=== PATIENT | male | born 1955 | race Caucasian/White ===

== ENCOUNTER → 2018-01-20 17:22 | Outpatient (CLI) | payer OTHER, SELFPAY | PROVIDERS: Family Provider Family Medicine; PCP Family Medicine; Visit Provider Otolaryngology Otolaryngology/Facial Plastic Surgery | DX: J32.9 Chronic sinusitis, unspecified (principal) | CPT/HCPCS: 87070; 87077; 87186; 87205 ==

== ENCOUNTER → 2018-04-21 07:54 | Outpatient (CLI) | payer OTHER, SELFPAY ==
[2018-04-17 10:46] LABS: Absolute Lymphocyte Count 2.55 X10^3/ul (0.83-4.51); Absolute Neutrophil Count 10.5 X10^3/uL (2.0-7.7); Basophil# 0.02 X10^3/uL; Basophil% 0.1 % (0-1); Eosinophil# 0.01 X10^3/uL; Eosinophils% 0.1 % (0-5); Hematocrit 38.6 % (40-54); Hemoglobin 12.5 g/dl (13.0-16.5); Lymphocyte # 2.55 X10^3/ul (4.0); Mean Corp Hgb Conc 32.4 g/gl (32-36); Mean Corpuscular Hgb 27.5 pg (27.0-32.0); Mean Platelet Vol. 9.7 fl (6.2-12.0); Monocyte# 0.85 X10^3/uL; Neutrophil # 10.54 X10^3/uL (2.7-7.7); Neutrophil % 74.2 % (47-70); POSITIVE COUNT NO; POSITIVE DIFFERENTIAL NO; POSITIVE MORPHOLOGY NO; Platelet Count 400 K/mm3 (150-450); Prothrombin Time (Protime)PT. 13.3 SECONDS (11.7-14.9); RBC Distribution Width CV 15.6 % (11.6-14.6); RBC Distribution Width SD 48.2 fl (35.1-43.9); Red Blood Count 4.54 M/mm3 (4.6-6.2); White Blood Count 14.2 K/mm3 (4.4-11.0)
[2018-04-17 10:47] LABS: Partial Thromboplast Time 28.3 Seconds (24.1-36.2)
[2018-04-21] VITALS (9 sets, daily range): BP systolic 120–144; BP diastolic 62–97; PULSE 58–84; RESP 16–18; TEMP 36.2–36.6; O2SAT 95–100; BMI 29.6
[2018-04-21] MEDS: DiphenhydrAMINE 50 MG/ML Syringe 25 MG IV (08:31)
[2018-04-21] MEDS: Acetaminophen 325 MG Tablet 650 MG PO (08:31)
== END ==
PROVIDERS: Family Provider Family Medicine; PCP Family Medicine; Visit Provider Internal Medicine Nephrology
DX: N18.3 Chronic kidney disease, stage 3 (moderate) (principal); I77.6 Arteritis, unspecified; N05.9 Unspecified nephritic syndrome with unspecified morphologic changes
CPT/HCPCS: 96374; 36415; 85025; 85610; 85730; J7040; J7050; J9310; A4216

== ENCOUNTER → 2018-05-06 07:52 | Outpatient (CLI) | payer OTHER, SELFPAY ==
[2018-05-06 08:02] VITALS: BP 106/67; PULSE 82; RESP 18; TEMP 36.3; O2SAT 99; BMI 28.8
[2018-05-06] MEDS: DiphenhydrAMINE 50 MG/ML Syringe 25 MG IV (08:12)
[2018-05-06] MEDS: Acetaminophen 325 MG Tablet 650 MG PO (08:12)
[2018-05-06 09:18] VITALS: BP 128/83; PULSE 59; RESP 18; TEMP 36.2; O2SAT 100
[2018-05-06 09:45] VITALS: BP 138/79; PULSE 53; RESP 18; O2SAT 100
[2018-05-06 10:15] VITALS: BP 145/80; PULSE 80; RESP 18; TEMP 36.3; O2SAT 100
[2018-05-06 11:20] VITALS: BP 170/83; PULSE 64; RESP 16; TEMP 36.3; O2SAT 100
== END ==
PROVIDERS: Family Provider Family Medicine; PCP Family Medicine; Visit Provider Internal Medicine Nephrology
DX: I77.6 Arteritis, unspecified (principal); N05.9 Unspecified nephritic syndrome with unspecified morphologic changes
CPT/HCPCS: 96374; J7040; J7050; J9310; A4216

== ENCOUNTER → 2018-10-13 08:49 | Outpatient (CLI) | payer OTHER, SELFPAY ==
[2018-10-13] MEDS: Acetaminophen 325 MG Tablet 650 MG PO (09:07)
[2018-10-13] MEDS: DiphenhydrAMINE 50 MG/ML Syringe 25 MG IV (09:09)
[2018-10-13 09:19] VITALS: BP 110/62; PULSE 83; RESP 16; TEMP 36.4; O2SAT 98; BMI 32.6
--- OUTSIDE RECORDS SUMMARY | 2018-11-29 04:32 | XMS RPT_ITS ---
:1955 Author Organization OHIP Care Team Providers Name Role Phone ANANT KAUR) Attending Unavailable ANANT KAUR) Referring Unavailable ANATN KAUR) Referring Unavailable ANANT KAUR) Referring Unavailable ANANT KAUR) Attending Unavailable ANANT KAUR) Referring Unavailable ANANT KAUR) Referring Unavailable AANNT KAUR) Referring Unavailable HARLAN CORNEJO Attending Unavailable ANANT KAUR) Referring Unavailable ANANT KAUR) Attending Unavailable ANANT KAUR) Referring Unavailable GRISEL MCKEON Referring Unavailable ANANT KAUR) Referring Unavailable ANANT KAUR) Attending Unavailable ANANT KAUR) Referring Unavailable ANANT KAUR) Referring Unavailable TERESA REGAN ([facility]) Referring Unavailable URIEL STONER Admitting Unavailable LINDA, JAYAPRAKASH Consulting Unavailable PAM GARG Attending Unavailable ANANT KAUR Primary Care Unavailable Yancy TREVINO Admitting Unavailable LINDA, JAYAPRAKASH R Consulting Unavailable SAUL, CHENCHO COLÓN Attending Unavailable Ina, Travis Attending Unavailable Aydin Castellano Primary Care Unavailable Ina, Travis Referring Unavailable Linda, Jayaprakash Attending Unavailable Aydin Castellano Primary Care Unavailable Linda, Jayaprakash Attending Unavailable Linda, Jayaprakash Referring Unavailable Aydin Castellano Primary Care Unavailable Linda, Jayaprakash Attending Unavailable Linda, Jayaprakash Referring Unavailable Aydin Castellano Primary Care Unavailable Linda, Jayaprakash Attending Unavailable Linda, Jayaprakash Referring Unavailable Aydin Castellano Primary Care Unavailable Linda, Jayaprakash Attending Unavailable Linda, Jayaprakash Referring Unavailable Aydin Castellano Primary Care Unavailable PROBLEMS PROBLEMS DATE TYPE CONDITION / CODE ATTENDING STATUS SOURCE 08/10/2018 Active Other 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 term 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 care 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 nurse NA Active [facility] Main therapy / [facility] Z79.899(ICD-10) Repository 04/06/2018 Admitting Unknown / PAM GARG Active [facility]K(Unknown) [facility] Repository 03/11/2018 Active Obstructive sleep NA Active [facility] apnea (adult) Clinic Other (pediatric) / [facility] G47.33(ICD-10) Repository 03/17/2018 Active Other specified NA Active [facility] disorders of [facility] Main kidney and ureter [place] / N28.89(ICD-10) Repository 03/12/2018 Active Unspecified NA Active [facility] abnormal findings Clinic Main in urine / [place] R82.90(ICD-10) Repository 03/11/2018 Active Acute kidney NA Active [facility] failure, Clinic Main unspecified / [place] N17.9(ICD-10) Repository 03/08/2018 Active Abnormal results NA Active [facility] kidney [facility] Main function studies [facility] / R94.4(ICD-10) Repository 02/25/2018 Active Snoring / NA Active [facility] R06.83(ICD-10) Clinic Other [facility] Repository 02/25/2018 Active Somnolence / NA Active [facility] R40.0(ICD-10) Clinic Other [facility] Repository 02/22/2018 Active Other specified NA Active [facility] abnormal findings [facility] [place] blood [facility] chemistry / Repository R79.89(ICD-10) 02/12/2018 Active Other fatigue / NA Active [facility] R53.83(ICD-10) [facility] Repository 02/12/2018 Active Encounter for NA Active [facility] screening for [facility] other viral [facility] diseases / Repository Z11.59(ICD-10) 02/11/2018 Active Unknown / NATASHA, Epi Domin[place]veland UNK(Unknown) ANANT Jim [facility] KAYLI) [facility] Repository PROCEDURES PROCEDURES No Procedure Records FoundRESULTS RESULTS OBSOLETE Observed: 11/16/2018 Status: COMPLETED Source: [place] 12:[address] [facility] REPOS[facility]ORY Refill ([facility]AMPWS) ANGELICA VELAZQUEZ ([id number]) 1955 M [facility] Date Time Provider Department 11/16/18 ANANT KAUR) FAMPWS During your visit today, we recorded the following information about you: Candida Rachel Ma 11/16/2018 2:15 PM Signed Patient has been identified by name and date of : Yes Pending Prescriptions Disp Refills TAMSULOSIN 0.4 MG CAPSULE 90 capsule 1 Sig: Take 1 capsule by mouth daily at bedtime. NIKOLAI: No RX INSTRUCTIONS: Patient aware RX will be sent to pharmacy. No need to notify patient. Candida Rachel Ma Last ov: 08/2018 Last refill: 08/2018 Nov: 01/2019 Pharmacy requesting 90 day supply. Candida Rachel Ma Allergies As of Date: 11/16/2018 Noted Allergy Reaction ALEVE (NAPROXEN SODIUM) 12/23/2011 14 - Other: See Comments Comments: throat tightening ASPIRIN 06/24/2011 14 - Other: See Comments Comments: Swelling of throat IBUPROFEN 11/13/2011 14 - Other: See Comments Date Reviewed: 08/13/2018 Reviewed by: Cinda Elaine Ma - Fully Assessed Reason for Visit: Refill Request [94] Visit Diagnoses:Nocturia [R35.1] BPH with obstruction/lower urinary tract symptoms [N40.1, N13.8] Order(s):tamsulosin ER (FLOMAX) 0.4 mg capTake 1 capsule by mouth daily at bedtime.Disp: 90 capsuleRfl: 1 Prescriptions as of 11/16/2018 Sig: TAMSULOSIN 0.4 MG CAPSULE Take 1 capsule by mouth daily* AMLODIPINE 10 MG TABLET Take 1 tablet by mouth once d* LISINOPRIL 10 MG TABLET Take 1 tablet by mouth once d* CPAP Initiate CPAP @ 6 cm of water* BLOOD SUGAR DIAGNOSTIC STRIPS Test blood sugar(s) 2 times d* BLOOD-GLUCOSE METER KIT Glucose Meter of Choice - Kit* LANCETS Test blood sugar(s) 2 times d* COMPOUNDED PRESCRIPTION Automatic Arm BP Monitor CHOLECALCIFEROL (VITAMIN D3) * Take 1,000 Units by mouth onc* Problem List As Of Date 11/16/2018 Noted Resolved Ulcerative colitis [K51.90] INVALID FOR* Anemia, unspecified [D64.9] INVALID FOR* Ulcerative colitis, unspecified [K51.90] INVALID FOR*02/11/2018 Hypokalemia [E87.6] INVALID FOR* Hypomagnesemia [E83.42] INVALID FOR* Hyponatremia [E87.1] INVALID FOR* S/P ileostomy [Z93.2] Obesity (BMI 30.0-34.9) [E66.9] Hypogonadism male [E29.1] INVALID FOR*03/02/2018 ANNIE (obstructive sleep apnea) [G47.33] Acute kidney injury (HCC) [N17.9] INVALID FOR* 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 Hypertension [I10] Prescriptions ordered this encounter Disp Refills Start End TAMSULOSIN 0.4 MG CAPSULE 90 c* 1 11/16/2018 Route: ORAL Sig: Take 1 capsule by mouth daily at bedtime. Medications Discontinued During This Encounter tamsulosin ER (FLOMAX) 0.4 mg cap 30 c* 5 11/14/2018 11/16/2018 Route: ORAL Sig: Take 1 capsule by mouth daily at bedtime. Disc: Reason for discontinue is not on file. Encounter Status:Closed by ANANT KAUR MD on 11/16/18 PROGRESS Observed: 10/29/2018 Status: COMPLETED Source: [place] 12:[address] [facility] REPOS[facility] HNO ID: [id number] Author: Rachel Laws) Juani Service: (none) Author Type: Registered Nurse Type: Progress Notes Filed: 10/29/2018 12:59 PM Note Text: PRIMARY CARE COORDINATION FOLLOW-UP NOTE Provider Action/FYI ORDERS PENDED FOR AMLODIPINE AND LISINOPRIL SCRIPTS TO [facility] Patient identified by name and date of . YES Spoke to patient Summary: Pt requesting Amlodipine and Lisinopril scripts be sent to [facility] Patient phones requesting refills as follows: Pending Prescriptions Disp Refills AMLODIPINE 10 MG TABLET 90 tablet 3 Sig: Take 1 tablet by mouth once daily. NIKOLAI: No LISINOPRIL 10 MG TABLET 90 tablet 3 Sig: Take 1 tablet by mouth once daily. NIKOLAI: No Please review and advise. Emergency Department Nurse plan for next outreach: No further follow up needed at this time Signature Rachel Gloria RN October 29, 2018 CNPTOUTREACH Observed: 10/29/2018 Status: COMPLETED Source: [place] 12:[address] [facility] RE[facility] Patient Outreach (FAMPWS) MIKA VELAZQUEZ ([id number]) 1955 M Date Time Provider Department 10/29/18 RACHEL GLORIA) CORINNEWS During your visit today, we recorded the following information about you: Rachel Gloria RN 10/29/2018 12:59 PM Signed PRIMARY CARE COORDINATION FOLLOW-UP NOTE Provider Action/FYI ORDERS PENDED FOR AMLODIPINE AND LISINOPRIL SCRIPTS TO [facility] Patient identified by name and date of . YES Spoke to patient Summary: Pt requesting Amlodipine and Lisinopril scripts be sent to [facility] Patient phones requesting refills as follows: Pending Prescriptions Disp Refills AMLODIPINE 10 MG TABLET 90 tablet 3 Sig: Take 1 tablet by mouth once daily. NIKOLAI: No LISINOPRIL 10 MG TABLET 90 tablet 3 Sig: Take 1 tablet by mouth once daily. NIKOLAI: No Please review and advise. Emergency Department Nurse plan for next outreach: No further follow up needed at this time Signature Rachel Gloria RN October 29, 2018 Allergies As of Date: 10/29/2018 Noted Allergy Reaction ALEVE (NAPROXEN SODIUM) 12/23/2011 14 - Other: See Comments Comments: throat tightening ASPIRIN 06/24/2011 14 - Other: See Comments Comments: Swelling of throat IBUPROFEN 11/13/2011 14 - Other: See Comments Date Reviewed: 08/13/2018 Reviewed by: Cinda Elaine Ma - Fully Assessed Reason for Visit: [employer] - Patient Initiated [3614] Visit Diagnosis:Hypertension, essential [I10] Order(s):amLODIPine (NORVASC) 10 mg tabletTake 1 tablet by mouth once daily.Disp: 90 tabletRfl: 3 lisinopril (ZESTRIL, PRINIVIL) 10 mg tabletTake 1 tablet by mouth once daily.Disp: 90 tabletRfl: 3 Prescriptions as of 10/29/2018 Sig: AMLODIPINE 10 MG TABLET Take 1 tablet by mouth once d* BLOOD SUGAR DIAGNOSTIC STRIPS Test blood sugar(s) 2 times d* BLOOD-GLUCOSE METER KIT Glucose Meter of Choice - Kit* CHOLECALCIFEROL (VITAMIN D3) * Take 1,000 Units by mouth onc* COMPOUNDED PRESCRIPTION Automatic Arm BP Monitor CPAP Initiate CPAP @ 6 cm of water* LANCETS Test blood sugar(s) 2 times d* LISINOPRIL 10 MG TABLET Take 1 tablet by mouth once d* TAMSULOSIN 0.4 MG CAPSULE Take 1 capsule by mouth daily* Problem List As Of Date 10/29/2018 Noted Resolved Ulcerative colitis [K51.90] INVALID FOR* Anemia, unspecified [D64.9] INVALID FOR* Ulcerative colitis, unspecified [K51.90] INVALID FOR*02/11/2018 Hypokalemia [E87.6] INVALID FOR* Hypomagnesemia [E83.42] INVALID FOR* Hyponatremia [E87.1] INVALID FOR* S/P ileostomy [Z93.2] Obesity (BMI 30.0-34.9) [E66.9] Hypogonadism male [E29.1] INVALID FOR*03/02/2018 ANNIE (obstructive sleep apnea) [G47.33] Acute kidney injury (HCC) [N17.9] INVALID FOR* 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 Hypertension [I10] Prescriptions ordered this encounter Disp Refills Start End AMLODIPINE 10 MG TABLET 90 t* 3 10/29/2018 Class: [facility] Route: ORAL Sig: Take 1 tablet by mouth once daily. LISINOPRIL 10 MG TABLET 90 t* 3 10/29/2018 Class: [facility] Route: ORAL Sig: Take 1 tablet by mouth once daily. Medications Discontinued During This Encounter amLODIPine (NORVASC) 10 mg tablet 30 t* 3 10/08/2018 10/29/2018 Route: ORAL Sig: Take 1 tablet by mouth once daily. Disc: Reason for discontinue is not on file. lisinopril (ZESTRIL, PRINIVIL) 10 mg* 30 t* 2 08/13/2018 10/29/2018 Route: ORAL Sig: Take 1 tablet by mouth once daily. Disc: Reason for discontinue is not on file. Encounter Status:Closed by HARLAN CORNEJO MD on 10/29/18 PROGRESS Observed: 10/20/2018 Status: COMPLETED Source: [place] 2:[address] [facility] REPOSITORY HNO ID: [id number] Author: Anant Barry) Natasha Service: (none) Author Type: Physician Type: Progress Notes Filed: 10/20/2018 2:27 PM Note Text: Reviewed. PROGRESS Observed: 10/20/2018 Status: COMPLETED Source: [place] 2:[address] [facility] REPOS[facility]ORY HNO ID: [id number] Author: Rachel OrozcoRn) Juani Service: (none) Author Type: Registered Nurse Type: Progress Notes Filed: 10/20/2018 2:15 PM Note Text: PRIMARY CARE COORDINATION DISCHARGE Patient has been identified by name and date of : Yes Patient discharged from Primary Care Coordination: YES Goals met Decreased number of hospital admissions over a 6-12 month period Appointment adherence (PCP and specialists) over 6-12 month period Diagnostic/laboratory/screening adherence over 6-12 month period Patient demonstrates ability to set and achieve healthcare self-management goals Demonstrates engagement through active participation in self-care Goals not met PCP determination Patient knowledgeable and confident in contacting Health Care Providers for questions or concerns: YES Reinforced with patient and/or caregiver that Primary Care Coordination may be reinitiated if a change in status warrants navigation readmission: Address in Future Encounter Discussed with: PCP What was the Focus/Challenges addressed in Care Coordination? Education on Chronic Disease Management Disposition: Follow up with PCP Follow Up with [employer] Care Team Tab - End: YES Rachel Gloria RN CNPTOUTREACH Observed: 10/20/2018 Status: COMPLETED Source: [place] 12:[address] [facility] RE[facility] Patient Outreach (FAMPWS) MIKA VELAZQUEZ ([id number]) 1955 M Date Time Provider Department 10/20/18 RACHEL GLORIA (RN) FAMPWS During your visit today, we recorded the following information about you: Rachel Gloria RN 10/20/2018 2:15 PM Signed PRIMARY CARE COORDINATION DISCHARGE Patient has been identified by name and date of : Yes Patient discharged from Primary Care Coordination: YES Goals met Decreased number of hospital admissions over a 6-12 month period Appointment adherence (PCP and specialists) over 6-12 month period Diagnostic/laboratory/screening adherence over 6-12 month period Patient demonstrates ability to set and achieve healthcare self-management goals Demonstrates engagement through active participation in self-care Goals not met PCP determination Patient knowledgeable and confident in contacting Health Care Providers for questions or concerns: YES Reinforced with patient and/or caregiver that Primary Care Coordination may be reinitiated if a change in status warrants navigation readmission: Address in Future Encounter Discussed with: PCP What was the Focus/Challenges addressed in Care Coordination? Education on Chronic Disease Management Disposition: Follow up with PCP Follow Up with [employer] Care Team Tab - End: YES TONG Contreras MD 10/20/2018 2:27 PM Signed Reviewed. Allergies As of Date: 10/20/2018 Noted Allergy Reaction ALEVE (NAPROXEN SODIUM) 12/23/2011 14 - Other: See Comments Comments: throat tightening ASPIRIN 06/24/2011 14 - Other: See Comments Comments: Swelling of throat IBUPROFEN 11/13/2011 14 - Other: See Comments Date Reviewed: 08/13/2018 Reviewed by: Cinda Elaine Ma - Fully Assessed Reason for Visit: [employer]ockey- Other [7747] Cmt: Discharge from Care Coordination Prescriptions as of 10/20/2018 Sig: AMLODIPINE 10 MG TABLET Take 1 tablet by mouth once d* BLOOD SUGAR DIAGNOSTIC STRIPS Test blood sugar(s) 2 times d* BLOOD-GLUCOSE METER KIT Glucose Meter of Choice - Kit* CHOLECALCIFEROL (VITAMIN D3) * Take 1,000 Units by mouth onc* COMPOUNDED PRESCRIPTION Automatic Arm BP Monitor CPAP Initiate CPAP @ 6 cm of water* LANCETS Test blood sugar(s) 2 times d* LISINOPRIL 10 MG TABLET Take 1 tablet by mouth once d* TAMSULOSIN 0.4 MG CAPSULE Take 1 capsule by mouth daily* Problem List As Of Date 10/20/2018 Noted Resolved Ulcerative colitis [K51.90] INVALID FOR* Anemia, unspecified [D64.9] INVALID FOR* Ulcerative colitis, unspecified [K51.90] INVALID FOR*02/11/2018 Hypokalemia [E87.6] INVALID FOR* Hypomagnesemia [E83.42] INVALID FOR* Hyponatremia [E87.1] INVALID FOR* S/P ileostomy [Z93.2] Obesity (BMI 30.0-34.9) [E66.9] Hypogonadism male [E29.1] INVALID FOR*03/02/2018 ANNIE (obstructive sleep apnea) [G47.33] Acute kidney injury (HCC) [N17.9] INVALID FOR* 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 Hypertension [I10] Encounter Status:Closed by RACHEL GLORIA on 10/20/18 CNNURSE Observed: 08/26/2018 Status: COMPLETED Source: [place] 11:[address] [facility] MI[facility] VELAZQUE[facility] ([id number]) 1955 M Date Time Provider Department 08/26/18 11:00 AM [place] NURSE TERES[facility] During your visit today, we recorded the following information about you: Pulse Blood pressure 76/minute 122/70 Danelle Daniels LPN 08/26/2018 10:58 AM Signed Manual Readin/70 Pulse: 76 Reason for blood pressure check - Last BP elevated and Medication adjustment Patient is: Taking medication as prescribed Yes Took medication today Yes If no, date medication last taken N/A Experiencing side effects No BP was elevated at last appt 08/13/18. Was placed on Lisinopril 10mg daily. Tolerating medication well. Denies any chest pain, shortness of breath, dizziness, or headaches. Daily caffeine use with soda. Past personal history of tobacco use; no current exposure. Alert and oriented. Pt has been identified by name and birthdate: Yes Allergies reviewed: Yes Latex allergy: no. Medication - prescribed and OTC reviewed and updated: Yes Do you need any prescription refills prior to your next visit: No Health Maintenance: Reviewed and not up to date and provider notified Patient advised to continue with current medications and would be contacted with any further instructions after review by PCP. Danelle Daniels LPN Referring Provider: ANANT KAUR) [[id number]] Allergies As of Date: 08/26/2018 Noted Allergy Reaction ALEVE (NAPROXEN SODIUM) 12/23/2011 14 - Other: See Comments Comments: throat tightening ASPIRIN 06/24/2011 14 - Other: See Comments Comments: Swelling of throat IBUPROFEN 11/13/2011 14 - Other: See Comments Date Reviewed: 08/13/2018 Reviewed by: Cinda Elaine Ma - Fully Assessed Reason for Visit: Blood Pressure Check [195] Primary Visit Diagnosis:Hypertension, essential [I10] Prescriptions as of 08/26/2018 Sig: AMLODIPINE 10 MG TABLET Take 1 tablet by mouth once d* TAMSULOSIN 0.4 MG CAPSULE Take 1 capsule by mouth daily* LISINOPRIL 10 MG TABLET Take 1 tablet by mouth once d* CPAP Initiate CPAP @ 6 cm of water* BLOOD SUGAR DIAGNOSTIC STRIPS Test blood sugar(s) 2 times d* BLOOD-GLUCOSE METER KIT Glucose Meter of Choice - Kit* LANCETS Test blood sugar(s) 2 times d* COMPOUNDED PRESCRIPTION Automatic Arm BP Monitor CHOLECALCIFEROL (VITAMIN D3) * Take 1,000 Units by mouth onc* Problem List As Of Date 08/26/2018 Noted Resolved Ulcerative colitis [K51.90] INVALID FOR* Anemia, unspecified [D64.9] INVALID FOR* Ulcerative colitis, unspecified [K51.90] INVALID FOR*02/11/2018 Hypokalemia [E87.6] INVALID FOR* Hypomagnesemia [E83.42] INVALID FOR* Hyponatremia [E87.1] INVALID FOR* S/P ileostomy [Z93.2] Obesity (BMI 30.0-34.9) [E66.9] Hypogonadism male [E29.1] INVALID FOR*03/02/2018 ANNIE (obstructive sleep apnea) [G47.33] Acute kidney injury (HCC) [N17.9] INVALID FOR* 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 Hypertension [I10] Encounter Status:Closed by DANELLE DANIELS LPN on 08/26/18 PROGRESS Observed: 08/26/2018 Status: COMPLETED Source: [place] 10:[address] [facility] REPOSITORY [facility] ID: [id number] Author: Danelle Daniels LPN Service: (none) Author Type: (none) Type: Progress Notes Filed: 08/26/2018 10:58 AM Note Text: Manual Readin/70 Pulse: 76 Reason for blood pressure check - Last BP elevated and Medication adjustment Patient is: Taking medication as prescribed Yes Took medication today Yes If no, date medication last taken N/A Experiencing side effects No BP was elevated at last appt 08/13/18. Was placed on Lisinopril 10mg daily. Tolerating medication well. Denies any chest pain, shortness of breath, dizziness, or headaches. Daily caffeine use with soda. Past personal history of tobacco use; no current exposure. Alert and oriented. Pt has been identified by name and birthdate: Yes Allergies reviewed: Yes Latex allergy: no. Medication - prescribed and OTC reviewed and updated: Yes Do you need any prescription refills prior to your next visit: No Health Maintenance: Reviewed and not up to date and provider notified Patient advised to continue with current medications and would be contacted with any further instructions after review by PCP. Danelle Daniels LPN PROGRESS Observed: 08/13/2018 Status: COMPLETED Source: [place] 11:[address] [facility] RE[facility] HNO ID: [id number] Author: Rachel OrozcoRn) Juani Service: (none) Author Type: Registered Nurse Type: Progress Notes Filed: 08/13/2018 11:46 AM Note Text: PRIMARY CARE COORDINATION IN OFFICE VISIT WITH PCP Patient has been identified by name and date of . PCP Assessment/Plan: Reviewed PCP plan with patient using [facility] Dr. Mckeon's last visit note given to PCP. Last BP from Dr. Mckeon 112/78 Pt is now off steroids PCC Plan of Care: PCC Interventions: TC to Linda's office, asked Ana Laura to fax 's last visit note. Next Office Visit: 08/26/2018 Plan For Next Call: One month Rachel Gloria RN August 13, 2018 PROGRESS Observed: 08/13/2018 Status: COMPLETED Source: [place] 10:[address] [facility] RE[facility] HNO ID: [id number] Author: Cinda Elaine Ma Service: (none) Author Type: (none) Type: Progress Notes Filed: 08/13/2018 1:13 PM Note Text: 62 year old male here for INACTIVATED INFLUENZA VACCINE. [id number] Season Patient is identified by name and date of : Yes [] CONTRAINDICATIONS color enhanced section Age less than 6 months? No Allergy to eggs, chicken, chicken feathers, or chicken dander? No Allergy to thimerosal (a preservative) or formaldehyde, gelatin? No History of severe reaction to any vaccine component or a previous dose of influenza vaccination? No History of Guillain-Woodston Syndrome within 6 weeks after a previous influenza vaccine? No Patient is not moderately or severely ill? No Current temperature greater or equal to 100.4F? No History of Bone Marrow Transplant prior 6 months or solid organ transplant in the past 3 months ? No History of fainting after a prior injection or medical procedure? No- ? If patient has fainted in the past, the CDC recommends sitting or lying down for 15 minutes after the vaccination. [] VERIFICATION color enhanced section Was the answer Yes for any of the above contraindications? No contraindications present. Acceptable to proceed with vaccine. Patient/guardian agrees the above answers are true to the best of their knowledge? Yes Flu vaccine information sheet given? Yes See immunization activity in [facility] for details of immunizations adminstered today. Patient age: [age] year old For The [id number] Flu Season 6-35 months old: Fluzone 0.25 ml - IM (Preservative Free) 3 years of age: Fluzone 0.5 ml - IM (Preservative Free) 3 years and older: Fluzone 0.5 ml- IM-(with Preservatives) 65+ years old: 2-49 years old Fluzone High-Dose 0.5 ml - IM (Preservative Free) FLUMIST- intranasal REMEMBER: If patient is less than 9 years of age and this is the first vaccine of Influenza to be received in any flu season, they should receive a second dose in one months time. CNOV Observed: 08/13/2018 Status: COMPLETED Source: [place] 10:[address] [facility] RE[facility] Office Visit (FAMPWS) MIKA VELAZQUEZ ([id number]) 1955 M Date Time Provider Department 08/13/18 10:40 AM ANANT KAUR) FAMPWS During your visit today, we recorded the following information about you: Temperature Pulse Respiration Blood pressure 97.3 degrees 82/minute 16/minute 128/90 Weight 96.6 kg Anant Kaur MD 08/13/2018 1:13 PM Signed Chief Complaint Patient presents with: F/U 6 Month Imm/Inj: Flu Vaccine HPI Mika Velazquez is a 62 year old male who presents here today for routine follow up. Brought in BP cuff today to verify how he was checking his BP at home and confirm if cuff is accurate as his BP is elevated. Patient is still following up with Dr. Mckeon for Aquilino's granulomatosis. At recent visits they weaned him off of the prednisone and increased his amlodipine to 10 mg. Checked his home BP cuff at their office and was told was accurate. BP uncontrolled today on current dose of amlodipine. Discussed addition of lisinopril with kidney disease and proteinuria. ANNIE: patient is using CPAP nightly. Unable to tell if it is making much difference in symptoms. Thinks that his sleep has been better since he stopped the prednisone. Admits to getting up 3-4 times at night to urinate with weak stream. Denies hematuria, straining, urinary frequency, incomplete emptying. Requesting flu shot today. Past medical history, appointments, medications, allergies reviewed. Previous Medical History PAST MEDICAL HISTORY Diagnosis Date - Anemia - Hypertension - Obesity (BMI 30.0-34.9) - ANNIE (obstructive sleep apnea) - Renal cyst right, repeat US 09/2018 - S/P ileostomy ([facility]) 2011 - Snoring - ulcerative colitis 2010 Dr. Sandoval, pouchoscopy every 1-2 years - Aquilino's granulomatosis ([facility]) Dr. Mckeon Previous Surgical History PAST SURGICAL HISTORY Procedure Laterality Date - COLONOSCOP W/ OR W/O BRS SPEC 07/02/2011 Colonoscopy - ILEOSTOMY 2011 - PICC LINE INSERT/CONSULT 07/03/2012 - SIGMOIDOS FLEX DIAG W/BX SING/MUL 01/22/12 Family History FAMILY HISTORY Problem Relation Age of Onset - Cancer Mother unknown? lung? - Hypertension Father - None Sister heart murmur - None Brother - None Brother - None Brother - Alzheimer's Disease Maternal Grandfather - None Maternal Grandmother - None Paternal Grandmother - None Paternal Grandfather - None Son - None Son Patient Allergies ALLERGIES Allergen Reactions - Aleve [Naproxen Sod* Other: See Comments throat tightening - Aspirin Other: See Comments Swelling of throat - Ibuprofen Other: See Comments Current Medications Current Outpatient Prescriptions on File Prior to Visit: amLODIPine (NORVASC) 5 mg tablet Take 1 tablet by mouth once daily. predniSONE (DELTASONE) 20 mg tablet Take 3 tablets by mouth once daily. CPAP Initiate CPAP @ 6 cm of water with humidification. Mask (per patient preference) optional chin strap (if indicated) , filters, tubing, humidifier and lifetime supplies. blood sugar diagnostic (BLOOD GLUCOSE TEST) test strip Test blood sugar(s) 2 times daily. Dx: Other DM Code Z79.52 and M31.31 Insulin: No Blood-Glucose Meter monitoring kit Glucose Meter of Choice - Kit - Dx: Other DM Code Z79.52 and M31.31 Lancets lancets Test blood sugar(s) 2 times daily. Dx: Other DM Code Z79.52 and M31.31 Insulin: No COMPOUNDED PRESCRIPTION Automatic Arm BP Monitor cholecalciferol (VITAMIN D) 1,000 unit tab tablet Take 1,000 Units by mouth once daily. No current facility-administered medications on file prior to visit. 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, [employer]* Social History Main Topics Smoking status: Former Smoker Packs/day: 2.00 Years: 30.00 Types: Cigarettes Quit date: 06/24/2001 Smokeless tobacco: Never Used Alcohol use: No Drug use: No Sexual activity: Yes Partners with: Female control/protection: None Review of Symptoms REVIEW OF SYSTEMS GENERAL: No weight loss, malaise or fevers RESPIRATORY: Negative for cough, hemoptysis, wheezing, COPD, dyspnea or shortness of breath CARDIOVASCULAR: Negative for chest pain, leg swelling, hypertension, CHF or palpitations GI: No nausea, vomiting, or diarrhea SKIN: Negative for lesions, rash, and itching EXAM: BP 144/88 Pulse 80 Temp 36.3 ?C (97.3 ?F) (Tympanic) Resp 16 Wt 96.6 kg (213 lb) BMI 32.39 kg/m? General Appearance: Well appearing, alert, in no acute distress, well-hydrated, well nourished.. Skin: Skin color, texture, turgor normal, no suspicious rashes or lesions. Lungs: Lungs clear to auscultation. No wheezing, rhonchi, rales. Heart: RRR without murmur, gallop, or rubs. No ectopy. Abdomen: Normal abdominal exam, Abdomen soft, non-tender. Bowel sounds normal. No masses, organomegaly. Extremities: No deformities, edema, skin discoloration, clubbing or cyanosis. Good capillary refill. . Rectal: fleshy external hemorrhoids. No fissures. Prostate 2+, mild TTP. Health Maintenance List BP CONTROLLED (<130/80) due on 1972 DTAP,TDAP,TD(1 - Tdap) due on 1973 LUNG CANCER SCREENING due on 2009 COLORECTAL CANCER SCREENING,SEE MODIFIER due on 10/06/2014 INFLUENZA(1) due on 07/03/2018 ANNUAL PCP TEAM CHRONIC DISEASE VISIT due on 05/07/2019 DIABETES SCREEN due on 08/10/2021 LIPID SCREEN due on 02/12/2023 PROSTATE CANCER SCREENING DISCUSSION Completed HEPATITIS C SCREENING Completed Data reviewed Component Latest Ref Rng AND Units 06/24/2018 07/22/2018 08/10/2018 WBC 3.70 - 11.00 k/uL 7.90 RBC 4.20 - 6.00 m/uL 4.32 Hemoglobin 13.0 - 17.0 g/dL 12.5 (L) Hematocrit 39.0 - 51.0 % 40.1 MCV 80.0 - 100.0 fL 92.8 MCH 26.0 - 34.0 pG 28.9 MCHC 30.5 - 36.0 g/dL 31.2 RDW-CV 11.5 - 15.0 % 18.7 (H) Platelet Count 150 - 400 k/uL 258 MPV 9.0 - 12.7 fL 9.8 Neut% % 77.3 Abs Neut (ANC) 1.45 - 7.50 k/uL 6.11 Lymph% % 6.4 Abs Lymph 1.00 - 4.00 k/uL 0.51 (L) [place]% % 3.6 Abs [place] <0.87 k/uL 0.28 Eosin% % 0.0 Abs Eosin <0.46 k/uL 0.00 Baso% % 0.0 Abs Baso <0.11 k/uL 0.00 NRBC 0 /100 WBC 1 (H) [place]% % 3.6 Myelo% % 9.1 Anisocytosis Present Left Shift Present Ovalocytes Few Polychromasia Slight Platelet Estimate Platelet estimate adequate Diff Type Manual Diff Albumin 3.9 - 4.9 g/dL 3.6 (L) Calcium 8.5 - 10.2 mg/dL 10.3 (H) 9.5 Phosphorus 2.7 - 4.8 mg/dL 3.6 Glucose 74 - 99 mg/dL 88 95 BUN 9 - 24 mg/dL 37 (H) 23 Creatinine 0.73 - 1.22 mg/dL 2.22 (H) 1.79 (H) Sodium 136 - 144 mmol/L 140 143 Potassium 3.7 - 5.1 mmol/L 4.4 4.1 Chloride 97 - 105 mmol/L 99 104 CO2 22 - 30 mmol/L 27 23 Anion Gap 9 - 18 mmol/L 14 16 eGFR- 36 47 eGFR-All Other Races . 30 39 Protein, Urine Random 0 - 20 mg/dL 55 (H) Creatinine, Ur Random (UCRR) 20 - 300 mg/dL 109.2 88.9 Protein/Creat Ratio <0.2 0.5 (H) Albumin, Urine Random 0.0 - 23.0 mg/L 247.7 (H) Albumin/Creat Ratio 0 - 30 mg/g 279 (H) Hemoglobin A1C 4.3 - 5.6 % 5.0 Estimated Average Glucose mg/dL 97 ASSESSMENT/PLAN: 1. 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 Has follow up appointment with Dr. Mckeon next month. Will obtain most recent records from their office. 2. ANNIE (obstructive sleep apnea) - ICD9: 327.23, ICD10: G47.33 Continue CPAP nightly. 3. Obesity (BMI 30.0-34.9) - ICD9: 278.00, ICD10: E66.9 Improved diet and exercise. 4. 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 To call if symptoms not improving in 2 weeks. - TAMSULOSIN 0.4 MG CAPSULE - TAMSULOSIN 0.4 MG CAPSULE 5. Nocturia - ICD9: 788.43, ICD10: R35.1 See above. - TAMSULOSIN 0.4 MG CAPSULE - TAMSULOSIN 0.4 MG CAPSULE 6. Hypertension, essential - ICD9: 401.9, ICD10: I10 - poor control - Continue current medication(s) - Add lisinopril (Zestril/Prinivil) - Encouraged dietary sodium restriction/DASH diet - Recommended regular aerobic exercise. - Reviewed risks of HTN and principles of treatment - Goal of BP <140/90 - AMLODIPINE 10 MG TABLET - LISINOPRIL 10 MG TABLET 7. Need for vaccination - ICD9: V05.9, ICD10: Z23 - INFLUENZA VACCINE QUADRIVALENT AGE 3 YRS PLUS + IM MD Cinda Lloyd Ma 08/13/2018 1:13 PM Signed 62 year old male here for INACTIVATED INFLUENZA VACCINE. [id number] Season Patient is identified by name and date of : Yes [] CONTRAINDICATIONS color enhanced section Age less than 6 months? No Allergy to eggs, chicken, chicken feathers, or chicken dander? No Allergy to thimerosal (a preservative) or formaldehyde, gelatin? No History of severe reaction to any vaccine component or a previous dose of influenza vaccination? No History of Guillain-Woodston Syndrome within 6 weeks after a previous influenza vaccine? No Patient is not moderately or severely ill? No Current temperature greater or equal to 100.4F? No History of Bone Marrow Transplant prior 6 months or solid organ transplant in the past 3 months ? No History of fainting after a prior injection or medical procedure? No- ? If patient has fainted in the past, the CDC recommends sitting or lying down for 15 minutes after the vaccination. [] VERIFICATION color enhanced section Was the answer Yes for any of the above contraindications? No contraindications present. Acceptable to proceed with vaccine. Patient/guardian agrees the above answers are true to the best of their knowledge? Yes Flu vaccine information sheet given? Yes See immunization activity in [facility] for details of immunizations adminstered today. Patient age: [age] year old For The 6334-3404 Flu Season 6-35 months old: Fluzone 0.25 ml - IM (Preservative Free) 3 years of age: Fluzone 0.5 ml - IM (Preservative Free) 3 years and older: Fluzone 0.5 ml- IM-(with Preservatives) 65+ years old: 2-49 years old Fluzone High-Dose 0.5 ml - IM (Preservative Free) FLUMIST- intranasal REMEMBER: If patient is less than 9 years of age and this is the first vaccine of Influenza to be received in any flu season, they should receive a second dose in one months time. Cidna Elaine Ma 08/13/2018 10:46 AM Signed 08/13/2018: Home BP Cuff Validated. Home BP: 134/95 Office BP: 144/88 Cinda Elaine Ma 08/13/2018 11:19 AM Signed BP rodger Average : 137/91 HR 83 BP w/Orthostatic Vitals BP Pulse 08/13/18 1119Date and Time 128/90 82 08/13/18 1118 130/90 82 08/13/18 1117 140/93 82 08/13/18 1114 146/90 90 08/13/18 1041 144/88 80 Referring Provider: SELF [200] Allergies As of Date: 08/13/2018 Noted Allergy Reaction ALEVE (NAPROXEN SODIUM) 12/23/2011 14 - Other: See Comments Comments: throat tightening ASPIRIN 06/24/2011 14 - Other: See Comments Comments: Swelling of throat IBUPROFEN 11/13/2011 14 - Other: See Comments Date Reviewed: 08/13/2018 Reviewed by: Cinda Elaine Ma - Fully Assessed Reason for Visit: F/U 6 Month [444] Imm/Inj [58] Cmt: Flu Vaccine Reason For Visit History Recorded Primary Visit Diagnosis:Aquilino's granulomatosis (HCC) [M31.30] Other Visit Diagnoses:ANNIE (obstructive sleep apnea) [G47.33] Obesity (BMI 30.0-34.9) [E66.9] BPH with obstruction/lower urinary tract symptoms [N40.1, N13.8] Nocturia [R35.1] Hypertension, essential [I10] Need for vaccination [Z23] Order(s):INFLUENZA VACCINE QUADRIVALENT AGE 3 YRS PLUS + IM [[id number]] Order #: [id number] amLODIPine (NORVASC) 10 mg tabletTake 1 tablet by mouth once daily.Disp: Rfl: tamsulosin ER (FLOMAX) 0.4 mg capTake 1 capsule by mouth daily at bedtime.Disp: 30 capsuleRfl: 5 lisinopril (ZESTRIL, PRINIVIL) 10 mg tabletTake 1 tablet by mouth once daily.Disp: 30 tabletRfl: 2 Prescriptions as of 08/13/2018 Sig: AMLODIPINE 10 MG TABLET Take 1 tablet by mouth once d* CHOLECALCIFEROL (VITAMIN D3) * Take 1,000 Units by mouth onc* TAMSULOSIN 0.4 MG CAPSULE Take 1 capsule by mouth daily* LISINOPRIL 10 MG TABLET Take 1 tablet by mouth once d* CPAP Initiate CPAP @ 6 cm of water* BLOOD SUGAR DIAGNOSTIC STRIPS Test blood sugar(s) 2 times d* BLOOD-GLUCOSE METER KIT Glucose Meter of Choice - Kit* LANCETS Test blood sugar(s) 2 times d* COMPOUNDED PRESCRIPTION Automatic Arm BP Monitor Problem List As Of Date 08/13/2018 Noted Resolved Ulcerative colitis [K51.90] INVALID FOR* Anemia, unspecified [D64.9] INVALID FOR* Ulcerative colitis, unspecified [K51.90] INVALID FOR*02/11/2018 Hypokalemia [E87.6] INVALID FOR* Hypomagnesemia [E83.42] INVALID FOR* Hyponatremia [E87.1] INVALID FOR* S/P ileostomy [Z93.2] Obesity (BMI 30.0-34.9) [E66.9] Hypogonadism male [E29.1] INVALID FOR*03/02/2018 ANNIE (obstructive sleep apnea) [G47.33] Acute kidney injury (HCC) [N17.9] INVALID FOR* 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 Hypertension [I10] Visit Notes: >> Cinda Elaine Ma ThuAug 13, 2018 10:45 AM Status: Signed 08/13/2018: Home BP Cuff Validated. Home BP: 134/95 Office BP: 144/88 >> Cinda Elaine Ma ThuAug 13, 2018 11:17 AM Status: Signed BP rodger Average : 137/91 HR 83 BP w/Orthostatic Vitals BP Pulse 08/13/18 1119Date and Time 128/90 82 08/13/18 1118 130/90 82 08/13/18 1117 140/93 82 08/13/18 1114 146/90 90 08/13/18 1041 144/88 80 Prescriptions ordered this encounter Disp Refills Start End AMLODIPINE 10 MG TABLET 08/13/2018 Class: Med Update Route: ORAL Sig: Take 1 tablet by mouth once daily. TAMSULOSIN 0.4 MG CAPSULE 30 c* 5 08/13/2018 08/13/2018 Route: ORAL Sig: Take 1 capsule by mouth daily at bedtime. TAMSULOSIN 0.4 MG CAPSULE 30 c* 5 08/13/2018 Route: ORAL Sig: Take 1 capsule by mouth daily at bedtime. LISINOPRIL 10 MG TABLET 30 t* 2 08/13/2018 Route: ORAL Sig: Take 1 tablet by mouth once daily. Medications Discontinued During This Encounter predniSONE (DELTASONE) 20 mg tablet 05/17/2018 08/13/2018 Class: Med Update Route: ORAL Sig: Take 3 tablets by mouth once daily. Disc: Reason for discontinue is not on file. amLODIPine (NORVASC) 5 mg tablet 30 t* 2 06/14/2018 08/13/2018 Route: ORAL Sig: Take 1 tablet by mouth once daily. Disc: Reason for discontinue is not on file. tamsulosin ER (FLOMAX) 0.4 mg cap 30 c* 5 08/13/2018 08/13/2018 Route: ORAL Sig: Take 1 capsule by mouth daily at bedtime. Disc: Reason for discontinue is not on file. Disposition: Return in about 6 months (around 02/11/2019). LOS history recorded Follow-up and Disposition History Recorded Encounter Status:Closed by ANANT KAUR MD on 08/13/18 PROGRESS Observed: 08/13/2018 Status: COMPLETED Source: [place] 10:[address] [facility] [place] REPOSITORY HNO ID: [id number] Author: Anant Barry) Natasha Service: (none) Author Type: Physician Type: Progress Notes Filed: 08/13/2018 1:13 PM Note Text: Chief Complaint Patient presents with: F/U 6 Month Imm/Inj: Flu Vaccine HPI Mika Velazquez is a 62 year old male who presents here today for routine follow up. Brought in BP cuff today to verify how he was checking his BP at home and confirm if cuff is accurate as his BP is elevated. Patient is still following up with Dr. Mckeon for Aquilino's granulomatosis. At recent visits they weaned him off of the prednisone and increased his amlodipine to 10 mg. Checked his home BP cuff at their office and was told was accurate. BP uncontrolled today on current dose of amlodipine. Discussed addition of lisinopril with kidney disease and proteinuria. ANNIE: patient is using CPAP nightly. Unable to tell if it is making much difference in symptoms. Thinks that his sleep has been better since he stopped the prednisone. Admits to getting up 3-4 times at night to urinate with weak stream. Denies hematuria, straining, urinary frequency, incomplete emptying. Requesting flu shot today. Past medical history, appointments, medications, allergies reviewed. Previous Medical History PAST MEDICAL HISTORY Diagnosis Date - Anemia - Hypertension - Obesity (BMI 30.0-34.9) - ANNIE (obstructive sleep apnea) - Renal cyst right, repeat US 09/2018 - S/P ileostomy ([facility]) 2011 - Snoring - ulcerative colitis 2010 Dr. Sandoval, pouchoscopy every 1-2 years - Aquilino's granulomatosis ([facility]) Dr. Mckeon Previous Surgical History PAST SURGICAL HISTORY Procedure Laterality Date - COLONOSCOP W/ OR W/O [facility] SPEC 07/02/2011 Colonoscopy - ILEOSTOMY 2011 - PICC LINE INSERT/CONSULT 07/03/2012 - SIGMOIDOS FLEX DIAG W/BX SING/MUL 01/22/12 Family History FAMILY HISTORY Problem Relation Age of Onset - Cancer Mother unknown? lung? - Hypertension Father - None Sister heart murmur - None Brother - None Brother - None Brother - Alzheimer's Disease Maternal Grandfather - None Maternal Grandmother - None Paternal Grandmother - None Paternal Grandfather - None Son - None Son Patient Allergies ALLERGIES Allergen Reactions - Aleve [Naproxen Sod* Other: See Comments throat tightening - Aspirin Other: See Comments Swelling of throat - Ibuprofen Other: See Comments Current Medications Current Outpatient Prescriptions on File Prior to Visit: amLODIPine (NORVASC) 5 mg tablet Take 1 tablet by mouth once daily. predniSONE (DELTASONE) 20 mg tablet Take 3 tablets by mouth once daily. CPAP Initiate CPAP @ 6 cm of water with humidification. Mask (per patient preference) optional chin strap (if indicated) , filters, tubing, humidifier and lifetime supplies. blood sugar diagnostic (BLOOD GLUCOSE TEST) test strip Test blood sugar(s) 2 times daily. Dx: Other DM Code Z79.52 and M31.31 Insulin: No Blood-Glucose Meter monitoring kit Glucose Meter of Choice - Kit - Dx: Other DM Code Z79.52 and M31.31 Lancets lancets Test blood sugar(s) 2 times daily. Dx: Other DM Code Z79.52 and M31.31 Insulin: No COMPOUNDED PRESCRIPTION Automatic Arm BP Monitor cholecalciferol (VITAMIN D) 1,000 unit tab tablet Take 1,000 Units by mouth once daily. No current facility-administered medications on file prior to visit. 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, [employer]* Social History Main Topics Smoking status: Former Smoker Packs/day: 2.00 Years: 30.00 Types: Cigarettes Quit date: 06/24/2001 Smokeless tobacco: Never Used Alcohol use: No Drug use: No Sexual activity: Yes Partners with: Female control/protection: None Review of Symptoms REVIEW OF SYSTEMS GENERAL: No weight loss, malaise or fevers RESPIRATORY: Negative for cough, hemoptysis, wheezing, COPD, dyspnea or shortness of breath CARDIOVASCULAR: Negative for chest pain, leg swelling, hypertension, CHF or palpitations GI: No nausea, vomiting, or diarrhea SKIN: Negative for lesions, rash, and itching EXAM: BP 144/88 Pulse 80 Temp 36.3 ?C (97.3 ?F) (Tympanic) Resp 16 Wt 96.6 kg (213 lb) BMI 32.39 kg/m? General Appearance: Well appearing, alert, in no acute distress, well-hydrated, well nourished.. Skin: Skin color, texture, turgor normal, no suspicious rashes or lesions. Lungs: Lungs clear to auscultation. No wheezing, rhonchi, rales. Heart: RRR without murmur, gallop, or rubs. No ectopy. Abdomen: Normal abdominal exam, Abdomen soft, non-tender. Bowel sounds normal. No masses, organomegaly. Extremities: No deformities, edema, skin discoloration, clubbing or cyanosis. Good capillary refill. . Rectal: fleshy external hemorrhoids. No fissures. Prostate 2+, mild TTP. Health Maintenance List BP CONTROLLED (<130/80) due on 1972 DTAP,TDAP,TD(1 - Tdap) due on 1973 LUNG CANCER SCREENING due on 2009 COLORECTAL CANCER SCREENING,SEE MODIFIER due on 10/06/2014 INFLUENZA(1) due on 07/03/2018 ANNUAL PCP TEAM CHRONIC DISEASE VISIT due on 05/07/2019 DIABETES SCREEN due on 08/10/2021 LIPID SCREEN due on 02/12/2023 PROSTATE CANCER SCREENING DISCUSSION Completed HEPATITIS C SCREENING Completed Data reviewed Component Latest Ref Rng AND Units 06/24/2018 07/22/2018 08/10/2018 WBC 3.70 - 11.00 k/uL 7.90 RBC 4.20 - 6.00 m/uL 4.32 Hemoglobin 13.0 - 17.0 g/dL 12.5 (L) Hematocrit 39.0 - 51.0 % 40.1 MCV 80.0 - 100.0 fL 92.8 MCH 26.0 - 34.0 pG 28.9 MCHC 30.5 - 36.0 g/dL 31.2 RDW-CV 11.5 - 15.0 % 18.7 (H) Platelet Count 150 - 400 k/uL 258 MPV 9.0 - 12.7 fL 9.8 Neut% % 77.3 Abs Neut (ANC) 1.45 - 7.50 k/uL 6.11 Lymph% % 6.4 Abs Lymph 1.00 - 4.00 k/uL 0.51 (L) [place]% % 3.6 Abs [place] <0.87 k/uL 0.28 Eosin% % 0.0 Abs Eosin <0.46 k/uL 0.00 Baso% % 0.0 Abs Baso <0.11 k/uL 0.00 NRBC 0 /100 WBC 1 (H) [place]% % 3.6 Myelo% % 9.1 Anisocytosis Present Left Shift Present Ovalocytes Few Polychromasia Slight Platelet Estimate Platelet estimate adequate Diff Type Manual Diff Albumin 3.9 - 4.9 g/dL 3.6 (L) Calcium 8.5 - 10.2 mg/dL 10.3 (H) 9.5 Phosphorus 2.7 - 4.8 mg/dL 3.6 Glucose 74 - 99 mg/dL 88 95 BUN 9 - 24 mg/dL 37 (H) 23 Creatinine 0.73 - 1.22 mg/dL 2.22 (H) 1.79 (H) Sodium 136 - 144 mmol/L 140 143 Potassium 3.7 - 5.1 mmol/L 4.4 4.1 Chloride 97 - 105 mmol/L 99 104 CO2 22 - 30 mmol/L 27 23 Anion Gap 9 - 18 mmol/L 14 16 eGFR- 36 47 eGFR-All Other Races . 30 39 Protein, Urine Random 0 - 20 mg/dL 55 (H) Creatinine, Ur Random (UCRR) 20 - 300 mg/dL 109.2 88.9 Protein/Creat Ratio <0.2 0.5 (H) Albumin, Urine Random 0.0 - 23.0 mg/L 247.7 (H) Albumin/Creat Ratio 0 - 30 mg/g 279 (H) Hemoglobin A1C 4.3 - 5.6 % 5.0 Estimated Average Glucose mg/dL 97 ASSESSMENT/PLAN: 1. 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 Has follow up appointment with Dr. Mckeon next month. Will obtain most recent records from their office. 2. ANNIE (obstructive sleep apnea) - ICD9: 327.23, ICD10: G47.33 Continue CPAP nightly. 3. Obesity (BMI 30.0-34.9) - ICD9: 278.00, ICD10: E66.9 Improved diet and exercise. 4. 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 To call if symptoms not improving in 2 weeks. - TAMSULOSIN 0.4 MG CAPSULE - TAMSULOSIN 0.4 MG CAPSULE 5. Nocturia - ICD9: 788.43, ICD10: R35.1 See above. - TAMSULOSIN 0.4 MG CAPSULE - TAMSULOSIN 0.4 MG CAPSULE 6. Hypertension, essential - ICD9: 401.9, ICD10: I10 - poor control - Continue current medication(s) - Add lisinopril (Zestril/Prinivil) - Encouraged dietary sodium restriction/DASH diet - Recommended regular aerobic exercise. - Reviewed risks of HTN and principles of treatment - Goal of BP <140/90 - AMLODIPINE 10 MG TABLET - LISINOPRIL 10 MG TABLET 7. Need for vaccination - ICD9: V05.9, ICD10: Z23 - INFLUENZA VACCINE QUADRIVALENT AGE 3 YRS PLUS + IM [facility] Observed: 08/13/2018 Status: COMPLETED Source: [place] 12:[address] [facility] REPOSITORY Patient Outreach ([facility]) MIKA VELAZQUEZ ([id number]) 1955 M Date Time Provider Department 08/13/18 RACHEL GLORIA (RN) [facility] During your visit today, we recorded the following information about you: Rachel Gloria RN 08/13/2018 11:46 AM Signed PRIMARY CARE COORDINATION IN OFFICE VISIT WITH PCP Patient has been identified by name and date of . PCP Assessment/Plan: Reviewed PCP plan with patient using [facility] Dr. Mckeon's last visit note given to PCP. Last BP from Dr. Mckeon 112/78 Pt is now off steroids PCC Plan of Care: PCC Interventions: TC to Linda's office, asked Ana Laura to fax 's last visit note. 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 Visit [4194] Prescriptions as of 08/13/2018 Sig: AMLODIPINE 10 MG TABLET Take 1 tablet by mouth once d* TAMSULOSIN 0.4 MG CAPSULE Take 1 capsule by mouth daily* LISINOPRIL 10 MG TABLET Take 1 tablet by mouth once d* CPAP Initiate CPAP @ 6 cm of water* BLOOD SUGAR DIAGNOSTIC STRIPS Test blood sugar(s) 2 times d* BLOOD-GLUCOSE METER KIT Glucose Meter of Choice - Kit* LANCETS Test blood sugar(s) 2 times d* COMPOUNDED PRESCRIPTION Automatic Arm BP Monitor CHOLECALCIFEROL (VITAMIN D3) * Take 1,000 Units by mouth onc* Problem List As Of Date 08/13/2018 Noted Resolved Ulcerative colitis [K51.90] INVALID FOR* Anemia, unspecified [D64.9] INVALID FOR* Ulcerative colitis, unspecified [K51.90] INVALID FOR*02/11/2018 Hypokalemia [E87.6] INVALID FOR* Hypomagnesemia [E83.42] INVALID FOR* Hyponatremia [E87.1] INVALID FOR* S/P ileostomy [Z93.2] Obesity (BMI 30.0-34.9) [E66.9] Hypogonadism male [E29.1] INVALID FOR*03/02/2018 ANNIE (obstructive sleep apnea) [G47.33] Acute kidney injury (HCC) [N17.9] INVALID FOR* 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 Hypertension [I10] Encounter Status:Closed by RACHEL GLORIA on 08/13/18 HEMOGLOBIN A1C Collected: 08/10/2018 Status: F Source: [place] 12:[address] [facility] REPOSITORY TYPE CODE TESTS RESULT OUT OF REFERENCE UNITS RANGE LAB HGBA1C 4.3-5.6 % Hemoglobin A1c 5.0 LAB HBA0 mg/dL Est. Average Glucose 97 Result Comment: eAG: (Estimated average glucose) is a calculated value from HgbA1c and is resources representative of the average blood glucose level in the last 2-3 month period. Performed By: #### HBA1C #### [facility] [address] [place], [place] [address] CNPTOUTREACH Observed: 07/27/2018 Status: COMPLETED Source: [place] 12:[address] [facility] REPOSITORY Patient Outreach ([facility]) MIKA VELAZQUEZ ([id number]) 1955 M Date Time Provider Department 07/27/18 ANANT KAUR) [facility] During your visit today, we recorded the following information about you: Allergies As of Date: 07/27/2018 Noted Allergy Reaction ALEVE (NAPROXEN SODIUM) 12/23/2011 14 - Other: See Comments Comments: throat tightening ASPIRIN 06/24/2011 14 - Other: See Comments Comments: Swelling of throat IBUPROFEN 11/13/2011 14 - Other: See Comments Date Reviewed: 05/07/2018 Reviewed by: Cinda Elaine Ma - Fully Assessed Visit Diagnosis:Medication management [Z79.899] Order(s):HGB A1C [[id number]] Order #: [id number] FUTURE Prescriptions as of 07/27/2018 Sig: X AMLODIPINE 5 MG TABLET Take 1 tablet by mouth once d* X PREDNISONE 20 MG TABLET Take 3 tablets by mouth once * CPAP Initiate CPAP @ 6 cm of water* BLOOD SUGAR DIAGNOSTIC STRIPS Test blood sugar(s) 2 times d* BLOOD-GLUCOSE METER KIT Glucose Meter of Choice - Kit* LANCETS Test blood sugar(s) 2 times d* COMPOUNDED PRESCRIPTION Automatic Arm BP Monitor CHOLECALCIFEROL (VITAMIN D3) * Take 1,000 Units by mouth onc* Problem List As Of Date 07/27/2018 Noted Resolved Ulcerative colitis [K51.90] INVALID FOR* Anemia, unspecified [D64.9] INVALID FOR* Ulcerative colitis, unspecified [K51.90] INVALID FOR*02/11/2018 Hypokalemia [E87.6] INVALID FOR* Hypomagnesemia [E83.42] INVALID FOR* Hyponatremia [E87.1] INVALID FOR* S/P ileostomy [Z93.2] Obesity (BMI 30.0-34.9) [E66.9] Hypogonadism male [E29.1] INVALID FOR*03/02/2018 ANNIE (obstructive sleep apnea) [G47.33] Acute kidney injury (HCC) [N17.9] INVALID FOR* 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 Encounter Status:Closed by JAHAIRA TEMPLETON on 08/27/18 PROGRESS Observed: 07/07/2018 Status: COMPLETED Source: [place] 9:[address] [facility] REPOSITORY HNO ID: [id number] Author: Rachel (Tong) Juani Service: (none) Author Type: Registered Nurse Type: Progress Notes Filed: 07/07/2018 9:13 AM Note Text: PRIMARY CARE COORDINATION QUICK NOTE Provider Action/FYI FYI Patient identified by name and date . Left message for Dr. Mckeon's nurse, Stanton, asking if patient brought in his BP monitor to 06/29 appointment and if they were able to check patient's technique for taking BP. If not we are going to have pt come in for a nurse visit to check technique since he is still getting readings routinely of diastolic over 100. Please call PCC back. Rachel Gloria RN July 07, 2018 9:13 AM CNPTOUTREACH Observed: 07/07/2018 Status: COMPLETED Source: [place] 12:[address] [facility] REPOSITORY Patient Outreach (FAMPWS) MIKA VELAZQUEZ ([id number]) 1955 M Date Time Provider Department 07/07/18 RACHEL GLORIA) [facility] During your visit today, we recorded the following information about you: Rachel Gloria RN 07/07/2018 9:13 AM Signed PRIMARY CARE COORDINATION QUICK NOTE Provider Action/FYI FYI Patient identified by name and date . Left message for Dr. Mckeon's nurse, Stanton, asking if patient brought in his BP monitor to 06/29 appointment and if they were able to check patient's technique for taking BP. If not we are going to have pt come in for a nurse visit to check technique since he is still getting readings routinely of diastolic over 100. Please call PCC back. Rachel Gloria RN July 07, 2018 9:13 AM Allergies As of Date: 07/07/2018 Noted Allergy Reaction ALEVE (NAPROXEN SODIUM) 12/23/2011 14 - Other: See Comments Comments: throat tightening ASPIRIN 06/24/2011 14 - Other: See Comments Comments: Swelling of throat IBUPROFEN 11/13/2011 14 - Other: See Comments Date Reviewed: 05/07/2018 Reviewed by: Cinda Elaine Ma - Fully Assessed Reason for Visit: [facility] [[id number]] Prescriptions as of 07/07/2018 Sig: AMLODIPINE 5 MG TABLET Take 1 tablet by mouth once d* PREDNISONE 20 MG TABLET Take 3 tablets by mouth once * CPAP Initiate CPAP @ 6 cm of water* BLOOD SUGAR DIAGNOSTIC STRIPS Test blood sugar(s) 2 times d* BLOOD-GLUCOSE METER KIT Glucose Meter of Choice - Kit* LANCETS Test blood sugar(s) 2 times d* COMPOUNDED PRESCRIPTION Automatic Arm BP Monitor CHOLECALCIFEROL (VITAMIN D3) * Take 1,000 Units by mouth onc* Problem List As Of Date 07/07/2018 Noted Resolved Ulcerative colitis [K51.90] INVALID FOR* Anemia, unspecified [D64.9] INVALID FOR* Ulcerative colitis, unspecified [K51.90] INVALID FOR*02/11/2018 Hypokalemia [E87.6] INVALID FOR* Hypomagnesemia [E83.42] INVALID FOR* Hyponatremia [E87.1] INVALID FOR* S/P ileostomy [Z93.2] Obesity (BMI 30.0-34.9) [E66.9] Hypogonadism male [E29.1] INVALID FOR*03/02/2018 ANNIE (obstructive sleep apnea) [G47.33] Acute kidney injury (HCC) [N17.9] INVALID FOR* 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 Encounter Status:Closed by RACHEL GLORIA on 07/23/18 PROGRESS Observed: 07/02/2018 Status: COMPLETED Source: [place] 2:[address] [facility] REPOSITORY HNO ID: [id number] Author: Anant Kaur Service: (none) Author Type: Physician Type: Progress Notes Filed: 07/02/2018 2:40 PM Note Text: Sugars look better. Obtain records from Dr. Mckeon's office to see if he brought in cuff at last appointment. If not, schedule NV to observe him checking BP. PROGRESS Observed: 07/02/2018 Status: COMPLETED Source: [place] 1:[address] [facility] REPOSITORY HNO ID: [id number] Author: Rachel Laws) Juani Service: (none) Author Type: Registered Nurse Type: Progress Notes Filed: 07/02/2018 2:07 PM Note Text: PRIMARY CARE COORDINATION FOLLOW-UP NOTE Provider Action/FYI TC to Dr. Mckeon's office to ask for 06/29 office note and ask if pt brought in BP cuff to watch pt take BP. No answer. PCC will try again on Thursday Patient identified by name and date of . YES Email from patient Summary: Mika Velazquez is a 62 year old male who reports glucose readings as noted. DATE 06/29 06/28 06/27 06/26 06/25 06/24 06/23 06/22 06/21 06/20 Fasting 87 84 80 84 83 82 80 84 84 75 PM 198 184 207 Any low blood sugars during this period of reporting No Patient/Caregiver reports Blood Pressure readings as noted. DATE 06/29 06/28 06/27 06/26 06/25 06/24 06/23 06/22 06/21 06/20 AM BP 140/97 157/107 163/107 149/104 157/96 147/101 150/110 145/103 167/107 168/102 AM P 77 86 80 82 76 89 88 85 93 101 PM BP 140/94 144/98 155/97 PM P 108 98 114 Patient's blood pressure medications as follows: amLODIPine (NORVASC) 5 mg 1 tablet by mouth once daily Emergency Department Nurse plan for next outreach: Will follow up one month Signature Rachel Gloria RN July 02, 2018 CNPTOUTREACH Observed: 07/01/2018 Status: COMPLETED Source: [place] 12:[address] [facility] REPOSITORY Patient Outreach (FAMPWS) MIKA VELAZQUEZ ([id number]) 1955 M Date Time Provider Department 07/01/18 RACHEL GLORIA (RN) FAMPWS During your visit today, we recorded the following information about you: Rachel Gloria RN 07/02/2018 2:07 PM Signed PRIMARY CARE COORDINATION FOLLOW-UP NOTE Provider Action/FYI TC to Dr. Mckeon's office to ask for 06/29 office note and ask if pt brought in BP cuff to watch pt take BP. No answer. PCC will try again on Thursday Patient identified by name and date of . YES Email from patient Summary: Mika Velazquez is a 62 year old male who reports glucose readings as noted. DATE 06/29 06/28 06/27 06/26 06/25 06/24 06/23 06/22 06/21 06/20 Fasting 87 84 80 84 83 82 80 84 84 75 PM 198 184 207 Any low blood sugars during this period of reporting No Patient/Caregiver reports Blood Pressure readings as noted. DATE 06/29 06/28 06/27 06/26 06/25 06/24 06/23 06/22 06/21 06/20 AM BP 140/97 157/107 163/107 149/104 157/96 147/101 150/110 145/103 167/107 168/102 AM P 77 86 80 82 76 89 88 85 93 101 PM BP 140/94 144/98 155/97 PM P 108 98 114 Patient's blood pressure medications as follows: amLODIPine (NORVASC) 5 mg 1 tablet by mouth once daily Emergency Department Nurse plan for next outreach: Will follow up one month Signature Rachel Gloria RN July 02, 2018 Anant Kaur MD 07/02/2018 2:40 PM Signed Sugars look better. Obtain records from Dr. Mckeon's office to see if he brought in cuff at last appointment. If not, schedule NV to observe him checking BP. Allergies As of Date: 07/01/2018 Noted Allergy Reaction ALEVE (NAPROXEN SODIUM) 12/23/2011 14 - Other: See Comments Comments: throat tightening ASPIRIN 06/24/2011 14 - Other: See Comments Comments: Swelling of throat IBUPROFEN 11/13/2011 14 - Other: See Comments Date Reviewed: 05/07/2018 Reviewed by: Cinda Elaine Ma - Fully Assessed Reason for Visit: [facility] [employer] [[id number]] Prescriptions as of 07/01/2018 Sig: AMLODIPINE 5 MG TABLET Take 1 tablet by mouth once d* PREDNISONE 20 MG TABLET Take 3 tablets by mouth once * CPAP Initiate CPAP @ 6 cm of water* BLOOD SUGAR DIAGNOSTIC STRIPS Test blood sugar(s) 2 times d* BLOOD-GLUCOSE METER KIT Glucose Meter of Choice - Kit* LANCETS Test blood sugar(s) 2 times d* COMPOUNDED PRESCRIPTION Automatic Arm BP Monitor CHOLECALCIFEROL (VITAMIN D3) * Take 1,000 Units by mouth onc* Problem List As Of Date 07/01/2018 Noted Resolved Ulcerative colitis [K51.90] INVALID FOR* Anemia, unspecified [D64.9] INVALID FOR* Ulcerative colitis, unspecified [K51.90] INVALID FOR*02/11/2018 Hypokalemia [E87.6] INVALID FOR* Hypomagnesemia [E83.42] INVALID FOR* Hyponatremia [E87.1] INVALID FOR* S/P ileostomy [Z93.2] Obesity (BMI 30.0-34.9) [E66.9] Hypogonadism male [E29.1] INVALID FOR*03/02/2018 ANNIE (obstructive sleep apnea) [G47.33] Acute kidney injury (HCC) [N17.9] INVALID FOR* 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 Encounter Status:Closed by RACHEL GLORIA on 07/02/18 PROGRESS Observed: 06/14/2018 Status: COMPLETED Source: [place] 11:12 AM [facility] RE[facility] O ID: [id number] Author: Rachel (Tong) Juani Service: (none) Author Type: Registered Nurse Type: Progress Notes Filed: 06/14/2018 11:19 AM Note Text: PRIMARY CARE COORDINATION QUICK NOTE Provider Action/FYI Mychart message sent to pt to take BP monitor to Dr. Mckeon's office appt. Patient identified by name and date . TC jasmina Bishop at Dr. Mckeon's office, discussed patient's home BP monitoring and pt is getting much higher readings than what nurses are getting in our office and Dr. Painter's office. Asked if we have pt bring BP monitor into Dr. Mckeon's office if they will observe patient's technique for taking BP? We have already checked the accuracy of the monitor and it is correct. Agrees to checking pt's technique for BP monitoring at 06/29 appt. Rachel Gloria RN June 14, 2018 11:16 AM PROGRESS Observed: 06/14/2018 Status: COMPLETED Source: [place] 10:[address] [facility] REPOSITORY HNO ID: [id number] Author: Anant Barry) Natasha Service: (none) Author Type: Physician Type: Progress Notes Filed: 06/14/2018 10:49 AM Note Text: Still think that patient may not be checking these accurately as he is asymptomatic with low sugars into the 40s, which is unusual, and BP at all visits and NV has been normal. Again encourage patient to rest 5 minutes prior to checking BP and go over use of meter with patient. PROGRESS Observed: 06/11/2018 Status: COMPLETED Source: [place] 3:[address] [facility] REPOSITORY HNO ID: [id number] Author: Rachel Laws) Juani Service: (none) Author Type: Registered Nurse Type: Progress Notes Filed: 06/11/2018 3:35 PM Note Text: PRIMARY CARE COORDINATION FOLLOW-UP NOTE Provider Action/FYI Pt has appt with Dr. Mckeon on 06/29 Patient identified by name and date of . YES Summary: Received email from patient with BP, P and BS: Mika Velazquez is a 62 year old male who reports glucose readings as noted. DATE 06/11 06/10 06/09 06/08 06/07 06/06 06/05 06/04 Fasting 79 70 81 77 81 79 82 47 Evening 176 130 146 173 193 Any low blood sugars during this period of reporting Patient has BS on 47 but reports no symptoms Patient/Caregiver reports Blood Pressure readings as noted. DATE 06/11 06/10 06/09 06/08 06/07 06/06 06/05 06/04 AM BP 145/113 175/113 159/104 166/110 143/96 147/95 168/103 158/95 AM P 83 91 75 87 86 65 70 62 PM BP 148/102 146/93 147/97 116/82 140/95 PM P 176 130 146 173 193 Patient's blood pressure medications as follows: amLODIPine (NORVASC) 5 mg Take 1 tablet by mouth once daily. Emergency Department Nurse plan for next outreach: Will follow up one month Signature Rachel Gloria RN June 11, 2018 NAIMATOUTRTOMEKA Observed: 06/11/2018 Status: COMPLETED Source: [place] 12:[address] [facility] REPOSITORY Patient Outreach (FAMPWS) MIKA VELAZQUEZ ([id number]) 1955 M Date Time Provider Department 06/11/18 RACHEL GLORIA (TONG) CORINNEWS During your visit today, we recorded the following information about you: Rachel Gloria RN 06/11/2018 3:35 PM Signed PRIMARY CARE COORDINATION FOLLOW-UP NOTE Provider Action/FYI Pt has appt with Dr. Mckeon on 06/29 Patient identified by name and date of . YES Summary: Received email from patient with BP, P and BS: Mika Velazquez is a 62 year old male who reports glucose readings as noted. DATE 06/11 06/10 06/09 06/08 06/07 06/06 06/05 06/04 Fasting 79 70 81 77 81 79 82 47 Evening 176 130 146 173 193 Any low blood sugars during this period of reporting Patient has BS on 47 but reports no symptoms Patient/Caregiver reports Blood Pressure readings as noted. DATE 06/11 06/10 06/09 06/08 06/07 06/06 06/05 06/04 AM BP 145/113 175/113 159/104 166/110 143/96 147/95 168/103 158/95 AM P 83 91 75 87 86 65 70 62 PM BP 148/102 146/93 147/97 116/82 140/95 PM P 176 130 146 173 193 Patient's blood pressure medications as follows: amLODIPine (NORVASC) 5 mg Take 1 tablet by mouth once daily. Emergency Department Nurse plan for next outreach: Will follow up one month Signature Rachel Gloria RN June 11, 2018 Anant Kaur MD 06/14/2018 10:49 AM Signed Still think that patient may not be checking these accurately as he is asymptomatic with low sugars into the 40s, which is unusual, and BP at all visits and NV has been normal. Again encourage patient to rest 5 minutes prior to checking BP and go over use of meter with patient. Rachel Gloria RN 06/14/2018 11:19 AM Signed PRIMARY CARE COORDINATION QUICK NOTE Provider Action/YO Prince message sent to pt to take BP monitor to Dr. Mckeon's office appt. Patient identified by name and date . TC to Edna at Dr. Mckeon's office, discussed patient's home BP monitoring and pt is getting much higher readings than what nurses are getting in our office and Dr. Painter's office. Asked if we have pt bring BP monitor into Dr. Mckeon's office if they will observe patient's technique for taking BP? We have already checked the accuracy of the monitor and it is correct. Agrees to checking pt's technique for BP monitoring at 06/29 appt. Rachel Gloria RN June 14, 2018 11:16 AM Allergies As of Date: 06/11/2018 Noted Allergy Reaction ALEVE (NAPROXEN SODIUM) 12/23/2011 14 - Other: See Comments Comments: throat tightening ASPIRIN 06/24/2011 14 - Other: See Comments Comments: Swelling of throat IBUPROFEN 11/13/2011 14 - Other: See Comments Date Reviewed: 05/07/2018 Reviewed by: Cinda Elaine Ma - Fully Assessed Reason for Visit: [facility] [employer] [3612] Prescriptions as of 06/11/2018 Sig: PREDNISONE 20 MG TABLET Take 3 tablets by mouth once * CPAP Initiate CPAP @ 6 cm of water* BLOOD SUGAR DIAGNOSTIC STRIPS Test blood sugar(s) 2 times d* BLOOD-GLUCOSE METER KIT Glucose Meter of Choice - Kit* LANCETS Test blood sugar(s) 2 times d* COMPOUNDED PRESCRIPTION Automatic Arm BP Monitor CHOLECALCIFEROL (VITAMIN D3) * Take 1,000 Units by mouth onc* AMLODIPINE 5 MG TABLET Take 1 tablet by mouth once d* Problem List As Of Date 06/11/2018 Noted Resolved Ulcerative colitis [K51.90] INVALID FOR* Anemia, unspecified [D64.9] INVALID FOR* Ulcerative colitis, unspecified [K51.90] INVALID FOR*02/11/2018 Hypokalemia [E87.6] INVALID FOR* Hypomagnesemia [E83.42] INVALID FOR* Hyponatremia [E87.1] INVALID FOR* S/P ileostomy [Z93.2] Obesity (BMI 30.0-34.9) [E66.9] Hypogonadism male [E29.1] INVALID FOR*03/02/2018 ANNIE (obstructive sleep apnea) [G47.33] Acute kidney injury (HCC) [N17.9] INVALID FOR* 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 Encounter Status:Closed by RACHEL GLORIA on 06/14/18 PROGRESS Observed: 06/04/2018 Status: COMPLETED Source: [place] 10:[address] [facility] REPOSITORY HNO ID: [id number] Author: Anant Barry) Natasha Service: (none) Author Type: Physician Type: Progress Notes Filed: 06/04/2018 10:45 AM Note Text: Reviewed. PROGRESS Observed: 06/04/2018 Status: COMPLETED Source: [place] 10:[address] [facility] REPOSITORY HNO ID: [id number] Author: Rachel Laws) Juani Service: (none) Author Type: Registered Nurse Type: Progress Notes Filed: 06/04/2018 10:18 AM Note Text: PRIMARY CARE COORDINATION QUICK NOTE Provider Action/FYI Instructed pt on proper technique for BP Pt's BS this AM was 45, no symptoms Pt is not letting the alcohol dry before he performs fingerstick. Instructed to dry before sticking finger. Also noted his evening BS is often after a snack which is why it's higher Patient identified by name and date . TC to patient, discussed discrepancy in BP at home and in office. Instructed on proper BP positioning, don't talk, answer phone, watch tv, sit calmly, verbalized understanding. Discussed proper Blood Sugar testing. Pt states he wipes his finger with alcohol and immediately sticks his finger. Instructed he needs to let the alcohol dry before he takes his BS because he may be diluting it with the alcohol. PROGRESS Observed: 06/03/2018 Status: COMPLETED Source: [place] 4:[address] [facility] REPOSITORY HNO ID: [id number] Author: Anant Barry) Natasha Service: (none) Author Type: Physician Type: Progress Notes Filed: 06/03/2018 4:34 PM Note Text: I dont believe that patient's blood pressure cuff at home is accurate and am concerned about his glucometer without symptoms with low blood sugar into the 40's. NV BP and BP at specialist offices has been well controlled. Recommend patient get new BP cuff and confirm how he is checking BS. PROGRESS Observed: 06/03/2018 Status: COMPLETED Source: [place] 3:[address] [facility] REPOSITORY HNO ID: [id number] Author: Rachel Laws) Juani Service: (none) Author Type: Registered Nurse Type: Progress Notes Filed: 06/04/2018 10:08 AM Note Text: PRIMARY CARE COORDINATION FOLLOW-UP NOTE Provider Action/FYI Dr. Mckeon appointment on 06/29 CPAP started on 05/16 TC to patient asking if he has S/S hypoglycemia, shaky, sweaty, headache? States he's never had any of those symptoms even though on 05/31 AM BS was 46 Patient identified by name and date of . YES Email sent by patient Summary: Patient/Caregiver reports Blood Pressure readings as noted. DATE 06/02 05/31 05/30 05/29 05/29 05/27 05/26 AM BP 157/100 163/96 157/99 140/90 169/107 161/79 171/102 AM P 77 74 64 70 64 65 67 PM BP 134/92 172/99 134/90 145/93 PM P 84 102 87 Patient's blood pressure medications as follows: amLODIPine (NORVASC) 5 mg 1 tablet by mouth once daily. Mika Velazquez is a 62 year old male who reports glucose readings as noted. DATE 06/02 05/31 05/30 05/29 05/28 05/27 05/26 Fasting 82 46 72 69 84 61 75 BS PM 171 90 193 158 Any low blood sugars during this period of reporting Yes Patient's diabetes medications as follows: None Emergency Department Nurse plan for next outreach: Will follow up 2 weeks Signature Rachel Gloria RN June 03, 2018 CNPTOUTREACH Observed: 06/03/2018 Status: COMPLETED Source: [place] 12:[address] [facility] REPOSITORY Patient Outreach (FAMPWS) MIKA VELAZQUEZ ([id number]) 1955 M Date Time Provider Department 06/03/18 RACHEL GLORIA (RN) FAMPWS During your visit today, we recorded the following information about you: Rachel Gloria RN 06/04/2018 10:08 AM Addendum PRIMARY CARE COORDINATION FOLLOW-UP NOTE Provider Action/MICHAELAI Dr. Mckeon appointment on 06/29 CPAP started on 05/16 TC to patient asking if he has S/S hypoglycemia, shaky, sweaty, headache? States he's never had any of those symptoms even though on 05/31 AM BS was 46 Patient identified by name and date of . YES Email sent by patient Summary: Patient/Caregiver reports Blood Pressure readings as noted. DATE 06/02 05/31 05/30 05/29 05/29 05/27 05/26 AM BP 157/100 163/96 157/99 140/90 169/107 161/79 171/102 AM P 77 74 64 70 64 65 67 PM BP 134/92 172/99 134/90 145/93 PM P 84 102 87 Patient's blood pressure medications as follows: amLODIPine (NORVASC) 5 mg 1 tablet by mouth once daily. Mika Velazquez is a 62 year old male who reports glucose readings as noted. DATE 06/02 05/31 05/30 05/29 05/28 05/27 05/26 Fasting 82 46 72 69 84 61 75 BS PM 171 90 193 158 Any low blood sugars during this period of reporting Yes Patient's diabetes medications as follows: None Emergency Department Nurse plan for next outreach: Will follow up 2 weeks Signature Rachel Gloria RN June 03, 2018 Anant Kaur MD 06/03/2018 4:34 PM Signed I dont believe that patient's blood pressure cuff at home is accurate and am concerned about his glucometer without symptoms with low blood sugar into the 40's. NV BP and BP at specialist offices has been well controlled. Recommend patient get new BP cuff and confirm how he is checking BS. Rachel Gloria RN 06/04/2018 10:18 AM Signed PRIMARY CARE COORDINATION QUICK NOTE Provider Action/FYI Instructed pt on proper technique for BP Pt's BS this AM was 45, no symptoms Pt is not letting the alcohol dry before he performs fingerstick. Instructed to dry before sticking finger. Also noted his evening BS is often after a snack which is why it's higher Patient identified by name and date . TC to patient, discussed discrepancy in BP at home and in office. Instructed on proper BP positioning, don't talk, answer phone, watch tv, sit calmly, verbalized understanding. Discussed proper Blood Sugar testing. Pt states he wipes his finger with alcohol and immediately sticks his finger. Instructed he needs to let the alcohol dry before he takes his BS because he may be diluting it with the alcohol. Anant Kaur MD 06/04/2018 10:45 AM Signed Reviewed. Allergies As of Date: 06/03/2018 Noted Allergy Reaction ALEVE (NAPROXEN SODIUM) 12/23/2011 14 - Other: See Comments Comments: throat tightening ASPIRIN 06/24/2011 14 - Other: See Comments Comments: Swelling of throat IBUPROFEN 11/13/2011 14 - Other: See Comments Date Reviewed: 05/07/2018 Reviewed by: Cinda Elaine Ma - Fully Assessed Reason for Visit: [facility] [8126] Prescriptions as of 06/03/2018 Sig: PREDNISONE 20 MG TABLET Take 3 tablets by mouth once * CPAP Initiate CPAP @ 6 cm of water* BLOOD SUGAR DIAGNOSTIC STRIPS Test blood sugar(s) 2 times d* BLOOD-GLUCOSE METER KIT Glucose Meter of Choice - Kit* LANCETS Test blood sugar(s) 2 times d* COMPOUNDED PRESCRIPTION Automatic Arm BP Monitor CHOLECALCIFEROL (VITAMIN D3) * Take 1,000 Units by mouth onc* AMLODIPINE 5 MG TABLET Take 1 tablet by mouth once d* Problem List As Of Date 06/03/2018 Noted Resolved Ulcerative colitis [K51.90] INVALID FOR* Anemia, unspecified [D64.9] INVALID FOR* Ulcerative colitis, unspecified [K51.90] INVALID FOR*02/11/2018 Hypokalemia [E87.6] INVALID FOR* Hypomagnesemia [E83.42] INVALID FOR* Hyponatremia [E87.1] INVALID FOR* S/P ileostomy [Z93.2] Obesity (BMI 30.0-34.9) [E66.9] Hypogonadism male [E29.1] INVALID FOR*03/02/2018 ANNIE (obstructive sleep apnea) [G47.33] Acute kidney injury (HCC) [N17.9] INVALID FOR* 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 Disposition: Return in about 12 days (around 06/15/2018). Follow-up and Disposition History Recorded Encounter Status:Closed by RACHEL GLORIA on 06/04/18 PROGRESS Observed: 05/31/2018 Status: COMPLETED Source: [place] 8:[address] [facility] REPOSITORY HNO ID: [id number] Author: Anant Barry) Natasha Service: (none) Author Type: Physician Type: Progress Notes Filed: 05/31/2018 8:41 PM Note Text: Reviewed. Thanks. PROGRESS Observed: 05/28/2018 Status: COMPLETED Source: [place] 11:[address] [facility] REPOSITORY HNO ID: [id number] Author: Danelle Daniels LPN Service: (none) Author Type: (none) Type: Progress Notes Filed: 05/28/2018 11:11 AM Note Text: Manual Readin/80 Pulse: 76 Home Cuff: 132/88 P: 72 Reason for blood pressure check - Other Validate home monitor Patient is: Taking medication as prescribed Yes Took medication today Yes If no, date medication last taken N/A Experiencing side effects No BP was borderline high at last appt 05/07/18. No BP medication changes were made at that time. Taking all medications as prescribed. Reports that he has been getting high readings at home; 150-170's systolic. Denies any chest pain, shortness of breath, dizziness, or headaches. Daily caffeine use with soda; none today. Past personal history of tobacco use; no current exposure. Alert and oriented. Pt has been identified by name and birthdate: Yes Allergies reviewed: Yes Latex allergy: no. Medication - prescribed and OTC reviewed and updated: Yes Do you need any prescription refills prior to your next visit: No Health Maintenance: Reviewed and not up to date and provider notified Patient advised to continue with current medications and would be contacted with any further instructions after review by frontload driver. Did educate pt on proper technique on how to monitor his BP at home (he was not waiting at least 5 minutes before checking level; feet flat on floor, heart level flat surface to rest arm). Patient verbalized understanding. Danelle Daniels LPN CNNURSE Observed: 05/28/2018 Status: COMPLETED Source: [place] 11:[address] [facility] REPOSITORY Nurse Visit (FAMPWS) MIKA VELAZQUEZ ([id number]) 1955 M Date Time Provider Department 05/28/18 11:00 AM [place] [facility] During your visit today, we recorded the following information about you: Pulse Blood pressure 76/minute 136/80 Danelle Daniels LPN 05/28/2018 11:11 AM Signed Manual Readin/80 Pulse: 76 Home Cuff: 132/88 P: 72 Reason for blood pressure check - Other Validate home monitor Patient is: Taking medication as prescribed Yes Took medication today Yes If no, date medication last taken N/A Experiencing side effects No BP was borderline high at last appt 05/07/18. No BP medication changes were made at that time. Taking all medications as prescribed. Reports that he has been getting high readings at home; 150-170's systolic. Denies any chest pain, shortness of breath, dizziness, or headaches. Daily caffeine use with soda; none today. Past personal history of tobacco use; no current exposure. Alert and oriented. Pt has been identified by name and birthdate: Yes Allergies reviewed: Yes Latex allergy: no. Medication - prescribed and OTC reviewed and updated: Yes Do you need any prescription refills prior to your next visit: No Health Maintenance: Reviewed and not up to date and provider notified Patient advised to continue with current medications and would be contacted with any further instructions after review by frontload driver. Did educate pt on proper technique on how to monitor his BP at home (he was not waiting at least 5 minutes before checking level; feet flat on floor, heart level flat surface to rest arm). Patient verbalized understanding. Danelle Daniels LPN Referring Provider: GRISEL MCKEON [[id number]] Allergies As of Date: 05/28/2018 Noted Allergy Reaction ALEVE (NAPROXEN SODIUM) 12/23/2011 14 - Other: See Comments Comments: throat tightening ASPIRIN 06/24/2011 14 - Other: See Comments Comments: Swelling of throat IBUPROFEN 11/13/2011 14 - Other: See Comments Date Reviewed: 05/07/2018 Reviewed by: Cinda Elaine Ma - Fully Assessed Reason for Visit: Blood Pressure Check [195] Primary Visit Diagnosis:Hypertension, essential [I10] Prescriptions as of 05/28/2018 Sig: PREDNISONE 20 MG TABLET Take 3 tablets by mouth once * CPAP Initiate CPAP @ 6 cm of water* BLOOD SUGAR DIAGNOSTIC STRIPS Test blood sugar(s) 2 times d* BLOOD-GLUCOSE METER KIT Glucose Meter of Choice - Kit* LANCETS Test blood sugar(s) 2 times d* COMPOUNDED PRESCRIPTION Automatic Arm BP Monitor CHOLECALCIFEROL (VITAMIN D3) * Take 1,000 Units by mouth onc* AMLODIPINE 5 MG TABLET Take 1 tablet by mouth once d* Problem List As Of Date 05/28/2018 Noted Resolved Ulcerative colitis [K51.90] INVALID FOR* Anemia, unspecified [D64.9] INVALID FOR* Ulcerative colitis, unspecified [K51.90] INVALID FOR*02/11/2018 Hypokalemia [E87.6] INVALID FOR* Hypomagnesemia [E83.42] INVALID FOR* Hyponatremia [E87.1] INVALID FOR* S/P ileostomy [Z93.2] Obesity (BMI 30.0-34.9) [E66.9] Hypogonadism male [E29.1] INVALID FOR*03/02/2018 ANNIE (obstructive sleep apnea) [G47.33] Acute kidney injury (HCC) [N17.9] INVALID FOR* 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 Encounter Status:Closed by DANELLE DANIELS LPN on 05/28/18 PROGRESS Observed: 05/26/2018 Status: COMPLETED Source: [place] 12:[address] [facility] REPOSITORY HNO ID: [id number] Author: Rachel Laws) Juani Service: (none) Author Type: Registered Nurse Type: Progress Notes Filed: 05/26/2018 12:49 PM Note Text: PRIMARY CARE COORDINATION FOLLOW-UP NOTE Provider Action/FYI TC to patient, scheduled appt for BP and home monitor check on 05/28 TC to Shelbi at Dr. Mckeon's office, discussed very elevated BP. States pt was in Dr. Mckeon's office 2 days ago and his BP was 118/72 and has never been elevated in their office. States they don't feel his BP monitor is working. Patient identified by name and date of . YES Spoke to patient and Shelbi at Dr. Mckeon's office Summary: Mika Wilsonremberto is a 62 year old male who reports glucose readings as noted. DATE 05/26 05/25 05/24 05/23 05/22 05/21 05/20 05/19 05/18 05/17 7 AM BP 171/102 158/99 161/101 184/111 154/97 159/101 152/95 176/98 145/100 160/98 168/80 AM Pulse 67 59 50 70 64 59 54 59 59 56 73 AM Bld Sugar 75 78 66 56 90 72 73 71 87 105 PM BP 139/97 157/95 157/95 143/91 165/106 129/85 155/89 168/97 152/95 PM Pulse 109 96 96 91 87 95 93 96 89 PM Bld Sugar 176 178 178 102 201 254 291 190 189 Any low blood sugars during this period of reporting Yes Patient's diabetes medications as follows: None Patient's Blood Pressure medications as follows: amLODIPine (NORVASC) 5 mg Take 1 tablet by mouth once daily. Emergency Department Nurse plan for next outreach: Will follow up 2 weeks Signature Rachel Gloria RN May 26, 2018 CNPTOUTREACH Observed: 05/26/2018 Status: COMPLETED Source: [place] 12:[address] [facility] REPOSITORY Patient Outreach (FAMPWS) MIKA VELAZQUEZ ([id number]) 1955 M Date Time Provider Department 05/26/18 RACHEL GLORIA (RN) CORINNEWS During your visit today, we recorded the following information about you: Rachel Gloria RN 05/26/2018 12:49 PM Signed PRIMARY CARE COORDINATION FOLLOW-UP NOTE Provider Action/FYI TC to patient, scheduled appt for BP and home monitor check on 05/28 TC to Shelbi at Dr. Mckeon's office, discussed very elevated BP. States pt was in Dr. Mckeon's office 2 days ago and his BP was 118/72 and has never been elevated in their office. States they don't feel his BP monitor is working. Patient identified by name and date of . YES Spoke to patient and Shelbi at Dr. Mckeon's office Summary: Mika Velazquez is a 62 year old male who reports glucose readings as noted. DATE 05/26 05/25 05/24 05/23 05/22 05/21 05/20 05/19 05/18 05/17 7 AM BP 171/102 158/99 161/101 184/111 154/97 159/101 152/95 176/98 145/100 160/98 168/80 AM Pulse 67 59 50 70 64 59 54 59 59 56 73 AM Bld Sugar 75 78 66 56 90 72 73 71 87 105 PM BP 139/97 157/95 157/95 143/91 165/106 129/85 155/89 168/97 152/95 PM Pulse 109 96 96 91 87 95 93 96 89 PM Bld Sugar 176 178 178 102 201 254 291 190 189 Any low blood sugars during this period of reporting Yes Patient's diabetes medications as follows: None Patient's Blood Pressure medications as follows: amLODIPine (NORVASC) 5 mg Take 1 tablet by mouth once daily. Emergency Department Nurse plan for next outreach: Will follow up 2 weeks Signature Rachel Gloria RN May 26, 2018 Anant Kaur MD 05/31/2018 8:41 PM Signed Reviewed. Thanks. Allergies As of Date: 05/26/2018 Noted Allergy Reaction ALEVE (NAPROXEN SODIUM) 12/23/2011 14 - Other: See Comments Comments: throat tightening ASPIRIN 06/24/2011 14 - Other: See Comments Comments: Swelling of throat IBUPROFEN 11/13/2011 14 - Other: See Comments Date Reviewed: 05/07/2018 Reviewed by: Cinda Elaine Ma - Fully Assessed Reason for Visit: [facility] [3612] Prescriptions as of 05/26/2018 Sig: PREDNISONE 20 MG TABLET Take 3 tablets by mouth once * CPAP Initiate CPAP @ 6 cm of water* BLOOD SUGAR DIAGNOSTIC STRIPS Test blood sugar(s) 2 times d* BLOOD-GLUCOSE METER KIT Glucose Meter of Choice - Kit* LANCETS Test blood sugar(s) 2 times d* COMPOUNDED PRESCRIPTION Automatic Arm BP Monitor CHOLECALCIFEROL (VITAMIN D3) * Take 1,000 Units by mouth onc* AMLODIPINE 5 MG TABLET Take 1 tablet by mouth once d* Problem List As Of Date 05/26/2018 Noted Resolved Ulcerative colitis [K51.90] INVALID FOR* Anemia, unspecified [D64.9] INVALID FOR* Ulcerative colitis, unspecified [K51.90] INVALID FOR*02/11/2018 Hypokalemia [E87.6] INVALID FOR* Hypomagnesemia [E83.42] INVALID FOR* Hyponatremia [E87.1] INVALID FOR* S/P ileostomy [Z93.2] Obesity (BMI 30.0-34.9) [E66.9] Hypogonadism male [E29.1] INVALID FOR*03/02/2018 ANNIE (obstructive sleep apnea) [G47.33] Acute kidney injury (HCC) [N17.9] INVALID FOR* 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 Disposition: Return in about 12 days (around 06/07/2018). Follow-up and Disposition History Recorded Encounter Status:Closed by RACHEL GLORIA on 06/01/18 PROGRESS Observed: 05/17/2018 Status: COMPLETED Source: [place] 12:[address] [facility] [place] REPOSITORY HNO ID: [id number] Author: Anant Barry) Natasha Service: (none) Author Type: Physician Type: Progress Notes Filed: 05/17/2018 2:58 PM Note Text: Medication updated. BP labile. Glucose well controlled without Hyperglycemia. Follow up with Dr. Mckeon as scheduled. PROGRESS Observed: 05/17/2018 Status: COMPLETED Source: [place] 9:[address] [facility] [place] REPOSITORY HNO ID: [id number] Author: Rachel (Tong) Juani Service: (none) Author Type: Registered Nurse Type: Progress Notes Filed: 05/17/2018 12:03 PM Note Text: TRANSITION CARE MANAGEMENT (TCM) FOLLOW-UP NOTE Provider Action/FYI Still on Prednisone 60 mg daily PLEASE FILE MEDICATION UPDATE Had 2 infusions, last one on 05/[address] Mckeon on 05/25 Used CPAP for first time last night Patient identified by name and date of : YES Spoke to patient Summary: Patient/Caregiver reports Blood Pressure readings as noted. DATE 05/17 05/16 05/15 05/14 05/13 05/12 05/11 05/10 05/09 05/08 05/07 05/06 AM BP 160/98 168/80 133/91 162/98 153/94 151/98 135/103 154/95 144/95 142/95 147/95 149/85 AM P 56 73 57 68 55 58 63 57 53 57 61 45 PM BP 168/97 152/95 143/93 146/91 136/90 123/98 146/93 126/89 134/84 PM P 96 89 91 95 89 98 86 85 84 Patient's blood pressure medications as follows: amLODIPine (NORVASC) 5 mg Take 1 tablet by mouth once daily. Mika Velazquez is a 62 year old male who reports glucose readings as noted. DATE 05/17/02 06/ 7/05/02 Fasting 87 105 65 83 69 88 89 92 89 83 69 68 61 85 62 87 83 Evening 190 189 219 240 102 304 166 211 143 128 134 89 148 103 Any low blood sugars during this period of reporting Yes Patient's diabetes medications as follows: None, still on Prednisone 60 mg daily Pt had [address] Mckeon. Will have labs drawn this week and has appt with Dr. Mckeon next week. States he's feeling better Picked up CPAP Thursday and used it for the first time last night Emergency Department Nurse plan for next outreach: Will follow up one month Signature Rachel Gloria RN May 17, 2018 CNPTOUTREACH Observed: 05/17/2018 Status: COMPLETED Source: [place] 12:[address] [facility] REPOSITORY Patient Outreach (FAMPWS) MIKA VELAZQUEZ ([id number]) 1955 M Date Time Provider Department 05/17/18 RACHEL GLORIA (RN) FAMPWS During your visit today, we recorded the following information about you: Rachel Gloria RN 05/17/2018 12:03 PM Signed TRANSITION CARE MANAGEMENT (TCM) FOLLOW-UP NOTE Provider Action/FYI Still on Prednisone 60 mg daily PLEASE FILE MEDICATION UPDATE Had 2 infusions, last one on 05/[address] Mckeon on 05/25 Used CPAP for first time last night Patient identified by name and date of : YES Spoke to patient Summary: Patient/Caregiver reports Blood Pressure readings as noted. DATE 05/17 05/16 05/15 05/14 05/13 05/12 05/11 05/10 05/09 05/08 05/07 05/06 AM BP 160/98 168/80 133/91 162/98 153/94 151/98 135/103 154/95 144/95 142/95 147/95 149/85 AM P 56 73 57 68 55 58 63 57 53 57 61 45 PM BP 168/97 152/95 143/93 146/91 136/90 123/98 146/93 126/89 134/84 PM P 96 89 91 95 89 98 86 85 84 Patient's blood pressure medications as follows: amLODIPine (NORVASC) 5 mg Take 1 tablet by mouth once daily. Mika Velazquez is a 62 year old male who reports glucose readings as noted. DATE 05/17 05/16 05/15 05/14 05/13 05/12 05/11 05/10 05/09 05/08 05/07 05/06 05/05 05/04 05/03 05/02 05/01 04/30 Fasting 87 105 65 83 69 88 89 92 89 83 69 68 61 85 62 87 83 Evening 190 189 219 240 102 304 166 211 143 128 134 89 148 103 Any low blood sugars during this period of reporting Yes Patient's diabetes medications as follows: None, still on Prednisone 60 mg daily Pt had [address] Mckeon. Will have labs drawn this week and has appt with Dr. Mckeon next week. States he's feeling better Picked up CPAP Thursday and used it for the first time last night Emergency Department Nurse plan for next outreach: Will follow up one month Signature Rachel Gloria RN May 17, 2018 Anant Kaur MD 05/17/2018 2:58 PM Signed Medication updated. BP labile. Glucose well controlled without Hyperglycemia. Follow up with Dr. Mckeon as scheduled. Allergies As of Date: 05/17/2018 Noted Allergy Reaction ALEVE (NAPROXEN SODIUM) 12/23/2011 14 - Other: See Comments Comments: throat tightening ASPIRIN 06/24/2011 14 - Other: See Comments Comments: Swelling of throat IBUPROFEN 11/13/2011 14 - Other: See Comments Date Reviewed: 05/07/2018 Reviewed by: Cinda Elaine Ma - Fully Assessed Reason for Visit: [facility] Follow Up [9801] Cmt: TCM F/U Call Visit Diagnosis:Aquilino's granulomatosis (HCC) [M31.30] Order(s):predniSONE (DELTASONE) 20 mg tabletTake 3 tablets by mouth once daily.Disp: Rfl: Prescriptions as of 05/17/2018 Sig: PREDNISONE 20 MG TABLET Take 3 tablets by mouth once * CPAP Initiate CPAP @ 6 cm of water* BLOOD SUGAR DIAGNOSTIC STRIPS Test blood sugar(s) 2 times d* BLOOD-GLUCOSE METER KIT Glucose Meter of Choice - Kit* LANCETS Test blood sugar(s) 2 times d* COMPOUNDED PRESCRIPTION Automatic Arm BP Monitor CHOLECALCIFEROL (VITAMIN D3) * Take 1,000 Units by mouth onc* AMLODIPINE 5 MG TABLET Take 1 tablet by mouth once d* Problem List As Of Date 05/17/2018 Noted Resolved Ulcerative colitis [K51.90] INVALID FOR* Anemia, unspecified [D64.9] INVALID FOR* Ulcerative colitis, unspecified [K51.90] INVALID FOR*02/11/2018 Hypokalemia [E87.6] INVALID FOR* Hypomagnesemia [E83.42] INVALID FOR* Hyponatremia [E87.1] INVALID FOR* S/P ileostomy [Z93.2] Obesity (BMI 30.0-34.9) [E66.9] Hypogonadism male [E29.1] INVALID FOR*03/02/2018 ANNIE (obstructive sleep apnea) [G47.33] Acute kidney injury (HCC) [N17.9] INVALID FOR* 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 Prescriptions ordered this encounter Disp Refills Start End PREDNISONE 20 MG TABLET 05/17/2018 Class: Med Update Route: ORAL Sig: Take 3 tablets by mouth once daily. Medications Discontinued During This Encounter predniSONE (DELTASONE) 20 mg tablet 30 t* 0 04/27/2018 05/17/2018 Class: Med Update Route: ORAL Sig: Take 3 tablets by mouth once daily for 10 days. Disc: Reason for discontinue is not on file. Encounter Status:Closed by RACHEL GLORIA on 05/17/18 PROGRESS Observed: 05/07/2018 Status: COMPLETED Source: [place] 11:[address] [facility] REPOSITORY HNO ID: [id number] Author: Anant Barry) Natasha Service: (none) Author Type: Physician Type: Progress Notes Filed: 05/07/2018 11:41 AM Note Text: Chief Complaint Patient presents with: F/U [place] HPI Mika Velazquez is a 62 year old male who presents here today for Above Complaints.. Patient has been following up with Dr. Mckeon for Aquilino's granulomatosis and is still taking the prednisone 60 mg daily and was seen by their office on 04/27. Feels like he has more energy since he started the prednisone. Getting infusions, thinks rituxan, for total of 2 thus far and does not have additional infusions scheduled. Next OV is 05/25. Brought in home BP and glucose readings today. BP has been labile at home, normal today. BS <100 in the morning. As high as 260 in the evening with usual evening readings in the 120-140 range. ANNIE: patient had pap titration showing ANNIE requiring CPAP 6 cm pressure nightly. Has not gotten rx for CPAP yet. Past medical history, appointments, medications, allergies reviewed. Previous Medical History PAST MEDICAL HISTORY Diagnosis Date - Anemia - Hypertension - Obesity (BMI 30.0-34.9) - ANNIE (obstructive sleep apnea) - Renal cyst right, repeat US 09/2018 - S/P ileostomy (HCC) 2012 - Snoring - ulcerative colitis 2010 Dr. Sandoval, pouchoscopy every 1-2 years - Aquilino's granulomatosis ([facility]) Dr. Mckeon Previous Surgical History PAST SURGICAL HISTORY Procedure Laterality Date - COLONOSCOP W/ OR W/O BRSH SPEC 07/02/2011 Colonoscopy - ILEOSTOMY 2011 - PICC LINE INSERT/CONSULT 07/03/2012 - SIGMOIDOS FLEX DIAG W/BX SING/MUL 01/22/12 Family History FAMILY HISTORY Problem Relation Age of Onset - Cancer Mother unknown? lung? - Hypertension Father - None Sister heart murmur - None Brother - None Brother - None Brother - Alzheimer's Disease Maternal Grandfather - None Maternal Grandmother - None Paternal Grandmother - None Paternal Grandfather - None Son - None Son Patient Allergies ALLERGIES Allergen Reactions - Aleve [Naproxen Sod* Other: See Comments throat tightening - Aspirin Other: See Comments Swelling of throat - Ibuprofen Other: See Comments Current Medications Current Outpatient Prescriptions on File Prior to Visit: predniSONE (DELTASONE) 20 mg tablet Take 3 tablets by mouth once daily for 10 days. blood sugar diagnostic (BLOOD GLUCOSE TEST) test strip Test blood sugar(s) 2 times daily. Dx: Other DM Code Z79.52 and M31.31 Insulin: No Blood-Glucose Meter monitoring kit Glucose Meter of Choice - Kit - Dx: Other DM Code Z79.52 and M31.31 Lancets lancets Test blood sugar(s) 2 times daily. Dx: Other DM Code Z79.52 and M31.31 Insulin: No COMPOUNDED PRESCRIPTION Automatic Arm BP Monitor cholecalciferol (VITAMIN D) 1,000 unit tab tablet Take 1,000 Units by mouth once daily. amLODIPine (NORVASC) 5 mg tablet Take 1 tablet by mouth once daily. pantoprazole DR (PROTONIX) 20 mg tablet Take 1 tablet by mouth DAILY (6 AM) for 14 days. No current facility-administered medications on file prior to visit. 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, [employer]* Social History Main Topics Smoking status: Former Smoker Packs/day: 2.00 Years: 30.00 Types: Cigarettes Quit date: 06/24/2001 Smokeless tobacco: Never Used Alcohol use: No Drug use: No Sexual activity: Yes Partners with: Female control/protection: None Review of Symptoms REVIEW OF SYSTEMS GENERAL: No weight loss, malaise or fevers RESPIRATORY: Negative for cough, hemoptysis, wheezing, COPD, dyspnea or shortness of breath CARDIOVASCULAR: Negative for chest pain, leg swelling, hypertension, CHF or palpitations GI: No nausea, vomiting, or diarrhea SKIN: Negative for lesions, rash, and itching EXAM: BP 130/88 Pulse 64 Resp 16 Wt 85.7 kg (189 lb) BMI 28.74 kg/m? General Appearance: Well appearing, alert, in no acute distress, well-hydrated, well nourished.. Skin: Skin color, texture, turgor normal, no suspicious rashes or lesions. Lungs: Lungs clear to auscultation. No wheezing, rhonchi, rales. Heart: RRR without murmur, gallop, or rubs. No ectopy. Abdomen: Normal abdominal exam, Abdomen soft, non-tender. Bowel sounds normal. No masses, organomegaly. Extremities: No deformities, edema, skin discoloration, clubbing or cyanosis. Good capillary refill. . Health Maintenance List DTAP,TDAP,TD(1 - Tdap) due on 1973 ZOSTER VACCINE (SHINGRIX)(1 of 2) due on 2004 COLORECTAL CANCER SCREENING,SEE MODIFIER due on 10/06/2014 INFLUENZA(1) due on 07/03/2018 DIABETES SCREEN due on 04/08/2021 LIPID SCREEN due on 02/12/2023 PROSTATE CANCER SCREENING DISCUSSION Completed HEPATITIS C SCREENING Completed ASSESSMENT/PLAN: 1. Aquilino's granulomatosis (HCC) - ICD9: 446.4, ICD10: M31.30 (primary diagnosis) Will obtain records from Dr. Mckeon. Continue prednisone and infusions. f/u recommendations. BS and BP in good range. 2. ANNIE (obstructive sleep apnea) - ICD9: 327.23, ICD10: G47.33 Order for CPAP given to patient. Will recheck symptoms in 3 months. - CPAP Anant Kaur MD CNOV Observed: 05/07/2018 Status: COMPLETED Source: [place] 11:[address] [facility] RE[facility] MIKA VELAZQUEZ ([id number]) 1955 M Date Time Provider Department 05/07/18 11:00 AM [facility] During your visit today, we recorded the following information about you: Pulse Respiration Blood pressure Weight 64/minute 16/minute 130/88 85.7 kg Anant Kaur MD 05/07/2018 11:41 AM Signed Chief Complaint Patient presents with: F/U [place] HPI Mika Velazquez is a 62 year old male who presents here today for Above Complaints.. Patient has been following up with Dr. Mckeon for Aquilino's granulomatosis and is still taking the prednisone 60 mg daily and was seen by their office on 04/27. Feels like he has more energy since he started the prednisone. Getting infusions, thinks rituxan, for total of 2 thus far and does not have additional infusions scheduled. Next OV is 05/25. Brought in home BP and glucose readings today. BP has been labile at home, normal today. BS <100 in the morning. As high as 260 in the evening with usual evening readings in the 120-140 range. ANNIE: patient had pap titration showing ANNIE requiring CPAP 6 cm pressure nightly. Has not gotten rx for CPAP yet. Past medical history, appointments, medications, allergies reviewed. Previous Medical History PAST MEDICAL HISTORY Diagnosis Date - Anemia - Hypertension - Obesity (BMI 30.0-34.9) - ANNIE (obstructive sleep apnea) - Renal cyst right, repeat US 09/2018 - S/P ileostomy (HCC) 2011 - Snoring - ulcerative colitis 2010 Dr. Sandoval, pouchoscopy every 1-2 years - Aquilino's granulomatosis ([facility]) Dr. Mckeon Previous Surgical History PAST SURGICAL HISTORY Procedure Laterality Date - COLONOSCOP W/ OR W/O BRSH SPEC 07/02/2011 Colonoscopy - ILEOSTOMY 2011 - PICC LINE INSERT/CONSULT 07/03/2012 - SIGMOIDOS FLEX DIAG W/BX SING/MUL 3/22/12 Family History FAMILY HISTORY Problem Relation Age of Onset - Cancer Mother unknown? lung? - Hypertension Father - None Sister heart murmur - None Brother - None Brother - None Brother - Alzheimer's Disease Maternal Grandfather - None Maternal Grandmother - None Paternal Grandmother - None Paternal Grandfather - None Son - None Son Patient Allergies ALLERGIES Allergen Reactions - Aleve [Naproxen Sod* Other: See Comments throat tightening - Aspirin Other: See Comments Swelling of throat - Ibuprofen Other: See Comments Current Medications Current Outpatient Prescriptions on File Prior to Visit: predniSONE (DELTASONE) 20 mg tablet Take 3 tablets by mouth once daily for 10 days. blood sugar diagnostic (BLOOD GLUCOSE TEST) test strip Test blood sugar(s) 2 times daily. Dx: Other DM Code Z79.52 and M31.31 Insulin: No Blood-Glucose Meter monitoring kit Glucose Meter of Choice - Kit - Dx: Other DM Code Z79.52 and M31.31 Lancets lancets Test blood sugar(s) 2 times daily. Dx: Other DM Code Z79.52 and M31.31 Insulin: No COMPOUNDED PRESCRIPTION Automatic Arm BP Monitor cholecalciferol (VITAMIN D) 1,000 unit tab tablet Take 1,000 Units by mouth once daily. amLODIPine (NORVASC) 5 mg tablet Take 1 tablet by mouth once daily. pantoprazole DR (PROTONIX) 20 mg tablet Take 1 tablet by mouth DAILY (6 AM) for 14 days. No current facility-administered medications on file prior to visit. 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, [employer]* Social History Main Topics Smoking status: Former Smoker Packs/day: 2.00 Years: 30.00 Types: Cigarettes Quit date: 06/24/2001 Smokeless tobacco: Never Used Alcohol use: No Drug use: No Sexual activity: Yes Partners with: Female control/protection: None Review of Symptoms REVIEW OF SYSTEMS GENERAL: No weight loss, malaise or fevers RESPIRATORY: Negative for cough, hemoptysis, wheezing, COPD, dyspnea or shortness of breath CARDIOVASCULAR: Negative for chest pain, leg swelling, hypertension, CHF or palpitations GI: No nausea, vomiting, or diarrhea SKIN: Negative for lesions, rash, and itching EXAM: BP 130/88 Pulse 64 Resp 16 Wt 85.7 kg (189 lb) BMI 28.74 kg/m? General Appearance: Well appearing, alert, in no acute distress, well-hydrated, well nourished.. Skin: Skin color, texture, turgor normal, no suspicious rashes or lesions. Lungs: Lungs clear to auscultation. No wheezing, rhonchi, rales. Heart: RRR without murmur, gallop, or rubs. No ectopy. Abdomen: Normal abdominal exam, Abdomen soft, non-tender. Bowel sounds normal. No masses, organomegaly. Extremities: No deformities, edema, skin discoloration, clubbing or cyanosis. Good capillary refill. . Health Maintenance List DTAP,TDAP,TD(1 - Tdap) due on 1973 ZOSTER VACCINE (SHINGRIX)(1 of 2) due on 2004 COLORECTAL CANCER SCREENING,SEE MODIFIER due on 10/06/2014 INFLUENZA(1) due on 07/03/2018 DIABETES SCREEN due on 04/08/2021 LIPID SCREEN due on 02/12/2023 PROSTATE CANCER SCREENING DISCUSSION Completed HEPATITIS C SCREENING Completed ASSESSMENT/PLAN: 1. Aquilino's granulomatosis (HCC) - ICD9: 446.4, ICD10: M31.30 (primary diagnosis) Will obtain records from Dr. Mckeon. Continue prednisone and infusions. f/u recommendations. BS and BP in good range. 2. ANNIE (obstructive sleep apnea) - ICD9: 327.23, ICD10: G47.33 Order for CPAP given to patient. Will recheck symptoms in 3 months. 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 Mask (per patient preference) optional chin strap (if indicated) , filters, tubing, humidifier and lifetime supplies.Disp: 1 DeviceRfl: 0 Prescriptions as of 05/07/2018 Sig: PREDNISONE 20 MG TABLET Take 3 tablets by mouth once * BLOOD SUGAR DIAGNOSTIC STRIPS Test blood sugar(s) 2 times d* BLOOD-GLUCOSE METER KIT Glucose Meter of Choice - Kit* LANCETS Test blood sugar(s) 2 times d* COMPOUNDED PRESCRIPTION Automatic Arm BP Monitor CHOLECALCIFEROL (VITAMIN D3) * Take 1,000 Units by mouth onc* AMLODIPINE 5 MG TABLET Take 1 tablet by mouth once d* CPAP Initiate CPAP @ 6 cm of water* Medication notes this encounter PANTOPRAZOLE 20 MG TABLET,DELAYED RELEASE >> Cinda Elaine Ma 05/07/2018 11:07 AM >> CINDA ELAINE MA ThuMay 07, 2018 11:07 AM No longer taking Problem List As Of Date 05/07/2018 Noted Resolved Ulcerative colitis [K51.90] INVALID FOR* Anemia, unspecified [D64.9] INVALID FOR* Ulcerative colitis, unspecified [K51.90] INVALID FOR*02/11/2018 Hypokalemia [E87.6] INVALID FOR* Hypomagnesemia [E83.42] INVALID FOR* Hyponatremia [E87.1] INVALID FOR* S/P ileostomy [Z93.2] Obesity (BMI 30.0-34.9) [E66.9] Hypogonadism male [E29.1] INVALID FOR*03/02/2018 ANNIE (obstructive sleep apnea) [G47.33] Acute kidney injury (HCC) [N17.9] INVALID FOR* 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 Prescriptions ordered this encounter Disp Refills Start End CPAP 1 De* 0 05/07/2018 Class: Print RX Sig: Initiate CPAP @ 6 cm of water with humidification. Mask (per patient preference) optional chin strap (if indicated) , filters, tubing, humidifier and lifetime supplies. Medications Discontinued During This Encounter pantoprazole DR (PROTONIX) 20 mg tab* 14 t* 0 04/09/2018 05/07/2018 Class: Print RX Route: ORAL Sig: Take 1 tablet by mouth DAILY (6 AM) for 14 days. Disc: Reason for discontinue is not on file. Disposition: Return if symptoms worsen or fail to improve. Follow-up and Disposition History Recorded Encounter Status:Closed by ANANT KAUR MD on 05/07/18 PROGRESS Observed: 04/27/2018 Status: COMPLETED Source: [place] 11:[address] [facility] REPOSITORY HNO ID: [id number] Author: Anant Barry) Natasha Service: (none) Author Type: Physician Type: Progress Notes Filed: 04/27/2018 4:24 PM Note Text: Medication updated. Review and agree. Will see as scheduled. PROGRESS Observed: 04/27/2018 Status: COMPLETED Source: [place] 9:[address] [facility] REPOSITORY HNO ID: [id number] Author: Rachel Laws) Juani Service: (none) Author Type: Registered Nurse Type: Progress Notes Filed: 04/27/2018 9:35 AM Note Text: TRANSITION CARE MANAGEMENT (TCM) FOLLOW-UP NOTE Provider Action/FYI Appt with Dr. Mckeon Instructed pt to take BP readings to appt with Dr. Mckeon today Pt is taking Prednisone 60 mg daily. MEDICATION UPDATE PENDED TO FILE States he finished the pantoprazole and stomach is fine. Will ask Dr. Mckeon if he needs to continue med. Appt w/ PCP on 05/07 Patient identified by name and date of : YES Spoke to patient Summary: Mika Velazquez is a 62 year old male who reports glucose readings as noted. DATE 04/26 04/25 04/24 04/23 04/22 04/21 04/20 AM BS 83 81 85 -- 91 -- 68 AM BP 144/94 163/89 147/115 167/93 151/79 147/98 118/24 AM P 55 53 63 55 51 53 63 PM BS -- -- 165 128 189 172 262 PM BP -- -- 139/88 151/89 170/82 158/96 142/85 PM P -- -- 66 71 64 77 84 Any low blood sugars during this period of reporting No Patient's BP medications as follows: amLODIPine (NORVASC) 5 mg Take 1 tablet by mouth once daily. Emergency Department Nurse plan for next outreach: Will follow up 3 weeks Signature Rachel Gloria RN April 27, 2018 CNPTOUTREACH Observed: 04/27/2018 Status: COMPLETED Source: [place] 12:[address] [facility] REPOSITORY Patient Outreach (FAMPWS) MIKA VELAZQUEZ ([id number]) 1955 M Date Time Provider Department 04/27/18 RACHEL GLORIA (RN) FAMPWS During your visit today, we recorded the following information about you: Rachel Gloria RN 04/27/2018 9:35 AM Addendum TRANSITION CARE MANAGEMENT (TCM) FOLLOW-UP NOTE Provider Action/FYI Appt with Dr. Mckeon Instructed pt to take BP readings to appt with Dr. Mckeon today Pt is taking Prednisone 60 mg daily. MEDICATION UPDATE PENDED TO FILE States he finished the pantoprazole and stomach is fine. Will ask Dr. Mckeon if he needs to continue med. Appt w/ PCP on 05/07 Patient identified by name and date of : YES Spoke to patient Summary: Mika Velazquez is a 62 year old male who reports glucose readings as noted. DATE 04/26 04/25 04/24 04/23 04/22 04/21 04/20 AM BS 83 81 85 -- 91 -- 68 AM BP 144/94 163/89 147/115 167/93 151/79 147/98 118/24 AM P 55 53 63 55 51 53 63 PM BS -- -- 165 128 189 172 262 PM BP -- -- 139/88 151/89 170/82 158/96 142/85 PM P -- -- 66 71 64 77 84 Any low blood sugars during this period of reporting No Patient's BP medications as follows: amLODIPine (NORVASC) 5 mg Take 1 tablet by mouth once daily. Emergency Department Nurse plan for next outreach: Will follow up 3 weeks Signature Rachel Gloria RN April 27, 2018 Anant Kaur MD 04/27/2018 4:24 PM Signed Medication updated. Review and agree. Will see as scheduled. 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] Order(s):predniSONE (DELTASONE) 20 mg tabletTake 3 tablets by mouth once daily for 10 days.Disp: 30 tabletRfl: 0 Prescriptions as of 04/27/2018 Sig: PREDNISONE 20 MG TABLET Take 3 tablets by mouth once * BLOOD SUGAR DIAGNOSTIC STRIPS Test blood sugar(s) 2 times d* BLOOD-GLUCOSE METER KIT Glucose Meter of Choice - Kit* LANCETS Test blood sugar(s) 2 times d* COMPOUNDED PRESCRIPTION Automatic Arm BP Monitor PANTOPRAZOLE 20 MG TABLET,DEL* Take 1 tablet by mouth DAILY * CHOLECALCIFEROL (VITAMIN D3) * Take 1,000 Units by mouth onc* AMLODIPINE 5 MG TABLET Take 1 tablet by mouth once d* Problem List As Of Date 04/27/2018 Noted Resolved Ulcerative colitis [K51.90] INVALID FOR* Anemia, unspecified [D64.9] INVALID FOR* Ulcerative colitis, unspecified [K51.90] INVALID FOR*02/11/2018 Hypokalemia [E87.6] INVALID FOR* Hypomagnesemia [E83.42] INVALID FOR* Hyponatremia [E87.1] INVALID FOR* S/P ileostomy [Z93.2] Obesity (BMI 30.0-34.9) [E66.9] Hypogonadism male [E29.1] INVALID FOR*03/02/2018 ANNIE (obstructive sleep apnea) [G47.33] Acute kidney injury (HCC) [N17.9] INVALID FOR* Prescriptions ordered this encounter Disp Refills Start End PREDNISONE 20 MG TABLET 30 t* 0 04/27/2018 05/07/2018 Class: Med Update Route: ORAL Sig: Take 3 tablets by mouth once daily for 10 days. Medications Discontinued During This Encounter predniSONE (DELTASONE) 20 mg tablet 30 t* 0 04/08/2018 04/27/2018 Class: Print RX Route: ORAL Sig: Take 3 tablets by mouth once daily for 10 days. Disc: Reason for discontinue is not on file. Encounter Status:Closed by RACHEL GLORIA on 04/27/18 PROGRESS Observed: 04/19/2018 Status: COMPLETED Source: [place] 3:[address] [facility] REPOSITORY HNO ID: [id number] Author: Anant Barry) Natasha Service: (none) Author Type: Physician Type: Progress Notes Filed: 04/19/2018 3:42 PM Note Text: Reviewed. PROGRESS Observed: 04/19/2018 Status: COMPLETED Source: [place] 2:[address] [facility] REPOSITORY HNO ID: [id number] Author: Rachel Laws) Juani Service: (none) Author Type: Registered Nurse Type: Progress Notes Filed: 04/19/2018 3:21 PM Note Text: TRANSITION CARE MANAGEMENT (TCM) FOLLOW-UP NOTE Provider Action/FYI Pt states he's been out of Prednisone 60 mg since Thursday or Thursday. Reports more fatigue today States Dr. Carlisle ordered infusion at hospital, it is scheduled for 04/21 TC to Vanessa at Dr. Carlisle's office, informed MD told PCP pt was to be on Prednisone 60 mg for one month so he will need a prescription called into [facility]. She will send a message to . Appt scheduled with PCP for 05/07 Patient identified by name and date of : YES Spoke to patient Summary: Mika Velazquez is a 62 year old male who reports glucose and BP readings as noted. DATE 04/18 04/17 04/16 04/15 04/14 Fasting BS 87 68 52 82 66 Evening BS 133 182 134 133 171 BP AM 126/90 156/88 148/91 158/107 141/90 BP PM 124/76 126/78 110/74 130/77 115/75 Emergency Department Nurse plan for next outreach: Will follow up one week Signature Rachel Gloria RN April 19, 2018 CNPTOUTREACH Observed: 04/19/2018 Status: COMPLETED Source: [place] 12:[address] [facility] REPOSITORY Patient Outreach (FAMPWS) MIKA VELAZQUEZ ([id number]) 1955 M Date Time Provider Department 04/19/18 RACHEL GLORIARN) TERESA During your visit today, we recorded the following information about you: Rachel Gloria RN 04/19/2018 3:21 PM Addendum TRANSITION CARE MANAGEMENT (TCM) FOLLOW-UP NOTE Provider Action/FYI Pt states he's been out of Prednisone 60 mg since Thursday or Thursday. Reports more fatigue today States Dr. Carlisle ordered infusion at hospital, it is scheduled for 04/21 TC to Vanessa at Dr. Carlisle's office, informed MD told PCP pt was to be on Prednisone 60 mg for one month so he will need a prescription called into [facility]. She will send a message to MD. Appt scheduled with PCP for 05/07 Patient identified by name and date of : YES Spoke to patient Summary: Mika Velazquez is a 62 year old male who reports glucose and BP readings as noted. DATE 04/18 04/17 04/16 04/15 04/14 Fasting BS 87 68 52 82 66 Evening BS 133 182 134 133 171 BP AM 126/90 156/88 148/91 158/107 141/90 BP PM 124/76 126/78 110/74 130/77 115/75 Emergency Department Nurse plan for next outreach: Will follow up one week Signature Rachel Gloria RN April 19, 2018 Anant Kaur MD 04/19/2018 3:42 PM Signed Reviewed. Allergies As of Date: 04/19/2018 Noted Allergy Reaction ALEVE (NAPROXEN SODIUM) 12/23/2011 14 - Other: See Comments Comments: throat tightening ASPIRIN 06/24/2011 14 - Other: See Comments Comments: Swelling of throat IBUPROFEN 11/13/2011 14 - Other: See Comments Date Reviewed: 04/14/2018 Reviewed by: Luly Chavarria Ma - Fully Assessed Reason for Visit: [facility] Follow Up [3575] Order(s):CBC W/DIFF/PLT (EXTERNAL LAB [facility]) [[id number]] Order #: [id number] Prescriptions as of 04/19/2018 Sig: BLOOD SUGAR DIAGNOSTIC STRIPS Test blood sugar(s) 2 times d* BLOOD-GLUCOSE METER KIT Glucose Meter of Choice - Kit* LANCETS Test blood sugar(s) 2 times d* COMPOUNDED PRESCRIPTION Automatic Arm BP Monitor PANTOPRAZOLE 20 MG TABLET,DEL* Take 1 tablet by mouth DAILY * CHOLECALCIFEROL (VITAMIN D3) * Take 1,000 Units by mouth onc* AMLODIPINE 5 MG TABLET Take 1 tablet by mouth once d* Problem List As Of Date 04/19/2018 Noted Resolved Ulcerative colitis [K51.90] INVALID FOR* Anemia, unspecified [D64.9] INVALID FOR* Ulcerative colitis, unspecified [K51.90] INVALID FOR*02/11/2018 Hypokalemia [E87.6] INVALID FOR* Hypomagnesemia [E83.42] INVALID FOR* Hyponatremia [E87.1] INVALID FOR* S/P ileostomy [Z93.2] Obesity (BMI 30.0-34.9) [E66.9] Hypogonadism male [E29.1] INVALID FOR*03/02/2018 ANNIE (obstructive sleep apnea) [G47.33] Acute kidney injury (HCC) [N17.9] INVALID FOR* Encounter Status:Closed by RACHEL GLORIA on 04/19/18 CBC W/DIFF, AUTOMATED Collected: 04/17/2018 Status: F Source: [place] 9:21 AM [facility] REPOSITORY TYPE CODE TESTS RESULT OUT OF RANGE REFERENCE UNITS LAB L100.1000 4.4-11.0 K/mm3 High WBC 14.2 LAB L100.1200 4.6-6.2 M/mm3 Low RBC 4.54 LAB L100.1300 13.0-16.5 g/dl Low HGB 12.5 LAB L100.1400 40-54 % Low HCT 38.6 LAB L100.1500 80-94 fL Normal MCV 85.0 LAB L100.1600 27.0-32.0 pg Normal MCH 27.5 LAB L100.1700 32-36 g/gl Normal MCHC 32.4 LAB L100.1810 11.6-14.6 % High RDW CV 15.6 LAB L100.1820 35.1-43.9 fl High RDW SD 48.2 LAB L100.1900 150-450 K/mm3 Normal PLT 400 LAB L100.2000 6.2-12.0 fl Normal MPV 9.7 LAB L100.2100 47-70 % High NEUT% 74.2 LAB L100.2200 19-41 % Low LY% 18.0 LAB L100.2300 0-10 % Normal MONO% 6.0 LAB L100.2400 0-5 % Normal EO% 0.1 LAB L100.2500 0-1 % Normal BASO% 0.1 LAB L100.2550 0.0-0.9 % High IM GRAN % 1.600 Result Comment: IG% - Immature Granulocytes (promyelocytes, myelocytes and metamyelocytes) > 1% indicates that a LEFT SHIFT is Present. LAB L100.2620 2.0-7.7 X10 3/uL High Absolute Neut 10.5 LAB L100.2720 0.83-4.51 X10 3/ul Normal Absolute Lymph 2.55 Performed By: #### L100.0100 #### [facility] [address] [place], [address] PROTHROMBIN TIME W/INR Collected: 04/17/2018 Status: F Source: [place] 9:21 AM [facility] REPOSITORY TYPE CODE TESTS RESULT OUT OF RANGE REFERENCE UNITS LAB L300.4150 11.7-14.9 SECONDS Normal PROTIME 13.3 LAB L300.4200 Normal INR 1.0 Performed By: #### L300.3900, L300.4310 #### [facility] [address] [place], [place], [address] PARTIAL THROMBOPLAST Collected: 04/17/2018 Status: F Source: [place] TIME 9:21 AM [facility] REPOSITORY TYPE CODE TESTS RESULT OUT OF RANGE REFERENCE UNITS LAB L300.4310 24.1-36.2 Seconds Normal PTT 28.3 Performed By: #### L300.3900, L300.4310 #### [facility] [address] [place], [address] PROGRESS Observed: 04/14/2018 Status: COMPLETED Source: [place] 4:[address] [facility] REPOSITORY HNO ID: [id number] Author: Rachel Laws) Juani Service: (none) Author Type: Registered Nurse Type: Progress Notes Filed: 04/15/2018 11:42 AM Note Text: TRANSITION CARE MANAGEMENT (TCM) FOLLOW-UP NOTE Provider Action/FYI Pt will call BS and BP logs every Thursday Patient identified by name and date of : YES TC from patient, left message. States he was having problems with obtaining his blood sugars but after the appt with Dr. Cornejo yesterday has now figured it out and not having any problems. States he was told to keep a log of his BS and BP and call it to PCC on Mondays. No need for PCC to call pt back. Summary: TC to patient, left message to please call PCC back regarding BS testing. Rachel Gloria RN April 14, 2018 4:35 PM Concerns: TC from Luly at Dr. Cornejo's office, she isn't sure pt is taking BS correctly. States pt had a 45 BS but stated he felt fine with no sx. Pt states he has to keep dabbing the stick with blood. Pt has been taking BP; some were elevated but pt didn't call. Luly discussed the parameters for calling BS and BP to PCP that PCC had given but pt didn't remember hearing that. Asked if PCC could call pt to reinstruct. Emergency Department Nurse plan for next outreach: Will follow up next week Signature Rachel Gloria RN April 14, 2018 URINALYSIS WITH Collected: 04/14/2018 Status: F Source: [facility] 12:00 PM [facility] REPOSITORY TYPE CODE TESTS RESULT OUT OF RANGE REFERENCE UNITS LAB UCOL Yellow Color Yellow LAB [facility] Clear Clarity Clear LAB UGLUC Negative mg/dL Glucose, Urine Negative LAB UBIL Negative Bilirubin, Urine Negative LAB UKET Negative Ketones, Urine Negative LAB USPG 1.005-1.030 Specific Carlos, Ur 1.014 LAB UHGB Negative Abnormal Hemoglobin/Blood, 2+ Alert Ur LAB UPH 4.5-8.0 pH 5.0 LAB UPROT Negative mg/dL Protein, Abnormal Urine 100 Alert LAB UUROB Normal Urobilinogen Normal LAB UNITR Negative Nitrites Negative LAB ULKEST Negative Leukest Negative LAB UCOM Comments SEE COMMENT Result Comment: N/A LAB UMCOM Urine SEE Laith Comment COMMENT Result Comment: Result rechecked. LAB UWBC 0-5 /HPF WBC 0-5 LAB URBC 0-3 /HPF Abnormal Alert RBC 6-10 LAB UCAST 0 /LPF Abnormal Alert Cast SEE COMMENT Result Comment: 1-3 Hyaline Cast Performed By: #### UAWMIC #### [facility] [address], [place] [address] Observed: 04/14/2018 Status: F Source: [place] URINE CULTURE 12:[address] [facility] REPOSITORY Sp. Request/Comment: - Specimen received in preservative Culture Result - <10,000 CFU/ml Enterococcus --> ABNORMAL ALERT Cephalosporins, clindamycin, and TMP-SMX are not effective for the treatment of enterococcal infections. --> ABNORMAL ALERT Insig nificant colony count. No further workup. --> ABNORMAL ALERT Performed By: #### URCUL #### [facility] [address] [place], [place] [address] PROGRESS Observed: 04/14/2018 Status: COMPLETED Source: [place] 9:[address] [facility] REPOSITORY HNO ID: [id number] Author: Harlan Cornejo Service: (none) Author Type: Physician Type: Progress Notes Filed: 04/14/2018 10:35 AM Note Text: Transitional Care Management Progress Note The patients TCM visit was performed within the 7 days of discharge. Patient's Date of discharge: 04/08/18 Date of initial coordinator contact after discharge: 04/09/17 Discharge diagnosis: Pauciimmuune Glomerulonephitis Medication review completed Yes Luly Chavarria Ma Initial contact with patient post discharge, spoke to patient. Patient identified by name and . ? SUMMARY: -Pt discharged from [facility] on 04/08. -Pt scheduled with Dr. Mckeon 04/27/18. -Medication review done with patient. -Admitted for: Acute kidney injury PROCEDURES DURING HOSPITALIZATION: L. Renal biopsy ? CONCERNS: Discussed obtaining glucose meter and BP monitor. States several family members have both monitors and he would like to ask them about borrowing them instead of purchasing them for only short term monitoring. Discussed CPAP and fatigue. Pt asking if he should wait and see if fatigue improves as kidney issue resolves. Instructed he should not wait because ANNIE can cause more issues than just fatigue. Verbalized understanding and asked PCC to fax prescription to [facility] ? NEW MEDICATIONS: predniSONE (DELTASONE) 60 mg Take 60 mg by mouth once daily. Qty: 30 Refills: [address] (PROTONIX) 20 mg Take 20 mg by mouth DAILY (6 AM). Qty: 14 Refills: 0 ? MEDS HELD/DISCONTINUED: None ? BRIEF HOSPITAL COURSE: This is a pleasant 62 y/o male who presents with JANA suspicious for ANCA associated vasculitis. Crown Assembly Machine Operator was consulted who recommended renal biopsy and started patient on IV steroids. Patient's kidney function remained stable. He will be discharged on oral prednisone with possible initiation of Rituximab next week. Patient will follow up with his plant maintenance mechanic upon discharge. ? LABS AND PROCEDURES PENDING AT DISCHARGE: Biopsy Results (Renal biopsy - follow up with nephrology) ? ? Rachel Gloria RN Provider Documentation: In follow-up of hospitalization, Mika Velazquez is a 62 year old male with the chief complaint of hospital follow up after renal biopsy. I have reviewed the patient?s last hospital course including diagnostic testing performed during this hospitalization, their discharge medications, and my assessment and plan with the patient and any family members present at today?s visit. Patient presents with: Hospital Discharge: TCM HPI: Patient presents today for office visit for follow up from hospitalization. Home sugars rarely checked and were ok. Home bp is up and down. Is good today. His fatigue may be improving. Some urinary urgency. And nocturia. Reinforced need to check sugars etc. No dysuria. Appetite is better. No chest pain or shortness of breath. No edema. Overall tolerating steroids well. Seeing Dr. Mckeon on 04/27/18. Will be getting a slip for labs. Biopsy site was ok. No stomach or back pain. MEDICATIONS: Current Outpatient Prescriptions: blood sugar diagnostic (BLOOD GLUCOSE TEST) test strip Test blood sugar(s) 2 times daily. Dx: Other DM Code Z79.52 and M31.31 Insulin: No Blood-Glucose Meter monitoring kit Glucose Meter of Choice - Kit - Dx: Other DM Code Z79.52 and M31.31 Lancets lancets Test blood sugar(s) 2 times daily. Dx: Other DM Code Z79.52 and M31.31 Insulin: No COMPOUNDED PRESCRIPTION Automatic Arm BP Monitor pantoprazole DR (PROTONIX) 20 mg tablet Take 1 tablet by mouth DAILY (6 AM) for 14 days. predniSONE (DELTASONE) 20 mg tablet Take 3 tablets by mouth once daily for 10 days. cholecalciferol (VITAMIN D) 1,000 unit tab tablet Take 1,000 Units by mouth once daily. amLODIPine (NORVASC) 5 mg tablet Take 1 tablet by mouth once daily. No current facility-administered medications for this visit. ALLERGIES: ALLERGIES Allergen Reactions - Aleve [Naproxen Sod* Other: See Comments throat tightening - Aspirin Other: See Comments Swelling of throat - Ibuprofen Other: See Comments PAST MEDICAL HISTORY Diagnosis Date - Anemia - Hypertension - Obesity (BMI 30.0-34.9) - ANNIE (obstructive sleep apnea) - Renal cyst right, repeat US 09/2018 - S/P ileostomy ([facility]) 2011 - Snoring - ulcerative colitis 2010 Dr. Sandoval, pouchoscopy every 1-2 years - Aquilino's granulomatosis ([facility]) Dr. Mckeon PAST SURGICAL HISTORY Procedure Laterality Date - COLONOSCOP W/ OR W/O BRSH SPEC 07/02/2011 Colonoscopy - ILEOSTOMY 2011 - PICC LINE INSERT/CONSULT 07/03/2012 - SIGMOIDOS FLEX DIAG W/BX SING/MUL 01/22/12 FAMILY HISTORY Problem Relation Age of Onset - Cancer Mother unknown? lung? 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 REVIEW OF SYSTEMS All other reviewed and negative other than HPI. VITALS: BP 134/78 Pulse 64 Temp 36.6 ?C (97.9 ?F) (Tympanic) Resp 12 Wt 88.5 kg (195 lb) BMI 29.65 kg/m? Last 4 Encounter Wt Readings: Date: Wt: 04/14/2018 88.5 kg (195 lb) 04/06/2018 87.1 kg (192 lb 0.3 oz) 03/11/2018 86.2 kg (189 lb 15.9 oz) 03/11/2018 90.3 kg (199 lb) PHYSICAL EXAMINATION: General appearance: Well appearing, alert, in no acute distress, well-hydrated, well nourished. Skin: Skin color, texture, turgor normal, no suspicious rashes or lesions Head: Normocephalic, no masses, lesions, tenderness or abnormalities Back: Normal exam, site of biopsy was ok. Lungs: Lungs clear to auscultation. No wheezing, rhonchi, rales Heart: RRR without murmur, gallop, or rubs. No ectopy Abdomen: Normal abdominal exam, Abdomen soft, non-tender. Bowel sounds normal. No masses, organomegaly ASSESSMENT/PLAN: 1. Acute kidney injury (HCC) - ICD9: 584.9, ICD10: N17.9 (primary diagnosis) - await final biopsy. Continue to follow with neprhology. 2. Ulcerative colitis with complication, unspecified location (HCC) - ICD9: 556.9, ICD10: K51.919 - appears stable. 3. ANNIE (obstructive sleep apnea) - ICD9: 327.23, ICD10: G47.33 - awaiting follow up. 4. Nocturia - ICD9: 788.43, ICD10: R35.1 - urine shows blood and protein which is old. Shows barely trace leuks. Will check ua and c and s. - UA DIP B/O 5. Hyperglycemia - ICD9: 790.29, ICD10: R73.9 - check sugars in case contributing to above 6. Elevated blood pressure reading without diagnosis of hypertension - ICD9: 796.2, ICD10: R03.0 - Encouraged dietary sodium restriction/DASH diet - Goal of BP <130/80 Harlan Cornejo MD RTO in six weeks and prn. CNOV Observed: 04/14/2018 Status: COMPLETED Source: [place] 9:[address] [facility] REPOSITORY [facility] MIKA VELAZQUEZ ([id number]) 1955 M Date Time Provider Department 04/14/18 9:00 AM HARLAN CORNEJO During your visit today, we recorded the following information about you: Temperature Pulse Respiration Blood pressure 97.9 degrees 64/minute 12/minute 134/78 Weight 88.5 kg Harlan Cornejo MD 04/14/2018 10:35 AM Signed Transitional Care Management Progress Note The patients TCM visit was performed within the 7 days of discharge. Patient's Date of discharge: 04/08/18 Date of initial coordinator contact after discharge: 04/09/17 Discharge diagnosis: Pauciimmuune Glomerulonephitis Medication review completed Yes Luly Chavarria Ma Initial contact with patient post discharge, spoke to patient. Patient identified by name and . ? SUMMARY: -Pt discharged from [facility] on 04/08. -Pt scheduled with Dr. Mckeon 04/27/18. -Medication review done with patient. -Admitted for: Acute kidney injury PROCEDURES DURING HOSPITALIZATION: L. Renal biopsy ? CONCERNS: Discussed obtaining glucose meter and BP monitor. States several family members have both monitors and he would like to ask them about borrowing them instead of purchasing them for only short term monitoring. Discussed CPAP and fatigue. Pt asking if he should wait and see if fatigue improves as kidney issue resolves. Instructed he should not wait because ANNIE can cause more issues than just fatigue. Verbalized understanding and asked PCC to fax prescription to [facility] ? NEW MEDICATIONS: predniSONE (DELTASONE) 60 mg Take 60 mg by mouth once daily. Qty: 30 Refills: [address] (PROTONIX) 20 mg Take 20 mg by mouth DAILY (6 AM). Qty: 14 Refills: 0 ? MEDS HELD/DISCONTINUED: None ? BRIEF HOSPITAL COURSE: This is a pleasant 62 y/o male who presents with JANA suspicious for ANCA associated vasculitis. Crown Assembly Machine Operator was consulted who recommended renal biopsy and started patient on IV steroids. Patient's kidney function remained stable. He will be discharged on oral prednisone with possible initiation of Rituximab next week. Patient will follow up with his plant maintenance mechanic upon discharge. ? LABS AND PROCEDURES PENDING AT DISCHARGE: Biopsy Results (Renal biopsy - follow up with nephrology) ? ? Rachel Gloria, RN Provider Documentation: In follow-up of hospitalization, Mika Velazquez is a 62 year old male with the chief complaint of hospital follow up after renal biopsy. I have reviewed the patient?s last hospital course including diagnostic testing performed during this hospitalization, their discharge medications, and my assessment and plan with the patient and any family members present at today?s visit. Patient presents with: Hospital Discharge: TCM HPI: Patient presents today for office visit for follow up from hospitalization. Home sugars rarely checked and were ok. Home bp is up and down. Is good today. His fatigue may be improving. Some urinary urgency. And nocturia. Reinforced need to check sugars etc. No dysuria. Appetite is better. No chest pain or shortness of breath. No edema. Overall tolerating steroids well. Seeing Dr. Mckeon on 04/27/18. Will be getting a slip for labs. Biopsy site was ok. No stomach or back pain. MEDICATIONS: Current Outpatient Prescriptions: blood sugar diagnostic (BLOOD GLUCOSE TEST) test strip Test blood sugar(s) 2 times daily. Dx: Other DM Code Z79.52 and M31.31 Insulin: No Blood-Glucose Meter monitoring kit Glucose Meter of Choice - Kit - Dx: Other DM Code Z79.52 and M31.31 Lancets lancets Test blood sugar(s) 2 times daily. Dx: Other DM Code Z79.52 and M31.31 Insulin: No COMPOUNDED PRESCRIPTION Automatic Arm BP Monitor pantoprazole DR (PROTONIX) 20 mg tablet Take 1 tablet by mouth DAILY (6 AM) for 14 days. predniSONE (DELTASONE) 20 mg tablet Take 3 tablets by mouth once daily for 10 days. cholecalciferol (VITAMIN D) 1,000 unit tab tablet Take 1,000 Units by mouth once daily. amLODIPine (NORVASC) 5 mg tablet Take 1 tablet by mouth once daily. No current facility-administered medications for this visit. ALLERGIES: ALLERGIES Allergen Reactions - Aleve [Naproxen Sod* Other: See Comments throat tightening - Aspirin Other: See Comments Swelling of throat - Ibuprofen Other: See Comments PAST MEDICAL HISTORY Diagnosis Date - Anemia - Hypertension - Obesity (BMI 30.0-34.9) - ANNIE (obstructive sleep apnea) - Renal cyst right, repeat US 09/2018 - S/P ileostomy (HCC) 2011 - Snoring - ulcerative colitis 2010 Dr. Sandoval, pouchoscopy every 1-2 years - Aquilino's granulomatosis (HCC) Dr. Mckeon PAST SURGICAL HISTORY Procedure Laterality Date - COLONOSCOP W/ OR W/O [facility] 07/02/2011 Colonoscopy - ILEOSTOMY 2011 - PICC LINE INSERT/CONSULT 07/03/2012 - SIGMOIDOS FLEX DIAG W/BX SING/MUL 01/22/12 FAMILY HISTORY Problem Relation Age of Onset - Cancer Mother unknown? lung? 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 REVIEW OF SYSTEMS All other reviewed and negative other than HPI. VITALS: BP 134/78 Pulse 64 Temp 36.6 ?C (97.9 ?F) (Tympanic) Resp 12 Wt 88.5 kg (195 lb) BMI 29.65 kg/m? Last 4 Encounter Wt Readings: Date: Wt: 04/14/2018 88.5 kg (195 lb) 04/06/2018 87.1 kg (192 lb 0.3 oz) 03/11/2018 86.2 kg (189 lb 15.9 oz) 03/11/2018 90.3 kg (199 lb) PHYSICAL EXAMINATION: General appearance: Well appearing, alert, in no acute distress, well-hydrated, well nourished. Skin: Skin color, texture, turgor normal, no suspicious rashes or lesions Head: Normocephalic, no masses, lesions, tenderness or abnormalities Back: Normal exam, site of biopsy was ok. Lungs: Lungs clear to auscultation. No wheezing, rhonchi, rales Heart: RRR without murmur, gallop, or rubs. No ectopy Abdomen: Normal abdominal exam, Abdomen soft, non-tender. Bowel sounds normal. No masses, organomegaly ASSESSMENT/PLAN: 1. Acute kidney injury (HCC) - ICD9: 584.9, ICD10: N17.9 (primary diagnosis) - await final biopsy. Continue to follow with neprhology. 2. Ulcerative colitis with complication, unspecified location (HCC) - ICD9: 556.9, ICD10: K51.919 - appears stable. 3. ANNIE (obstructive sleep apnea) - ICD9: 327.23, ICD10: G47.33 - awaiting follow up. 4. Nocturia - ICD9: 788.43, ICD10: R35.1 - urine shows blood and protein which is old. Shows barely trace leuks. Will check ua and c and s. - UA DIP B/O 5. Hyperglycemia - ICD9: 790.29, ICD10: R73.9 - check sugars in case contributing to above 6. Elevated blood pressure reading without diagnosis of hypertension - ICD9: 796.2, ICD10: R03.0 - Encouraged dietary sodium restriction/DASH diet - Goal of BP <130/80 Harlan Cornejo MD RTO in six weeks and prn. Harlan Cornejo MD 04/14/2018 9:50 AM Signed Check sugars twice a day. Call if greater than 350. Call with a list of sugars on Thursday. Referring Provider: ANANT KAUR) [[id number]] Allergies As of Date: 04/14/2018 Noted Allergy Reaction ALEVE (NAPROXEN SODIUM) 12/23/2011 14 - Other: See Comments Comments: throat tightening ASPIRIN 06/24/2011 14 - Other: See Comments Comments: Swelling of throat IBUPROFEN 11/13/2011 14 - Other: See Comments Date Reviewed: 04/14/2018 Reviewed by: Luly Chavarria Ma - Fully Assessed Reason for Visit: Hospital Discharge [414] Cmt: TCM Primary Visit Diagnosis:Acute kidney injury (HCC) [N17.9] Other Visit Diagnoses:Ulcerative colitis with complication, unspecified location (HCC) [K51.919] ANNIE (obstructive sleep apnea) [G47.33] Nocturia [R35.1] Hyperglycemia [R73.9] Elevated blood pressure reading without diagnosis of hypertension [R03.0] Order(s):UA DIP B/O [[id number]] Order #: [id number] URINALYSIS WITH MICROSCOPIC [SQUAWMIC] Order #: [id number] URINE CULTURE [SQURCUL] Order #: [id number] Prescriptions as of 04/14/2018 Sig: BLOOD SUGAR DIAGNOSTIC STRIPS Test blood sugar(s) 2 times d* BLOOD-GLUCOSE METER KIT Glucose Meter of Choice - Kit* LANCETS Test blood sugar(s) 2 times d* COMPOUNDED PRESCRIPTION Automatic Arm BP Monitor PANTOPRAZOLE 20 MG TABLET,DEL* Take 1 tablet by mouth DAILY * PREDNISONE 20 MG TABLET Take 3 tablets by mouth once * CHOLECALCIFEROL (VITAMIN D3) * Take 1,000 Units by mouth onc* AMLODIPINE 5 MG TABLET Take 1 tablet by mouth once d* Problem List As Of Date 04/14/2018 Noted Resolved Ulcerative colitis [K51.90] INVALID FOR* Anemia, unspecified [D64.9] INVALID FOR* Ulcerative colitis, unspecified [K51.90] INVALID FOR*02/11/2018 Hypokalemia [E87.6] INVALID FOR* Hypomagnesemia [E83.42] INVALID FOR* Hyponatremia [E87.1] INVALID FOR* S/P ileostomy [Z93.2] Obesity (BMI 30.0-34.9) [E66.9] Hypogonadism male [E29.1] INVALID FOR*03/02/2018 ANNIE (obstructive sleep apnea) [G47.33] Acute kidney injury (HCC) [N17.9] INVALID FOR* Other instructions from your clinician: Check sugars twice a day. Call if greater than 350. Call with a list of sugars on Thursday. Disposition: Return in about 6 weeks (around 05/26/2018). Follow-up and Disposition History Recorded Encounter Status:Closed by HARLAN CORNEJO MD on 04/14/18 YADY Observed: 04/14/2018 Status: COMPLETED Source: [place] 12:[address] [facility] REPOSITORY [facility] MIKA VELAZQUEZ ([id number]) 1955 M Date Time Provider Department 04/14/18 RACHEL GLORIA (RN) TERESA During your visit today, we recorded the following information about you: Rachel Gloria RN 04/15/2018 11:42 AM Signed TRANSITION CARE MANAGEMENT (TCM) FOLLOW-UP NOTE Provider Action/FYI Pt will call BS and BP logs every Thursday Patient identified by name and date of : YES TC from patient, left message. States he was having problems with obtaining his blood sugars but after the appt with Dr. Cornejo yesterday has now figured it out and not having any problems. States he was told to keep a log of his BS and BP and call it to PCC on Mondays. No need for PCC to call pt back. Summary: TC to patient, left message to please call PCC back regarding BS testing. Rachel Gloria RN April 14, 2018 4:35 PM Concerns: TC from Luly at Dr. Cornejo's office, she isn't sure pt is taking BS correctly. States pt had a 45 BS but stated he felt fine with no sx. Pt states he has to keep dabbing the stick with blood. Pt has been taking BP; some were elevated but pt didn't call. Luly discussed the parameters for calling BS and BP to PCP that PCC had given but pt didn't remember hearing that. Asked if PCC could call pt to reinstruct. Emergency Department Nurse plan for next outreach: Will follow up next week Signature Rachel Gloria RN April 14, 2018 Allergies As of Date: 04/14/2018 Noted Allergy Reaction ALEVE (NAPROXEN SODIUM) 12/23/2011 14 - Other: See Comments Comments: throat tightening ASPIRIN 06/24/2011 14 - Other: See Comments Comments: Swelling of throat IBUPROFEN 11/13/2011 14 - Other: See Comments Date Reviewed: 04/14/2018 Reviewed by: Luly Chavarria Ma - Fully Assessed Reason for Visit: [facility] Follow Up [3610] Prescriptions as of 04/14/2018 Sig: BLOOD SUGAR DIAGNOSTIC STRIPS Test blood sugar(s) 2 times d* BLOOD-GLUCOSE METER KIT Glucose Meter of Choice - Kit* LANCETS Test blood sugar(s) 2 times d* COMPOUNDED PRESCRIPTION Automatic Arm BP Monitor PANTOPRAZOLE 20 MG TABLET,DEL* Take 1 tablet by mouth DAILY * PREDNISONE 20 MG TABLET Take 3 tablets by mouth once * CHOLECALCIFEROL (VITAMIN D3) * Take 1,000 Units by mouth onc* AMLODIPINE 5 MG TABLET Take 1 tablet by mouth once d* Problem List As Of Date 04/14/2018 Noted Resolved Ulcerative colitis [K51.90] INVALID FOR* Anemia, unspecified [D64.9] INVALID FOR* Ulcerative colitis, unspecified [K51.90] INVALID FOR*02/11/2018 Hypokalemia [E87.6] INVALID FOR* Hypomagnesemia [E83.42] INVALID FOR* Hyponatremia [E87.1] INVALID FOR* S/P ileostomy [Z93.2] Obesity (BMI 30.0-34.9) [E66.9] Hypogonadism male [E29.1] INVALID FOR*03/02/2018 ANNIE (obstructive sleep apnea) [G47.33] Acute kidney injury (HCC) [N17.9] INVALID FOR* Encounter Status:Closed by RACHEL GLORIA on 04/15/18 PROGRESS Observed: 04/09/2018 Status: COMPLETED Source: [place] 3:[address] [facility] [place] REPOSITORY HNO ID: [id number] Author: Anant Barry) Natasha Service: (none) Author Type: Physician Type: Progress Notes Filed: 04/09/2018 4:35 PM Note Text: Orders placed. Thanks for pending PROGRESS Observed: 04/09/2018 Status: COMPLETED Source: [place] 2:[address] [facility] [place] REPOSITORY HNO ID: [id number] Author: Rachel OrozcoRn) Juani Service: (none) Author Type: Registered Nurse Type: Progress Notes Filed: 04/09/2018 3:45 PM Note Text: TRANSITION CARE MANAGEMENT (TCM) FOLLOW-UP NOTE Provider Action/FYI Appt with Dr. Cornejo on 04/14 PLEASE FILE ORDERS FOR GLUCOSE METER AND BP MONITOR Patient identified by name and date of : YES Spoke to patient Summary: Pt states he is going to use family members meter. Doesn't know which meter it is but the sticks are outdated. PCC will put in order for generic test strips and pt can tell pharmacy which ones he needs States he is going to purchase his own BP monitor Appt with Dr. Mckeon 04/27 at 2:30 in [facility] Dr. Mckeon will speak to [facility] regarding pt's IV infusions. Emergency Department Nurse plan for next outreach: Will follow up one week Signature Rachel Gloria RN April 09, 2018 PROGRESS Observed: 04/09/2018 Status: COMPLETED Source: [place] 10:[address] [facility] REPOSITORY HNO ID: [id number] Author: Anant Barry) Natasha Service: (none) Author Type: Physician Type: Progress Notes Filed: 04/09/2018 10:59 AM Note Text: Reviewed. Thank you. PROGRESS Observed: 04/09/2018 Status: COMPLETED Source: [place] 9:[address] [facility] REPOSITORY HNO ID: [id number] Author: Rachel Laws) Juani Service: (none) Author Type: Registered Nurse Type: Progress Notes Filed: 04/09/2018 10:42 AM Note Text: TRANSITION CARE MANAGEMENT (TCM) INITIAL CONTACT Provider Action/FYI: 1. Pt will check with family members re: borrowing glucose meter and BP monitor instead of purchasing a new one. 2. Instructed to take BS BID (FBS and a 2 hr PP BS) and check BP daily. Pt to call PCC if they are elevated (BS over 200 and BP > 140/90) 3. PCC will call pt with appt with DOLLY LIN next week CPAP, humidifier and Sleep Study faxed to [facility] Rachel Gloria RN April 09, 2018 10:39 AM Initial contact with patient post discharge, spoke to patient. Patient identified by name and . SUMMARY: -Pt discharged from [facility] on 04/08. -Follow up appointment on D. Pt scheduling appt w/ Dr. Mckeon for next week -Medication review done with patient. -Admitted for: Acute kidney injury PROCEDURES DURING HOSPITALIZATION: L. Renal biopsy CONCERNS: Discussed obtaining glucose meter and BP monitor. States several family members have both monitors and he would like to ask them about borrowing them instead of purchasing them for only short term monitoring. Discussed CPAP and fatigue. Pt asking if he should wait and see if fatigue improves as kidney issue resolves. Instructed he should not wait because ANNIE can cause more issues than just fatigue. Verbalized understanding and asked PCC to fax prescription to [facility] NEW MEDICATIONS: predniSONE (DELTASONE) 60 mg Take 60 mg by mouth once daily. Qty: 30 Refills: [address] (PROTONIX) 20 mg Take 20 mg by mouth DAILY (6 AM). Qty: 14 Refills: 0 ? MEDS HELD/DISCONTINUED: None BRIEF HOSPITAL COURSE: This is a pleasant 62 y/o male who presents with JANA suspicious for ANCA associated vasculitis. Crown Assembly Machine Operator was consulted who recommended renal biopsy and started patient on IV steroids. Patient's kidney function remained stable. He will be discharged on oral prednisone with possible initiation of Rituximab next week. Patient will follow up with his plant maintenance mechanic upon discharge. ? LABS AND PROCEDURES PENDING AT DISCHARGE: Biopsy Results (Renal biopsy - follow up with nephrology) Rachel Gloria RN CNPTOUTREACH Observed: 04/09/2018 Status: COMPLETED Source: [place] 12:[address] [facility] REPOSITORY Patient Outreach ([facility]) MIKA VELAZQUEZ ([id number]) 1955 M Date Time Provider Department 04/09/18 RACHEL GLORIA (RN) [facility] During your visit today, we recorded the following information about you: Rachel Gloria RN 04/09/2018 10:42 AM Signed TRANSITION CARE MANAGEMENT (TCM) INITIAL CONTACT Provider Action/FYI: 1. Pt will check with family members re: borrowing glucose meter and BP monitor instead of purchasing a new one. 2. Instructed to take BS BID (FBS and a 2 hr PP BS) and check BP daily. Pt to call PCC if they are elevated (BS over 200 and BP > 140/90) 3. PCC will call pt with appt with DOLLY LIN next week CPAP, humidifier and Sleep Study faxed to [facility] Rachel Gloria RN April 09, 2018 10:39 AM Initial contact with patient post discharge, spoke to patient. Patient identified by name and . SUMMARY: -Pt discharged from [facility] on 04/08. -Follow up appointment on TBD. Pt scheduling appt w/ Dr. Mckeon for next week -Medication review done with patient. -Admitted for: Acute kidney injury PROCEDURES DURING HOSPITALIZATION: L. Renal biopsy CONCERNS: Discussed obtaining glucose meter and BP monitor. States several family members have both monitors and he would like to ask them about borrowing them instead of purchasing them for only short term monitoring. Discussed CPAP and fatigue. Pt asking if he should wait and see if fatigue improves as kidney issue resolves. Instructed he should not wait because ANNIE can cause more issues than just fatigue. Verbalized understanding and asked PCC to fax prescription to [facility] NEW MEDICATIONS: predniSONE (DELTASONE) 60 mg Take 60 mg by mouth once daily. Qty: 30 Refills: [address] (PROTONIX) 20 mg Take 20 mg by mouth DAILY (6 AM). Qty: 14 Refills: 0 ? MEDS HELD/DISCONTINUED: None BRIEF HOSPITAL COURSE: This is a pleasant 62 y/o male who presents with JANA suspicious for ANCA associated vasculitis. Crown Assembly Machine Operator was consulted who recommended renal biopsy and started patient on IV steroids. Patient's kidney function remained stable. He will be discharged on oral prednisone with possible initiation of Rituximab next week. Patient will follow up with his plant maintenance mechanic upon discharge. ? LABS AND PROCEDURES PENDING AT DISCHARGE: Biopsy Results (Renal biopsy - follow up with nephrology) TONG Contreras MD 04/09/2018 10:59 AM Signed Reviewed. Thank you. Allergies As of Date: 04/09/2018 Noted Allergy Reaction ALEVE (NAPROXEN SODIUM) 12/23/2011 14 - Other: See Comments Comments: throat tightening ASPIRIN 06/24/2011 14 - Other: See Comments Comments: Swelling of throat IBUPROFEN 11/13/2011 14 - Other: See Comments Date Reviewed: 04/07/2018 Reviewed by: Luigi Bell - Fully Assessed Reason for Visit: Transition Of Care [4074] Prescriptions as of 04/09/2018 Sig: PANTOPRAZOLE 20 MG TABLET,DEL* Take 1 tablet by mouth DAILY * PREDNISONE 20 MG TABLET Take 3 tablets by mouth once * CHOLECALCIFEROL (VITAMIN D3) * Take 1,000 Units by mouth onc* AMLODIPINE 5 MG TABLET Take 1 tablet by mouth once d* Problem List As Of Date 04/09/2018 Noted Resolved Ulcerative colitis [K51.90] INVALID FOR* Anemia, unspecified [D64.9] INVALID FOR* Ulcerative colitis, unspecified [K51.90] INVALID FOR*02/11/2018 Hypokalemia [E87.6] INVALID FOR* Hypomagnesemia [E83.42] INVALID FOR* Hyponatremia [E87.1] INVALID FOR* S/P ileostomy [Z93.2] Obesity (BMI 30.0-34.9) [E66.9] Hypogonadism male [E29.1] INVALID FOR*03/02/2018 ANNIE (obstructive sleep apnea) [G47.33] Acute kidney injury (HCC) [N17.9] INVALID FOR* Encounter Status:Closed by RACHEL GLORIA on 04/09/18 CNPTOUTREABRAULIO Observed: 04/09/2018 Status: COMPLETED Source: [place] 12:[address] [facility] REPOSITORY Patient Outreach ([facility]) MIKA VELAZQUEZ ([id number]) 1955 M Date Time Provider Department 04/09/18 RACHEL GLORIA (RN) [facility] During your visit today, we recorded the following information about you: Rachel Gloria RN 04/09/2018 3:45 PM Signed TRANSITION CARE MANAGEMENT (TCM) FOLLOW-UP NOTE Provider Action/FYI Appt with Dr. Cornejo on 04/14 PLEASE FILE ORDERS FOR GLUCOSE METER AND BP MONITOR Patient identified by name and date of : YES Spoke to patient Summary: Pt states he is going to use family members meter. Doesn't know which meter it is but the sticks are outdated. PCC will put in order for generic test strips and pt can tell pharmacy which ones he needs States he is going to purchase his own BP monitor Appt with Dr. Mckeon 04/27 at 2:30 in [place] Dr. Mckeon will speak to [facility] regarding pt's IV infusions. Emergency Department Nurse plan for next outreach: Will follow up one week Signature Rachel Gloria RN April 09, 2018 Anant Kaur MD 04/09/2018 4:35 PM Signed Orders placed. 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 Dx: Other DM Code Z79.52 and M31.31 Insulin: NoDisp: 50 StripRfl: 11 Blood-Glucose Meter monitoring kitGlucose Meter of Choice - Kit - Dx: Other DM Code Z79.52 and M31.31Disp: 1 EachRfl: 0 Lancets lancetsTest blood sugar(s) 2 times daily. Dx: Other DM Code Z79.52 and M31.31 Insulin: NoDisp: 100 EachRfl: 11 COMPOUNDED PRESCRIPTIONAutomatic Arm BP MonitorDisp: 1 EachRfl: 0 Prescriptions as of 04/09/2018 Sig: BLOOD SUGAR DIAGNOSTIC STRIPS Test blood sugar(s) 2 times d* BLOOD-GLUCOSE METER KIT Glucose Meter of Choice - Kit* LANCETS Test blood sugar(s) 2 times d* COMPOUNDED PRESCRIPTION Automatic Arm BP Monitor PANTOPRAZOLE 20 MG TABLET,DEL* Take 1 tablet by mouth DAILY * PREDNISONE 20 MG TABLET Take 3 tablets by mouth once * CHOLECALCIFEROL (VITAMIN D3) * Take 1,000 Units by mouth onc* AMLODIPINE 5 MG TABLET Take 1 tablet by mouth once d* Problem List As Of Date 04/09/2018 Noted Resolved Ulcerative colitis [K51.90] INVALID FOR* Anemia, unspecified [D64.9] INVALID FOR* Ulcerative colitis, unspecified [K51.90] INVALID FOR*02/11/2018 Hypokalemia [E87.6] INVALID FOR* Hypomagnesemia [E83.42] INVALID FOR* Hyponatremia [E87.1] INVALID FOR* S/P ileostomy [Z93.2] Obesity (BMI 30.0-34.9) [E66.9] Hypogonadism male [E29.1] INVALID FOR*03/02/2018 ANNIE (obstructive sleep apnea) [G47.33] Acute kidney injury (HCC) [N17.9] INVALID FOR* Prescriptions ordered this encounter Disp Refills Start End BLOOD SUGAR DIAGNOSTIC STRIPS 50 S* 11 04/09/2018 Sig: Test blood sugar(s) 2 times daily. Dx: Other DM Code Z79.52 and M31.31 Insulin: No BLOOD-GLUCOSE METER KIT 1 Ea* 0 04/09/2018 Sig: Glucose Meter of Choice - Kit - Dx: Other DM Code Z79.52 and M31.31 LANCETS 100 * 11 04/09/2018 Sig: Test blood sugar(s) 2 times daily. Dx: Other DM Code Z79.52 and M31.31 Insulin: No COMPOUNDED PRESCRIPTION 1 Ea* 0 04/09/2018 Sig: Automatic Arm BP Monitor Encounter Status:Closed by RACHEL GLORIA on 04/09/18 PROGRESS Observed: 04/08/2018 Status: COMPLETED Source: [place] 12:30 PM CLINIC OTHER CAMPUS REPOSITORY O ID: [id number] Author: Cherry Alvarez MD Service: Nephrology Author Type: Physician Type: Progress Notes Filed: 04/08/2018 12:33 PM Note Text: CONSULT PROGRESS NOTE NEPHROLOGY SERVICE Following for JANA No acute complaints. Some SOB but cough No bloody coughing MEDICATIONS: Current hospital medications: pantoprazole DR 20 mg tab(s) (PROTONIX) 20 mg ORAL DAILY (6 AM) amLODIPine 5 mg tab(s) (NORVASC) 5 mg ORAL DAILY cholecalciferol 1,000 Units tab(s) (VITAMIN D3) 1,000 Units ORAL DAILY [MAR Hold due to Transfer] heparin 5,000 Units injection 5,000 Units SUBCUTANEOUS q 12 H 0.9% NaCl 3-5 mL 3-5 mL INTRAVENOUS q 12 H aluminum-magnesium hydroxide-simethicone 200-200-20 mg/5 mL 30 mL (MAALOX,MYLANTA,MAG-AL PLUS) 30 mL ORAL DAILY PRN ondansetron 4 mg tab(s) (ZOFRAN) 4 mg ORAL q 6 H PRN ondansetron (PF) 4 mg injection (ZOFRAN) 4 mg INTRAVENOUS q 6 H PRN acetaminophen 650 mg tab(s) (TYLENOL) 650 mg ORAL q 6 H PRN Objective PHYSICAL EXAM: BP 140/75 Pulse 92 Temp 36.9 ?C (98.4 ?F) (Oral) Resp 18 Ht 172.7 cm (5' 8) Wt 87.1 kg (192 lb 0.3 oz) SpO2 100% BMI 29.20 kg/m? Intake/Output Summary (Last 24 hours) at 04/08/18 1230 Last data filed at 04/08/18 0659 Gross per 24 hour Intake 1087 ml Output 2 ml Net 1085 ml Constitutional: No acute distress, Responsive, Normal habitus and Well-nourished Neck: Trachea midline No jugular venous distension Cardiovascular: Regular rate and ryhthm, normal S1 and S2, no murmurs, rubs, or gallops No peripheral edema Respiratory: Normal respiratory effort. Lungs clear bilaterally. Abdomen: Soft, non-tender, non-distended. Normal bowel sounds. No hepatosplenomegaly. Psychiatric: Alert and oriented x self, place, time, and setting Normal mood/affect DATA: Diagnostic tests reviewed for today's visit: Most recent labs Recent Labs 04/08/18 0610 04/07/18 0340 04/06/18 1700 NA 138 136 135* K 4.5 4.3 4.0 CHLOR 107 106 106 CO2 23 23 23 BUN 41* 33* 34* CREAT 2.83* 2.71* 2.68* GLUC 147* 178* 85 ANION 13 11 10 CA 9.5 8.7 8.7 MG -- -- 2.0 Recent Labs 04/08/18 0610 04/07/18 0340 04/06/18 1700 WBC 20.51* 5.79 7.43 HB 12.0* 11.8* 12.0* HCT 38.1* 37.2* 38.4* PLT 379* 337 345 Recent Labs 04/06/18 1843 03/11/18 1420 COLOR YELLOW Margo* CLARITY -- Cloudy* UGLUC NEGATIVE Negative UBILI NEGATIVE Negative UKET NEGATIVE Negative SPGR 1.015 1.017 UHB -- 2+* UPH 5.0 5.0 UPROT 300* 100* NITRITES NEGATIVE Negative LEUKEST NEGATIVE Trace* UWBC 8.4* 09-26* URBC 12.5* 09-26* Assessment/Plan 1. Acute kidney injury.active urinary sediment with microscopic hematuria, proteinuria, and positive cANCA and anti-proteinase 3 serologies. Anti-GBM Ab is pending. 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 Cr seems relatively stable On Pulse dose IV Solumedrol 1 g x 3. Today is day 3 Will arrange for Rituxan dose X2 as outpatient Hold off on TPE since SCr<4.00 mg/dL. Okay to discharge patient today from nephrology stand point with prednisone 60 mg PO daily. I discussed with his plant maintenance mechanic Dr Mckeon who agreed ?2. HTN. Stable Continue home dose of amlodipine. Will monitor BP. ? 3. History of ulcerative colitis s/p colectomy. Continue PPI since he will be on steroid. Renal team will continue to follow D/W Dr. Darren Alvarez MD [phone] CASE MANAGEM Observed: 04/08/2018 Status: COMPLETED Source: [place] 12:[address] [facility] OTHER [place] REPOSITORY HNO ID: [id number] Author: Nancy OrozcoRn) TONG Kelly Service: Care Management Author Type: Registered Nurse Type: Care Mgt Progress Note Filed: 04/08/2018 12:27 PM Note Text: CARE MANAGEMENT PROGRESS NOTE SERVICE DATE: 04/08/2018 SERVICE TIME: 12:25 PM LOS: 2 days Pt is D/C to home with . No D/C needs identified. SIGNATURE: Nancy Kelly RN PATIENT NAME: Mika Velazquez DATE: April 08, 2018 TIME: 12:24 PM PAGER/CONTACT #: [phone] CNDS Observed: 04/08/2018 Status: COMPLETED Source: [place] 11:[address] [facility] OTHER [place] REPOSITORY HNO ID: [id number] Author: Pam Garg Service: Hospital Medicine Author Type: Physician Type: Discharge Summaries Filed: 04/08/2018 11:58 AM Note Text: DISCHARGE SUMMARY PATIENT NAME: Mika Velazquez ADMISSION DATE: 04/06/2018 DISCHARGE DATE: 04/08/2018 ATTENDING PHYSICIAN: Pam Garg REASON FOR HOSPITALIZATION: JANA DIAGNOSIS: Active Problems: Acute kidney injury (HCC) Resolved Problems: * No resolved hospital problems. * OPERATIONS DURING HOSPITALIZATION: None PROCEDURES DURING HOSPITALIZATION: L. Renal biopsy HOSPITAL COURSE: This is a pleasant 62 y/o male who presents with JANA suspicious for ANCA associated vasculitis. Crown Assembly Machine Operator was consulted who recommended renal biopsy and started patient on IV steroids. Patient's kidney function remained stable. He will be discharged on oral prednisone with possible initiation of Rituximab next week. Patient will follow up with his plant maintenance mechanic upon discharge. LABS AND PROCEDURES PENDING AT DISCHARGE: Biopsy Results (Renal biopsy - follow up with nephrology) CONSULTING TEAMS DURING HOSPITALIZATION: Nephrology: Dr. Alvarez PATIENT CONDITION AT DISCHARGE: Stable DISCHARGE DISPOSITION: Home/Self Care 04/07/18 1559 04/07/18 1900 04/08/18 0600 04/08/18 0700 BP: 138/76 148/85 132/82 140/75 Pulse: 72 89 72 92 Resp: Temp: 36.5 ?C (97.7 ?F) 36.6 ?C (97.9 ?F) 36.9 ?C (98.4 ?F) TempSrc: Oral Oral Oral SpO2: 96% 100% 100% 100% Weight: Height: Gen: AANDOx3, NAD, Cooperative CV: RRR, +[id number], no murmurs Resp: CTA b/l, no wheeze, rales, non-labored respirations Abd: Soft, NTND, +BS Ext: no LE edema DISCHARGE MEDICATION: Current Discharge Medication List START taking these medications pantoprazole DR (PROTONIX) 20 mg Take 20 mg by mouth DAILY (6 AM). Qty: 14 tablet Refills: 0 predniSONE (DELTASONE) 60 mg Take 60 mg by mouth once daily. Qty: 30 tablet Refills: 0 CONTINUE these medications which have NOT CHANGED cholecalciferol (VITAMIN D3) 1,000 Units Take 1,000 Units by mouth once daily. amLODIPine (NORVASC) 5 mg Take 5 mg by mouth once daily. Qty: 30 tablet Refills: 2 Associated Diagnoses:Hypertension, essential FUTURE APPOINTMENTS: Follow Up with PCP: Anant Kaur MD Follow Up with Nephrology TIME OF CARE (Use first blank if not applicable): TIME OF CARE: Discharge Management: I personally spent greater than 30 minutes involved in the discharge management of this patient. SIGNATURE: Pam Garg DO PATIENT NAME: Mika Velazquez DATE: April 08, 2018 TIME: 11:52 AM PAGER/CONTACT #: Sound GLUCOSE METER Collected: 04/08/2018 Status: F [facility] 6:45 AM HEALTH SYSTEM REPOSITORY TYPE CODE TESTS RESULT OUT OF REFERENCE UNITS RANGE LAB GLUBL(LOINC 70-99 mg/dL ) High Glucose Meter 150 Performed By: #### GLMET #### [place] [address] HEMOGRAM/DIFF Collected: 04/08/2018 Status: F Source: [facility] 6:10 AM HEALTH SYSTEM REPOSITORY TYPE CODE TESTS RESULT OUT OF REFERENCE UNITS RANGE LAB WBC(LOINC) 4.23-9.07 thou/cmm WBC High 20.51 LAB RBC(LOINC) 4.63-6.08 mil/cmm Low RBC 4.39 LAB HGB(LOINC) 13.7-17.5 g/dL Low Hgb 12.0 LAB HCT(LOINC) 40.1-51.0 % Low Hct 38.1 LAB MCV(LOINC) 83.2-95.6 fl MCV 86.8 LAB MCH(LOINC) 25.7-32.2 pg MCH 27.3 LAB MCHC(LOINC 32.3-36.5 % ) Low MCHC 31.5 LAB RDW(LOINC) 11.6-14.4 % RDW High 14.9 LAB RDWSD(LOIN 36.1-45.8 fl C) RDW SD High 47.9 LAB PLT(LOINC) 141-365 thou/cmm Platelet High 379 LAB MPV(LOINC) 8.7-12.0 fl MPV 9.5 LAB SEG(LOINC) % Seg Neutrophil 94.8 LAB IGRE(LOINC % ) Immature Grans 0.70 LAB LYMPH(LOIN % C) Lymphocyte 3.5 LAB MNO(LOINC) % Monocyte 0.9 LAB EOSIN(LOIN % C) Eosinophil 0.0 LAB BASO(LOINC % ) Basophil 0.1 LAB SEGN(LOINC 1.78-5.38 thou/cmm ) Abs. High Neut (ANC) 19.44 LAB IGAB(LOINC 0.00-0.05 thou/cmm ) Abs High Immature Grans 0.14 LAB LYMN(LOINC 0.84-2.85 thou/cmm ) Low Abs. Lymph 0.72 LAB MONON(LOIN 0.30-0.82 thou/cmm C) Low Abs. [place] 0.18 LAB EOSN(LOINC 0.04-0.54 thou/cmm ) Low Abs. Eosin 0.00 LAB BASON(LOIN 0.01-0.08 thou/cmm C) Abs. Baso 0.02 Result Comment: Smear scanned; tech agrees with automated differential Performed By: #### CBCD1 #### [place] [address] COMPREHENSIVE PANEL Collected: 04/08/2018 Status: F Source: [facility] 6:10 AM HEALTH SYSTEM REPOSITORY TYPE CODE TESTS RESULT OUT OF REFERENCE UNITS RANGE LAB NA(LOINC) 136-145 mEq/L Sodium Blood 138 LAB K(LOINC) 3.5-5.1 mEq/L Potassium Blood 4.5 LAB CL(LOINC) 98-107 mEq/L Chloride Blood 107 LAB CO2(LOINC) 21-32 mEq/L CO2 Blood 23 LAB GLU(LOINC) 70-99 mg/dL Glucose High Blood 147 LAB BUN(LOINC) 7-18 mg/dL BUN Blood High 41 LAB CREA(LOINC 0.67-1.17 mg/dL ) Creatinine High Blood 2.83 LAB CA(LOINC) 8.5-10.1 mg/dL Calcium Blood 9.5 LAB ALB(LOINC) 3.4-5.0 g/dL Low Albumin Blood 3.0 LAB TP(LOINC) 6.4-8.2 g/dL Total Protein 8.2 LAB AST(LOINC) 9-37 U/L Low AST-SGOT Blood 7 LAB ALT(LOINC) 12-78 U/L ALT-SGPT Blood 13 LAB ALKP(LOINC 46-116 U/L ) Alk Phosphatase 95 LAB BILIT(LOIN 0.2-1.0 mg/dL C) Total Bilirubin 0.4 LAB ANGAP(LOIN 8-16 C) Anion Gap 13 Performed By: #### P14 #### [facility] [address] [place], [place] [address] MDRD GFR Collected: 04/08/2018 Status: F Source: [facility] 6:10 AM HEALTH SYSTEM REPOSITORY TYPE CODE TESTS RESULT OUT OF RANGE REFERENCE UNITS LAB GFRFN(LOINC >60mL/min/1.73m ) 2 eGFR 22.70 Result Comment: If the patient is , multiply the result by 1.210. Performed By: #### GFR #### [facility] [address] [place] [address] GLUCOSE METER Collected: 04/07/2018 Status: F Source: [facility] 8:42 PM HEALTH SYSTEM REPOSITORY TYPE CODE TESTS RESULT OUT OF REFERENCE UNITS RANGE LAB GLUBL(LOINC 70-99 mg/dL ) High Glucose Meter 173 Result Comment: RN NOTIFIED Performed By: #### GLMET #### [facility] [address] [place] [address] GLUCOSE METER Collected: 04/07/2018 Status: F Source: [facility] 3:52 PM HEALTH SYSTEM REPOSITORY TYPE CODE TESTS RESULT OUT OF REFERENCE UNITS RANGE LAB GLUBL(LOINC 70-99 mg/dL ) High Glucose Meter 173 Result Comment: RN NOTIFIED Performed By: #### GLMET #### [facility] [address] [place] [address] [address] NEEDLE BIOPSY Observed: 04/07/2018 Status: F Source: [facility] RENAL 2:35 PM HEALTH SYSTEM REPOSITORY Performed at [facility] APPROVED BY: Luigi Bell MD EXAM TITLE: CT-GUIDED RENAL BIOPSY DATE: 04/07/2018 13:13 COMPARISON: None. CLINICAL INDICATION/HISTORY: Acute renal failure PROCEDURE: The patient previous imaging was reviewed. The procedure was discussed with the patient including the risks, benefits and alternatives. After all the patient's questions were answered writ ten and verbal consent was obtained. The patient was placed in the prone position and CT scanning through the abdomen was performed. The inferior pole of the left kidney was identified. The skin over lying the left flank was marked, prepped and draped in a sterile fashion. A timeout was performed. Moderate sedation was administered to the patient provides dedicated radiology nurse. Local anesthes ia with 20 mL of 1% lidocaine was administered. Under CT guidance a 17-gauge introducer needle was advanced to the inferior margin of the right kidney. Through the introducer needle an 18-gauge BioPin ce core biopsy needle was advanced and 3 biopsy samples obtained. The patient tolerated the procedure well and there were no immediate complications. Intra-service time (monitoring for moderate sedation) (starts with administration of agent, ends when continuous [id number] time ends): 25 minutes. Patient monitoring: I personally supervised and directed an independent trained observer who assisted in monitoring the patient?s level of consciousness and physiological status throughout the procedure. Medication: 50 micrograms of fentanyl IV; 1 milligrams of Versed IV CT Dose-Length Product: 454.1 mGy*cm CT Dose Reduction Employed: 5. No dose reduction techniques were required. IMPRESSION: Technically successful left kidney biopsy. BRIEF OP NOT Observed: 04/07/2018 Status: COMPLETED Source: [place] 2:08 PM [facility] REPOSITORY HNO ID: [id number] Author: Luigi Bell Service: Radiology Author Type: Physician Type: Brief Op Note Filed: 04/07/2018 2:09 PM Note Text: INTERVENTIONAL RADIOLOGY POST PROCEDURE NOTE DATE: 04/07/18 NAME: Mika Velazquez LOG ID: [id number] Pre-Procedure Diagnosis: Renal failure Post Procedure Diagnosis: Same. Highway Truck Driver: Dr. Luigi Bell (Primary) Procedure: Biopsy Anesthesia: Moderate sedation Findings: CT guided random biopsy left kidney. Estimated Blood Loss: Minimal (Less Than 25 mL). 2 mls Specimen: Patholgy. Complications: None. Full report with procedural details to follow and will become available under Imaging Reports. Please contact for any questions or concerns. HISTORY PHYSICAL Observed: 04/07/2018 Status: COMPLETED Source: [place] 1:31 PM [facility] REPOSITORY HNO ID: [id number] Author: Luigi Bell Service: Radiology Author Type: Physician Type: HANDP Filed: 04/07/2018 1:31 PM Note Text: INTERVENTIONAL RADIOLOGY PRE-PROCEDURE INTERVAL HISTORY AND PHYSICAL EXAM UPDATE Date: 04/07/18 Name: Mika Velazquez The History and Physical (completed in the past 30 days) has been reviewed and the patient has been examined. The contents accurately reflect the patient's condition with the following additions or revisions since the HANDP was completed. Examination indicates no changes. This HANDP can be found in the Electronic Medical Record dated 04/06/18. PROGRESS Observed: 04/07/2018 Status: COMPLETED Source: [place] 1:08 PM CLINIC OTHER CAMPUS REPOSITORY HNO ID: [id number] Author: Cherry Alvarez MD Service: Nephrology Author Type: Physician Type: Progress Notes Filed: 04/07/2018 1:14 PM Note Text: CONSULT PROGRESS NOTE NEPHROLOGY SERVICE Following for JANA No acute complaints. Some SOB but cough No bloody coughing MEDICATIONS: Current hospital medications: methylPREDNISolone sodium succinate 1,000 mg in NaCl 0.9% 100 mL (Solu-MEDROL) 1,000 mg INTRAVENOUS DAILY pantoprazole DR 20 mg tab(s) (PROTONIX) 20 mg ORAL DAILY (6 AM) amLODIPine 5 mg tab(s) (NORVASC) 5 mg ORAL DAILY cholecalciferol 1,000 Units tab(s) (VITAMIN D3) 1,000 Units ORAL DAILY heparin 5,000 Units injection 5,000 Units SUBCUTANEOUS q 12 H 0.9% NaCl 3-5 mL 3-5 mL INTRAVENOUS q 12 H aluminum-magnesium hydroxide-simethicone 200-200-20 mg/5 mL 30 mL (MAALOX,MYLANTA,MAG-AL PLUS) 30 mL ORAL DAILY PRN ondansetron 4 mg tab(s) (ZOFRAN) 4 mg ORAL q 6 H PRN ondansetron (PF) 4 mg injection (ZOFRAN) 4 mg INTRAVENOUS q 6 H PRN acetaminophen 650 mg tab(s) (TYLENOL) 650 mg ORAL q 6 H PRN Objective PHYSICAL EXAM: BP 124/77 Pulse 69 Temp 36.5 ?C (97.7 ?F) (Oral) Resp 18 Ht 172.7 cm (5' 8) Wt 87.1 kg (192 lb 0.3 oz) SpO2 96% BMI 29.20 kg/m? Intake/Output Summary (Last 24 hours) at 04/07/18 1309 Last data filed at 04/07/18 0730 Gross per 24 hour Intake 100 ml Output 4 ml Net 96 ml Constitutional: No acute distress, Responsive, Normal habitus and Well-nourished Neck: Trachea midline No jugular venous distension Cardiovascular: Regular rate and ryhthm, normal S1 and S2, no murmurs, rubs, or gallops No peripheral edema Respiratory: Normal respiratory effort. Lungs clear bilaterally. Abdomen: Soft, non-tender, non-distended. Normal bowel sounds. No hepatosplenomegaly. Psychiatric: Alert and oriented x self, place, time, and setting Normal mood/affect DATA: Diagnostic tests reviewed for today's visit: Most recent labs Recent Labs 04/07/18 0340 04/06/18 1700 NA 136 135* K 4.3 4.0 CHLOR 106 106 CO2 23 23 BUN 33* 34* CREAT 2.71* 2.68* GLUC 178* 85 ANION 11 10 CA 8.7 8.7 MG -- 2.0 Recent Labs 04/07/18 0340 04/06/18 1700 WBC 5.79 7.43 HB 11.8* 12.0* HCT 37.2* 38.4* PLT 337 345 Recent Labs 04/06/18 1843 03/11/18 1420 COLOR YELLOW Margo* CLARITY -- Cloudy* UGLUC NEGATIVE Negative UBILI NEGATIVE Negative UKET NEGATIVE Negative SPGR 1.015 1.017 UHB -- 2+* UPH 5.0 5.0 UPROT 300* 100* NITRITES NEGATIVE Negative LEUKEST NEGATIVE Trace* UWBC 8.4* 11-25* URBC 12.5* 11-25* Assessment/Plan 1. Acute kidney injury.active urinary sediment with microscopic hematuria, proteinuria, and positive cANCA and anti-proteinase 3 serologies. Anti-GBM Ab is pending. High suspicion for ANCA associated SVV. Cr is now seems around 2.6-2.7 mg/dL. Non oliguric. No need of GRINDER MACHINE KNIFE SETTER On Pulse dose IV Solumedrol 1 g x 3. Today is day 2 Additional treatment such as rituximab will be determine by the result of the kidney biopsy. Hold off on TPE since SCr<4.00 mg/dL. Patient is going for kidney Bx today Anticipate we can discharge him when he finishes IV Solumedrol pulse on 04/08/18 and after biopsy is done. This will also depend on his renal function over the next 48 hrs as well. ? 2. HTN. Stable Continue home dose of amlodipine. Will monitor BP. ? 3. History of ulcerative colitis s/p colectomy. Continue PPI since he will be on steroid. Renal team will continue to follow Cherry Alvarez MD [phone] CASE MGT INIT Observed: 04/07/2018 Status: COMPLETED Source: [facility] 12:28 PM CLINIC OTHER CAMPUS REPOSITORY O ID: [id number] Author: Nancy (Rn) TONG Kelly Service: Care Management Author Type: Registered Nurse Type: Care Mgt Initial Assessment Filed: 04/07/2018 12:50 PM Note Text: CARE MANAGEMENT: ASSESSMENT AND DISCHARGE PLAN SERVICE DATE: 04/07/2018 SERVICE TIME: 12:46 PM PRIMARY CARE PHYSICIAN: Anant Kaur MD ADMISSION STATUS: Inpatient MEDICAL: Patient/[employer]er Stated Goals: To improve my functional status To return home to life as it was Health Insurance: [employer] . Health Issues Impacting Discharge Plan: Newly diagnosed JANA Last Admission Date: Previous admit date: 10/18/2012 Is this Within the Past 30 days? No Advance Directive: Health Literacy: 1. How often do you need to have someone help you when you read instructions, pamphlets, or other written material from your doctor or pharmacy? Sometimes - 3 2. How confident are you filling out medical forms by yourself? Somewhat - 3 If Patient scores > 3 on either question, the following interventions were put into place: Use concrete and specific phrases, avoid medical jargon, Sit with Patient and Gave Patient the opportunity to ask questions FUNCTIONAL AND COGNITIVE/BEHAVIORAL PRIOR TO ADMISSION: Baseline Mental Status: Alert AND Oriented, Person, Place , Time and Situation Functional Status: Independent Does Patient Currently Receive Any Community Services or Home Care? None Equipment Prior to Admission: None Has the Patient Been in a Retirement Facility in the Past 30 days? No SOCIAL: Living Arrangement: Home Lives With: Spouse Financial Resources: N/A Primary Contact: Extended Emergency Contact Information Primary Emergency Contact: Jeremy Velazquez Address: [address] [place], [place] [id number] Relation: Spouse Supportive: Yes Other Important Patient Contacts: None Caregiver Assessment: Caregiver is ready, willing and able to meet the patient's needs as recommended by the inter-professional team? No Caregiver Needed Patient's transition needs and plan for meeting these needs: . Does the patient have an acute stroke diagnosis, or has the patient had a stroke during this admission? No Medication Adherence: I am convinced of the importance of my prescription medication: Agree completely - 0 I worry that my prescription medication will do more harm than good to me Disagree mostly - 0 I feel financially burdened by my [id number] expenses for my prescription medication: Disagree mostly -0 Patient is categorized as low risk < 2 Are you interested in bedside delivery of your medications? Yes Food Concerns: In the Last Month, Have You had Trouble Getting Food? No trouble getting food During the Last Month, Have You Worried Whether Your Food Would Run Out Before You Had Enough Money to Buy More? No Is the Patient Psychosocially Complex? No ASSESSMENT AND PLAN: Medical Needs: 2 or more chronic diseases Psychosocial Needs: None FREEDOM OF CHOICE EXPLAINED: N/A POTENTIAL TRANSITION PLANS Home Pt states he is from home with spouse and is IND w/ADL's. No DME at home. Plan to return home at D/C. Following. SIGNATURE: Nancy Kelly RN PATIENT NAME: Mika Velazquez DATE: April 07, 2018 TIME: 12:28 PM PAGER/CONTACT #: [phone] GLUCOSE METER Collected: 04/07/2018 Status: F Source: [facility] 11:42 AM HEALTH SYSTEM REPOSITORY TYPE CODE TESTS RESULT OUT OF REFERENCE UNITS RANGE LAB GLUBL(LOINC 70-99 mg/dL ) High Glucose Meter 147 Performed By: #### GLMET #### [place] [address] PROGRESS Observed: 04/07/2018 Status: COMPLETED Source: [place] 10:06 AM CLINIC OTHER CAMPUS REPOSITORY HNO ID: [id number] Author: Pam Garg Service: Hospital Medicine Author Type: Physician Type: Progress Notes Filed: 04/07/2018 10:08 AM Note Text: DEPARTMENT OF HOSPITAL MEDICINE PROGRESS NOTE SERVICE DATE: 04/07/2018 SERVICE TIME: 10:06 AM Hospital Medicine/Primary Attending: Pam Garg, DO NIGHT AND WEEKEND COVERAGE: From 7am - 7pm, please call Sound After 7pm, please call cross cover pager #[phone] Subjective INTERVAL HPI: Patient seen and evaluated. No acute complaints. MEDICATIONS: Current hospital medications: methylPREDNISolone sodium succinate 1,000 mg in NaCl 0.9% 100 mL (Solu-MEDROL) 1,000 mg INTRAVENOUS DAILY pantoprazole DR 20 mg tab(s) (PROTONIX) 20 mg ORAL DAILY (6 AM) amLODIPine 5 mg tab(s) (NORVASC) 5 mg ORAL DAILY cholecalciferol 1,000 Units tab(s) (VITAMIN D3) 1,000 Units ORAL DAILY heparin 5,000 Units injection 5,000 Units SUBCUTANEOUS q 12 H 0.9% NaCl 3-5 mL 3-5 mL INTRAVENOUS q 12 H aluminum-magnesium hydroxide-simethicone 200-200-20 mg/5 mL 30 mL (MAALOX,MYLANTA,MAG-AL PLUS) 30 mL ORAL DAILY PRN ondansetron 4 mg tab(s) (ZOFRAN) 4 mg ORAL q 6 H PRN ondansetron (PF) 4 mg injection (ZOFRAN) 4 mg INTRAVENOUS q 6 H PRN acetaminophen 650 mg tab(s) (TYLENOL) 650 mg ORAL q 6 H PRN Objective PHYSICAL EXAM: BP 124/77 Pulse 69 Temp (Src) 97.7 (Oral) Resp 18 Ht 5' 8 (1.73m) Wt 192 lb 0.3 oz (87.1kg) SpO2 96% BMI 29.20 kg/(m2). Physical Exam Performed General: AANDOx3, NAD, Pleasant and cooperative CV: RRR, +[id number], no murmurs Resp: CTA b/l, no wheeze, rales Abd: Soft, NTND, +BS Ext: no LE edema. Lines, Drains, and Airways Line Peripheral 04/06/18 1710 Left Antecubital 20 Gauge less than 1 day Reviewed lines, drains, AND airways. Need to be continued . DATA: Diagnostic tests reviewed for today's visit: WBC (thou/cmm) Date Value 04/07/2018 5.79 RBC (mil/cmm) Date Value 04/07/2018 4.35 (L) Hemoglobin (g/dL) Date Value 02/22/2018 13.1 HGB (g/dL) Date Value 04/07/2018 11.8 (L) Hematocrit (%) Date Value 04/07/2018 37.2 (L) MCV (fl) Date Value 04/07/2018 85.5 MCH (pg) Date Value 04/07/2018 27.1 MCHC (%) Date Value 04/07/2018 31.7 (L) RDW-CV (%) Date Value 02/22/2018 13.4 Platelet Count (thou/cmm) Date Value 04/07/2018 337 MPV (fl) Date Value 04/07/2018 9.2 Glucose (mg/dL) Date Value 04/07/2018 178 (H) BUN (mg/dL) Date Value 04/07/2018 33 (H) Creatinine (mg/dL) Date Value 04/07/2018 2.71 (H) Sodium (mEq/L) Date Value 04/07/2018 136 Potassium (mEq/L) Date Value 04/07/2018 4.3 Chloride (mEq/L) Date Value 04/07/2018 106 CO2 (mEq/L) Date Value 04/07/2018 23 Protein, Total (g/dL) Date Value 04/07/2018 7.9 Albumin (g/dL) Date Value 04/07/2018 2.8 (L) Calcium (mg/dL) Date Value 04/07/2018 8.7 Alkaline Phosphatase (U/L) Date Value 04/07/2018 96 Bilirubin, Total (mg/dL) Date Value 04/07/2018 0.4 AST (U/L) Date Value 04/07/2018 9 ALT (U/L) Date Value 04/07/2018 14 Cholesterol, Total (mg/dL) Date Value 02/12/2018 179 Triglyceride (mg/dL) Date Value 02/12/2018 103 Assessment/Plan # 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 Renal biopsy pending. On IV solumedrol. Nephrology following. # hx of Ulcerative Colitis - in remission. # HTN - Stable. On norvasc Medication and Non-Pharmacologic VTE Prophylaxis/Anticoagulants Anticoagulant AND Antiplatelet Medications Start Dose Route Frequency Ordered Stop 04/06/18 2100 heparin 5,000 Units injection (Medical At Risk ) 5,000 Units SUBCUTANEOUS EVERY 12 HOURS 04/06/18 194 -- 04/06/181944 vte non-pharmacologic prophylaxis - none indicated (fl,oh) VTE Prophylaxis: VTE prophylaxis appropriate Disposition: Home Plan of care discussed with: Patient SIGNATURE: Pam Garg DO PATIENT NAME: Mika Velazquez DATE: April 07, 2018 TIME: 10:06 AM PAGER/CONTACT #: Shanice etx [phone] GLUCOSE METER Collected: 04/07/2018 Status: F Source: [facility] 6:44 AM HEALTH SYSTEM REPOSITORY TYPE CODE TESTS RESULT OUT OF REFERENCE UNITS RANGE LAB GLUBL(LOINC 70-99 mg/dL ) High Glucose Meter 150 Result Comment: RN NOTIFIED Performed By: #### GLMET #### [facility] [address] [place] [address] HEMOGRAM Collected: 04/07/2018 Status: F Source: [facility] 3:40 AM HEALTH SYSTEM REPOSITORY TYPE CODE TESTS RESULT OUT OF REFERENCE UNITS RANGE LAB WBC(LOINC) 4.23-9.07 thou/cmm WBC 5.79 LAB RBC(LOINC) 4.63-6.08 mil/cmm Low RBC 4.35 LAB HGB(LOINC) 13.7-17.5 g/dL Low Hgb 11.8 LAB HCT(LOINC) 40.1-51.0 % Low Hct 37.2 LAB MCV(LOINC) 83.2-95.6 fl MCV 85.5 LAB MCH(LOINC) 25.7-32.2 pg MCH 27.1 LAB MCHC(LOINC) 32.3-36.5 % Low MCHC 31.7 LAB RDW(LOINC) 11.6-14.4 % High RDW 14.6 LAB RDWSD(LOINC 36.1-45.8 fl ) RDW SD 45.8 LAB PLT(LOINC) 141-365 thou/cmm Platelet 337 LAB MPV(LOINC) 8.7-12.0 fl MPV 9.2 Performed By: #### CBC1 #### [facility] [address] [place] [address] COMPREHENSIVE PANEL Collected: 04/07/2018 Status: F Source: [facility] 3:40 AM HEALTH SYSTEM REPOSITORY TYPE CODE TESTS RESULT OUT OF REFERENCE UNITS RANGE LAB NA(LOINC) 136-145 mEq/L Sodium Blood 136 LAB K(LOINC) 3.5-5.1 mEq/L Potassium Blood 4.3 LAB CL(LOINC) 98-107 mEq/L Chloride Blood 106 LAB CO2(LOINC) 21-32 mEq/L CO2 Blood 23 LAB GLU(LOINC) 70-99 mg/dL Glucose High Blood 178 LAB BUN(LOINC) 7-18 mg/dL BUN Blood High 33 LAB CREA(LOINC 0.67-1.17 mg/dL ) Creatinine High Blood 2.71 LAB CA(LOINC) 8.5-10.1 mg/dL Calcium Blood 8.7 LAB ALB(LOINC) 3.4-5.0 g/dL Low Albumin Blood 2.8 LAB TP(LOINC) 6.4-8.2 g/dL Total Protein 7.9 LAB AST(LOINC) 9-37 U/L AST-SGOT Blood 9 LAB ALT(LOINC) 12-78 U/L ALT-SGPT Blood 14 LAB ALKP(LOINC 46-116 U/L ) Alk Phosphatase 96 LAB BILIT(LOIN 0.2-1.0 mg/dL C) Total Bilirubin 0.4 LAB ANGAP(LOIN 8-16 C) Anion Gap 11 Performed By: #### P14 #### [facility] [address] [place] [address] MDRD GFR Collected: 04/07/2018 Status: F Source: [facility] 3:40 AM HEALTH SYSTEM REPOSITORY TYPE CODE TESTS RESULT OUT OF RANGE REFERENCE UNITS LAB GFRFN(LOINC >60mL/min/1.73m ) 2 eGFR 23.86 Result Comment: If the patient is , multiply the result by 1.210. Performed By: #### GFR #### [place] [address] GLUCOSE METER Collected: 04/07/2018 Status: F Source: [facility] 12:01 AM HEALTH SYSTEM REPOSITORY TYPE CODE TESTS RESULT OUT OF REFERENCE UNITS RANGE LAB GLUBL(LOINC 70-99 mg/dL ) High Glucose Meter 149 Result Comment: RN NOTIFIED Performed By: #### GLMET #### [place] [address] SURGICAL PATHOLOGY Observed: 04/07/2018 Status: C Source: [facility] 12:00 AM CLINIC MAIN CAMPUS REPOSITORY ADDITIONAL PROCEDURES PRESENT Specimen #: [id number] Submitting Physician: CHERRY ALVAREZ FINAL DIAGNOSIS [place] kidney biopsy: - Pauciimmune necrotizing, crescentic, and sclerotic glomerulonephritis (moderate activity, moderate chronicity, [id number]). - Tubular atrophy and interstitial fibrosis, moderate. - Arterio-and arteriolosclerosis, moderate. LH/kr 04/08/2018 COMMENT The essentially negative immunofluorescence findings support the diagnosis of a pauciimmune glomerulonephritis. Of the 52 glomeruli sampled for light microscopy, 25 are globally sclerotic and 2 are segmentally scarred, at least a portion of the segmentally sclerotic glomeruli show old fibrous crescents. Among the 25 remaining glomeruli, 12 are involved by active necrotizing cellular crescents. Overall, activity appears to be substantial and ongoing while chronicity appears to be at least moderate. Electron microscopy is pending and may be contributory. Results are discussed with Dr. Alvarez at 10:15 a.m. on 04/08/2018. Sandy Burnett MD (Electronic Signature) SPECIMEN SUBMITTED A: [place] [facility], BIOPSY ADDITIONAL PROCEDURE(S) ELECTRON MICROSCOPY Date Ordered: 04/09/2018 Date Reported: 04/09/2018 Procedure Results and Interpretation The tissue sampled for electron microscopy samples 1 glomerulus involved by a cellular crescent and 2 globally sclerotic glomeruli. Ultrastructurally, no immune type electron dense deposits are seen. Podocyte foot process effacement cannot be accurately assessed due to sclerosis and crescent formation. The tubulointerstitium is prominently inflamed. 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 Procedure Pathologist: Sandy Burnett MD Electronic Signature MICROSCOPIC DESCRIPTION Sections are stained with H&E, PAS, trichrome and Larsen. Sections reveal two cores of cortex with medulla, one of which has overlying capsule and one core of medulla only. Up to 52 glomeruli are present for light microscopy, 25 of which are globally sclerotic. An additional 2 glomeruli display segmental lesions of glomerulosclerosis. Among the remaining glomeruli, 12 display active involvement by necrotizing cellular crescents. PAS and Larsen stains highlight rupture in the glomerular basement membrane and fibrinoid necrosis. The remaining glomeruli appear normocellular with patent capillary lumina. Trichrome staining highlight moderate fibrosis involving approximately 40% of the cortex sampled. There is chronic inflammation within areas of fibrosis. Vessels show moderate arterio-and arteriolosclerosis. No necrotizing arteritis is identified. Immunofluorescence staining is performed for IgG, IgA, IgM, C3, C1q, albumin, kappa and lambda. Approximately 9 glomeruli are sampled, 4 of which are globally sclerotic and 2 of which are involved by active necrotizing crescents. There is non-specific trace segmental staining for IgG, kappa, lambda and C3 within areas of fibrinoid necrosis. The remaining reactants tested are negative in glomeruli. Brunson and lambda stain equally throughout the tubulointerstitium. Albumin highlights background tissue architecture. Laboratory Developed Test (LDT) Disclaimer: Positive and negative controls stain appropriately. Performance characteristics of immunohistochemical, immunofluorescent and chromogenic in-situ hybridization tests have been determined by [facility] [place] ([facility] in a manner consistent with CLIA requirements. One or more of these tests have not been cleared or approved by the FDA. [facility] is regulated under CLIA as qualified to perform high-complexity testing. These tests are used for clinical purposes. They should not be regarded as investigational or for research. CLINICAL DATA 62-year-old male with past medical history significant for hypertension and ulcerative colitis. The patient presents with acute kidney injury and an active urinary sediment with microscopic hematuria and proteinuria. Serologic workup shows a positive C-ANCA and positive anti- PR3. Anti-GBM is pending. High suspicion for ANCA vasculitis. The patient is on day 2 of pulse Solu-Medrol. Serum creatinine on the day of biopsy is 2.71. Creatinine in January of 2018 was as low as 1.32, arising to 2 in March of 2018. GROSS DESCRIPTION A. Received in [facility] are multiple segments of cylindrical bryant, soft tissue aggregating to 3.6 x 0.1 x 0.1 cm. The specimen is washed in maleimide solution. A portion is frozen and kept frozen for direct immunofluorescence. A portion is submitted for electron microscopy. A portion is submitted in formalin for light microscopy in cassette A2. Gross examination performed at [facility], [address] [place] [address] 04/07/2018 Date of Report: 04/08/2018 Date of Procedure: 04/07/2018 Date of Receipt: 04/07/2018 Submitted by: CHERRY ALVAREZ Location: Diagnostic interpretation performed at [facility], [address] [place] [address]. SURGICAL TISSUE EXAM Observed: 04/07/2018 Status: F Source: [facility] 12:00 AM [facility] REPOSITORY Test performed at [place] [address] NAME: MIKA VELAZQUEZ REQUESTING: PAM GARG D.O. FINAL DIAGNOSIS: SPECIMEN SENT TO [facility] FOR PATHOLOGIC EVALUATION. OPERATIVE PROCEDURE: CT scan guided renal biopsy CLINICAL INFORMATION: Renal failure, acute GROSS DESCRIPTION: Sent to [facility] Received in Silvestre's solution is a specimen labeled renal biopsy. The specimen is sent to [facility] for immunohistochemistry and electron microscopy. ARH:larrym EXTERNAL CONSULT, PATHOLOGIST (Electronic signature on file) Signed out: 04/08/2018 11:54 PRINTED: 04/08/2018 Page 1 of 1 Performed By: #### SURG #### [place] [address] PATHOLOGY MISCELLANEOUS Observed: 04/07/2018 Status: F Source: [facility] 12:00 AM HEALTH SYSTEM REPOSITORY Test performed at [place] [address] NAME: MIKA VELAZQUEZ REQUESTING: PAM GARG D.O. DIAGNOSIS: Kidney biopsy: See the full outside report from [facility]. SPECIMEN: TISSUE FOR SEND-OUT, im/em EXTERNAL CONSULT, PATHOLOGIST (Electronic signature on file) Signed out: 04/09/2018 09:25 PRINTED: 04/09/2018 Page 1 of 1 Performed By: #### MISC #### [facility] [address] [place] [id number] URINALYSIS ROUTINE Collected: 04/06/2018 Status: F Source: [facility] 6:43 PM HEALTH SYSTEM REPOSITORY TYPE CODE TESTS RESULT OUT OF RANGE REFERENCE UNITS LAB COLOR(LOIN C) Urine Color YELLOW LAB APPUR(LOIN C) Urine Appearance CLOUDY LAB GLUUR(LOIN Negative mg/dL C) Glucose Urine NEGATIVE LAB KETON(LOIN Negative mg/dL C) Ketone Urine NEGATIVE LAB HGBUR(LOIN Negative C) Abnormal Hemoglobin,Urin LARGE e LAB PROTU(LOIN Negative mg/dL C) Abnormal Protein Urine 300 LAB NITRI(LOIN Negative C) Nitrites Urine NEGATIVE LAB BILIU(LOIN Negative C) Bilirubin Urine NEGATIVE LAB SPG(LOINC) 1.005-1.030 Specific 1.015 Carlos, Ur LAB PHUR(LOINC 5.0-8.0 ) pH,Urine 5.0 LAB UROBI(LOIN 0.0-1.0 EU/dL C) Urobilinogen,Ur 0.2 LAB LEUKO(LOIN Negative C) Leukocytes NEGATIVE Esterase LAB EPIT1(LOIN 0.0-5.0 /hpf C) Ep Cells Urine 0.0-2 LAB HYCA1(LOIN 0.0-1.0 /lpf C) Hyaline Cast 1.0-5 LAB RETUB(LOIN 0-5 /hpf C) Renal Abnormal Tubular Cells 0-2 LAB GRCAS(LOIN None /lpf C) Abnormal Granular Cast 1-5 LAB RBCCA(LOIN None /lpf C) RBC Abnormal Cast 0-1 LAB EPICA(LOIN None /lpf C) Abnormal Epithelial Cast 0-1 LAB RBCU1(LOIN 0.0-5.0 /hpf C) High RBC,Urine 12.5 LAB WBCU1(LOIN 0.0-5.0 /hpf C) High WBC, Urine 8.4 LAB BACT1(LOIN None C) Bacteria Urine NONE Performed By: #### URIN2 #### [facility] [address] [place] [id number] HISTORY PHYSICAL Observed: 04/06/2018 Status: COMPLETED Source: [facility] 5:55 PM CLINIC OTHER CAMPUS REPOSITORY HNO ID: [id number] Author: Uriel Stoner Service: Hospital Medicine Author Type: Physician Type: HANDP Filed: 04/06/2018 7:31 PM Note Text: DEPARTMENT OF HOSPITAL MEDICINE HISTORY AND PHYSICAL EXAM SERVICE DATE: 04/06/2018 SERVICE TIME: 0496 Primary Care Physician: Aannt Kaur MD NIGHT AND WEEKEND COVERAGE: From 7am - 7pm, please call sound admit After 7pm, please call cross cover pager #[phone] Subjective CHIEF COMPLAINT: JANA HPI: This is a 62 year old male who presents to ED here after being informed to so by his plant maintenance mechanic Dr. Carlisle. Dr. Carlisle has been concerned about patient's worsening renal function with the belief he may have Aquilino's as his CANCA was elevated. The patient requires a renal biopsy which unfortunately can not be done at his home hospital of [place] due to computer software issues at [facility]. Reason for admission is for initiation of steroids and biopsy. Patient himself denies any symptoms, denies any fevers/chills, N/V, CP, SOB, hematuria, dysuria or urgency. PAST MEDICAL HISTORY Diagnosis Date - Anemia - Hypertension - Obesity (BMI 30.0-34.9) - ANNIE (obstructive sleep apnea) - Renal cyst right, repeat US 09/2018 - S/P ileostomy (HCC) 2011 - Snoring - ulcerative colitis 2010 Dr. Sandoval, pouchoscopy every 1-2 years PAST SURGICAL HISTORY Procedure Laterality Date - COLONOSCOP W/ OR W/O [facility] SPEC 07/02/2011 Colonoscopy - ILEOSTOMY 2011 - PICC LINE INSERT/CONSULT 07/03/2012 - SIGMOIDOS FLEX DIAG W/BX SING/MUL 01/22/12 FAMILY HISTORY Problem Relation Age of Onset - Cancer Mother unknown? lung? - Hypertension Father - None Sister heart murmur - None Brother - None Brother - None Brother - Alzheimer's Disease Maternal Grandfather - None Maternal Grandmother - None Paternal Grandmother - None Paternal Grandfather - None Son - None Son Social History Substance Use Topics - Smoking status: Former Smoker Packs/day: 2.00 Years: 30.00 Types: Cigarettes Quit date: 06/24/2001 - Smokeless tobacco: Never Used - Alcohol use No MEDICATIONS: Reviewed (Not in a hospital admission) ALLERGIES Allergen Reactions - Aleve [Naproxen Sod* Other: See Comments throat tightening - Aspirin Other: See Comments Swelling of throat - Ibuprofen Other: See Comments REVIEW OF SYSTEM: all systems reviewed -ve except for HPI Objective PHYSICAL EXAM: BP 156/89 Pulse 82 Temp 97 Resp 16 Ht 5' 8 (1.73m) Wt 197 lb (89.4kg) SpO2 98% BMI 29.96 kg/(m2). Physical Exam Performed: GENERAL: Alert, no distress, cooperative SKIN: Skin color, texture, turgor normal. No rashes or lesions. HEAD/SINUSES: No significant findings EYES: PERRLA, EOMI NECK: No jugulovenous distention, No carotid bruits, Carotid pulse normal contour, Supple LUNGS: Lungs clear to auscultation, Good diaphragmatic excursion CARDIAC: Normal S1 and S2; no rubs, murmurs, or gallops ABDOMEN: Abdomen soft, non-tender, BS normal, No masses or organomegaly EXTREMITIES: Extremities normal, no deformities, edema, clubbing or skin discoloration. Good capillary refill., No ulcers PULSES: 2+ radial, 2+ carotid Lines, Drains, and Airways Line Peripheral 04/06/18 1710 Left Antecubital 20 Gauge less than 1 day DATA: Diagnostic tests reviewed for today's visit: Most recent labs and imaging results. Assessment/Plan Active Problems: JANA: ?Aquilino's as cANCA elevated, will consult his plant maintenance mechanic Dr. Carlisle, order renal biopsy, start on IV solumedrol. HTN: Continue home norvasc Medication and Non-Pharmacologic VTE Prophylaxis/Anticoagulants VTE Prophylaxis: VTE prophylaxis appropriate Disposition: Home Plan of care discussed with: Patient SIGNATURE: Uriel Stoner MD PATIENT NAME: Mika Velazquez DATE: April 06, 2018 TIME: 5:55 PM PAGER/CONTACT #: shanice admit etx [phone] PLAN OF CARE Observed: 04/06/2018 Status: COMPLETED Source: [facility] 5:33 PM CLINIC OTHER CAMPUS REPOSITORY HNO ID: [id number] Author: Harlan Trivedi (Plant Inspector) Service: (none) Author Type: Behavioral Health Therapist Type: Plan of Care Filed: 04/06/2018 5:35 PM Note Text: MEDICATION HISTORY Patient Name:Susana Velazquez : 1955 Source of history:Patient: Reliability of source: Appears reliable, clearly identified: Medication name, Medication dose, Medication route and Medication frequency and Pharmacy records: [facility] ([phone]) Medication Nonadherence Identified: No barriers noted The above information represents the best possible medication history: Yes Additional comments: N/A Allergies: ALLERGIES Allergen Reactions - Aleve [Naproxen Sod* Other: See Comments throat tightening - Aspirin Other: See Comments Swelling of throat - Ibuprofen Other: See Comments Preferred Pharmacy: [facility] ([phone]) Current MOLDER Medications: Prior to Admission medications as of 04/06/18 1733 Medication Sig Last Dose Taking cholecalciferol (VITAMIN D) 1,000 unit tab tablet Take 1,000 Units by mouth once daily. 04/06/2018 Yes amLODIPine (NORVASC) 5 mg tablet Take 1 tablet by mouth once daily. 04/06/2018 Yes Harlna Trivedi (Plant Inspector) WK pager [phone] April 06, 2018 5:34 PM CONSULT Observed: 04/06/2018 Status: COMPLETED Source: [facility] 5:27 PM CLINIC OTHER CAMPUS REPOSITORY O ID: [id number] Author: Anoop Bryant Service: Nephrology Author Type: Physician Type: Consults Filed: 04/06/2018 5:54 PM Note Text: [facility] [place] [address] [place], [place] [id number] Consult Note Patient's Name: Mika Velazquez 5:28 PM 04/06/2018 Reason for Consult: JANA ATTENDING/ADMITTING PHYSICIAN:Wilson Atkins DO History of Present Ilness: Mika Velazquez is a 62 year old male with past history of HTN and ulcerative colitis was seen by my partner, Dr. Mckeon, in our [place] office for JANA on 04/01/18. The pt was initially referred by Dr. Jeremy Kaur ([facility] primary care in [place]) because the pt's SCr increased from 1.3 mg/dL on 02/12/18 up to 2.03 mg/dL by 03/11/18. Pt also complained of nasal congestion, generalized weakness and occasional swelling over the past 3 months. However, the pt denies cough, hemoptysis, fever, rash or arthralgia. He also denies gross hematuria. There is no current chest pain or dyspnea at rest. There is no current edema. The most recent outpt SCr is 2.40 mg/dL on 04/02/18. The pt had 4+ proteinuria, microscopic hematuria and active urinary sediment on office UA on 04/01/18 as well. Serologies sent by Dr. Mckeon on 04/01/18 shows positive cANCA and anti-proteinase 3 (these labs were done outside the [facility] system). The pt is admitted now for pulse corticosteroid in view of decreasing GFR and high suspicion for small vessel vasculitis. We will also expedite a diagnostic kidney biopsy to determine a more definitive treatment option. PAST MEDICAL HISTORY Diagnosis Date - Anemia - Hypertension - Obesity (BMI 30.0-34.9) - ANNIE (obstructive sleep apnea) - Renal cyst right, repeat US 09/2018 - S/P ileostomy (HCC) 2011 - Snoring - ulcerative colitis 2010 Dr. Sandoval, pouchoscopy every 1-2 years PAST SURGICAL HISTORY Procedure Laterality Date - COLONOSCOP W/ OR W/O [facility] SPEC 07/02/2011 Colonoscopy - ILEOSTOMY 2011 - PICC LINE INSERT/CONSULT 07/03/2012 - SIGMOIDOS FLEX DIAG W/BX SING/MUL 01/22/12 FAMILY HISTORY Problem Relation Age of Onset - Cancer Mother unknown? lung? - Hypertension Father - None Sister heart murmur - None Brother - None Brother - None Brother - Alzheimer's Disease Maternal Grandfather - None Maternal Grandmother - None Paternal Grandmother - None Paternal Grandfather - None Son - None Son reports that he quit smoking about 16 years ago. His smoking use included Cigarettes. He has a 60.00 pack-year smoking history. He has never used smokeless tobacco. He reports that he does not drink alcohol or use drugs. Allergies: Aleve [Naproxen Sodium]; Aspirin; Ibuprofen Current Medications: Current Facility-Administered Medications: methylPREDNISolone sodium succinate 1,000 mg in NaCl 0.9% 100 mL (Solu-MEDROL) 1,000 mg INTRAVENOUS DAILY [START ON 04/07/2018] pantoprazole DR 20 mg tab(s) (PROTONIX) 20 mg ORAL DAILY (6 AM) amLODIPine 5 mg tab(s) (NORVASC) 5 mg ORAL DAILY cholecalciferol 1,000 Units tab(s) (VITAMIN D3) 1,000 Units ORAL DAILY Current Outpatient Prescriptions: amLODIPine (NORVASC) 5 mg tablet Take 1 tablet by mouth once daily. Review of Systems: 10 ROS negative other than stated above Physical exam: BP 154/84 Pulse (!) 98 Temp 36.1 ?C (97 ?F) Resp 18 Ht 172.7 cm (5' 8) Wt 89.4 kg (197 lb) SpO2 100% BMI 29.95 kg/m? General: AAO x 3, speaking in full sentences, no accessory muscle use. HEENT: Atraumatic, normocephalic, no throat congestion, moist mucosa. Eyes: Pupils equal, round and reactive to light, EOMI. Neck: No JVD, no thyromegaly, no lymphadenopathy. Chest: CTAB , no rales or wheezes. Cardiac: S1 S2 RR, no murmurs, gallops or rubs, JVP not raised. Abdomen: Soft, non-tender, no masses or organomegaly, BS audible. : No suprapubic or flank tenderness. Neuro: AAO x 3, No FND. SKIN: No rashes, good skin turgor. Extremities: No edema, palpable peripheral pulses, no calf tenderness. Labs: Invalid input(s): PHOS, LABGLOM, GFRAA Input / Output: 24 HR: No intake or output data in the 24 hours ending 04/06/18 1728 IV Intake: Kathy: Assessment and Plan 1. Acute kidney injury. SCr 1.3 mg/dL on 02/12/18-> SCr 2.40 mg/dL by 04/02/18. Pt has microscopic hematuria, proteinuria, and positive cANCA and anti-proteinase 3 serologies. Anti-GBM Ab is pending. High suspicion for ANCA associated SVV. Admit pt to the hospital today to expedite diagnostic kidney biopsy. Will start pulse IV Solumedrol. Additional treatment such as rituximab will be determine by the result of the kidney biopsy. Hold off on TPE since SCr<4.00 mg/dL. Will order accuchecks since pt will be on high dose steroid for the next 3 days. Will start PPI since pt will need steroid and has history of colitis. Anticipate we can discharge him when he finishes IV Solumedrol pulse on 04/08/18 and after biopsy is done. This will also depend on his renal function over the next 72 hrs as well. 2. HTN. Continue home dose of amlodipine. Will monitor BP. 3. History of ulcerative colitis s/p colectomy. Start PPI since he will be on steroid. Thank you for allowing me to participate in care of Mika Velazquez. Please do not hesitate to contact me at [phone] with any concerns. Kp Leon MD, (Anoop Bryant) ED PROV NOTE Observed: 04/06/2018 Status: COMPLETED Source: [facility] 5:25 PM CLINIC OTHER CAMPUS REPOSITORY HNO ID: [id number] Author: Bobby Chavez) MD Aiden Service: Emergency Medicine Author Type: Resident Type: ED Provider Notes Filed: 04/06/2018 5:29 PM Note Text: Attestation signed by Wilson Atkins DO at 04/08/2018 3:40 PM Signature: Wilson Atkins DO Date: 04/08/2018 Time: 3:40 PM ED Provider Note Patient Name: Mika Velazquez SERVICE DATE: 04/06/18 History Patient presents with: Sent By Md: Pt sent in by dr lopez. States he is supposed to get a kidney biopsy and he is supposed to get IV treatment. Biopsy was supposed to be done at [place]. 62-year-old man with past recent history of worsening kidney function, concern for Aquilino's, who presents to the emergency department at the request of his plant maintenance mechanic Dr. Mckeon, for admission, steroids, and biopsy. The patient states he was supposed to go to an outlying hospital for a biopsy, but the hospitalist experiencing computer problems and they're unable to facilitate his care at this time. The patient was sent to the [facility] emergency department for admission. Patient has no complaints at this time. Patient denies headache, lightheadedness/dizziness, acute visual changes, cough, chills, fever, recent illness, sick contacts, recent travel, chest pain, shortness of breath, palpitations, abdominal pain, nausea, vomiting, changes in urinary habits, and changes in bowel habits. PAST MEDICAL HISTORY Diagnosis Date - Anemia - Hypertension - Obesity (BMI 30.0-34.9) - ANNIE (obstructive sleep apnea) - Renal cyst right, repeat US 09/2018 - S/P ileostomy (HCC) 2011 - Snoring - ulcerative colitis 2010 Dr. Sandoval, pouchoscopy every 1-2 years PAST SURGICAL HISTORY Procedure Laterality Date - COLONOSCOP W/ OR W/O BRSH SPEC 07/02/2011 Colonoscopy - ILEOSTOMY 2011 - PICC LINE INSERT/CONSULT 07/03/2012 - SIGMOIDOS FLEX DIAG W/BX SING/MUL 01/22/12 FAMILY HISTORY Problem Relation Age of Onset - Cancer Mother unknown? lung? - Hypertension Father - None Sister heart murmur - None Brother - None Brother - None Brother - Alzheimer's Disease Maternal Grandfather - None Maternal Grandmother - None Paternal Grandmother - None Paternal Grandfather - None Son - None Son Social History Social History Main Topics - Smoking status: Former Smoker Packs/day: 2.00 Years: 30.00 Types: Cigarettes Quit date: 06/24/2001 - Smokeless tobacco: Never Used - Alcohol use No - Drug use: No - Sexual activity: Yes Partners: Female control/ protection: None ALLERGIES Allergen Reactions - Aleve [Naproxen Sod* Other: See Comments throat tightening - Aspirin Other: See Comments Swelling of throat - Ibuprofen Other: See Comments Review of Systems All other systems reviewed and are negative. Physical Exam BP 154/84 Pulse 98 Temp 97 Resp 18 Ht 5' 8 (1.73m) Wt 197 lb (89.4kg) SpO2 100% BMI 29.96 kg/(m2). Physical Exam Constitutional: He appears well-developed and well-nourished. No distress. HENT: Head: Normocephalic and atraumatic. Right Ear: External ear normal. Left Ear: External ear normal. Nose: Nose normal. Eyes: Conjunctivae and EOM are normal. Right eye exhibits no discharge. Left eye exhibits no discharge. Neck: Normal range of motion. No tracheal deviation present. Cardiovascular: Normal rate, regular rhythm, normal heart sounds and intact distal pulses. No murmur heard. Pulmonary/Chest: Effort normal and breath sounds normal. No respiratory distress. He has no wheezes. Abdominal: Soft. Bowel sounds are normal. He exhibits no distension. There is no tenderness. Musculoskeletal: Normal range of motion. He exhibits no edema. Neurological: He is alert. He exhibits normal muscle tone. Coordination normal. Skin: Skin is warm and dry. Psychiatric: He has a normal mood and affect. Nursing note and vitals reviewed. Diagnostic Testing ED Labs Ordered and Reviewed BASIC METABOLIC PANEL (AK,AV,EU,FV,HL,SARWAT,MM,SP) MAGNESIUM BLOOD (AK,AV,EU,FV,HL,SARWAT,MM,SP) CBC + AUTO DIFF (AK,AV,EU,FV,HL,SARWAT,MM,SP) PROTHROMBIN TIME / PT (AK,AV,EU,FV,HL,SARWAT,MM,SP) ACTIVATED PTT (AK,AV,EU,FV,HL,SARWAT,MM,SP) MDRD GFR URINALYSIS WITH MICROSCOPIC (AK,AV,EU,FV,HL,SARWAT,MM,SP) Procedures Medical Decision Making MDM ED Course / Clinical Impression concern for Aquilino's. Crown [employer] Machine Operator Dr. Bryant is at bedside discussing the treatment care plan with the patient. labs ordered. Laboratory and imaging results were reviewed and discussed with the patient. My plan for admission was also discussed with the patient, who agreed with my plan, and voiced understanding. The patient remained clinically stable while in the ED. The patient was admitted without incident. Plan The patient was admitted Condition at time of disposition: improved and stable SIGNATURE: MD Bobby Canseco (Res) MD Aiden Resident 04/06/18 8902 Wilson Atkins DO 04/08/18 1540 ED NOTE Observed: 04/06/2018 Status: COMPLETED Source: [facility] 5:10 PM CLINIC OTHER CAMPUS REPOSITORY HNO ID: [id number] Author: Jeannie (Rn) TONG Muñoz Service: Emergency Medicine Author Type: Registered Nurse Type: ED Notes Filed: 04/06/2018 5:10 PM Note Text: Pt aware of need for urine specimen. Pt unable to void at this time. Urinal placed at bedside. RN to continue to monitor. HEMOGRAM/DIFF Collected: 04/06/2018 Status: F Source: [facility] 5:00 PM HEALTH SYSTEM REPOSITORY TYPE CODE TESTS RESULT OUT OF REFERENCE UNITS RANGE LAB WBC(LOINC) 4.23-9.07 thou/cmm WBC 7.43 LAB RBC(LOINC) 4.63-6.08 mil/cmm Low RBC 4.43 LAB HGB(LOINC) 13.7-17.5 g/dL Low Hgb 12.0 LAB HCT(LOINC) 40.1-51.0 % Low Hct 38.4 LAB MCV(LOINC) 83.2-95.6 fl MCV 86.7 LAB MCH(LOINC) 25.7-32.2 pg MCH 27.1 LAB MCHC(LOINC 32.3-36.5 % ) Low MCHC 31.3 LAB RDW(LOINC) 11.6-14.4 % RDW High 14.7 LAB RDWSD(LOIN 36.1-45.8 fl C) RDW SD High 46.8 LAB PLT(LOINC) 141-365 thou/cmm Platelet 345 LAB MPV(LOINC) 8.7-12.0 fl MPV 9.2 LAB SEG(LOINC) % Seg Neutrophil 74.5 LAB IGRE(LOINC % ) Immature Grans 0.70 LAB LYMPH(LOIN % C) Lymphocyte 16.7 LAB MNO(LOINC) % Monocyte 5.4 LAB EOSIN(LOIN % C) Eosinophil 2.2 LAB BASO(LOINC % ) Basophil 0.5 LAB SEGN(LOINC 1.78-5.38 thou/cmm ) Abs. High Neut (ANC) 5.54 LAB IGAB(LOINC 0.00-0.05 thou/cmm ) Abs Immature Grans 0.05 LAB LYMN(LOINC 0.84-2.85 thou/cmm ) Abs. Lymph 1.24 LAB MONON(LOIN 0.30-0.82 thou/cmm C) Abs. [place] 0.40 LAB EOSN(LOINC 0.04-0.54 thou/cmm ) Abs. Eosin 0.16 LAB BASON(LOIN 0.01-0.08 thou/cmm C) Abs. Baso 0.04 Performed By: #### CBCD1 #### [place] [address] BASIC PANEL Collected: 04/06/2018 Status: F Source: [facility] 5:00 PM HEALTH SYSTEM REPOSITORY TYPE CODE TESTS RESULT OUT OF REFERENCE UNITS RANGE LAB NA(LOINC) 136-145 mEq/L Low Sodium Blood 135 LAB K(LOINC) 3.5-5.1 mEq/L Potassium Blood 4.0 LAB CL(LOINC) 98-107 mEq/L Chloride Blood 106 LAB CO2(LOINC) 21-32 mEq/L CO2 Blood 23 LAB GLU(LOINC) 70-99 mg/dL Glucose Blood 85 LAB BUN(LOINC) 7-18 mg/dL BUN High Blood 34 LAB CREA(LOINC 0.67-1.17 mg/dL ) High Creatinine Blood 2.68 LAB CA(LOINC) 8.5-10.1 mg/dL Calcium Blood 8.7 LAB ANGAP(LOIN 8-16 C) Anion Gap 10 Performed By: #### P8 #### [place] [address] MAGNESIUM BLOOD Collected: 04/06/2018 Status: F Source: [facility] 5:00 HEALTH SYSTEM REPOSITORY TYPE CODE TESTS RESULT OUT OF REFERENCE UNITS RANGE LAB MAG(LOINC) 1.6-2.6 mg/dL Magnesium Blood 2.0 Performed By: #### MAG #### [place] [address] MDRD GFR Collected: 04/06/2018 Status: F Source: [facility] 5:00 HEALTH SYSTEM REPOSITORY TYPE CODE TESTS RESULT OUT OF RANGE REFERENCE UNITS LAB GFRFN(LOINC >60mL/min/1.73m ) 2 eGFR 24.17 Result Comment: If the patient is , multiply the result by 1.210. Performed By: #### GFR #### [place] [address] PROTIME Collected: 04/06/2018 Status: F Source: [facility] 5:00 PM HEALTH SYSTEM REPOSITORY TYPE CODE TESTS RESULT OUT OF REFERENCE UNITS RANGE LAB PTI(LOINC) 9.3-11.9 sec Prothrombin Time 10.0 LAB INR(LOINC) INR 0.93 Result Comment: Standard Therapy 2.0-3.0 High Dose 2.5-3.5 Performed By: #### PT #### [facility] [address] [place] [address] ACTIVATED PTT Collected: 04/06/2018 Status: F Source: [facility] 5:00 PM HEALTH SYSTEM REPOSITORY TYPE CODE TESTS RESULT OUT OF REFERENCE UNITS RANGE LAB APTT(LOINC 22.0-34.0 sec ) Activated PTT 24.3 Performed By: #### APTT #### [facility] [address] [place], [place] [address] ED PROV NOTE Observed: 04/06/2018 Status: COMPLETED Source: [facility] 4:58 PM CLINIC OTHER CAMPUS REPOSITORY HNO ID: [id number] Author: Wilson Atkins DO Service: Emergency Medicine Author Type: Physician Type: ED Provider Notes Filed: 04/06/2018 5:02 PM Note Text: Attending Note I evaluated the patient and personally participated in the crystal components. I agree with the resident's findings and plan as documented and have discussed the case and management of the patient's care with the resident. 62-year-old male presents after he was told by his plant maintenance mechanic to come to the ED for admission for a kidney biopsy due to elevated creatinine levels. Patient states that he's been somewhat fatigued over the past several weeks but otherwise has no other complaints. He denies any urinary symptoms or back pain. No fevers or chills. He denies any abdominal pain, nausea or vomiting. No chest pain or shortness of breath. On exam, vital signs reviewed. Patient is afebrile and nontoxic appearing. Alert and oriented ?3 answering questions appropriately. Skin is warm and dry with no rash or diaphoresis. No jaundice or scleral icterus. Neck supple no JVD. Trachea midline. Head atraumatic and normocephalic. PERRLA, EOMI. Heart regular rate and rhythm with no murmurs rubs or gallops. Lungs clear bilaterally with no wheezing rales or rhonchi. Abdomen soft nontender no palpable masses or peritoneal signs. Bowel sounds present. Distal pulses intact and symmetric in all 4 extremities. No lower extremity edema. No unilateral leg swelling. Cranial nerves II through XII intact. Medical decision-makin-year-old male presenting for nephrology consultation and admission. The resident spoke with Dr. Carlisle who recommended basic labs and admission for nephrology consultation and kidney biopsy. Wilson Atkins DO 04/06/18 1702 ED NOTE Observed: 04/06/2018 Status: COMPLETED Source: [place] 4:23 PM [facility] REPOSITORY HNO ID: [id number] Author: Jeannie (Rn) TONG Muñoz Service: Emergency Medicine Author Type: Registered Nurse Type: ED Notes Filed: 04/06/2018 4:24 PM Note Text: Pt resting in bed, at bedside. Pt with no complaints, states Dr. Lopez told pt to come in for inpatient tx. HOSP Observed: 04/06/2018 Status: COMPLETED Source: [facility] 12:00 AM [facility] REPOSITORY Patient:Mika Velazquez MRN: <[id number]> Height:5' 8(1.727 m) Weight:192 lb 0.3 oz (87.1 kg) Outpatient Medications as of 04/07/18: cholecalciferol (VITAMIN D) 1,000 unit tab tablet amLODIPine (NORVASC) 5 mg tablet Admission/Clinic Administered Medications as of 04/07/18: methylPREDNISolone sodium succinate 1,000 mg in NaCl 0.9% 100 mL (Solu-MEDROL) pantoprazole DR 20 mg tab(s) (PROTONIX) amLODIPine 5 mg tab(s) (NORVASC) cholecalciferol 1,000 Units tab(s) (VITAMIN D3) heparin 5,000 Units injection 0.9% NaCl 3-5 mL aluminum-magnesium hydroxide-simethicone 200-200-20 mg/5 mL 30 mL (MAALOX,MYLANTA,MAG-AL PLUS) ondansetron 4 mg tab(s) (ZOFRAN) ondansetron (PF) 4 mg injection (ZOFRAN) acetaminophen 650 mg tab(s) (TYLENOL) Problem List: Ulcerative colitis (HCC) [K51.90] Anemia, unspecified [D64.9] Hypokalemia [E87.6] Hypomagnesemia [E83.42] Hyponatremia [E87.1] S/P ileostomy (HCC) [Z93.2] Obesity (BMI 30.0-34.9) [E66.9] ANNIE (obstructive sleep apnea) [G47.33] Acute kidney injury (HCC) [N17.9] Allergies: Aleve [Naproxen Sodium] Aspirin Ibuprofen Date Verified: 04/06/18 Lab Values Lab Value Units Date High Low POTA* 4.3 mEq/L 04/07/2018 5.1 3.5 ZENIA* 37.2 % 04/07/2018 51.0 40.1 Progress Notes (): Jeannie Muñoz, RN, RN 04/06/2018 4:24 PM Signed Pt resting in bed, at bedside. Pt with no complaints, states Dr. Lopez told pt to come in for inpatient tx. Wilson Atkins DO, DO 04/06/2018 5:02 PM Signed Attending Note I evaluated the patient and personally participated in the crystal components. I agree with the resident's findings and plan as documented and have discussed the case and management of the patient's care with the resident. 62-year-old male presents after he was told by his plant maintenance mechanic to come to the ED for admission for a kidney biopsy due to elevated creatinine levels. Patient states that he's been somewhat fatigued over the past several weeks but otherwise has no other complaints. He denies any urinary symptoms or back pain. No fevers or chills. He denies any abdominal pain, nausea or vomiting. No chest pain or shortness of breath. On exam, vital signs reviewed. Patient is afebrile and nontoxic appearing. Alert and oriented ?3 answering questions appropriately. Skin is warm and dry with no rash or diaphoresis. No jaundice or scleral icterus. Neck supple no JVD. Trachea midline. Head atraumatic and normocephalic. PERRLA, EOMI. Heart regular rate and rhythm with no murmurs rubs or gallops. Lungs clear bilaterally with no wheezing rales or rhonchi. Abdomen soft nontender no palpable masses or peritoneal signs. Bowel sounds present. Distal pulses intact and symmetric in all 4 extremities. No lower extremity edema. No unilateral leg swelling. Cranial nerves II through XII intact. Medical decision-makin-year-old male presenting for nephrology consultation and admission. The resident spoke with Dr. Carlisle who recommended basic labs and admission for nephrology consultation and kidney biopsy. Wilson Atkins, 04/06/18 1702 Jeannie Muñoz, RN, RN 04/06/2018 5:10 PM Signed Pt aware of need for urine specimen. Pt unable to void at this time. Urinal placed at bedside. RN to continue to monitor. Bobby Wolfe MD, MD 04/06/2018 5:29 PM Cosign Needed ED Provider Note Patient Name: Mika Velazquez SERVICE DATE: 04/06/18 History Patient presents with: Sent By Md: Pt sent in by dr lopez. States he is supposed to get a kidney biopsy and he is supposed to get IV treatment. Biopsy was supposed to be done at [place]. 62-year-old man with past recent history of worsening kidney function, concern for Aquilino's, who presents to the emergency department at the request of his plant maintenance mechanic Dr. Mckeon, for admission, steroids, and biopsy. The patient [facility], but the hospitalist experiencing computer problems and they're unable to facilitate his care at this time. The patient was sent to the [facility] emergency department for admission. Patient has no complaints at this time. Patient denies headache, lightheadedness/dizziness, acute visual changes, cough, chills, fever,recent illness, sick contacts, recent travel, chest pain, shortness of breath, palpitations, abdominal pain, nausea, vomiting, changes in urinary habits, and changes in bowel habits. PAST MEDICAL HISTORY Diagnosis Date - Anemia - Hypertension - Obesity (BMI 30.0-34.9) - ANNIE (obstructive sleep apnea) - Renal cyst right, repeat US 09/2018 - S/P ileostomy (HCC) 2011 - Snoring - ulcerative colitis 2010 Dr. Sandoval, pouchoscopy every 1-2 years PAST SURGICAL HISTORY Procedure Laterality Date - COLONOSCOP W/ OR W/O BRSH SPEC 07/02/2011 Colonoscopy - ILEOSTOMY 2011 - PICC LINE INSERT/CONSULT 07/03/2012 - SIGMOIDOS FLEX DIAG W/BX SING/MUL 01/22/12 FAMILY HISTORY Problem Relation Age of Onset - Cancer Mother unknown? lung? - Hypertension Father - None Sister heart murmur - None Brother - None Brother - None Brother - Alzheimer's Disease Maternal Grandfather - None Maternal Grandmother - None Paternal Grandmother - None Paternal Grandfather - None Son - None Son Social History Social History Main Topics - Smoking status: Former Smoker Packs/day: 2.00 Years: 30.00 Types: Cigarettes Quit date: 06/24/2001 - Smokeless tobacco: Never Used - Alcohol use No - Drug use: No - Sexual activity: Yes Partners: Female control/ protection: None ALLERGIES Allergen Reactions - Aleve [Naproxen Sod* Other: See Comments throat tightening - Aspirin Other: See Comments Swelling of throat - Ibuprofen Other: See Comments Review of Systems All other systems reviewed and are negative. Physical Exam BP 154/84 Pulse 98 Temp 97 Resp 18 Ht 5' 8 (1.73m) Wt 197 lb (89.4kg) SpO2 100% BMI 29.96 kg/(m2). Physical Exam Constitutional: He appears well-developed and well-nourished. No distress. HENT: Head: Normocephalic and atraumatic. Right Ear: External ear normal. Left Ear: External ear normal. Nose: Nose normal. Eyes: Conjunctivae and EOM are normal. Right eye exhibits no discharge. Left eye exhibits no discharge. Neck: Normal range of motion. No tracheal deviation present. Cardiovascular: Normal rate, regular rhythm, normal heart sounds and intact distal pulses. No murmur heard. Pulmonary/Chest: Effort normal and breath sounds normal. No respiratory distress. He has no wheezes. Abdominal: Soft. Bowel sounds are normal. He exhibits no distension. There is no tenderness. Musculoskeletal: Normal range of motion. He exhibits no edema. Neurological: He is alert. He exhibits normal muscle tone. Coordination normal. Skin: Skin is warm and dry. Psychiatric: He has a normal mood and affect. Nursing note and vitals reviewed. Diagnostic Testing ED Labs Ordered and Reviewed BASIC METABOLIC PANEL (AK,AV,EU,FV,HL,SARWAT,MM,SP) MAGNESIUM BLOOD (AK,AV,EU,FV,HL,SARWAT,MM,SP) CBC + AUTO DIFF (AK,AV,EU,FV,HL,SARWAT,MM,SP) PROTHROMBIN TIME / PT (AK,AV,EU,FV,HL,SARWAT,MM,SP) ACTIVATED PTT (AK,AV,EU,FV,HL,SARWAT,MM,SP) MDRD GFR URINALYSIS WITH MICROSCOPIC (AK,AV,EU,FV,HL,SARWAT,MM,SP) Procedures Medical Decision Making MDM ED Course / Clinical Impression concern for Aquilino's. Crown [employer] Machine Operator Dr. Bryant is at bedside discussing the treatment care plan with the patient. labs ordered. Laboratory and imaging results were reviewed and discussed with the patient. My plan for admission was also discussed with the patient, who agreed with my plan, and voiced understanding. The patient remained clinically stable while in the ED. The patient was admitted without incident. Plan The patient was admitted Condition at time of disposition: improved and stable SIGNATURE: MD Bobby Canseco (Res) MD Aiden Resident 04/06/18 3704 Kp Leon MD 04/06/2018 5:54 PM Signed [facility] [address] [place] [address] Consult Note Patient's Name: Mika Velazquez 5:28 PM 04/06/2018 Reason for Consult: JANA ATTENDING/ADMITTING PHYSICIAN:Wilson Atkins DO History of Present Ilness: Mika Velazquez is a 62 year old male with past history of HTN and ulcerative colitis was seen by my partner, Dr. Mckeon, in our [place] office for JANA on 04/01/18. The pt was initially referred by Dr. Jeremy Kaur ([facility] primary care in [place]) because the pt's SCr increased from 1.3 mg/dL on 02/12/18 up to 2.03 mg/dL by 03/11/18. Pt also complained of nasal congestion, generalized weakness and occasional swelling over the past 3 months. However, the pt denies cough, hemoptysis, fever, rash or arthralgia. He also denies gross hematuria. There is no current chest pain or dyspnea at rest. There is no current edema. The most recent outpt SCr is 2.40 mg/dL on 04/02/18. The pt had 4+ proteinuria, microscopic hematuria and active urinary sediment on office UA on 04/01/18 as well. Serologies sent by Dr. Mckeon on 04/01/18 shows positive cANCA and anti-proteinase 3 (these labs were done outside the [facility] system). The pt is admitted now for pulse corticosteroid in view of decreasing GFR and high suspicion for small vessel vasculitis. We will also expedite a diagnostic kidney biopsy to determine a more definitive treatment option. PAST MEDICAL HISTORY Diagnosis Date - Anemia - Hypertension - Obesity (BMI 30.0-34.9) - ANNIE (obstructive sleep apnea) - Renal cyst right, repeat US 09/2018 - S/P ileostomy (HCC) 2011 - Snoring - ulcerative colitis 2010 Dr. Sandoval, pouchoscopy every 1-2 years PAST SURGICAL HISTORY Procedure Laterality Date - COLONOSCOP W/ OR W/O BRSH SPEC 07/02/2011 Colonoscopy - ILEOSTOMY 2011 - PICC LINE INSERT/CONSULT 07/03/2012 - SIGMOIDOS FLEX DIAG W/BX SING/MUL 01/22/12 FAMILY HISTORY Problem Relation Age of Onset - Cancer Mother unknown? lung? - Hypertension Father - None Sister heart murmur - None Brother - None Brother - None Brother - Alzheimer's Disease Maternal Grandfather - None Maternal Grandmother - None Paternal Grandmother - None Paternal Grandfather - None Son - None Son reports that he quit smoking about 16 years ago. His smoking use included Cigarettes. He has a 60.00 pack-year smoking history. He has never used smokeless tobacco. He reports that he does not drink alcohol or use drugs. Allergies: Aleve [Naproxen Sodium]; Aspirin; Ibuprofen Current Medications: Current Facility-Administered Medications: methylPREDNISolone sodium succinate 1,000 mg in NaCl 0.9% 100 mL (Solu-MEDROL) 1,000 mg INTRAVENOUS DAILY [START ON 04/07/2018] pantoprazole DR 20 mg tab(s) (PROTONIX) 20 mg ORAL DAILY (6 AM) amLODIPine 5 mg tab(s) (NORVASC) 5 mg ORAL DAILY cholecalciferol 1,000 Units tab(s) (VITAMIN D3) 1,000 Units ORAL DAILY Current Outpatient Prescriptions: amLODIPine (NORVASC) 5 mg tablet Take 1 tablet by mouth once daily. Review of Systems: 10 ROS negative other than stated above Physical exam: BP 154/84 Pulse (!) 98 Temp 36.1 ?C (97 ?F) Resp 18 Ht 172.7 cm (5' 8) Wt 89.4 kg (197 lb) SpO2 100% BMI 29.95 kg/m? General: AAO x 3, speaking in full sentences, no accessory muscle use. HEENT: Atraumatic, normocephalic, no throat congestion, moist mucosa. Eyes: Pupils equal, round and reactive to light, EOMI. Neck: No JVD, no thyromegaly, no lymphadenopathy. Chest: CTAB , no rales or wheezes. Cardiac: S1 S2 RR, no murmurs, gallops or rubs, JVP not raised. Abdomen: Soft, non-tender, no masses or organomegaly, BS audible. : No suprapubic or flank tenderness. Neuro: AAO x 3, No FND. SKIN: No rashes, good skin turgor. Extremities: No edema, palpable peripheral pulses, no calf tenderness. Labs: Invalid input(s): PHOS, LABGLOM, GFRAA Input / Output: 24 HR: No intake or output data in the 24 hours ending 04/06/18 1728 IV Intake: Chavez: Assessment and Plan 1. Acute kidney injury. SCr 1.3 mg/dL on 02/12/18-> SCr 2.40 mg/dL by 04/02/18. Pt has microscopic hematuria, proteinuria, and positive cANCA and anti-proteinase 3 serologies. Anti-GBM Ab is pending. High suspicion for ANCA associated SVV. Admit pt to the hospital today to expedite diagnostic kidney biopsy. Will start pulse IV Solumedrol. Additional treatment such as rituximab will be determine by the result of the kidney biopsy. Hold off on TPE since SCr<4.00 mg/dL. Will order accuchecks since pt will be on high dose steroid for the next 3 days. Will start PPI since pt will need steroid and has history of colitis. Anticipate we can discharge him when he finishes IV Solumedrol pulse on 04/08/18 and after biopsy is done. This will also depend on his renal function over the next 72 hrs as well. 2. HTN. Continue home dose of amlodipine. Will monitor BP. 3. History of ulcerative colitis s/p colectomy. Start PPI since he will be on steroid. Thank you for allowing me to participate in care of Mika Velazquez. Please do not hesitate to contact me at [phone] with any concerns. Kp Leon MD, (Anoop Bryant) Harlan Trivedi ([employer]) 04/06/2018 5:35 PM Signed MEDICATION HISTORY Patient Name:.Mika Velazquez : 1955 Source of history:Patient: Reliability of source: Appears reliable, clearly identified: Medication name, Medication dose, Medication route and Medication frequency and Pharmacy records: [facility] ([phone]) Medication Nonadherence Identified: No barriers noted The above information represents the best possible medication history: Yes Additional comments: N/A Allergies: ALLERGIES Allergen Reactions - Aleve [Naproxen Sod* Other: See Comments throat tightening - Aspirin Other: See Comments Swelling of throat - Ibuprofen Other: See Comments Preferred Pharmacy: [facility] ([phone]) Current MOLDER Medications: Prior to Admission medications as of 04/06/18 1733 Medication Sig Last Dose Taking cholecalciferol (VITAMIN D) 1,000 unit tab tablet Take 1,000 Units by mouth once daily. 04/06/2018 Yes amLODIPine (NORVASC) 5 mg tablet Take 1 tablet by mouth once daily. 04/06/2018 Yes Harlan Trivedi (Plant Inspector) [facility] pager [phone] April 06, 2018 5:34 PM Uriel Stoner MD 04/06/2018 7:31 PM Addendum DEPARTMENT OF HOSPITAL MEDICINE HISTORY AND PHYSICAL EXAM SERVICE DATE: 04/06/2018 SERVICE TIME: [id number] Primary Care Physician: Anant Kaur MD NIGHT AND WEEKEND COVERAGE: From 7am - 7pm, please call sound admit After 7pm, please call cross cover pager #[phone] Subjective CHIEF COMPLAINT: JANA HPI: This is a 62 year old male who presents to ED here after being informed to so by his plant maintenance mechanic Dr. Carlisle. Dr. Carlisle has been concerned about patient's worsening renal function with the belief he may have Aquilino's as his CANCA was elevated. The patient requires a renal biopsy which unfortunately can not be done at his home hospital of [place] due to computer software issues at [facility]. Reason for admission is for initiation of steroids and biopsy. Patient himself denies any symptoms, denies any fevers/chills, N/V, CP, SOB, hematuria, dysuria or urgency. PAST MEDICAL HISTORY Diagnosis Date - Anemia - Hypertension - Obesity (BMI 30.0-34.9) - ANNIE (obstructive sleep apnea) - Renal cyst right, repeat US 09/2018 - S/P ileostomy (HCC) 2011 - Snoring - ulcerative colitis 2010 Dr. Sandoval, pouchoscopy every 1-2 years PAST SURGICAL HISTORY Procedure Laterality Date - COLONOSCOP W/ OR W/O BRSH SPEC 07/02/2011 Colonoscopy - ILEOSTOMY 2011 - PICC LINE INSERT/CONSULT 07/03/2012 - SIGMOIDOS FLEX DIAG W/BX SING/MUL 01/22/12 FAMILY HISTORY Problem Relation Age of Onset - Cancer Mother unknown? lung? - Hypertension Father - None Sister heart murmur - None Brother - None Brother - None Brother - Alzheimer's Disease Maternal Grandfather - None Maternal Grandmother - None Paternal Grandmother - None Paternal Grandfather - None Son - None Son Social History Substance Use Topics - Smoking status: Former Smoker Packs/day: 2.00 Years: 30.00 Types: Cigarettes Quit date: 06/24/2001 - Smokeless tobacco: Never Used - Alcohol use No MEDICATIONS: Reviewed (Not in a hospital admission) ALLERGIES Allergen Reactions - Aleve [Naproxen Sod* Other: See Comments throat tightening - Aspirin Other: See Comments Swelling of throat - Ibuprofen Other: See Comments REVIEW OF SYSTEM: all systems reviewed -ve except for HPI Objective PHYSICAL EXAM: BP 156/89 Pulse 82 Temp 97 Resp 16 Ht 5' 8 (1.73m) Wt 197 lb (89.4kg) SpO2 98% BMI 29.96 kg/(m2). Physical Exam Performed: GENERAL: Alert, no distress, cooperative SKIN: Skin color, texture, turgor normal. No rashes or lesions. HEAD/SINUSES: No significant findings EYES: PERRLA, EOMI NECK: No jugulovenous distention, No carotid bruits, Carotid pulse normal contour, Supple LUNGS: Lungs clear to auscultation, Good diaphragmatic excursion CARDIAC: Normal S1 and S2; no rubs, murmurs, or gallops ABDOMEN: Abdomen soft, non-tender, BS normal, No masses or organomegaly EXTREMITIES: Extremities normal, no deformities, edema, clubbing or skin discoloration. Good capillary refill., No ulcers PULSES: 2+ radial, 2+ carotid Lines, Drains, and Airways Line Peripheral 04/06/18 1710 Left Antecubital 20 Gauge less than 1 day DATA: Diagnostic tests reviewed for today's visit: Most recent labs and imaging results. Assessment/Plan Active Problems: JANA: ?Aquilino's as cANCA elevated, will consult his plant maintenance mechanic Dr. Carlisle, order renal biopsy, start on IV solumedrol. HTN: Continue home norvasc Medication and Non-Pharmacologic VTE Prophylaxis/Anticoagulants VTE Prophylaxis: VTE prophylaxis appropriate Disposition: Home Plan of care discussed with: Patient SIGNATURE: Uriel Stoner MD PATIENT NAME: Mika Velazquez DATE: April 06, 2018 TIME: 5:55 PM PAGER/CONTACT #: shanice admit etx [phone] Previous Version Pam Garg DO 04/07/2018 10:08 AM Signed DEPARTMENT OF HOSPITAL MEDICINE PROGRESS NOTE SERVICE DATE: 04/07/2018 SERVICE TIME: 10:06 AM Hospital Medicine/Primary Attending: Pam Garg DO NIGHT AND WEEKEND COVERAGE: From 7am - 7pm, please call Shanice After 7pm, please call cross cover pager #[phone] Subjective INTERVAL HPI: Patient seen and evaluated. No acute complaints. MEDICATIONS: Current hospital medications: methylPREDNISolone sodium succinate 1,000 mg in NaCl 0.9% 100 mL (Solu-MEDROL) 1,000 mg INTRAVENOUS DAILY pantoprazole DR 20 mg tab(s) (PROTONIX) 20 mg ORAL DAILY (6 AM) amLODIPine 5 mg tab(s) (NORVASC) 5 mg ORAL DAILY cholecalciferol 1,000 Units tab(s) (VITAMIN D3) 1,000 Units ORAL DAILY heparin 5,000 Units injection 5,000 Units SUBCUTANEOUS q 12 H 0.9% NaCl 3-5 mL 3-5 mL INTRAVENOUS q 12 H aluminum-magnesium hydroxide-simethicone 200-200-20 mg/5 mL 30 mL (MAALOX,MYLANTA,MAG-AL PLUS) 30 mL ORAL DAILY PRN ondansetron 4 mg tab(s) (ZOFRAN) 4 mg ORAL q 6 H PRN ondansetron (PF) 4 mg injection (ZOFRAN) 4 mg INTRAVENOUS q 6 H PRN acetaminophen 650 mg tab(s) (TYLENOL) 650 mg ORAL q 6 H PRN Objective PHYSICAL EXAM: BP 124/77 Pulse 69 Temp (Src) 97.7 (Oral) Resp 18 Ht 5' 8 (1.73m) Wt 192 lb 0.3 oz (87.1kg) SpO2 96% BMI 29.20 kg/(m2). Physical Exam Performed General: AANDOx3, NAD, Pleasant and cooperative CV: RRR, +[id number], no murmurs Resp: CTA b/l, no wheeze, rales Abd: Soft, NTND, +BS Ext: no LE edema. Lines, Drains, and Airways Line Peripheral 04/06/18 1710 Left Antecubital 20 Gauge less than 1 day Reviewed lines, drains, AND airways. Need to be continued . DATA: Diagnostic tests reviewed for today's visit: WBC (thou/cmm) Date Value 04/07/2018 5.79 RBC (mil/cmm) Date Value 04/07/2018 4.35 (L) Hemoglobin (g/dL) Date Value 02/22/2018 13.1 HGB (g/dL) Date Value 04/07/2018 11.8 (L) Hematocrit (%) Date Value 04/07/2018 37.2 (L) MCV (fl) Date Value 04/07/2018 85.5 MCH (pg) Date Value 04/07/2018 27.1 MCHC (%) Date Value 04/07/2018 31.7 (L) RDW-CV (%) Date Value 02/22/2018 13.4 Platelet Count (thou/cmm) Date Value 04/07/2018 337 MPV (fl) Date Value 04/07/2018 9.2 Glucose (mg/dL) Date Value 04/07/2018 178 (H) BUN (mg/dL) Date Value 04/07/2018 33 (H) Creatinine (mg/dL) Date Value 04/07/2018 2.71 (H) Sodium (mEq/L) Date Value 04/07/2018 136 Potassium (mEq/L) Date Value 04/07/2018 4.3 Chloride (mEq/L) Date Value 04/07/2018 106 CO2 (mEq/L) Date Value 04/07/2018 23 Protein, Total (g/dL) Date Value 04/07/2018 7.9 Albumin (g/dL) Date Value 04/07/2018 2.8 (L) Calcium (mg/dL) Date Value 04/07/2018 8.7 Alkaline Phosphatase (U/L) Date Value 04/07/2018 96 Bilirubin, Total (mg/dL) Date Value 04/07/2018 0.4 AST (U/L) Date Value 04/07/2018 9 ALT (U/L) Date Value 04/07/2018 14 Cholesterol, Total (mg/dL) Date Value 02/12/2018 179 Triglyceride (mg/dL) Date Value 02/12/2018 103 Assessment/Plan # 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 Renal biopsy pending. On IV solumedrol. Nephrology following. # hx of Ulcerative Colitis - in remission. # HTN - Stable. On norvasc Medication and Non-Pharmacologic VTE Prophylaxis/Anticoagulants Anticoagulant AND Antiplatelet Medications Start Dose Route Frequency Ordered Stop 04/06/18 2100 heparin 5,000 Units injection (Medical At Risk ) 5,000 Units SUBCUTANEOUS EVERY 12 HOURS 04/06/18 194 -- 04/06/181944 vte non-pharmacologic prophylaxis - none indicated (id,oh) VTE Prophylaxis: VTE prophylaxis appropriate Disposition: Home Plan of care discussed with: Patient SIGNATURE: Pam Garg DO PATIENT NAME: Mika Velazquez DATE: April 07, 2018 TIME: 10:06 AM PAGER/CONTACT #: Shanice etx [phone] Nancy Kelly RN, RN 04/07/2018 12:50 PM Signed CARE MANAGEMENT: ASSESSMENT AND DISCHARGE PLAN SERVICE DATE: 04/07/2018 SERVICE TIME: 12:46 PM PRIMARY CARE PHYSICIAN: Anant Kaur MD ADMISSION STATUS: Inpatient MEDICAL: Patient/Quartz [employer]er Stated Goals: To improve my functional status To return home to life as it was Health Insurance: [employer] . Health Issues Impacting Discharge Plan: Newly diagnosed JANA Last Admission Date: Previous admit date: 10/18/2012 Is this Within the Past 30 days? No Advance Directive: Health Literacy: 1. How often do you need to have someone help you when you read instructions, pamphlets, or other written material from your doctor or pharmacy? Sometimes - 3 2. How confident are you filling out medical forms by yourself? Somewhat - 3 If Patient scores > 3 on either question, the following interventions were put into place: Use concrete and specific phrases, avoid medical jargon, Sit with Patient and Gave Patient the opportunity to ask questions FUNCTIONAL AND COGNITIVE/BEHAVIORAL PRIOR TO ADMISSION: Baseline Mental Status: Alert AND Oriented, Person, Place , Time and Situation Functional Status: Independent Does Patient Currently Receive Any Community Services or Home Care? None Equipment Prior to Admission: None Has the Patient Been in a Retirement Facility in the Past 30 days? No SOCIAL: Living Arrangement: Home Lives With: Spouse Financial Resources: N/A Primary Contact: Extended Emergency Contact Information Primary Emergency Contact: Jeremy Velazquez [address]: [address] [place] [id number] Relation: Spouse Supportive: Yes Other Important Patient Contacts: None Caregiver Assessment: Caregiver is ready, willing and able to meet the patient's needs as recommended by the inter-professional team? No Caregiver Needed Patient's transition needs and plan for meeting these needs: . Does the patient have an acute stroke diagnosis, or has the patient had a stroke during this admission? No Medication Adherence: I am convinced of the importance of my prescription medication: Agree completely - 0 I worry that my prescription medication will do more harm than good to me Disagree mostly - 0 I feel financially burdened by my [id number] expenses for my prescription medication: Disagree mostly -0 Patient is categorized as low risk < 2 Are you interested in bedside delivery of your medications? Yes Food Concerns: In the Last Month, Have You had Trouble Getting Food? No trouble getting food During the Last Month, Have You Worried Whether Your Food Would Run Out Before You Had Enough Money to Buy More? No Is the Patient Psychosocially Complex? No ASSESSMENT AND PLAN: Medical Needs: 2 or more chronic diseases Psychosocial Needs: None FREEDOM OF CHOICE EXPLAINED: N/A POTENTIAL TRANSITION PLANS Home Pt states he is from home with spouse and is IND w/ADL's. No DME at home. Plan to return home at D/C. Following. SIGNATURE: Nancy Kelly RN PATIENT NAME: Mika Velazquez DATE: April 07, 2018 TIME: 12:28 PM PAGER/CONTACT #: [phone] Progress Notes ([facility]): Teresa Regan APRN.NAIMA 04/05/2018 3:52 PM Signed Please call patient and ask him where he would like us to fax his orders for his CPAP. Thanks, Teresa Regan APRN.NAIMA Sosa LPN 04/06/2018 9:56 AM Signed lft message to return call. PROGRESS Observed: 03/27/2018 Status: COMPLETED Source: [place] 4:[address] [facility] [place] REPOSITORY HNO ID: [id number] Author: Alicia Devi Poly-T Service: (none) Author Type: (none) Type: Progress Notes Filed: 03/27/2018 4:13 AM Note Text: Sleep Study Check-In Documentation Date: March 27, 2018 Name: Mika Velazquez Patient was accompanied by Self. Location: [place] Latex allergy: No Tape allergy: No Current medications were reviewed with the patient:Yes Sleep aid taken by patient for the sleep study: [place] of sleep aid: Not Applicable Procedure was explained to the patient and all questions were answered. PAP treatment discussed and shown to patient: Yes If PAP used enter mask info: Mask NameResMed MakeAirFit N20 MaskTypeNasal Mask SizeMedium Chin Sharp Used No Knowledge Program (KP): KP was not completed in [facility] by patient and accepted Study type: PAP titration Adverse Event: No (If yes create a new abstract) SERS Event: No Comments: Patient was advised to follow up with their ordering provider regarding test results Alicia Burton PROGRESS Observed: 03/25/2018 Status: COMPLETED Source: [place] 3:[address] [facility] REPOSITORY HNO ID: [id number] Author: Danelle Daniels LPN Service: (none) Author Type: (none) Type: Progress Notes Filed: 03/25/2018 3:20 PM Note Text: Manual Readin/84 Pulse: 76 Reason for blood pressure check - Last BP elevated and Medication adjustment Patient is: Taking medication as prescribed Yes Took medication today Yes If no, date medication last taken N/A Experiencing side effects No BP was elevated at last appt 03/11/18. Was started on Amlodipine 5mg daily at that time. Tolerating medication change well. Denies any chest pain, unusual shortness of breath, dizziness, or headaches. Occasional caffeine use with soda. Past personal history of tobacco use; no current exposure. Alert and oriented. Pt has been identified by name and birthdate: Yes Allergies reviewed: Yes Latex allergy: no. Medication - prescribed and OTC reviewed and updated: Yes Do you need any prescription refills prior to your next visit: No Health Maintenance: Reviewed and not up to date and provider notified Patient advised to continue with current medications and would be contacted with any further instructions after review by PCP. Danelle Daniels LPN CNNURSE Observed: 03/25/2018 Status: COMPLETED Source: [place] 3:[address] [facility] REPOSITORY Nurse Visit (FAMPWS) MKIA VELAZQUEZ ([id number]) 1955 M Date Time Provider Department 03/25/18 3:00 PM [place] [facility] During your visit today, we recorded the following information about you: Pulse Blood pressure 76/minute 116/84 Danelle Daniels LPN 03/25/2018 3:20 PM Signed Manual Readin/84 Pulse: 76 Reason for blood pressure check - Last BP elevated and Medication adjustment Patient is: Taking medication as prescribed Yes Took medication today Yes If no, date medication last taken N/A Experiencing side effects No BP was elevated at last appt 03/11/18. Was started on Amlodipine 5mg daily at that time. Tolerating medication change well. Denies any chest pain, unusual shortness of breath, dizziness, or headaches. Occasional caffeine use with soda. Past personal history of tobacco use; no current exposure. Alert and oriented. Pt has been identified by name and birthdate: Yes Allergies reviewed: Yes Latex allergy: no. Medication - prescribed and OTC reviewed and updated: Yes Do you need any prescription refills prior to your next visit: No Health Maintenance: Reviewed and not up to date and provider notified Patient advised to continue with current medications and would be contacted with any further instructions after review by PCP. Danelle Daniels LPN Allergies As of Date: 03/25/2018 Noted Allergy Reaction ALEVE (NAPROXEN SODIUM) 12/23/2011 14 - Other: See Comments Comments: throat tightening ASPIRIN 06/24/2011 14 - Other: See Comments Comments: Swelling of throat IBUPROFEN 11/13/2011 14 - Other: See Comments Date Reviewed: 03/15/2018 Reviewed by: Maria Leahy - Fully Assessed Reason for Visit: Blood Pressure Check [195] Primary Visit Diagnosis:Hypertension, essential [I10] Prescriptions as of 03/25/2018 Sig: AMLODIPINE 5 MG TABLET Take 1 tablet by mouth once d* Problem List As Of Date 03/25/2018 Noted Resolved Ulcerative colitis [K51.90] INVALID FOR* Anemia, unspecified [D64.9] INVALID FOR* Ulcerative colitis, unspecified [K51.90] INVALID FOR*02/11/2018 Hypokalemia [E87.6] INVALID FOR* Hypomagnesemia [E83.42] INVALID FOR* Hyponatremia [E87.1] INVALID FOR* S/P ileostomy [Z93.2] Obesity (BMI 30.0-34.9) [E66.9] Hypogonadism male [E29.1] INVALID FOR*03/02/2018 ANNIE (obstructive sleep apnea) [G47.33] Encounter Status:Closed by DANELLE DANIELS LPN on 03/25/18 PROGRESS Observed: 03/17/2018 Status: COMPLETED Source: [place] 11:[address] [facility] REPOSITORY O ID: [id number] Author: Maria Leahy Service: (none) Author Type: (none) Type: Progress Notes Filed: 03/17/2018 11:13 AM Note Text: Radiology Service Progress Note PATIENT NAME: Mika Velazquez DATE OF SERVICE: March 17, 2018 TIME: 11:13 AM PATIENT IDENTITY VERIFICATION COMPLETED USING TWO (2) METHODS: Patient confirmed name verbally and Date of . PATIENT GENDER DATA: Male PATIENT RELEVANT IMPLANT DATA REVIEWED: Not Applicable RADIOLOGY DEPARTMENT: CT; Exam(s) Completed: Abdomen/Pelvis PERIPHERAL IV DATA: Not applicable SIGNED BY: Maria Leahy March 17, 2018 11:[address] ABD/PEL WO IVCON Observed: 03/17/2018 Status: F Source: [place] 10:[address] [facility] REPOSITORY * * *Final Report* * * DATE OF EXAM: Mar 17 2018 10:24AM [facility] 0531 - CT ABD/PEL WO IVCON / PROCEDURE REASON: Other specified disorders of kidney and ureter * * * * Physician Interpretation * * * * EXAMINATION: CT ABDOMEN AND PELVIS WITHOUT IV CONTRAST CLINICAL HISTORY: Complex cystic structure in the right kidney on ultrasound examination. TECHNIQUE: Non-IV contrast imaging of the abdomen and pelvis was performed using standard technique, scanning from just above the dome of the diaphragm to the symphysis pubis. Unenhanced imaging is limited for the evaluation of some intra-abdominal and pelvic pathology. MQ: CTAPWO_3 Contrast: IV: None Oral: None CT Radiation dose: Integrated Dose-length product (DLP) for this visit = 667 mGy*cm. CT Dose Reduction Employed: Automated exposure control (AEC) COMPARISON: Renal ultrasound 03/08/2018 RESULT: Abdomen / Pelvis: Liver: Unremarkable. Biliary: No biliary dilatation. There are a few tiny calcified stones in the dependent portion of the gallbladder. Spleen: No splenomegaly. Pancreas: Unremarkable. Adrenals: No mass. Kidneys: The right kidney is normal in size. There is no hydronephrosis. There is a 2 mm calculus in the interpolar region of the right kidney. There is a 1.6 cm hypodense structure in the upper pole of the right kidney which corresponds to the hypoechoic structure on ultrasound examination. The left kidney is normal in size. There is no hydronephrosis or renal calculi. GI Tract: No bowel dilation. There are postoperative changes from a colectomy. There is a ventral hernia to the right of midline which contains some nondistended loops of small bowel. Lymph Nodes: There is a prominent barrera hepatis lymph node which measures 1.1 cm short axis dimension. There are multiple subcentimeter retroperitoneal lymph nodes. Mesentery/peritoneum: No ascites. Retroperitoneum: No mass. Vasculature: No abdominal aortic aneurysm. Pelvis: No mass or ascites. The bladder has a normal appearance. Bones/Soft Tissues: No acute abnormality. There is diastases of the rectus abdominis muscles. Lower thorax: No pleural effusion or consolidation. IMPRESSION: 1. No acute pathology 2. Small nonobstructing calculus in the interpolar region of the right kidney 3. Subtle hypodense structure in the upper pole of the right kidney which corresponds to the cyst with internal echoes and a septation in the upper pole of the right kidney on ultrasound examination. A follow-up ultrasound is recommended in 6 months to assess for any change in size. 4. Prominent barrera hepatis lymph node 5. Ventral hernia Oracle R12 Developer: PSCDiandra Transcribe Date/Time: Mar 19 2018 1:10P Dictated by : DANELLE THOMAS MD This examination was interpreted and the report reviewed and electronically signed by: DANELLE THOMAS MD on Mar 19 2018 1:26PM EST [id number] PROGRESS Observed: 03/17/2018 Status: COMPLETED Source: [place] 6:[address] [facility] REPOSITORY HNO ID: [id number] Author: Chelo (Da) Da Tovar Service: (none) Author Type: Behavioral Health Therapist Type: Progress Notes Filed: 03/27/2018 4:13 AM Note Text: March 17, 2018 The medical record was reviewed to determine if the proposed sleep study conforms to the AASM Practice Parameters for the Indications for Polysomnography and Related Procedures, or if the sleep study is indicated for other reasons. Indications for study: ANNIE previously diagnosed: Evaluate response to PAP therapy Sleep study to be performed: PAP titration study Special instructions: Start titration at PAP setting of 5cmH2O Encourage supine sleep Da Green I have read the above protocol, edited as needed, and agree to the plan Talha Key III, PhD, FAASM Observed: 03/12/2018 Status: F Source: [place] URINE CULTURE 1:[address] [facility] REPOSITORY Sp. Request/Comment: - Specimen received in preservative Culture Result - <10,000 CFU/ml Normal urogenital mar Performed By: #### URCUL #### [facility] [address] [place], [place] [address] CNPN Observed: 03/12/2018 Status: COMPLETED Source: [place] 12:[address] [facility] REPOSITORY Telephone (FAMPWS) MIKA VELAZQUEZ ([id number]) 1955 M Date Time Provider Department 03/12/18 ANANT KAUR) [facility] During your visit today, we recorded the following information about you: Cinda Elaine Ma 03/12/2018 12:45 PM Signed ----- Message from Anant Barry) Natasha sent at 03/12/2018 7:58 AM EDT ----- Urine albumin significantly elevated and kidney function continues to deteriorate. Patient needs seen by nephrology [place]. Does he have scheduled appointment? Cinda Elaine Ma 03/12/2018 12:46 PM Signed ----- Message from Anant Barry) Natasha sent at 03/12/2018 8:02 AM EDT ----- UA shows significant amount of protein and also has WBC and RBC present. Hyaline casts present which indicate dehydration. Recommend pushing PO fluids. Please call lab to see if they can send urine culture with specimen they have or if they would need new sample. Cinda Elaine Ma 03/12/2018 12:55 PM Signed TC to lab, urine not available will need new sample. Patient notified of this and verbalized understanding of all information. Patient will be calling back into the office to let PCP know who he will be seeing for Nephrology. Anant Kaur MD 03/12/2018 1:13 PM Signed New order for urine culture placed. Anant Kaur MD 03/12/2018 1:13 PM Signed Addended by: ANANT KAUR MD on: 03/12/2018 01:13 PM Modules accepted: Orders Allergies As of Date: 03/12/2018 Noted Allergy Reaction ALEVE (NAPROXEN SODIUM) 12/23/2011 14 - Other: See Comments Comments: throat tightening ASPIRIN 06/24/2011 14 - Other: See Comments Comments: Swelling of throat IBUPROFEN 11/13/2011 14 - Other: See Comments Date Reviewed: 03/11/2018 Reviewed by: Kymberly Laureano LPN - Fully Assessed Reason for Visit: Results [95] Primary Visit Diagnosis:Abnormal urinalysis [R82.90] Order(s):URINE CULTURE [SQURCUL] Order #: [id number] FUTURE Prescriptions as of 03/12/2018 Sig: AMLODIPINE 5 MG TABLET Take 1 tablet by mouth once d* Problem List As Of Date 03/12/2018 Noted Resolved Ulcerative colitis [K51.90] INVALID FOR* Anemia, unspecified [D64.9] INVALID FOR* Ulcerative colitis, unspecified [K51.90] INVALID FOR*02/11/2018 Hypokalemia [E87.6] INVALID FOR* Hypomagnesemia [E83.42] INVALID FOR* Hyponatremia [E87.1] INVALID FOR* S/P ileostomy [Z93.2] Obesity (BMI 30.0-34.9) [E66.9] Hypogonadism male [E29.1] INVALID FOR*03/02/2018 ANNIE (obstructive sleep apnea) [G47.33] Encounter Status:Closed by CINDA ELAINE MA on 03/12/18 CATE Observed: 03/12/2018 Status: COMPLETED Source: [place] 12:[address] [facility] REPOSITORY Telephone (FAMPWS) MIKA VELAZQUEZ ([id number]) 1955 M Date Time Provider Department 03/12[facility]18 [facility]UR[facility] During your visit today, we recorded the following information about you: Estefania Nassar LPN 03/12/2018 5:00 PM Signed Received call from Dr Grisel Mckeon Nephrology office Patient had called them for appt [place] and office requesting lab results from March and last from January faxed to them [phone]. Faxed consult, copy face sheet and insurance cards. Needs referral to Dr awad, address is [address] [place] [address]. Please advise Anant Kaur MD 03/12/2018 5:03 PM Signed Referral order placed. Please fax to Dr. Mckeon. Cinda Elaine Ma 03/12/2018 5:09 PM Signed Order faxed to number provided. Estefania Nassar LPN 03/17/2018 9:[address] Mckeon office calling again for patient information has been faxed several times not gotten items. Was given another fax number [phone] and faxed face sheet, insurance card copy, labs, ultrasound, office notes consult, to new number. Allergies As of Date: 03/12/2018 Noted Allergy Reaction ALEVE (NAPROXEN SODIUM) 12/23/2011 14 - Other: See Comments Comments: throat tightening ASPIRIN 06/24/2011 14 - Other: See Comments Comments: Swelling of throat IBUPROFEN 11/13/2011 14 - Other: See Comments Date Reviewed: 03/11/2018 Reviewed by: Kymberly Laureano LPN - Fully Assessed Reason for Visit: Nephrology office calling [Other] Primary Visit Diagnosis:JANA (acute kidney injury) (HCC) [N17.9] Other Visit Diagnosis:Albuminuria [R80.9] Order(s):CONSULT TO NEPHROLOGY [9018] Order #: [id number]: 1 Prescriptions as of 03/12/2018 Sig: AMLODIPINE 5 MG TABLET Take 1 tablet by mouth once d* Problem List As Of Date 03/12/2018 Noted Resolved Ulcerative colitis [K51.90] INVALID FOR* Anemia, unspecified [D64.9] INVALID FOR* Ulcerative colitis, unspecified [K51.90] INVALID FOR*02/11/2018 Hypokalemia [E87.6] INVALID FOR* Hypomagnesemia [E83.42] INVALID FOR* Hyponatremia [E87.1] INVALID FOR* S/P ileostomy [Z93.2] Obesity (BMI 30.0-34.9) [E66.9] Hypogonadism male [E29.1] INVALID FOR*03/02/2018 ANNIE (obstructive sleep apnea) [G47.33] Encounter Status:Closed by CINDA ELAINE MA on 03/12/18 PROGRESS Observed: 03/11/2018 Status: COMPLETED Source: [place] 3:[address] [facility] REPOSITORY HNO ID: [id number] Author: Georgia Garcia Psr Service: (none) Author Type: (none) Type: Progress Notes Filed: 03/27/2018 4:13 AM Note Text: March 11, 2018 An order has been received for PAP titration study from Dr. Teresa Regan APRN.NAIMA Jim. [facility] Staff. Visit prep complete. Comments :No The sleep study is scheduled for 03/26. Insurance: Payor: MMO / Plan: MMO Pass[employer]MED PLUS / Product Type: PPO / Georgia Garcia Psr COMP METABOLIC PANEL Collected: 03/11/2018 Status: F Source: [place] 2:[address] [facility] REPOSITORY TYPE CODE TESTS RESULT OUT OF REFERENCE UNITS RANGE LAB TP 6.3-8.0 g/dL Protein, High Total 8.1 LAB ALB 3.9-4.9 g/dL Low Albumin 3.5 LAB CA 8.5-10.2 mg/dL Calcium, Total 8.9 LAB TBIL 0.2-1.3 mg/dL Bilirubin, Total 0.3 LAB ALKP 36-108 U/L Alkaline Phosphatase 98 LAB AST 14-40 U/L Low AST 13 LAB GLU 74-99 mg/dL Glucose 88 Result Comment: The [place] Diabetes [employer] (ADA) provides guidance for cutoff values for fasting glucose and random glucose. The ADA defines fasting as no caloric intake for at least 8 hours. Fas ting plasma glucose results between 100 to 125 mg/dL indicate increased risk for diabetes (prediabetes). Fasting plasma glucose results greater than or equal to 126 mg/dL meet the criteria for diagnosis of diabetes. In the absence of unequivocal hyperglycemia, results should be confirmed by repeat testing. In a patient with classic symptoms of hyperglycemia or hyperglycemic crisis, random plasma glucose results greater than or equal to 200 mg/dL meet the criteria for diagnosis of diabetes. Reference: Standards of Medical Care in Diabetes 2016, [place] [employer] Association. Diabetes Care. 2016.39(Suppl 1). LAB BUN 9-24 mg/dL BUN 23 LAB CRET 0.73-1.22 mg/dL Creatinine High 2.03 LAB NA 136-144 mmol/L Sodium 138 LAB K 3.7-5.1 mmol/L Potassium 4.3 LAB CL 97-105 mmol/L Chloride 101 LAB CO2 22-30 mmol/L CO2 24 LAB AGAP 9-18 mmol/L Anion Gap 13 LAB ALT 10-54 U/L ALT 13 LAB GFRAA eGFR- Amer. 40 LAB GFRNAA . eGFR-All Other Races 33 Result Comment: eGFR (Estimated GFR) Units of measure: mL/min/1.73 meters squared eGFR is derived from the reexpressed MDRD Study equation using the following parameters: serum creatinine, age, gender and race. The creatinine assay has been calibrated to be traceable to IDMS. An eGFR <60 mL/min/1.73m2 for >3 months is consistent with chronic kidney disease. Refer to KDOQI guidelines for clinical interpretation. In patients with unstable renal function, e.g. those with acute kidney injury, the eGFR may not accurately reflect actual GFR. Performed By: #### CMP, VITD #### [facility] [address] [place] [address] VITAMIN D 25 HYDROXY Collected: 03/11/2018 Status: F Source: [place] 2:20 [facility] REPOSITORY TYPE CODE TESTS RESULT OUT OF REFERENCE UNITS RANGE LAB VITD 31.0-80.0 ng/mL Low Vitamin D 25 20.6 Hydroxy Result Comment: Classification of 25 [place] Vitamin D status: Insufficiency/Moderate Deficiency: < or = 30 ng/mL Sufficiency/Optimal Levels: 31 to 80 ng/mL Toxicity: > 100 ng/mL Test performed by chemiluminescent immunoassay. Performed By: #### CMP, VITD #### [facility] [address] [place] [address] ALBUMIN/CREAT RATIO Collected: 03/11/2018 Status: F Source: [place] 2:[address] [facility] REPOSITORY TYPE CODE TESTS RESULT OUT OF REFERENCE UNITS RANGE LAB UCRR 20-300 mg/dL Creatinine,Ur 154.2 ine,Ran LAB UALBR 0.0-23.0 mg/L High Albumin Urine 1636.7 Random LAB UALBCR 0-30 mg/g High Albumin/Creat 1061 Ratio Result Comment: 30 to 300 mg/g indicates an increased risk for diabetic nephropathy. Greater than 300 mg/g is consistent with clinical nephropathy. (Am J Kidney Disease 1994, 25:107) Performed By: #### UACR #### [facility] [address], [place] [address] URINALYSIS WITH Collected: 03/11/2018 Status: F Source: [place] MICROSCOPIC 2:[address] [facility] REPOSITORY TYPE CODE TESTS RESULT OUT OF RANGE REFERENCE UNITS LAB UCOL Yellow Color Abnormal Margo Alert LAB [facility] Clear Clarity Abnormal Cloudy Alert LAB UGLUC Negative mg/dL Glucose, Urine Negative LAB UBIL Negative Bilirubin, Urine Negative LAB UKET Negative Ketones, Urine Negative LAB USPG 1.005-1.030 Specific Carlos, Ur 1.017 LAB UHGB Negative Abnormal Hemoglobin/Blood, 2+ Alert Ur LAB UPH 4.5-8.0 pH 5.0 LAB UPROT Negative mg/dL Protein, Abnormal Urine 100 Alert LAB UUROB Normal Urobilinogen Normal LAB UNITR Negative Nitrites Negative LAB ULKEST Negative Leukest Abnormal Trace Alert LAB UCOM Comments SEE COMMENT Result Comment: N/A LAB UMCOM Urine SEE Laith Comment COMMENT Result Comment: Result rechecked. Interpret results with caution. Urine preservative tube not filled to the required volume. The BD Vacutainer Urinalysis preservative Plus tube must be filled with at least 7 mL and not more than 9 mL of urine in order to maintain the proper additive to urine ratio. LAB UWBC 0-5 /HPF Abnormal Alert WBC 11-25 LAB URBC 0-3 /HPF Abnormal Alert RBC 11-25 LAB UCAST 0 /LPF Abnormal Alert Cast SEE COMMENT Result Comment: >10 Hyaline Cast Performed By: #### UAWMIC #### [facility] [address] [place], [place] [address] PROGRESS Observed: 03/11/2018 Status: COMPLETED Source: [place] 1:[address] [facility] REPOSITORY HNO ID: [id number] Author: Anant Kaur) Service: (none) Author Type: Physician Type: Progress Notes Filed: 03/11/2018 8:05 PM Note Text: Chief Complaint Patient presents with: Recheck HPI Mika Velazquez is a 62 year old male who presents here today for discussion of results. Discussed renal US results which showed right renal mass which requires dedicated CT. Curious if that would need to be read by nephrology or if will be done by radiologist. Discussed radiology will read and will call with results. Also reviewed recent PSG results which showed mild ANNIE with severe findings during REM stage of sleep. Has pap titration scheduled on weekend. Discussed causes and risks of uncontrolled ANNIE. Discussed recent labs showing elevated creatinine and low GFR <45. Discussed follow up with nephrology, avoidance of NSAIDs, pushing po fluids, and will work to control BP which has been elevated at last 2 visits. Curious if iron deficiency or vitamin D deficiency could be contributing to his fatigue. Discussed CBC normal so doubt iron deficiency, but will check vitamin D Past medical history, appointments, medications, allergies reviewed. Previous Medical History PAST MEDICAL HISTORY Diagnosis Date - Anemia - Hypertension - Obesity (BMI 30.0-34.9) - ANNIE (obstructive sleep apnea) - S/P ileostomy (HCC) 2011 - Snoring - ulcerative colitis 2010 Dr. Sandoval, pouchoscopy every 1-2 years Previous Surgical History PAST SURGICAL HISTORY Procedure Laterality Date - COLONOSCOP W/ OR W/O BRSH SPEC 07/02/2011 Colonoscopy - ILEOSTOMY 2011 - PICC LINE INSERT/CONSULT 07/03/2012 - SIGMOIDOS FLEX DIAG W/BX SING/MUL 01/22/12 Family History FAMILY HISTORY Problem Relation Age of Onset - Cancer Mother unknown? lung? - Hypertension Father - None Sister heart murmur - None Brother - None Brother - None Brother - Alzheimer's Disease Maternal Grandfather - None Maternal Grandmother - None Paternal Grandmother - None Paternal Grandfather - None Son - None Son Patient Allergies ALLERGIES Allergen Reactions - Aleve [Naproxen Sod* Other: See Comments throat tightening - Aspirin Other: See Comments Swelling of throat - Ibuprofen Other: See Comments Current Medications No current outpatient prescriptions on file prior to visit. No current facility-administered medications on file prior to visit. 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 General Appearance: Well appearing, alert, in no acute distress, well-hydrated, well nourished.. Skin: Skin color, texture, turgor normal, no suspicious rashes or lesions. Lungs: Lungs clear to auscultation. No wheezing, rhonchi, rales. Heart: RRR without murmur, gallop, or rubs. No ectopy. Health Maintenance List DTAP,TDAP,TD(1 - Tdap) due on 1973 COLORECTAL CANCER SCREENING,SEE MODIFIER due on 10/06/2014 INFLUENZA(Season Ended) due on 07/03/2018 DIABETES SCREEN due on 02/22/2021 LIPID SCREEN due on 02/12/2023 PROSTATE CANCER SCREENING DISCUSSION Completed HEPATITIS C SCREENING Completed Data reviewed Component Latest Ref Rng AND Units 02/12/2018 02/22/2018 WBC 3.70 - 11.00 k/uL 7.38 7.85 RBC 4.20 - 6.00 m/uL 4.79 4.64 Hemoglobin 13.0 - 17.0 g/dL 13.2 13.1 Hematocrit 39.0 - 51.0 % 43.2 41.5 MCV 80.0 - 100.0 fL 90.2 89.4 MCH 26.0 - 34.0 pG 27.6 28.2 MCHC 30.5 - 36.0 g/dL 30.6 31.6 RDW-CV 11.5 - 15.0 % 13.3 13.4 Platelet Count 150 - 400 k/uL 425 (H) 460 (H) MPV 9.0 - 12.7 fL 9.6 9.8 Neut% % 80.1 Abs Neut (ANC) 1.45 - 7.50 k/uL 6.28 Lymph% % 10.8 Abs Lymph 1.00 - 4.00 k/uL 0.85 (L) [place]% % 6.2 Abs [place] <0.87 k/uL 0.49 Eosin% % 2.4 Abs Eosin <0.46 k/uL 0.19 Baso% % 0.5 Abs Baso <0.11 k/uL 0.04 Nucleated Reds 0 /100 WBC 0.0 Absolute nRBC <0.01 k/uL <0.01 <0.01 Diff Type Auto Diff Protein, Total 6.3 - 8.0 g/dL 8.0 7.5 Albumin 3.9 - 4.9 g/dL 3.1 (L) 2.9 (L) Calcium 8.5 - 10.2 mg/dL 9.0 8.9 Bilirubin, Total 0.2 - 1.3 mg/dL 0.6 0.5 Alkaline Phosphatase 36 - 108 U/L 144 (H) 123 (H) AST 14 - 40 U/L 27 17 Glucose 74 - 99 mg/dL 83 84 BUN 9 - 24 mg/dL 13 20 Creatinine 0.73 - 1.22 mg/dL 1.32 (H) 1.71 (H) Sodium 136 - 144 mmol/L 136 136 Potassium 3.7 - 5.1 mmol/L 4.5 4.5 Chloride 97 - 105 mmol/L 97 99 CO2 22 - 30 mmol/L 28 24 Anion Gap 9 - 18 mmol/L 11 13 ALT 10 - 54 U/L 32 30 eGFR- >60 49 eGFR-All Other Races . 55 41 Cholesterol, Total <200 mg/dL 179 Triglyceride <150 mg/dL 103 HDL Cholesterol >39 mg/dL 36 (L) LDL Cholesterol <100 mg/dL 122 (H) Non HDL Cholesterol <130 mg/dL 143 (H) Fasting Time hrs 14 VLDL Cholesterol <30 mg/dL 21 TC:HDL Ratio <5.10 4.97 LDL:HDL Ratio <2.54 3.39 (H) Testosterone 193 - 824 ng/dL 266 288 Testosterone Free % 1.4 - 3.2 % 2.1 2.6 Testosterone Free 41.7 - 180.2 pg/mL 56.9 74.0 Hep C Antibody IA Negative Negative TSH 0.400 - 5.500 uU/mL 2.360 LH 1.8 - 10.8 mU/mL 7.9 ASSESSMENT/PLAN: 1. JANA (acute kidney injury) (HCC) - ICD9: 584.9, ICD10: N17.9 (primary diagnosis) Work to control BP with amlodipine. Advised pushing PO fluids, avoidance of NSAIDs, low sodium diet, and follow up with nephrology. 2. ANNIE (obstructive sleep apnea) - ICD9: 327.23, ICD10: G47.33 Follow up with pap titration. Given info for home. Advised side sleeping, avoidance of alcohol at night. 3. Hypertension, essential - ICD9: 401.9, ICD10: I10 - poor control - Begin amlodipine (Norvasc) - Encouraged dietary sodium restriction/DASH diet - Recommended regular aerobic exercise. - Reviewed risks of HTN and principles of treatment - Goal of BP <140/90 - AMLODIPINE 5 MG TABLET 4. Fatigue, unspecified type - ICD9: 780.79, ICD10: R53.83 Check vitamin D. Suspect related to ANNIE. - VITAMIN D 25 HYDROXY 5. Renal lesion - ICD9: 593.9, ICD10: N28.[address] kidney, will call with results. I spent 20 minutes in the visit, with more than 50% of the total bqtu-fh-cxhs time of the visit in counseling / coordination of care. Anant Kaur MD CNOV Observed: 03/11/2018 Status: COMPLETED Source: [place] 1:[address] [facility] REPOSITORY Office Visit (FAMPWS) ISHANMIKA SR ([id number]) 1955 M Date Time Provider Department 03/11/18 1:20 PM ANANT KAUR) FAMPWS During your visit today, we recorded the following information about you: Pulse Respiration Blood pressure Weight 84/minute 16/minute 148/90 90.3 kg Anant Kaur) 03/11/2018 8:05 PM Signed Chief Complaint Patient presents with: Recheck HPI Mika Velazquez is a 62 year old male who presents here today for discussion of results. Discussed renal US results which showed right renal mass which requires dedicated CT. Curious if that would need to be read by nephrology or if will be done by radiologist. Discussed radiology will read and will call with results. Also reviewed recent PSG results which showed mild ANNIE with severe findings during REM stage of sleep. Has pap titration scheduled on weekend. Discussed causes and risks of uncontrolled ANNIE. Discussed recent labs showing elevated creatinine and low GFR <45. Discussed follow up with nephrology, avoidance of NSAIDs, pushing po fluids, and will work to control BP which has been elevated at last 2 visits. Curious if iron deficiency or vitamin D deficiency could be contributing to his fatigue. Discussed CBC normal so doubt iron deficiency, but will check vitamin D Past medical history, appointments, medications, allergies reviewed. Previous Medical History PAST MEDICAL HISTORY Diagnosis Date - Anemia - Hypertension - Obesity (BMI 30.0-34.9) - ANNIE (obstructive sleep apnea) - S/P ileostomy (HCC) 2011 - Snoring - ulcerative colitis 2010 Dr. Sandoval, pouchoscopy every 1-2 years Previous Surgical History PAST SURGICAL HISTORY Procedure Laterality Date - COLONOSCOP W/ OR W/O BRSH SPEC 07/02/2011 Colonoscopy - ILEOSTOMY 2011 - PICC LINE INSERT/CONSULT 07/03/2012 - SIGMOIDOS FLEX DIAG W/BX SING/MUL 01/22/12 Family History FAMILY HISTORY Problem Relation Age of Onset - Cancer Mother unknown? lung? - Hypertension Father - None Sister heart murmur - None Brother - None Brother - None Brother - Alzheimer's Disease Maternal Grandfather - None Maternal Grandmother - None Paternal Grandmother - None Paternal Grandfather - None Son - None Son Patient Allergies ALLERGIES Allergen Reactions - Aleve [Naproxen Sod* Other: See Comments throat tightening - Aspirin Other: See Comments Swelling of throat - Ibuprofen Other: See Comments Current Medications No current outpatient prescriptions on file prior to visit. No current facility-administered medications on file prior to visit. 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 General Appearance: Well appearing, alert, in no acute distress, well-hydrated, well nourished.. Skin: Skin color, texture, turgor normal, no suspicious rashes or lesions. Lungs: Lungs clear to auscultation. No wheezing, rhonchi, rales. Heart: RRR without murmur, gallop, or rubs. No ectopy. Health Maintenance List DTAP,TDAP,TD(1 - Tdap) due on 1973 COLORECTAL CANCER SCREENING,SEE MODIFIER due on 10/06/2014 INFLUENZA(Season Ended) due on 07/03/2018 DIABETES SCREEN due on 02/22/2021 LIPID SCREEN due on 02/12/2023 PROSTATE CANCER SCREENING DISCUSSION Completed HEPATITIS C SCREENING Completed Data reviewed Component Latest Ref Rng AND Units 02/12/2018 02/22/2018 WBC 3.70 - 11.00 k/uL 7.38 7.85 RBC 4.20 - 6.00 m/uL 4.79 4.64 Hemoglobin 13.0 - 17.0 g/dL 13.2 13.1 Hematocrit 39.0 - 51.0 % 43.2 41.5 MCV 80.0 - 100.0 fL 90.2 89.4 MCH 26.0 - 34.0 pG 27.6 28.2 MCHC 30.5 - 36.0 g/dL 30.6 31.6 RDW-CV 11.5 - 15.0 % 13.3 13.4 Platelet Count 150 - 400 k/uL 425 (H) 460 (H) MPV 9.0 - 12.7 fL 9.6 9.8 Neut% % 80.1 Abs Neut (ANC) 1.45 - 7.50 k/uL 6.28 Lymph% % 10.8 Abs Lymph 1.00 - 4.00 k/uL 0.85 (L) [place]% % 6.2 Abs [place] <0.87 k/uL 0.49 Eosin% % 2.4 Abs Eosin <0.46 k/uL 0.19 Baso% % 0.5 Abs Baso <0.11 k/uL 0.04 Nucleated Reds 0 /100 WBC 0.0 Absolute nRBC <0.01 k/uL <0.01 <0.01 Diff Type Auto Diff Protein, Total 6.3 - 8.0 g/dL 8.0 7.5 Albumin 3.9 - 4.9 g/dL 3.1 (L) 2.9 (L) Calcium 8.5 - 10.2 mg/dL 9.0 8.9 Bilirubin, Total 0.2 - 1.3 mg/dL 0.6 0.5 Alkaline Phosphatase 36 - 108 U/L 144 (H) 123 (H) AST 14 - 40 U/L 27 17 Glucose 74 - 99 mg/dL 83 84 BUN 9 - 24 mg/dL 13 20 Creatinine 0.73 - 1.22 mg/dL 1.32 (H) 1.71 (H) Sodium 136 - 144 mmol/L 136 136 Potassium 3.7 - 5.1 mmol/L 4.5 4.5 Chloride 97 - 105 mmol/L 97 99 CO2 22 - 30 mmol/L 28 24 Anion Gap 9 - 18 mmol/L 11 13 ALT 10 - 54 U/L 32 30 eGFR- >60 49 eGFR-All Other Races . 55 41 Cholesterol, Total <200 mg/dL 179 Triglyceride <150 mg/dL 103 HDL Cholesterol >39 mg/dL 36 (L) LDL Cholesterol <100 mg/dL 122 (H) Non HDL Cholesterol <130 mg/dL 143 (H) Fasting Time hrs 14 VLDL Cholesterol <30 mg/dL 21 TC:HDL Ratio <5.10 4.97 LDL:HDL Ratio <2.54 3.39 (H) Testosterone 193 - 824 ng/dL 266 288 Testosterone Free % 1.4 - 3.2 % 2.1 2.6 Testosterone Free 41.7 - 180.2 pg/mL 56.9 74.0 Hep C Antibody IA Negative Negative TSH 0.400 - 5.500 uU/mL 2.360 LH 1.8 - 10.8 mU/mL 7.9 ASSESSMENT/PLAN: 1. JANA (acute kidney injury) (HCC) - ICD9: 584.9, ICD10: N17.9 (primary diagnosis) Work to control BP with amlodipine. Advised pushing PO fluids, avoidance of NSAIDs, low sodium diet, and follow up with nephrology. 2. ANNIE (obstructive sleep apnea) - ICD9: 327.23, ICD10: G47.33 Follow up with pap titration. Given info for home. Advised side sleeping, avoidance of alcohol at night. 3. Hypertension, essential - ICD9: 401.9, ICD10: I10 - poor control - Begin amlodipine (Norvasc) - Encouraged dietary sodium restriction/DASH diet - Recommended regular aerobic exercise. - Reviewed risks of HTN and principles of treatment - Goal of BP <140/90 - AMLODIPINE 5 MG TABLET 4. Fatigue, unspecified type - ICD9: 780.79, ICD10: R53.83 Check vitamin D. Suspect related to ANNIE. - VITAMIN D 25 HYDROXY 5. Renal lesion - ICD9: 593.9, ICD10: N28.[address] kidney, will call with results. I spent 20 minutes in the visit, with more than 50% of the total lfet-hz-qwfh time of the visit in counseling / coordination of care. Anant Kaur MD Referring Provider: SELF [200] Allergies As of Date: 03/11/2018 Noted Allergy Reaction ALEVE (NAPROXEN SODIUM) 12/23/2011 14 - Other: See Comments Comments: throat tightening ASPIRIN 06/24/2011 14 - Other: See Comments Comments: Swelling of throat IBUPROFEN 11/13/2011 14 - Other: See Comments Date Reviewed: 03/11/2018 Reviewed by: Kymberly Laureano LPN - Fully Assessed Reason for Visit: Recheck [92] Primary Visit Diagnosis:JANA (acute kidney injury) (HCC) [N17.9] Other Visit Diagnoses:ANNIE (obstructive sleep apnea) [G47.33] Hypertension, essential [I10] Fatigue, unspecified type [R53.83] Renal lesion [N28.9] Order(s):amLODIPine (NORVASC) 5 mg tabletTake 1 tablet by mouth once daily.Disp: 30 tabletRfl: 2 VITAMIN D 25 HYDROXY [SQVITD] Order #: [id number] FUTURE Prescriptions as of 03/11/2018 Sig: AMLODIPINE 5 MG TABLET Take 1 tablet by mouth once d* Problem List As Of Date 03/11/2018 Noted Resolved Ulcerative colitis [K51.90] INVALID FOR* Anemia, unspecified [D64.9] INVALID FOR* Ulcerative colitis, unspecified [K51.90] INVALID FOR*02/11/2018 Hypokalemia [E87.6] INVALID FOR* Hypomagnesemia [E83.42] INVALID FOR* Hyponatremia [E87.1] INVALID FOR* S/P ileostomy [Z93.2] Obesity (BMI 30.0-34.9) [E66.9] Hypogonadism male [E29.1] INVALID FOR*03/02/2018 ANNIE (obstructive sleep apnea) [G47.33] Prescriptions ordered this encounter Disp Refills Start End AMLODIPINE 5 MG TABLET 30 t* 2 03/11/2018 Route: ORAL Sig: Take 1 tablet by mouth once daily. Follow-up and Disposition History Recorded Encounter Status:Closed by ANANT KAUR MD on 03/11/18 US KIDNEY/BLADDER Observed: 03/08/2018 Status: F Source: [place] 2:[address] [facility] REPOSITORY * * *Final Report* * * DATE OF EXAM: Mar 08 2018 2:31PM WRU [id number] - US KIDNEY/BLADDER / PROCEDURE REASON: Abnormal results of kidney function studies * * * * Physician Interpretation * * * * EXAMINATION: RENAL ULTRASOUND HISTORY: Abnormal results of kidney function studies TECHNIQUE: Sonography of the kidneys and urinary bladder was performed. Images were obtained and stored in a permanent archive. MQ: [id number] COMPARISON: None RESULT: Right Kidney: -Renal length: 13.3 cm -Parenchyma: Normal parenchymal echogenicity. Normal parenchymal thickness. -Collecting system: No hydronephrosis. -Calculus: Small hyperechoic focus 5 mm in size nonobstructing in the midpole probably represents calcification. -Lesion: Hypoechoic nodule 1.8 cm in size has a septation. It is in the upper pole the RIGHT kidney. Left Kidney: -Renal length: 12.5 cm cm -Parenchyma: Normal parenchymal echogenicity. Normal parenchymal thickness. -Collecting system: No hydronephrosis. -Calculus: No echogenic, shadowing calculus. -Lesion: None. Bladder: Normal sonographic appearance. IMPRESSION: 1. Hypoechoic nodule in the RIGHT kidney indeterminate by ultrasound. Dedicated CT kidney recommended 2. Probable nonobstructing calcification RIGHT kidney Oracle R12 Developer: MARCIO Transcribe Date/Time: Mar 09 2018 8:16A Dictated by : SIOMARA JOSEPH DO This examination was interpreted and the report reviewed and electronically signed by: SIOMARA JOSEPH DO on Mar 09 2018 8:19AM EST [id number] PROGRESS Observed: 03/08/2018 Status: COMPLETED Source: [place] 1:[address] [facility] RE[facility] HNO ID: [id number] Author: Leila Aldana Rdms Service: (none) Author Type: (none) Type: Progress Notes Filed: 03/08/2018 2:31 PM Note Text: Radiology Service Progress Note PATIENT NAME: Mika Velazquez DATE OF SERVICE: March 08, 2018 TIME: 1:50 PM PATIENT IDENTITY VERIFICATION COMPLETED USING TWO (2) METHODS: Patient confirmed name verbally and Date of . PATIENT GENDER DATA: Male PATIENT RELEVANT IMPLANT DATA REVIEWED: Not Applicable RADIOLOGY DEPARTMENT: Ultrasound PERIPHERAL IV DATA: Not applicable SIGNED BY: Leila Aldana Rdms March 08, 2018 1:50 PM PROGRESS Observed: 02/26/2018 Status: COMPLETED Source: [place] 4:[address] [facility] RE[facility] HNO ID: [id number] Author: Fay Burton Service: (none) Author Type: (none) Type: Progress Notes Filed: 02/26/2018 4:35 AM Note Text: Sleep Study Check-In Documentation Date: February 26, 2018 Name: Mika Velazquez Patient was accompanied by Self. Location: [place] Latex allergy: No Tape allergy: No Current medications were reviewed with the patient:Yes Sleep aid taken by patient for the sleep study: [place] of sleep aid: Not Applicable Procedure was explained to the patient and all questions were answered. PAP treatment discussed and shown to patient: Yes Knowledge Program (KP): KP was not completed in [facility] by patient and accepted Study type: Polysomnogram Adverse Event: No (If yes create a new abstract) SERS Event: No Comments: Patient was advised to follow up with their ordering provider regarding test results Fay Burton CBC AND DIFFERENTIAL Collected: 02/22/2018 Status: F Source: [place] 8:[address] [facility] RE[facility] TYPE CODE TESTS RESULT OUT OF REFERENCE UNITS RANGE LAB WBC 3.70-11.00 k/uL WBC 7.85 LAB RBC 4.20-6.00 m/uL RBC 4.64 LAB HGB 13.0-17.0 g/dL Hemoglobin 13.1 LAB HCT 39.0-51.0 % Hematocrit 41.5 LAB MCV 80.0-100.0 fL MCV 89.4 LAB MCH 26.0-34.0 pG MCH 28.2 LAB MCHC 30.5-36.0 g/dL MCHC 31.6 LAB RDWCV 11.5-15.0 % RDW-CV 13.4 LAB PLTCT 150-400 k/uL Platelet High Count 460 LAB MPV 9.0-12.7 fL MPV 9.8 LAB ANEUT % Neut% 80.1 LAB AANEUT 1.45-7.50 k/uL Abs Neut 6.28 LAB ALYMP % Lymph% 10.8 LAB AALYMP 1.00-4.00 k/uL Low Abs Lymph 0.85 LAB AMONO % [place]% 6.2 LAB AAMONO <0.87 k/uL Abs [place] 0.49 LAB AEOS % Eosin% 2.4 LAB AAEOS <0.46 k/uL Abs Eosin 0.19 LAB ABASO % Baso% 0.5 LAB AABASO <0.11 k/uL Abs Baso 0.04 LAB AUNRBC 0 /100 WBC NRBCs 0.0 LAB ABNRBC <0.01 k/uL Absolute nRBC <0.01 LAB DTYP DTYPE Auto Diff Performed By: #### CBCDIF, CMP, LH, FTESTO #### [facility] [address] [place] [address] COMP METABOLIC PANEL Collected: 02/22/2018 Status: F Source: [place] 8:[address] [facility] REPOSITORY TYPE CODE TESTS RESULT OUT OF REFERENCE UNITS RANGE LAB TP 6.3-8.0 g/dL Protein, Total 7.5 LAB ALB 3.9-4.9 g/dL Low Albumin 2.9 LAB CA 8.5-10.2 mg/dL Calcium, Total 8.9 LAB TBIL 0.2-1.3 mg/dL Bilirubin, Total 0.5 LAB ALKP 36-108 U/L Alkaline High Phosphatase 123 LAB AST 14-40 U/L AST 17 LAB GLU 74-99 mg/dL Glucose 84 Result Comment: The [place] Diabetes Association (ADA) provides guidance for cutoff values for fasting glucose and random glucose. The ADA defines fasting as no caloric intake for at least 8 hours. Fas ting plasma glucose results between 100 to 125 mg/dL indicate increased risk for diabetes (prediabetes). Fasting plasma glucose results greater than or equal to 126 mg/dL meet the criteria for diagnosis of diabetes. In the absence of unequivocal hyperglycemia, results should be confirmed by repeat testing. In a patient with classic symptoms of hyperglycemia or hyperglycemic crisis, random plasma glucose results greater than or equal to 200 mg/dL meet the criteria for diagnosis of diabetes. Reference: Standards of Medical Care in Diabetes 2016, [place] Diabetes Association. Diabetes Care. 2016.39(Suppl 1). LAB BUN 9-24 mg/dL BUN 20 LAB CRET 0.73-1.22 mg/dL Creatinine High 1.71 LAB NA 136-144 mmol/L Sodium 136 LAB K 3.7-5.1 mmol/L Potassium 4.5 LAB CL 97-105 mmol/L Chloride 99 LAB CO2 22-30 mmol/L CO2 24 LAB AGAP 9-18 mmol/L Anion Gap 13 LAB ALT 10-54 U/L ALT 30 LAB GFRAA eGFR- Amer. 49 LAB GFRNAA . eGFR-All Other Races 41 Result Comment: eGFR (Estimated GFR) Units of measure: mL/min/1.73 meters squared eGFR is derived from the reexpressed MDRD Study equation using the following parameters: serum creatinine, age, gender and race. The creatinine assay has been calibrated to be traceable to IDMS. An eGFR <60 mL/min/1.73m2 for >3 months is consistent with chronic kidney disease. Refer to KDOQI guidelines for clinical interpretation. In patients with unstable renal function, e.g. those with acute kidney injury, the eGFR may not accurately reflect actual GFR. Performed By: #### CBCDIF, CMP, LH, FTESTO #### [facility] [address] [place] [id number] LH Collected: 02/22/2018 Status: F Source: [facility] 8:43 AM [facility] REPOSITORY TYPE CODE TESTS RESULT OUT OF RANGE REFERENCE UNITS LAB LH 1.8-10.8 mU/mL LH 7.9 Performed By: #### CBCDIF, CMP, LH, FTESTO #### [facility] [address] [place], [place] [address] FREE TESTOSTERONE Collected: 02/22/2018 Status: F Source: [place] 8:[address] [facility] REPOSITORY TYPE CODE TESTS RESULT OUT OF REFERENCE UNITS RANGE LAB TESTO 193-824 ng/dL Testosterone 288 Result Comment: A testosterone level in the 193-320 ng/dL range with associated clinical symptoms is considered low and may indicate hypogonadism (from NEJM 2010 363:123-135). Results >320 ng/dL are considered normal. LAB FREE 1.4-3.2 % Free Testosterone % 2.6 LAB FRTSTO 41.7-180.2 pg/mL Free Testosterone 74.0 Result Comment: This test was developed and its performance characteristics determined by [facility]'s [facility] [place] ([facility] It has not been cleared or approved by the FDA. -[facility] is regulated under CLIA as qualified to perform high-complexity testing. This test is used for clinical purposes. It should not be regarded as investigational or for research. Performed By: #### CBCDIF, CMP, LH, FTESTO #### [facility] [address] [place] [id number] PROGRESS Observed: 02/19/2018 Status: COMPLETED Source: [place] 5:[address] [facility] REPOSITORY HNO ID: [id number] Author: Alicia Gagnon Poly-T Service: (none) Author Type: (none) Type: Progress Notes Filed: 02/26/2018 4:35 AM Note Text: February 19, 2018 The medical record was reviewed to determine if the proposed sleep study conforms to the AASM Practice Parameters for the Indications for Polysomnography and Related Procedures, or if the sleep study is indicated for other reasons. Indications for study: ANNIE suspected without comorbid medical or sleep disorders Sleep study to be performed: Polysomnogram Special instructions: Add EtCO2 or Transcutaneous CO2 if available Encourage supine and habitual sleep position Alicia Bryante Poly-T I have read the above protocol, edited as needed, and agree to the plan Talha Key III, PhD, [facility] PROGRESS Observed: 02/15/2018 Status: COMPLETED Source: [place] 8:[address] [facility] REPOSITORY HNO ID: [id number] Author: Georgia Garcia Psr Service: (none) Author Type: (none) Type: Progress Notes Filed: 02/26/2018 4:35 AM Note Text: February 15, 2018 An order has been received for Polysomnogram (PSG) from Dr. Anant Peck [facility] Staff. Visit prep complete. Comments :No The sleep study is scheduled for 02/25. Insurance: Payor: MMO / Plan: [employer] PLUS / Product Type: PPO / Georgia Garcia Psr COMP METABOLIC PANEL Collected: 02/12/2018 Status: F Source: [place] 9:[address] [facility] REPOSITORY TYPE CODE TESTS RESULT OUT OF REFERENCE UNITS RANGE LAB TP 6.3-8.0 g/dL Protein, Total 8.0 LAB ALB 3.9-4.9 g/dL Low Albumin 3.1 LAB CA 8.5-10.2 mg/dL Calcium, Total 9.0 LAB TBIL 0.2-1.3 mg/dL Bilirubin, Total 0.6 LAB ALKP 36-108 U/L Alkaline High Phosphatase 144 LAB AST 14-40 U/L AST 27 LAB GLU 74-99 mg/dL Glucose 83 Result Comment: The [place] Diabetes Association (ADA) provides guidance for cutoff values for fasting glucose and random glucose. The ADA defines fasting as no caloric intake for at least 8 hours. Fas ting plasma glucose results between 100 to 125 mg/dL indicate increased risk for diabetes (prediabetes). Fasting plasma glucose results greater than or equal to 126 mg/dL meet the criteria for diagnosis of diabetes. In the absence of unequivocal hyperglycemia, results should be confirmed by repeat testing. In a patient with classic symptoms of hyperglycemia or hyperglycemic crisis, random plasma glucose results greater than or equal to 200 mg/dL meet the criteria for diagnosis of diabetes. Reference: Standards of Medical Care in Diabetes 2016, [place] Diabetes Association. Diabetes Care. 2016.39(Suppl 1). LAB BUN 9-24 mg/dL BUN 13 LAB CRET 0.73-1.22 mg/dL Creatinine High 1.32 LAB NA 136-144 mmol/L Sodium 136 LAB K 3.7-5.1 mmol/L Potassium 4.5 LAB CL 97-105 mmol/L Chloride 97 LAB CO2 22-30 mmol/L CO2 28 LAB AGAP 9-18 mmol/L Anion Gap 11 LAB ALT 10-54 U/L ALT 32 LAB GFRAA eGFR- Amer. >60 LAB GFRNAA . eGFR-All Other Races 55 Result Comment: eGFR (Estimated GFR) Units of measure: mL/min/1.73 meters squared eGFR is derived from the reexpressed MDRD Study equation using the following parameters: serum creatinine, age, gender and race. The creatinine assay has been calibrated to be traceable to IDMS. An eGFR <60 mL/min/1.73m2 for >3 months is consistent with chronic kidney disease. Refer to KDOQI guidelines for clinical interpretation. In patients with unstable renal function, e.g. those with acute kidney injury, the eGFR may not accurately reflect actual GFR. Performed By: #### CMP, LIPB, CBC, TSH, AHCV, FTESTO #### [facility] [address] [place] [id number] LIPID PANEL, BASIC Collected: 02/12/2018 Status: F Source: [place] 9:[address] [facility] REPOSITORY TYPE CODE TESTS RESULT OUT OF REFERENCE UNITS RANGE LAB CHOL <200 mg/dL Cholesterol 179 Result Comment: <200 mg/dL, Desirable 200-239 mg/dL, Borderline high >239 mg/dL, High LAB TRIGLY <150 mg/dL Triglyceride 103 Result Comment: <150 mg/dL, Normal 150-199 mg/dL, Borderline high 200-499 mg/dL, High >499 mg/dL, Very high LAB HDL >39 mg/dL HDL-Cholesterol Low 36 Result Comment: 40-59 mg/dL, Acceptable >59 mg/dL, High: Negative risk factor for coronary heart disease <40 mg/dL, Low: Positive risk factor for coronary heart disease LAB LDL <100 mg/dL LDL-Cholesterol High 122 Result Comment: <100 mg/dL, Optimal 100-129 mg/dL, Near optimal/above optimal 130-159 mg/dL, Borderline high 160-189 mg/dL, High >189 mg/dL, Very high Secondary prevention optimal LDL Cholesterol levels are recommended to be < 70 mg/dL LAB NONHDL <130 mg/dL Non HDL High Cholesterol 143 Result Comment: <130 mg/dL, Optimal 130-159 mg/dL, Near optimal/above optimal 160-189 mg/dL, Borderline high 190-219 mg/dL, High >219 mg/dL, Very high Secondary prevention optimal non HDL Cholesterol levels are recommended to be < 100 mg/dL LAB FT hrs Fasting Time 14 LAB VLDL <30 mg/dL VLDL Cholesterol 21 LAB TCHDL <5.10 TC:HDL Ratio 4.97 LAB LDLHDL <2.54 High LDL:HDL Ratio 3.39 Result Comment: Reference: 1. National Cholesterol Education Program ATP III Guideline At-A-Glance Quick Desk Reference: National Heart, Lung, and Blood [place]. National Institutes of Health. 2001: NIH Publication No. 01-3305. 2. An International Atherosclerosis Society position paper: global recommendations for the management of dyslipidemia: executive summary, Atherosclerosis. 2014: 232(2):410-413. Performed By: #### CMP, LIPB, CBC, TSH, AHCV, FTESTO #### [facility] [address], [place] [address] CBC Collected: 02/12/2018 Status: F Source: [place] 9:[address] [facility] REPOSITORY TYPE CODE TESTS RESULT OUT OF REFERENCE UNITS RANGE LAB WBC 3.70-11.00 k/uL WBC 7.38 LAB RBC 4.20-6.00 m/uL RBC 4.79 LAB HGB 13.0-17.0 g/dL Hemoglobin 13.2 LAB HCT 39.0-51.0 % Hematocrit 43.2 LAB MCV 80.0-100.0 fL MCV 90.2 LAB MCH 26.0-34.0 pG MCH 27.6 LAB MCHC 30.5-36.0 g/dL MCHC 30.6 LAB RDWCV 11.5-15.0 % RDW-CV 13.3 LAB PLTCT 150-400 k/uL Platelet High Count 425 LAB MPV 9.0-12.7 fL MPV 9.6 LAB ABSNUC <0.01 k/uL Absolute nRBC <0.01 Performed By: #### CMP, LIPB, CBC, TSH, AHCV, FTESTO #### [facility] [address], [place] [address] TSH Collected: 02/12/2018 Status: F Source: [place] 9:[address] [facility] REPOSITORY TYPE CODE TESTS RESULT OUT OF RANGE REFERENCE UNITS LAB TSH 0.400-5.500 uU/mL TSH 2.360 Performed By: #### CMP, LIPB, CBC, TSH, AHCV, FTESTO #### [facility] [address], [place] [address] HEPATITIS C AB IA Collected: 02/12/2018 Status: F Source: [place] 9:[address] [facility] REPOSITORY TYPE CODE TESTS RESULT OUT OF REFERENCE UNITS RANGE LAB AHCV Negative Hepatitis C Ab Negative IA Performed By: #### CMP, LIPB, CBC, TSH, AHCV, FTESTO #### [facility] [address], [place] [id number] FREE TESTOSTERONE Collected: 02/12/2018 Status: F Source: [place] 9:[address] [facility] REPOSITORY TYPE CODE TESTS RESULT OUT OF REFERENCE UNITS RANGE LAB TESTO 193-824 ng/dL Testosterone 266 Result Comment: A testosterone level in the 193-320 ng/dL range with associated clinical symptoms is considered low and may indicate hypogonadism (from NEJM 2010 363:123-135). Results >320 ng/dL are considered normal. LAB FREE 1.4-3.2 % Free Testosterone % 2.1 LAB FRTSTO 41.7-180.2 pg/mL Free Testosterone 56.9 Result Comment: This test was developed and its performance characteristics determined by [facility]'s [facility] [place] ([facility]). It has not been cleared or approved by the FDA. [facility] is regulated under CLIA as qualified to perform high-complexity testing. This test is used for clinical purposes. It should not be regarded as investigational or for research. Performed By: #### CMP, LIPB, CBC, TSH, AHCV, FTESTO #### [facility] [address], [place] [address] PROGRESS Observed: 02/11/2018 Status: COMPLETED Source: [place] 4:[address] [facility] REPOSITORY HNO ID: [id number] Author: Anant Kaur Service: (none) Author Type: Physician Type: Progress Notes Filed: 02/12/2018 7:56 AM Note Text: Chief Complaint Patient presents with: Establish Care HPI Mika Velazquez is a 62 year old male who presents here today for establish care visit. Has not seen PCP in more than 5 years. States that he has been seeing Dr. Buckley ENT for nasal congestion, trouble breathing out of nose and decreased energy. Was found to have staph aureus in the nose and started on Omnicef for 10 days and given steroid injection which has not helped. Followed up and discussed that his symptoms were not improved and was told to continue nasal saline solution. Patient states that he has trouble breathing of nares bilaterally, but left is worse than right. Has noticed recently that his left ear has also started to feel abnormal. Would like checked today. Also complains of decreased energy and fatigue which has been present for the last couple of months. Dr. Buckley questioned possible ANNIE, and patient admits to snoring at night. Has had similar symptoms when he was anemic with ulcerative colitis in the past. Patient denies recent bleeding or melena. Patient Health Questionnaire (PHQ-9), PHQ-2 score: 2 ? Question and Answer List: ? 1. Several days (1) ?- Little interest or pleasure in doing things ? 2. Several days (1) ?- Feeling down, depressed, or hopeless ? Generalized Anxiety Disorder - 7 (CLARE-7): (Partially Completed) ? Question and Answer List: ? 1. Several days (1) ?- Feeling nervous, anxious, or on edge ? 2. Several days (1) ?- Not being able to stop or control worrying Due for colonoscopy. Previously seeing Dr. Sandoval for pouchoscopy and recommended follow up with her office every 1-2 years for recheck. Patient will contact their office. Past medical history, appointments, medications, allergies reviewed. Previous Medical History PAST MEDICAL HISTORY Diagnosis Date - Anemia - Obesity (BMI 30.0-34.9) - S/P ileostomy (HCC) 2011 - Snoring - ulcerative colitis 2010 Dr. Sandoval, pouchoscopy every 1-2 years Previous Surgical History PAST SURGICAL HISTORY Procedure Laterality Date - COLONOSCOP W/ OR W/O [facility] SPEC 07/02/2011 Colonoscopy - PICC LINE INSERT/CONSULT 07/03/2012 - SIGMOIDOS FLEX DIAG W/BX SING/MUL 01/22/12 Family History FAMILY HISTORY Problem Relation Age of Onset - Cancer Mother unknown? lung? - Hypertension Father - None Sister heart murmur - None Brother - None Brother - None Brother - Alzheimer's Disease Maternal Grandfather - None Maternal Grandmother - None Paternal Grandmother - None Paternal Grandfather - None Son - None Son Patient Allergies ALLERGIES Allergen Reactions - Aleve [Naproxen Sod* Other: See Comments throat tightening - Aspirin Other: See Comments Swelling of throat - Ibuprofen Other: See Comments Current Medications Current Outpatient Prescriptions on File Prior to Visit: mupirocin (BACTROBAN) 2 % ointment Apply 1 application to affected area three times daily. Location: upper lip Psyllium (METAMUCIL) 1.7 g Wafr Take by mouth once daily. No current facility-administered medications on file prior to visit. Social History Social History Marital status: Spouse name: Jeremy Years of education: Number of children: 2 Social History Main Topics Smoking status: Former Smoker Packs/day: 2.00 Years: 30.00 Types: Cigarettes Quit date: 06/24/2001 Smokeless status: Never Used Alcohol use: No Drug use: No Sexual activity: Yes Partners with: Female control/protection: None Review of Symptoms REVIEW OF SYSTEMS GENERAL: No weight loss, malaise or fevers NECK: Negative for lumps, goiter, pain and significant neck swelling RESPIRATORY: Negative for cough, hemoptysis, wheezing, COPD, dyspnea or shortness of breath CARDIOVASCULAR: Negative for chest pain, leg swelling, hypertension, CHF or palpitations GI: No nausea, vomiting, or diarrhea SKIN: Negative for lesions, rash, and itching EXAM: BP 160/98 Pulse 92 Resp 16 Ht 172.1 cm (5' 7.75) Wt 92.5 kg (204 lb) BMI 31.25 kg/m2 General Appearance: Well appearing, alert, in no acute distress, well-hydrated, well nourished.. Skin: Skin color, texture, turgor normal, no suspicious rashes or lesions. Head: Normocephalic, no masses, lesions, tenderness or abnormalities. Eyes: Anicteric sclera. Pupils are equally round and reactive to light. Extraocular movements are intact. . Ears: External ears normal, canals clear. Nose/Sinuses: Nares normal, septum midline, mucosa normal, no drainage or sinus tenderness. Oropharynx: Lips, mucosa, and tongue normal, teeth and gums normal, oropharynx normal. Neck: Supple, no adenopathy; thyroid symmetric, normal size, no bruits. Lungs: Lungs clear to auscultation. No wheezing, rhonchi, rales. Heart: RRR without murmur, gallop, or rubs. No ectopy. Abdomen: Normal abdominal exam, Abdomen soft, non-tender. Bowel sounds normal. No masses, organomegaly. Extremities: No deformities, edema, skin discoloration, clubbing or cyanosis. Good capillary refill. . Health Maintenance List HEPATITIS C SCREENING due on 1998 COLORECTAL CANCER SCREENING,SEE MODIFIER due on 10/06/2014 DIABETES SCREEN due on 10/23/2015 LIPID SCREEN due on 06/30/2016 INFLUENZA(Season Ended) due on 07/03/2018 TETANUS due on 09/24/2019 PROSTATE CANCER SCREENING DISCUSSION Completed ASSESSMENT/PLAN: 1. Decreased energy - ICD9: 780.79, ICD10: R53.83 (primary diagnosis) Obtain blood work. Discussed improved diet/exercise and weight loss. Recommended side sleeping for possible ANNIE and will follow up results of PSG. - CBC - COMP METABOLIC PANEL - LIPID PANEL BASIC - TSH BLD - TESTOSTERONE, FREE AND TOTAL 2. Fatigue, unspecified type - ICD9: 780.79, ICD10: R53.83 See above. - CBC - COMP METABOLIC PANEL - LIPID PANEL BASIC - TSH BLD - TESTOSTERONE, FREE AND TOTAL 3. Snoring - ICD9: 786.09, ICD10: R06.83 See above. - POLYSOMNOGRAM (PSG)/HOME SLEEP APNEA TESTING (HSAT) 4. Daytime somnolence - ICD9: 780.54, ICD10: R40.0 - POLYSOMNOGRAM (PSG)/HOME SLEEP APNEA TESTING (HSAT) 5. Obesity (BMI 30.0-34.9) - ICD9: 278.00, ICD10: E66.9 Work on improved diet and exercise. 6. Nose abnormality - ICD9: 748.1, ICD10: Q30.9 Will have patient continue nasal saline spray per Dr. Buckley's office and will obtain records. No obvious abnormality today. Discussed if he is not getting relief would consider referral to Dr. Estrada instead. 7. Encounter for hepatitis C screening test for low risk patient - ICD9: V73.89, ICD10: Z11.59 - HEP C AB IA BLOOD I spent 35 minutes in the visit, with more than 50% of the total [id number] time of the visit in counseling / coordination of care. Anant Karu MD CNOV Observed: 02/11/2018 Status: COMPLETED Source: [place] 4:[address] [facility] REPOSITORY Office Visit (FAMPWS) MIKA VELAZQUEZ ([id number]) 1955 M Date Time Provider Department 02/11/18 4:20 PM ANANT KAUR () FAMPWS During your visit today, we recorded the following information about you: Pulse Respiration Blood pressure Weight 92/minute 16/minute 136/88 92.5 kg Height 1.721 m Anant Kaur MD 02/12/2018 7:56 AM Signed Chief Complaint Patient presents with: Establish Care HPI Mika Velazquez is a 62 year old male who presents here today for establish care visit. Has not seen PCP in more than 5 years. States that he has been seeing Dr. Buckley ENT for nasal congestion, trouble breathing out of nose and decreased energy. Was found to have staph aureus in the nose and started on Omnicef for 10 days and given steroid injection which has not helped. Followed up and discussed that his symptoms were not improved and was told to continue nasal saline solution. Patient states that he has trouble breathing of nares bilaterally, but left is worse than right. Has noticed recently that his left ear has also started to feel abnormal. Would like checked today. Also complains of decreased energy and fatigue which has been present for the last couple of months. Dr. Buckley questioned possible ANNIE, and patient admits to snoring at night. Has had similar symptoms when he was anemic with ulcerative colitis in the past. Patient denies recent bleeding or melena. Patient Health Questionnaire (PHQ-9), PHQ-2 score: 2 ? Question and Answer List: ? 1. Several days (1) ?- Little interest or pleasure in doing things ? 2. Several days (1) ?- Feeling down, depressed, or hopeless ? Generalized Anxiety Disorder - 7 (CLARE-7): (Partially Completed) ? Question and Answer List: ? 1. Several days (1) ?- Feeling nervous, anxious, or on edge ? 2. Several days (1) ?- Not being able to stop or control worrying Due for colonoscopy. Previously seeing Dr. Sandoval for pouchoscopy and recommended follow up with her office every 1-2 years for recheck. Patient will contact their office. Past medical history, appointments, medications, allergies reviewed. Previous Medical History PAST MEDICAL HISTORY Diagnosis Date - Anemia - Obesity (BMI 30.0-34.9) - S/P ileostomy (HCC) 2011 - Snoring - ulcerative colitis 2010 Dr. Sandoval, pouchoscopy every 1-2 years Previous Surgical History PAST SURGICAL HISTORY Procedure Laterality Date - COLONOSCOP W/ OR W/O [facility] SPEC 07/02/2011 Colonoscopy - PICC LINE INSERT/CONSULT 07/03/2012 - SIGMOIDOS FLEX DIAG W/BX SING/MUL 01/22/12 Family History FAMILY HISTORY Problem Relation Age of Onset - Cancer Mother unknown? lung? - Hypertension Father - None Sister heart murmur - None Brother - None Brother - None Brother - Alzheimer's Disease Maternal Grandfather - None Maternal Grandmother - None Paternal Grandmother - None Paternal Grandfather - None Son - None Son Patient Allergies ALLERGIES Allergen Reactions - Aleve [Naproxen Sod* Other: See Comments throat tightening - Aspirin Other: See Comments Swelling of throat - Ibuprofen Other: See Comments Current Medications Current Outpatient Prescriptions on File Prior to Visit: mupirocin (BACTROBAN) 2 % ointment Apply 1 application to affected area three times daily. Location: upper lip Psyllium (METAMUCIL) 1.7 g Wafr Take by mouth once daily. No current facility-administered medications on file prior to visit. Social History Social History Marital status: Spouse name: Jeremy Years of education: Number of children: 2 Social History Main Topics Smoking status: Former Smoker Packs/day: 2.00 Years: 30.00 Types: Cigarettes Quit date: 06/24/2001 Smokeless status: Never Used Alcohol use: No Drug use: No Sexual activity: Yes Partners with: Female control/protection: None Review of Symptoms REVIEW OF SYSTEMS GENERAL: No weight loss, malaise or fevers NECK: Negative for lumps, goiter, pain and significant neck swelling RESPIRATORY: Negative for cough, hemoptysis, wheezing, COPD, dyspnea or shortness of breath CARDIOVASCULAR: Negative for chest pain, leg swelling, hypertension, CHF or palpitations GI: No nausea, vomiting, or diarrhea SKIN: Negative for lesions, rash, and itching EXAM: BP 160/98 Pulse 92 Resp 16 Ht 172.1 cm (5' 7.75ANDquot;) Wt 92.5 kg (204 lb) BMI 31.25 kg/m2 General Appearance: Well appearing, alert, in no acute distress, well-hydrated, well nourished.. Skin: Skin color, texture, turgor normal, no suspicious rashes or lesions. Head: Normocephalic, no masses, lesions, tenderness or abnormalities. Eyes: Anicteric sclera. Pupils are equally round and reactive to light. Extraocular movements are intact. . Ears: External ears normal, canals clear. Nose/Sinuses: Nares normal, septum midline, mucosa normal, no drainage or sinus tenderness. Oropharynx: Lips, mucosa, and tongue normal, teeth and gums normal, oropharynx normal. Neck: Supple, no adenopathy; thyroid symmetric, normal size, no bruits. Lungs: Lungs clear to auscultation. No wheezing, rhonchi, rales. Heart: RRR without murmur, gallop, or rubs. No ectopy. Abdomen: Normal abdominal exam, Abdomen soft, non-tender. Bowel sounds normal. No masses, organomegaly. Extremities: No deformities, edema, skin discoloration, clubbing or cyanosis. Good capillary refill. . Health Maintenance List HEPATITIS C SCREENING due on 1998 COLORECTAL CANCER SCREENING,SEE MODIFIER due on 10/06/2014 DIABETES SCREEN due on 10/23/2015 LIPID SCREEN due on 06/30/2016 INFLUENZA(Season Ended) due on 07/03/2018 TETANUS due on 09/24/2019 PROSTATE CANCER SCREENING DISCUSSION Completed ASSESSMENT/PLAN: 1. Decreased energy - ICD9: 780.79, ICD10: R53.83 (primary diagnosis) Obtain blood work. Discussed improved diet/exercise and weight loss. Recommended side sleeping for possible ANNIE and will follow up results of PSG. - CBC - COMP METABOLIC PANEL - LIPID PANEL BASIC - TSH BLD - TESTOSTERONE, FREE AND TOTAL 2. Fatigue, unspecified type - ICD9: 780.79, ICD10: R53.83 See above. - CBC - COMP METABOLIC PANEL - LIPID PANEL BASIC - TSH BLD - TESTOSTERONE, FREE AND TOTAL 3. Snoring - ICD9: 786.09, ICD10: R06.83 See above. - POLYSOMNOGRAM (PSG)/HOME SLEEP APNEA TESTING (HSAT) 4. Daytime somnolence - ICD9: 780.54, ICD10: R40.0 - POLYSOMNOGRAM (PSG)/HOME SLEEP APNEA TESTING (HSAT) 5. Obesity (BMI 30.0-34.9) - ICD9: 278.00, ICD10: E66.9 Work on improved diet and exercise. 6. Nose abnormality - ICD9: 748.1, ICD10: Q30.9 Will have patient continue nasal saline spray per Dr. Buckley's office and will obtain records. No obvious abnormality today. Discussed if he is not getting relief would consider referral to Dr. Estrada instead. 7. Encounter for hepatitis C screening test for low risk patient - ICD9: V73.89, ICD10: Z11.59 - HEP C AB IA BLOOD I spent 35 minutes in the visit, with more than 50% of the total [id number]-rg-upcv time of the visit in counseling / coordination of care. Anant Kaur MD Referring Provider: SELF [200] Allergies As of Date: 02/11/2018 Noted Allergy Reaction ALEVE (NAPROXEN SODIUM) 12/23/2011 14 - Other: See Comments Comments: throat tightening ASPIRIN 06/24/2011 14 - Other: See Comments Comments: Swelling of throat IBUPROFEN 11/13/2011 14 - Other: See Comments Date Reviewed: 02/11/2018 Reviewed by: Kymberly Laureano LPN - Fully Assessed Reason for Visit: Establish Care [42] Primary Visit Diagnosis:Decreased energy [R53.83] Other Visit Diagnoses:Fatigue, unspecified type [R53.83] Snoring [R06.83] Daytime somnolence [R40.0] Obesity (BMI 30.0-34.9) [E66.9] Nose abnormality [Q30.9] Encounter for hepatitis C screening test for low risk patient [Z11.59] Order(s):CBC [SQCBC] Order #: [id number] FUTURE COMP METABOLIC PANEL [SQCMP] Order #: [id number] FUTURE LIPID PANEL BASIC [SQLIPB] Order #: [id number] FUTURE HEP C AB IA BLOOD [SQAHCV] Order #: [id number] FUTURE TSH BLD [SQTSH] Order #: [id number] FUTURE TESTOSTERONE, FREE AND TOTAL [SQFTESTO] Order #: [id number] FUTURE POLYSOMNOGRAM (PSG)/HOME SLEEP APNEA TESTING (HSAT) [5367942] Order #: [id number] FUTURE Problem List As Of Date 02/11/2018 Noted Resolved Ulcerative colitis [K51.90] INVALID FOR* Anemia, unspecified [D64.9] INVALID FOR* Ulcerative colitis, unspecified [K51.90] INVALID FOR*02/11/2018 Hypokalemia [E87.6] INVALID FOR* Hypomagnesemia [E83.42] INVALID FOR* Hyponatremia [E87.1] INVALID FOR* S/P ileostomy [Z93.2] Obesity (BMI 30.0-34.9) [E66.9] Medications Discontinued During This Encounter Psyllium (METAMUCIL) 1.7 g Wafr 02/11/2018 Class: Historical Med Route: ORAL Sig: Take by mouth once daily. Disc: Reason for discontinue is not on file. mupirocin (BACTROBAN) 2 % ointment 22 g 0 11/11/2017 02/11/2018 Route: TOPICAL Sig: Apply 1 application to affected area three times daily. Location: upper lip Disc: Reason for discontinue is not on file. Disposition: Return in about 6 months (around 08/13/2018). Follow-up and Disposition History Recorded Encounter Status:Closed by ANANT KAUR MD on 02/12/18 Observed: 01/20/2018 Status: F Source: [place] CULTURE, NOSE 4:53 PM [facility] REPOSITORY Gram Stain Gram Stain 2+ White Blood Cells 2+ Gram positive cocci Nasoph. Cult ORGANISM 1: Staphylococcus aureus Amount Growth 2+ Staphylococcus aureus: REACTION Benzylpenicillin NF >=0.5 R Cefoxitin *NF - Clindamycin $$ <=0.25 S Inducable Clindamycin Resistan - Erythromycin $ <=0.25 S Gentamicin $ <=0.5 S Levofloxacin $ <=0.12 S Linezolid $$$$ 1 S Moxifloxicin *NF <=0.25 S Oxacillin NF <=0.25 S Tigecycline $$$$ <=0.12 S Rifampin $$ <=0.5 S Tetracycline NF <=1 S Trimethoprim/Sulfametho $ <=10 S Vancomycin $ 1 S (NF) indicates non-formulary drug at [facility]. Approval by Infectious Disease Specialist required before non-formulary drugs may be ordered and/or dispensed. * CLSI guidelines does not recommend testing of cephalosporins. This interpretation is deduced from Beta-lactam/penicillin results. Performed By: #### M100.0900 #### [facility] [address] [place], [address] PROGRESS Observed: 12/29/2017 Status: COMPLETED Source: [place] 2:[address] [facility] REPOSITORY O ID: [id number] Author: Samia (Naima) Selina Service: (none) Author Type: Nurse Practitioner Type: Progress Notes Filed: 12/29/2017 3:11 PM Note Text: Subjective The history is provided by the patient. No merchandising professor was used. HPI Mika Velazquez is a 62 year old male who presents today for CC of sinus congestion and pressure This started 3-4 months ago He denies fever Symptoms are worsened by seasonal changes. He has tried otc medications without relif Risk factors none known PMH seasonal allergies BP 168/98 Pulse 68 Temp 36.7 ?C (98.1 ?F) (Tympanic) Resp 16 Wt 98.2 kg (216 lb 6.4 oz) BMI 32.9 kg/m2 ALLERGIES Allergen Reactions - Aleve [Naproxen Sod* Other: See Comments throat tightening - Aspirin Other: See Comments Swelling of throat - Ibuprofen Other: See Comments ACTIVE PROBLEM LIST Ulcerative Colitis (Hcc) Anemia, Unspecified Ulcerative Colitis, Unspecified Hypokalemia Hypomagnesemia Hyponatremia S/P Ileostomy (Hcc) Family History Problem Relation Age of Onset - Cancer Mother unknown? lung? - Hypertension Father - None Sister heart murmur - None Brother - None Brother - None Brother - Alzheimer's Disease Maternal Grandfather - None Maternal Grandmother - None Paternal Grandmother - None Paternal Grandfather - None Son - None Son Social History Marital status: Spouse name: Jeremy Years of education: Number of children: 2 Social History Main Topics Smoking status: Former Smoker Packs/day: 2.00 Years: 30.00 Types: Cigarettes Quit date: 06/24/2001 Smokeless status: Never Used Alcohol use: No Drug use: No Sexual activity: Yes Partners with: Female control/protection: None Review of Systems Constitutional: Negative. Negative for chills, fever and malaise/fatigue. HENT: Positive for congestion and sinus pain. Negative for ear pain and sore throat. Respiratory: Negative for cough, sputum production, shortness of breath and wheezing. Cardiovascular: Negative for chest pain. Musculoskeletal: Negative for myalgias. Skin: Negative for rash. Neurological: Positive for headaches. Objective Physical Exam Constitutional: He is well-developed, well-nourished, and in no distress. HENT: Head: Normocephalic and atraumatic. Right Ear: Tympanic membrane, external ear and ear canal normal. Tympanic membrane is not injected, not erythematous, not retracted and not bulging. No middle ear effusion. Left Ear: External ear and ear canal normal. Tympanic membrane is bulging. Tympanic membrane is not injected, not erythematous and not retracted. A middle ear effusion (serous) is present. Nose: Mucosal edema (erythema in right nostril) and rhinorrhea present. Right sinus exhibits no maxillary sinus tenderness and no frontal sinus tenderness. Left sinus exhibits no maxillary sinus tenderness and no frontal sinus tenderness. Mouth/Throat: Uvula is midline and mucous membranes are normal. No oropharyngeal exudate, posterior oropharyngeal edema, posterior oropharyngeal erythema or tonsillar abscesses. Eyes: Conjunctivae and EOM are normal. Pupils are equal, round, and reactive to light. Neck: Normal range of motion. Cardiovascular: Normal rate, regular rhythm and normal heart sounds. Pulmonary/Chest: Effort normal and breath sounds normal. No respiratory distress. He has no decreased breath sounds. He has no wheezes. He has no rhonchi. He has no rales. Lymphadenopathy: Head (right side): No submental, no submandibular, no tonsillar, no preauricular and no posterior auricular adenopathy present. Head (left side): No submental, no submandibular, no tonsillar, no preauricular and no posterior auricular adenopathy present. He has no cervical adenopathy. Right cervical: No posterior cervical adenopathy present. Left cervical: No posterior cervical adenopathy present. Right: No supraclavicular adenopathy present. Left: No supraclavicular adenopathy present. Skin: Skin is warm and dry. Psychiatric: Affect normal. Nursing note and vitals reviewed. ASSESSMENT/PLAN: 1. Seasonal allergic rhinitis, unspecified trigger - ICD9: 477.9, ICD10: J30.2 Zyrtec 10 mg By mouth daily at bedtime Flonase or Nasonex 1 spray each nostril two times a day. -Increase fluid intake. Try to drink at least 8 glasses of non caffeinated fluids daily. --Rest as much as possible. -Do the nasal saline irrigation at least 2 x day to relieve nasal mucous and congestion: brands include Rashi Med, Simply saline, Chaves nasal spray, or even the generic store brand one is ok. -Monitor for signs of worsening infection: increased temperature, pain in face, ear pain or headaches or increase in nasal congestion/mucous that is not improving. - If no improvement have patient follow up with ENT Diagnosis and treatment plan were discussed and questions were answered to the patient's satisfaction. Pt acknowledged understanding of concepts and follow up plan. Specific signs and symptoms that would indicate the need for higher level of care were discussed in detail warranting prompt ER evaluation. Samia Marks CNP ALLERGIES ALLERGIES DATE TYPE / CODE NAME / CODE REACTION SEVERITY SOURCE 10/27/2018 Drug aspirin/[id number] Other Unknown [facility] Allergy/416 87(RXNORM) [facility] 194990(SNOM Repository ED CT) 12/23/2011 DRUG NAPROXEN SODIUM OTHER: SEE [facility] INGREDI/[address] [place] 769075(SNOM Repository ED CT) 11/13/2011 DRUG IBUPROFEN OTHER: SEE [facility] INGREDI/[address] [place] 742263(SNOM Repository ED CT) 06/24/2011 DRUG ASPIRIN OTHER: SEE [facility] INGREDI/[address] [place] 344651(SNOM Repository ED CT) NG/[id number] NAPROXEN SODIUM [facility] 6([facility]) Repository NG/[id number] ASPIRIN [facility]) Repository NG/[id number] IBUPROFEN [facility] 6([facility] CT) Repository ENCOUNTERS ENCOUNTERS ADMIT/DISCHARGE ACCOUNT NUMBER ADMITTING ENCOUNTER LOCATION SOURCE CLASS 10/27/2018 [id number] [facility] ding:MEDOUTP Repository 10/13/2018 [id number] [facility] ding:MEDOUTP Repository 08/26/2018/08/27/20 [id number] Ambulatory [address] Repository 08/13/2018/08/16/20 [id number] Ambulatory [address] Repository 08/10/2018/08/10/20 [id number] Ambulatory [address] Repository 05/28/2018/05/31/20 [id number] Ambulatory [address] Repository 05/07/2018/05/10/20 [id number] Ambulatory [address] Repository 05/06/2018 [id number] [facility] ding:MEDOUTP Repository 04/21/2018 [id number] [facility] ding:MEDOUTP Repository 04/16/2018 [id number] [facility] ding:LAB.FUT Repository URE 04/14/2018/04/15/20 [id number] Ambulatory [address] Repository 04/06/2018/04/08/20 [id number] URIEL STONER Inpatient [address] [place] Repository 04/06/2018/04/08/20 [id number] Yancy TREVINO Inpatient [place] [facility] 18 KAM[place] Encounter GENERAL [facility] MEDICAL Repository CENTERBuildi nRoom: 4102Bed: 03/26/2018/03/26/20 [id number] Ambulatory [address] Repository 03/25/2018/03/26/20 [id number] Ambulatory [address] Repository 03/17/2018/03/17/20 [id number] Ambulatory [address] Repository 03/12/2018/03/12/20 [id number] Ambulatory [address] Repository 03/11/2018 [id number] Ambulatory [facility] [place] Repository 03/11/2018/03/12/20 [id number] Ambulatory [address] [place] Repository 03/08/2018/03/08/20 [id number] Ambulatory [address] [place] Repository 02/25/2018/02/26/20 [id number] Ambulatory [address] [place] Repository 02/22/2018/02/23/20 [id number] Ambulatory [address] [place] Repository 02/12/2018/02/13/20 [id number] Ambulatory [address] [place] Repository 02/11/2018/02/13/20 [id number] Ambulatory [address] [place] Repository 01/20/2018 [id number] [facility] ding:[facility] Repository 12/29/2017/01/02/20 [id number] Ambulatory [address] Repository PAYERS PAYERS ENCOUNTER GUARANTOR PAYER SUBSCRIBER SOURCE 10/27/2018 KEERTHI Amaya Primary RERE D [place] [id number] Insurance:MEDICAL CARRABINEDOB: [facility] [place] Number: Repository [address]Whq: 330 [id number] [phone] () Date:3491-69-02DW [address] [address]NN: 10/27/2018 Secondary NOT GIVENUNK [place] Insurance:SELF PAY [facility] Number: Effective Repository Date:2018-09-22 10/13/2018 KEERTHI Amaya Primary RERE D [place] [id number] Insurance:MEDICAL CARRABINEDOB: [facility] 6296[place] Number: Repository [address]Ovr: 330 [id number] [phone] () Date:5575-81-71RG[address] [address]OI: 10/13/2018 Secondary NOT GIVENUNK [place] Insurance:SELF PAY [facility] Number: Effective Repository Date:2018-09-22 05/06/2018 KEERTHI J Primary Rere D [place] [id number] Insurance:MEDICAL CarrabineDOB: [facility] 9325[place] Number: Repository [id number]: 330 [id number] [phone] (HP) Date:7060-83-74DC [address] [address]SJ: 05/06/2018 Secondary NOT GIVENUNK [place] Insurance:SELF PAY [facility] Number: Effective Repository Date:2018-04-21 04/21/2018 KEERTHI J Primary Rere D [place] [id number] Insurance:MEDICAL CarrabineDOB: [facility] 5307[place] Number: Repository [id number]: 330 [id number] [phone] (HP) Date:1036-78-17JZ [address] [address]OZ: 04/21/2018 Secondary NOT GIVENUNK [place] Insurance:SELF PAY [facility] Number: Effective Repository Date:2018-04-14 04/16/2018 Keerthi Primary Rere D [place] [id number] Insurance:MEDICAL CarrabineDOB: [facility] [place]64[place] Number: Repository [address]Dqa: 330 [id number] [phone] (HP) Date:2534-30-66PW [address] [address]MM: 04/16/2018 Secondary NOT GIVENUNK [place] Insurance:SELF PAY [facility] Number: Effective Repository Date:2018-04-16 04/06/2018 MIKA J Primary Insurance:[facility] CARRABINEDOB: [employer] CARRABINEDOB: Health System Number: [id number] [id number] Date: [address]Gex: (HP) 01/20/2018 [facility] Primary Rere [id number] Insurance:MEDICAL CarrabineDOB: [facility] 6[place] Number: Repository [id number]: (691) [id number] [phone] () Date:7808-85-73LQ [address] [place] [address]ZJ: 01/20/2018 Secondary NOT GIVENUNK [place] Insurance:SELF PAY [facility] Number: Effective Repository Date:2018-01-20
== END ==
PROVIDERS: Family Provider Family Medicine; PCP Family Medicine; Referring Provider Internal Medicine Nephrology; Visit Provider Internal Medicine Nephrology
DX: I77.6 Arteritis, unspecified (principal); N05.9 Unspecified nephritic syndrome with unspecified morphologic changes
CPT/HCPCS: 96365; 96366 ×3; J7040; J7050; J9310; A4216

== ENCOUNTER → 2018-10-27 08:55 | Outpatient (CLI) | payer OTHER, SELFPAY ==
[2018-10-13 09:19] VITALS: BMI 32.6
[2018-10-27 09:12] VITALS: BP 134/79; PULSE 73; RESP 16; TEMP 36.2; O2SAT 100; BMI 33.4
[2018-10-27] MEDS: Acetaminophen 325 MG Tablet 650 MG PO (09:20)
[2018-10-27] MEDS: DiphenhydrAMINE 50 MG/ML Syringe 25 MG IV (09:29)
== END ==
PROVIDERS: Family Provider Family Medicine; PCP Family Medicine; Referring Provider Internal Medicine Nephrology; Visit Provider Internal Medicine Nephrology
DX: I77.6 Arteritis, unspecified (principal); N05.9 Unspecified nephritic syndrome with unspecified morphologic changes
CPT/HCPCS: 96365; 96366; J7040; J7050; J9310; A4216

== ENCOUNTER → 2019-05-31 08:51 | Outpatient (CLI) | payer OTHER, SELFPAY ==
[2018-10-27 09:12] VITALS: BMI 33.4
[2019-05-31 09:09] VITALS: BP 107/67; PULSE 70; RESP 16; TEMP 36.1; O2SAT 98; BMI 31.9
[2019-05-31] MEDS: Acetaminophen 325 MG Tablet 650 MG PO (09:16)
[2019-05-31] MEDS: DiphenhydrAMINE 50 MG/ML Syringe 25 MG IV (09:18)
== END ==
PROVIDERS: Family Provider Family Medicine; PCP Family Medicine; Referring Provider Internal Medicine Nephrology; Visit Provider Internal Medicine Nephrology
DX: I77.6 Arteritis, unspecified (principal)
CPT/HCPCS: 96365; 96366 ×3; J7040; J7050; J9312; A4216

== ENCOUNTER → 2019-06-13 09:05 | Outpatient (CLI) | payer OTHER, SELFPAY ==
[2019-05-31 09:09] VITALS: BMI 31.9
[2019-06-13 09:17] VITALS: BP 100/71; PULSE 72; RESP 16; TEMP 36.6; BMI 31.9
[2019-06-13] MEDS: DiphenhydrAMINE 50 MG/ML Syringe 25 MG IV (09:27)
[2019-06-13] MEDS: Acetaminophen 325 MG Tablet 650 MG PO (09:27)
== END ==
PROVIDERS: Family Provider Family Medicine; PCP Family Medicine; Referring Provider Internal Medicine Nephrology; Visit Provider Internal Medicine Nephrology
DX: I77.6 Arteritis, unspecified (principal)
CPT/HCPCS: 96365; 96366 ×2; J7040; J7050; J9312; A4216

== ENCOUNTER → 2020-02-03 11:55 | Outpatient (CLI) | payer OTHER, SELFPAY ==
[2019-06-13 09:17] VITALS: BMI 31.9
[2020-02-03] MEDS: DiphenhydrAMINE 25 MG Capsule PO (12:32)
[2020-02-03] MEDS: Acetaminophen 325 MG Tablet 650 MG PO (12:32)
[2020-02-03 12:49] VITALS: BP 105/75; PULSE 62; RESP 18; TEMP 35.4; O2SAT 99; BMI 30.9
[2020-02-03] MEDS: 0.9% NaCl Peripheral Flush Adult/Peds IV (12:52)
== END ==
PROVIDERS: PCP Family Medicine; Referring Provider Internal Medicine Nephrology; Visit Provider Internal Medicine Nephrology
DX: I77.6 Arteritis, unspecified (principal)
CPT/HCPCS: 96365; 96366 ×2; J7040; J9312; A4216

== ENCOUNTER → 2020-02-20 12:57 | Outpatient (CLI) | payer OTHER, SELFPAY ==
[2019-06-13 09:17] VITALS: BMI 31.9
[2020-02-20] MEDS: DiphenhydrAMINE 25 MG Capsule PO (13:07)
[2020-02-20] MEDS: Acetaminophen 325 MG Tablet 650 MG PO (13:07)
[2020-02-20] MEDS: 0.9% NaCl IVPB Med Flush (250 mL) 15 ML IV (13:40)
== END ==
PROVIDERS: PCP Family Medicine; Referring Provider Internal Medicine Nephrology; Visit Provider Internal Medicine Nephrology
DX: I77.6 Arteritis, unspecified (principal)
CPT/HCPCS: 96365; 96366 ×2; J7040; J7050; J9312

== ENCOUNTER 2024-03-28 17:35 | Inpatient (IN) | payer MEDICARE, OTHER, SELFPAY ==
[2024-03-28] VITALS (13 sets, daily range): BP systolic 86–143; BP diastolic 46–103; PULSE 76–109; RESP 18–28; TEMP 36–37.5; O2SAT 88–100; BMI 30.6; BMI 21.2
[2024-03-28 18:05] LABS: Absolute Lymphocyte Count 0.87 X10^3/uL (0.83-4.51); Absolute Neutrophil Count 28.6 X10^3/uL (2.0-7.7); Basophil# 0.13 X10^3/uL; Basophil% 0.4 % (0-1); Hematocrit 40.2 % (40-54); Hemoglobin 13.1 g/dL (13.0-16.5); Lymphocyte # 0.87 X10^3/ul (0.83-4.51); Lymphocyte % 2.7 % (19-41); Mean Corp Hgb Conc 32.6 g/dL (32-36); Mean Corpuscular Hgb 28.2 pg (27.0-32.0); Mean Corpuscular Volume 86.6 fL (80-94); Mean Platelet Vol. 9.3 fl (6.2-12.0); Monocyte% 6.4 % (0-10); NRBC Flagged by Analyzer 0 % (0-5); Neutrophil # 28.62 X10^3/uL (2.7-7.7); Neutrophil % 87.5 % (47-70); POSITIVE COUNT YES; POSITIVE DIFFERENTIAL YES; Platelet Count 269 K/mm3 (150-450); RBC Distribution Width CV 13.5 % (11.6-14.6); RBC Distribution Width SD 42.6 fl (35.1-43.9); Red Blood Count 4.64 M/mm3 (4.6-6.2)
[2024-03-28 18:08] LABS: Differential Indicated SCAN CRITERIA MET
--- NOTE | 2024-03-28 18:13 | ED.RN ---
lab called wbc 32.7
[2024-03-28 18:15] LABS: White Blood Count 32.7 K/mm3 (4.4-11.0)
--- NOTE | 2024-03-28 18:18 | EDS_ITS ---
HPI <ARIANNE Montero - Last Filed: 03/28/24 22:05> HPI - GI History of Present Illness Chief Complaint: Abd Pain Narrative Narrative: 68 year old male with PMH of HTN, ulcerative colitis developed epigastric pain last evening which has been constant since waking up. He had half a donut and orange juice this morning and states hours later he developed nausea and vomited twice. His stool is typically soft and watery- he states he was on prednisone last week for a muscle injury and it became more solid but since finishing it over the last few days it was soft watery brown again. Today it looked brownish red. He denies fever or chills. He states he has had 3 abdominal surgeries about a decade ago for a colon resection, then a colostomy and a subsequent reversal surgery with an internal pouch. He does not see a GI doctor or take medications for UC. PFSH <ARIANNE Montero - Last Filed: 03/28/24 22:05> [facility] Medical History (Updated 03/28/24 @ 22:05 by ARIANNE Montero) Cellulitis of neck Kidney disease Hypertension Home Medications ?Medication ?Instructions ?Recorded ?Last Taken ?Type amlodipine 10 mg tablet 10 mg PO DAILY 10/13/18 Unknown History lisinopril 10 mg tablet 10 mg PO DAILY 10/13/18 Unknown History cholecalciferol (vitamin D3) 25 1,000 unit PO DAILY 05/31/19 Unknown History mcg (1,000 unit) tablet atorvastatin 20 mg tablet 20 mg PO DAILY 03/28/24 Unknown History Allergy/AdvReac Type Severity Reaction Status Date / Time aspirin Allergy Other Verified 03/28/24 17:37 ibuprofen Allergy Laryngospas Verified 03/28/24 17:37 ms Social History Smoking Status: Former smoker ROS <ARIANNE Montero - Last Filed: 03/28/24 22:05> ROS ED Constitutional Constitutional ED: Denies chills or fever(s) Cardiovascular Cardiovascular: Denies chest pain Respiratory/Chest Respiratory/Chest: Denies dyspnea Gastrointestinal Gastrointestinal: Reports abdominal pain, nausea and vomiting Genitourinary Genitourinary ED: Denies dysuria EXAM <ARIANNE Montero - Last Filed: 03/28/24 22:05> Physical Exam Const Vital Signs: 03/28/24 17:38 03/28/24 17:49 03/28/24 19:33 Temperature 96.8 F L Temperature Source Temporal Pulse Rate 87 76 99 Respiratory Rate 18 19 H 25 H Blood Pressure 86/50 L 129/79 H 105/46 L Blood Pressure Mean 62 95 65 Pulse Ox 100 98 92 Oxygen Delivery Method Room Air Room Air Room Air 03/28/24 21:11 03/28/24 22:11 Temperature 98.3 F Temperature Source Pulse Rate 96 102 H Respiratory Rate 25 H 28 H Blood Pressure 130/80 H 128/76 H Blood Pressure Mean 96 93 Pulse Ox 94 97 Oxygen Delivery Method Room Air Constitutional Narrative: Appears ill but nontoxic. General Appearance ED: NAD Resp normal respiratory effort and clear to auscultation bilaterally Cardio regular rate, regular rhythm and no murmurs GI GI Narrative: Abdomen soft with diffuse TTP maximal in the RLQ, mildly distended, no guarding or rebound. Neuro Sensorium / Orientation: alert Psych mental status grossly normal <Sánchez Parsons MD - Last Filed: 03/28/24 22:59> Physical Exam Const Vital Signs: 03/28/24 17:38 03/28/24 17:49 03/28/24 19:33 Temperature 96.8 F L Temperature Source Temporal Pulse Rate 87 76 99 Respiratory Rate 18 19 H 25 H Blood Pressure 86/50 L 129/79 H 105/46 L Blood Pressure Mean 62 95 65 Pulse Ox 100 98 92 Oxygen Delivery Method Room Air Room Air Room Air 03/28/24 21:11 03/28/24 22:11 Temperature 98.3 F Temperature Source Pulse Rate 96 102 H Respiratory Rate 25 H 28 H Blood Pressure 130/80 H 128/76 H Blood Pressure Mean 96 93 Pulse Ox 94 97 Oxygen Delivery Method Room Air MDM <ARIANNE Montero - Last Filed: 03/28/24 22:05> MDM MDM Narrative Medical decision making narrative: History gathered from: Patient, spouse Consults: general surgery, hospitalist Differential: gallbladder etiology, pouchitis, uti, obstruction, ulcerative colitis flare Patient with history of ulcerative colitis presents with abdominal pain and reddish-brown bowel movements that started today. He appears uncomfortable but nontoxic. He was hypotensive in triage with otherwise normal vital signs. Repeat SBP is over 100. Abdomen is soft with diffuse tenderness maximal in the right lower quadrant on my exam. No peritoneal signs. He has large abdominal hernias. Workup remarkable for WBC of 32.7, lactate 6.0, creatinine 2.15. He has no prior labs in our system or on Clinisync for comparison but he states he has stage III CKD. Liver function normal. Urinalysis negative. CT abdomen/pelvis shows extensive large complex abdominal wall hernias containing bowel but no obstruction. The gallbladder and CBD are distended but he has normal LFTs and lipase. After blood cultures were obtained he was empirically started on IV Zosyn. I am not sure what is causing his significant leukocytos is. I consulted general surgery and Dr. Wood reduced his hernias. He recommended a gallbladder ultrasound which was ordered. He also states with his diffuse pain and changes in bowel function today could be pouchitis. Gallbladder ultrasound is negative for stones or acute cholecystitis. I relayed these findings to Dr. Wood. He is not sure what may be causing his leukocytosis but at this point does not think anything is surgical. It is possible its pouchitis. He recommended continuing IV Zosyn will be on board if anything changes. Case will be discussed with the hospitalist. Lab Data Attestation: I reviewed the patient's lab results. Labs: Laboratory Results - last 24 hr 03/28/24 03/28/24 03/28/24 17:55 18:15 20:00 WBC 32.7 H* RBC 4.64 Hgb 13.1 Hct 40.2 MCV 86.6 MCH 28.2 MCHC 32.6 RDW Std Deviation 42.6 RDW Coeff of Shavon 13.5 Plt Count 269 MPV 9.3 Immature Gran % (Auto) 3.000 H Neut % (Auto) 87.5 H Lymph % (Auto) 2.7 L [place] % (Auto) 6.4 Eos % (Auto) 0.0 Baso % (Auto) 0.4 Absolute Neuts (auto) 28.6 H Absolute Lymphs (auto) 0.87 Nucleated RBC % 0 Differential Comment SCANNED Diff Path Review May foll Sodium 136 Potassium 4.5 Chloride 108 H Carbon Dioxide 16.0 L Anion Gap 12 BUN 49 H Creatinine 2.15 H Estim Creat Clear Calc 35.60 Est GFR (MDRD) Af Amer 39 L Est GFR (MDRD) Non-Af 33 L BUN/Creatinine Ratio 22.8 H Glucose 161 H Lactic Acid 6.0 H* Calcium 9.1 Total Bilirubin 0.80 AST 17 ALT 39 Alkaline Phosphatase 123 H Total Protein 7.0 Albumin 3.1 L Globulin 3.9 Albumin/Globulin Ratio 0.8 L Lipase 55 Urine Color Straw Urine Clarity Clear Urine pH 5.0 Ur Specific [place] 1.010 Urine Protein Negative Urine Glucose (UA) Normal Urine Ketones Negative Urine Occult Blood Negative Urine Nitrite Negative Urine Bilirubin Negative Urine Urobilinogen Normal Ur Leukocyte Esterase Negative Urine RBC 0 SEEN Urine WBC 0 SEEN Ur Squamous Epith Cells 0 SEEN Urine Bacteria 0 SEEN Urine Mucus 0 SEEN Radiography Diagnostic Testing: Clinical Impression(s) from Imaging Studies Abdomen/Pelvis CT 03/28/24 18:34 IMPRESSION: Patient has extensive large complex abdominal wall hernias containing numerous bowel. No evidence for obstruction. Distended gallbladder and common bile duct. Correlate with liver function tests. Moderate to severe bilateral renal parenchymal thinning. Electronically Signed: Nicolás Chinchilla MD at 19:43 EDT , Gallbladder Ultrasound 03/28/24 20:10 IMPRESSION: 1. Distended gallbladder but no cholelithiasis or acute cholecystitis. 2. Right renal cortical thinning but no stones, masses or hydronephrosis. 3. No other significant abnormality. Electronically Signed: Efren Turner MD at 21:49 EDT , <Sánchez Parsons MD - Last Filed: 03/28/24 22:59> [facility] MDM Narrative Medical decision making narrative: History gathered from: Patient, spouse Consults: general surgery, hospitalist Differential: gallbladder etiology, pouchitis, uti, obstruction, ulcerative colitis flare Patient with history of ulcerative colitis presents with abdominal pain and reddish-brown bowel movements that started today. He appears uncomfortable but nontoxic. He was hypotensive in triage with otherwise normal vital signs. Repeat SBP is over 100. Abdomen is soft with diffuse tenderness maximal in the right lower quadrant on my exam. No peritoneal signs. He has large abdominal hernias. Workup remarkable for WBC of 32.7, lactate 6.0, creatinine 2.15. He has no prior labs in our system or on Clinisync for comparison but he states he has stage III CKD. Liver function normal. Urinalysis negative. CT abdomen/pelvis shows extensive large complex abdominal wall hernias containing bowel but no obstruction. The gallbladder and CBD are distended but he has normal LFTs and lipase. After blood cultures were obtained he was empirically started on IV Zosyn. I am not sure what is causing his significant leukocytosis. I consulted general surgery and Dr. Wood reduced his hernias. He recommended a gallbladder ultrasound which was ordered. He also states with his diffuse pain and changes in bowel function today could be pouchitis. Gallbladder ultrasound is negative for stones or acute cholecystitis. I relayed these findings to Dr. Wood. He is not sure what may be causing his leukocytosis but at this point does not think anything is surgical. It is possible its pouchitis. He recommended continuing IV Zosyn will be on board if anything changes. Case will be discussed with the hospitalist. Dr. Parsons: I have personally performed a face to face assessment of the patient and have reviewed the SHAYAN Note. I performed a substantive portion of the visit including all aspects of the following. My crystal findings include: History is abdominal pain. History of ulcerative colitis with colon resection/colostomy with reversal. Patient complains of right upper quadrant and right lower quadrant/diffuse abdominal pain. Exam is afebrile. Vital signs noted. Regular rate and rhythm. Lungs clear to auscultation bilaterally. Abdomen soft with diffuse tenderness to palpation especially in right lower quadrant with probable hernia, mild right upper quadrant tenderness is where he is complaining of the most pain as well. Medical Decision Making: Check labs. Patient has a leukocytosis of 32.7 and lactic acid of 6.0. IV fluids. Empiric antibiotics in the form of Zosyn. Devorah ck CT. Patient has multiple hernias but no evidence of obstruction on review of the radiology report of the CT of the abdomen and pelvis. Discussed with surgery who evaluated the patient in the ED who suggests continued antibiotics and admission to hospitalist medicine. Patient discussed with hospitalist for admission. He is in stable condition. Other additions or changes: [None] History & Record Review Discussion w/independent historian: Patient and Family (Spouse) Lab Data Labs: Laboratory Results - last 24 hr 03/28/24 03/28/24 03/28/24 17:55 18:15 20:00 WBC 32.7 H* RBC 4.64 Hgb 13.1 Hct 40.2 MCV 86.6 MCH 28.2 MCHC 32.6 RDW Std Deviation 42.6 RDW Coeff of Shavon 13.5 Plt Count 269 MPV 9.3 Immature Gran % (Auto) 3.000 H Neut % (Auto) 87.5 H Lymph % (Auto) 2.7 L [place] % (Auto) 6.4 Eos % (Auto) 0.0 Baso % (Auto) 0.4 Absolute Neuts (auto) 28.6 H Absolute Lymphs (auto) 0.87 Nucleated RBC % 0 Differential Comment SCANNED Diff Path Review March Sodium 136 Potassium 4.5 Chloride 108 H Carbon Dioxide 16.0 L Anion Gap 12 BUN 49 H Creatinine 2.15 H Estim Creat Clear Calc 35.60 Est GFR (MDRD) Af Amer 39 L Est GFR (MDRD) Non-Af 33 L BUN/Creatinine Ratio 22.8 H Glucose 161 H Lactic Acid 6.0 H* Calcium 9.1 Total Bilirubin 0.80 AST 17 ALT 39 Alkaline Phosphatase 123 H Total Protein 7.0 Albumin 3.1 L Globulin 3.9 Albumin/Globulin Ratio 0.8 L Lipase 55 Urine Color Straw Urine Clarity Clear Urine pH 5.0 Ur Specific [place] 1.010 Urine Protein Negative Urine Glucose (UA) Normal Urine Ketones Negative Urine Occult Blood Negative Urine Nitrite Negative Urine Bilirubin Negative Urine Urobilinogen Normal Ur Leukocyte Esterase Negative Urine RBC 0 SEEN Urine WBC 0 SEEN Ur Squamous Epith Cells 0 SEEN Urine Bacteria 0 SEEN Urine Mucus 0 SEEN Radiography Diagnostic Testing: Clinical Impression(s) from Imaging Studies Abdomen/Pelvis CT 03/28/24 18:34 IMPRESSION: Patient has extensive large complex abdominal wall hernias containing numerous bowel. No evidence for obstruction. Distended gallbladder and common bile duct. Correlate with liver function tests. Moderate to severe bilateral renal parenchymal thinning. Electronically Signed: Nicolás Chinchilla MD at 19:43 EDT , Gallbladder Ultrasound 03/28/24 20:10 IMPRESSION: 1. Distended gallbladder but no cholelithiasis or acute cholecystitis. 2. Right renal cortical thinning but no stones, masses or hydronephrosis. 3. No other significant abnormality. Electronically Signed: Efren Turner MD at 21:49 EDT , Discharge Plan Triage Chief Complaint: Abd Pain ED Midlevel Provider: Luly Contreras ED Provider: Sánchez Parsons Dx/Rx/DC Orders Clinical Impression: Abdominal pain, Leukocytosis, Acute lactic acidosis, Chronic kidney disease, Hx of ulcerative colitis, Abdominal wall hernia Primary Care Provider: Care Physician,No Primary
[2024-03-28 18:21] LABS: ALB/GLOB Ratio 0.8 RATIO (0.9-2.4); AST(SGOT) 17 U/L (15-37); Alanine Aminotransfer ALT/SGPT 39 U/L (16-61); Albumin, Serum 3.1 g/dL (3.2-5.0); Alkaline Phosphatase 123 U/L (45-117); Anion Gap 12 (5-15); BUN 49 mg/dL (7-18); BUN/Creat Ratio 22.8 RATIO (10-20); Calcium,Total 9.1 mg/dL (8.5-10.1); Chloride 108 mmol/L (98-107); Creatinine, Serum 2.15 mg/dL (0.70-1.30); EST Glomerular Filtration Rate 33 mL/min (>60); Est Glom Filt Rate - Afr Amer 39 mL/min (>60); Globulin 3.9 g/dL (2.2-4.2); Glucose 161 mg/dL (74-106); Potassium 4.5 mmol/L (3.5-5.1); Sodium Level 136 mmol/L (136-145)
[2024-03-28] MEDS: 0.9% Normal Saline (1000mL) 1,000 ML 999 ML IV (18:23)
[2024-03-28] MEDS: Ondansetron 4 MG/2 ML Vial IV ×2 (18:23→20:21)
[2024-03-28] MEDS: Morphine 4 MG/ML Syringe IV (18:23)
[2024-03-28 18:27] LABS: Differential Comment SCANNED
--- NOTE | 2024-03-28 18:34 | CT_ITS ---
STUDY: CT ABDOMEN AND PELVIS WITH CONTRAST REASON FOR EXAM: Male, 68 years old. pain RADIATION DOSAGE (If Supplied By Facility): CTDIvol = ( 16.95 ) mGy, DLP = ( 1212.54 ) mGycm TECHNIQUE: Transaxial images were obtained from the dome of the diaphragm to the symphysis pubis without oral contrast. IV 100mL Isovue-370 was administered. Sagittal and coronal images were reconstructed. Individualized dose optimization techniques were used for this CT. COMPARISON: 06/03/2012. FINDINGS: The visualized lung bases are unremarkable. The visualized portions of the heart are within normal limits. Patient has extensive large complex abdominal wall hernias containing numerous bowel. One of the right anterolateral abdominal wall and was present previously but is significantly larger. Numerous loops of bowel and mesentery are in this hernia with no evidence for obstruction. The other within the lower midline abdominal wall. It also contains numerous loops of bowel and mesentery, with no evidence for obstruction. There is a small hiatal hernia. No dilated loops of bowel. Postsurgical changes seen of the sigmoid. Appendix is not seen. Normal liver. Distended gallbladder with no definite stones or wall thickening. There is common bile duct distention measuring 1.2 cm diameter. Correlate with liver function tests. Normal spleen. There is diffuse atrophy of the pancreas. Normal bilateral adrenal glands. No acute abnormalities of the kidneys. Bilateral prominent cortical thinning. No stones. No hydronephrosis. There is diffuse atherosclerotic calcification of the abdominal aorta, without a demonstrated aneurysm. Prominent intraluminal circumferential thrombus. Normal inferior vena cava. Normal retroperitoneum. Normal urinary bladder. Normal abdominal wall. Normal osseous structures. CT/Abdomen/Pelvis W IV Cont ONLY IMPRESSION: Patient has extensive large complex abdominal wall hernias containing numerous bowel. No evidence for obstruction. Distended gallbladder and common bile duct. Correlate with liver function tests. Moderate to severe bilateral renal parenchymal thinning. Electronically Signed: Nicolás Chinchilla MD at 19:43 EDT ,
[2024-03-28] MEDS: Piperacil/Tazobactam 3.375 GM in 0.9% Normal Saline (50mL MB+) 50 ML IV (18:37)
[2024-03-28 18:47] LABS: Lipase 55 U/L (13-75)
[2024-03-28 20:04] LABS: Bacteria 0 SEEN /hpf (None Seen); Color, Urine Straw (Yellow); Glucose, Dipstick Normal (Normal); Ketone-Dipstick Negative (Negative); Leukocyte Esterase-Dipstick Negative /ul (Negative); Mucous, Urine 0 SEEN /hpf (<or=2+); Nitrite-Dipstick Negative (Negative); Occult Blood-Urine Negative /ul (Negative); Protein-Dipstick Negative (Negative); Red Blood Cells-Urine 0 SEEN /hpf (0-5); Squamous Epithelial Cells - UA 0 SEEN /hpf (0-5); Urine Bilirubin Dipstick Negative (Negative); Urine Clarity Clear (Clear); Urine Urobilinogen Normal (Normal); White Blood Cells 0 SEEN /hpf (0-5)
--- NOTE | 2024-03-28 20:10 | US_ITS ---
EXAM: US ABDOMEN LIMITED, RIGHT UPPER QUADRANT CLINICAL INDICATION: pain TECHNIQUE: Real-time ultrasound of the right upper quadrant with image documentation. COMPARISON: No relevant prior studies available. FINDINGS: LIVER: Liver is unremarkable. There is normal echotexture. No intrahepatic biliary ductal dilation. GALLBLADDER: Sonographic Garcia sign is absent. Gallbladder is distended to 8.1 cm. No pericholecystic fluid or gallbladder wall thickening. No gallstones are seen. COMMON BILE DUCT: Common bile duct measures up to 4 mm. The proximal common bile duct is within normal limits for the patient''s age. PANCREAS: Pancreas is not visualized due to overlying bowel gas. RIGHT KIDNEY: Right kidney is normal in size with no stones, masses or hydronephrosis. Thinning demonstrated. FREE FLUID: No ascites. US/Gallbladder IMPRESSION: 1. Distended gallbladder but no cholelithiasis or acute cholecystitis. 2. Right renal cortical thinning but no stones, masses or hydronephrosis. 3. No other significant abnormality. Electronically Signed: Efren Turner MD at 21:49 EDT ,
[2024-03-28] MEDS: fentaNYL 100 MCG/2 ML Ampul 50 MCG IV (20:21)
[2024-03-28] MEDS: 0.9% Normal Saline (1000mL) 1,000 ML 200 ML IV (20:21)
--- NOTE | 2024-03-28 20:48 | EX.PCM.CON.S ---
Assessment & Plan Assessment/Plan (1) Abdominal pain: PLAN: Patient is having upper abdominal pain but when I pushed on him he also has lower abdominal pain. He does have 2 large hernias which I was able to reduce for the most part. There is no inflammation in the hernias or suggestion of ischemia. Patient's only abnormality on CT scan was a distended gallbladder. Ultrasound of the gallbladder is pending. The patient has a markedly elevated white count. I do not have old labs to compare to. The patient also has marginally elevated creatinine. He is trying to look up his baseline creatinine level. His lactate is also 6. He has been getting IV fluids. There is no sign of obstruction. I do not believe the hernias are the cause of the abdominal pain or white count. UA was negative. Blood cultures pending. Juan Carlos Wood MD Pager: [facility] [address] [place] [address], [address] [place] [phone] Office: HPI Consult Data Date of Consult: 03/29/24 HPI Narrative HPI Narrative: ANGELICA VELAZQUEZ, is a 68 M who presents with nausea and upper abdominal pain. Patient has a history of ulcerative colitis and has had subtotal colectomy with pouch. The patient reports he started having pain this morning. He has been tired all week. He also had a bowel movement with blood in it today. He denies vomiting. He is having some nausea. [facility] Medical History (Updated 03/29/24 @ 08:[address] Juan Carlos Wood MD) Hyperlipidemia Hx of ulcerative colitis Kidney disease Hypertension Home Medications ?Medication ?Instructions ?Recorded ?Last Taken ?Type amlodipine 10 mg tablet 5 mg PO DAILY BP 10/13/18 Unknown History lisinopril 10 mg tablet 10 mg PO DAILY 10/13/18 Unknown History cholecalciferol (vitamin D3) 25 1,000 unit PO DAILY 05/31/19 Unknown History mcg (1,000 unit) tablet atorvastatin 20 mg tablet 20 mg PO DAILY 03/28/24 Unknown History Allergy/AdvReac Type Severity Reaction Status Date / Time aspirin Allergy Other Verified 03/28/24 17:37 ibuprofen Allergy Laryngospas Verified 03/28/24 17:37 ms Social History Smoking Status: Former smoker ROS Constitutional Constitutional: Denies anorexia, chills or fatigue Eyes Eyes: Denies blurry vision ENT HEENT: Denies abnormal hearing Cardiovascular Cardiovascular: Denies chest pain Respiratory/Chest Respiratory/Chest: Denies cough or dyspnea Gastrointestinal Gastrointestinal: Reports abdominal pain, nausea and rectal bleeding; Denies vomiting Musculoskeletal Musculoskeletal: Denies abnormal gait Integumentary Integumentary: Denies jaundice Neurologic Neurologic: Denies abnormal gait Physical Exam Const alert and oriented x3 HEENT normocephalic Eyes PERRL Resp normal respiratory effort Cardio Rate: regular rate Rhythm: regular rhythm GI soft to palpation Palpation: tender and hernia ventral Lab / Micro Data 03/29/24 06:00 03/29/24 06:00 Labs: Laboratory Results - last 24 hr 03/28/24 17:55: WBC 32.7 H*, RBC 4.64, Hgb 13.1, Hct 40.2, MCV 86.6, MCH 28.2, MCHC 32.6, RDW Std Deviation 42.6, RDW Coeff of Shavon 13.5, Plt Count 269, MPV 9.3, Immature Gran % (Auto) 3.000 H, Neut % (Auto) 87.5 H, Lymph % (Auto) 2.7 L, [place] % (Auto) 6.4, Eos % (Auto) 0.0, Baso % (Auto) 0.4, Absolute Neuts (auto) 28.6 H, Absolute Lymphs (auto) 0.87, Nucleated RBC % 0, Differential Comment SCANNED, Diff Path Review March, Sodium 136, Potassium 4.5, Chloride 108 H, Carbon Dioxide 16.0 L, Anion Gap 12, BUN 49 H, Creatinine 2.15 H, Estim Creat Clear Calc 35.60, Est GFR (MDRD) Af Amer 39 L, Est GFR (MDRD) Non-Af 33 L, BUN/Creatinine Ratio 22.8 H, Glucose 161 H, Calcium 9.1, Total Bilirubin 0.80, AST 17, ALT 39, Alkaline Phosphatase 123 H, Total Protein 7.0, Albumin 3.1 L, Globulin 3.9, Albumin/Globulin Ratio 0.8 L, Lipase 55 03/28/24 18:15: Lactic Acid 6.0 H* 03/28/24 20:00: Urine Color Straw, Urine Clarity Clear, Urine pH 5.0, Ur Specific [place] 1.010, Urine Protein Negative, Urine Glucose (UA) Normal, Urine Ketones Negative, Urine Occult Blood Negative, Urine Nitrite Negative, Urine Bilirubin Negative, Urine Urobilinogen Normal, Ur Leukocyte Esterase Negative, Urine RBC 0 SEEN, Urine WBC 0 SEEN, Ur Squamous Epith Cells 0 SEEN, Urine Bacteria 0 SEEN, Urine Mucus 0 SEEN Imaging Radiology Impression Abdomen/Pelvis CT 03/28/24 18:34 IMPRESSION: Patient has extensive large complex abdominal wall hernias containing numerous bowel. No evidence for obstruction. Distended gallbladder and common bile duct. Correlate with liver function tests. Moderate to severe bilateral renal parenchymal thinning. Electronically Signed: Nicolás Chinchilla MD at 19:43 EDT ,
--- NOTE | 2024-03-28 22:16 | HP.PCM_ITS ---
HPI - General General Date of Admission: 03/28/24 Date of Service: 03/28/24 Chief Complaint: Abdominal pain HPI Narrative ANGELICA VELAZQUEZ, is a 68 M who presents to the emergency room with chief complaint of abdominal pain. Onset of symptoms began approximately last evening. Patient denies any recent change in diet or abnormal oral intake. Patient does have a significant past medical history of ulcerative colitis with subtotal colectomy approximately 10 years ago. Patient has elevated white blood cell count of 32,000 with lactic acid of 6. CT scan is negative for acute finding and despite a distended gallbladder with subsequent ultrasound was negative. Patient was seen and evaluated by general surgery and medicine was asked to admit the patient and treat empirically with IV antibiotics and hydration therapy with surgical consult to follow. [facility] Medical History (Updated 03/28/24 @ 22:05 by ARIANNE Montero) Cellulitis of neck Kidney disease Hypertension Home Medications ?Medication ?Instructions ?Recorded ?Last Taken ?Type amlodipine 10 mg tablet 10 mg PO DAILY 10/13/18 Unknown History lisinopril 10 mg tablet 10 mg PO DAILY 10/13/18 Unknown History cholecalciferol (vitamin D3) 25 1,000 unit PO DAILY 05/31/19 Unknown History mcg (1,000 unit) tablet atorvastatin 20 mg tablet 20 mg PO DAILY 03/28/24 Unknown History Allergy/AdvReac Type Severity Reaction Status Date / Time aspirin Allergy Other Verified 03/28/24 17:37 ibuprofen Allergy Laryngospas Verified 03/28/24 17:37 ms Social History Smoking Status: Former smoker ROS Constitutional Constitutional: Reports anorexia; Denies chills or fever(s) Eyes Eyes: Denies blurry vision ENT HEENT: Denies abnormal hearing Cardiovascular Cardiovascular: Denies chest pain Respiratory/Chest Respiratory/Chest: Denies cough Gastrointestinal Gastrointestinal: Reports abdominal pain, nausea and vomiting; Denies hematochezia or melena Genitourinary Genitourinary: Denies dysuria Musculoskeletal Musculoskeletal: Denies back pain Integumentary Integumentary: Reports dry skin; Denies wounds Neurologic Neurologic: Denies abnormal gait Psychiatric Psychiatric: Denies anxiety Endocrine Endocrinology: Denies change in body appearance Vital Signs Vital Signs Vital Signs: 03/28/24 17:38 03/28/24 17:49 03/28/24 19:33 Temperature 96.8 F L Temperature Source Temporal Pulse Rate 87 76 99 Respiratory Rate 18 19 H 25 H Blood Pressure 86/50 L 129/79 H 105/46 L Blood Pressure Mean 62 95 65 Pulse Ox 100 98 92 Oxygen Delivery Method Room Air Room Air Room Air 03/28/24 21:11 03/28/24 22:11 Temperature 98.3 F Temperature Source Pulse Rate 96 102 H Respiratory Rate 25 H 28 H Blood Pressure 130/80 H 128/76 H Blood Pressure Mean 96 93 Pulse Ox 94 97 Oxygen Delivery Method Room Air Weight Weight: 201 lb 9.6 oz Body Mass Index (BMI) 30.6 Physical Exam Const alert and oriented x3 General Appearance: cooperative HEENT normocephalic and head/scalp atraumatic Eyes PERRL Neck no lymphadenopathy Lymph Lymphatic: no lymphadenopathy noted Cardio regular rate, regular rhythm, S1 normal heart sound, S2 normal heart sound and no murmurs GI Palpation: tender epigastric; Negative for guarding Extremity normal capillary refill Skin General Skin Exam: no breakdown Neuro no focal motor deficits and no sensory deficits noted Psych thought process normal, cooperative and affect normal Results Lab / Micro Data 03/28/24 17:55 03/28/24 17:55 Labs: Laboratory Results - last 24 hr 03/28/24 17:55: WBC 32.7 H*, RBC 4.64, Hgb 13.1, Hct 40.2, MCV 86.6, MCH 28.2, MCHC 32.6, RDW Std Deviation 42.6, RDW Coeff of [place]av[place] 13.5, Plt Count 269, MPV 9.3, Immature Gran % (Auto) 3.000 H, Neut % (Auto) 87.5 H, Lymph % (Auto) 2.7 L, [place] % (Auto) 6.4, Eos % (Auto) 0.0, Baso % (Auto) 0.4, Absolute Neuts (auto) 28.6 H, Absolute Lymphs (auto) 0.87, Nucleated RBC % 0, Differential Comment SCANNED, Diff Path Review March, Sodium 136, Potassium 4.5, Chloride 108 H, C arbon Dioxide 16.0 L, Anion Gap 12, BUN 49 H, Creatinine 2.15 H, Estim Creat Clear Calc 35.60, Est GFR (MDRD) Af Amer 39 L, Est GFR (MDRD) Non-Af 33 L, B UN/Creatinine Ratio 22.8 H, Glucose 161 H, Calcium 9.1, Total Bilirubin 0.80, AST 17, ALT 39, Alkaline Phosphatase 123 H, Total Protein 7.0, Albumin 3.1 L, Globulin 3.9, Albumin/Globulin Ratio 0.8 L, Lipase 55 03/28/24 18:15: Lactic Acid 6.0 H* 03/28/24 20:00: Urine Color Straw, Urine Clarity Clear, Urine pH 5.0, Ur Specific [place] 1.010, Urine Protein Negative, Urine Glucose (UA) Normal, Urine Ketones Negative, Urine Occult Blood Negative, Urine Nitrite Negative, Urine Bilirubin Negative, Urine Urobilinogen Normal, Ur Leukocyte Esterase Negative, Urine RBC 0 SEEN, Urine WBC 0 SEEN, Ur Squamous Epith Cells 0 SEEN, Urine Bacteria 0 SEEN, Urine Mucus 0 SEEN Imaging Radiology Impression Abdomen/Pelvis CT 03/28/24 18:34 IMPRESSION: Patient has extensive large complex abdominal wall hernias containing numerous bowel. No evidence for obstruction. Distended gallbladder and common bile duct. Correlate with liver function tests. Moderate to severe bilateral renal parenchymal thinning. Electronically Signed: Nicolás Chinchilla MD at 19:43 EDT , Gallbladder Ultrasound 03/28/24 20:10 IMPRESSION: 1. Distended gallbladder but no cholelithiasis or acute cholecystitis. 2. Right renal cortical thinning but no stones, masses or hydronephrosis. 3. No other significant abnormality. Electronically Signed: Efren Turner MD at 21:49 EDT , Assessment & Plan Assessment/Plan (1) Hx of ulcerative colitis: (2) Chronic kidney disease: (3) Acute lactic acidosis: (4) Leukocytosis: (5) Abdominal pain: PLAN: Plan 1. Leukocytosis with abdominal pain?admit patient to general medical floor, consult general surgery Dr. Wood, IV normal saline at a rate of 125 cc/h, IV Zosyn 3.375 IV every 6 hours for empiric treatment suspected abdominal infection. Repeat CBC, CMP, lipase, lactate in a.m. will add Dilaudid and Zofran for as needed use 2. DVT prophylaxis?SCDs due to chronic kidney disease will not use low molecular weight heparin at this time Charges/Coding Visit Charges Inpatient E&M: 41260 Init Hosp L2
[2024-03-28 22:29] LABS: Reflex Lactate? Y
[2024-03-28] MEDS: 0.9% Normal Saline (1000mL) 1,000 ML 125 ML IV (23:50)
[2024-03-29] VITALS (16 sets, daily range): BP systolic 113–143; BP diastolic 72–95; PULSE 81–102; RESP 14–18; TEMP 36.2–37.6; O2SAT 90–98; BMI 21.2
[2024-03-29] MEDS: Pantoprazole Sodium 40 MG in 0.9% Normal Saline (100mL MB+) 100 ML 330 MG IV ×3 (04:32→23:02)
[2024-03-29] MEDS: Piperacil/Tazobactam 3.375 GM in 0.9% Normal Saline (50mL MB+) 50 ML IV ×2 (05:55→18:57)
[2024-03-29] MEDS: 0.9% Normal Saline (1000mL) 1,000 ML 125 ML IV ×2 (06:03→18:55)
[2024-03-29 07:06] LABS: Absolute Lymphocyte Count 0.72 X10^3/uL (0.83-4.51); Absolute Neutrophil Count 42.8 X10^3/uL (2.0-7.7); Basophil# 0.18 X10^3/uL; Basophil% 0.4 % (0-1); Eosinophil# 0.07 X10^3/uL; Eosinophils% 0.1 % (0-5); Hemoglobin 12.5 g/dL (13.0-16.5); Lymphocyte # 0.72 X10^3/ul (0.83-4.51); Lymphocyte % 1.5 % (19-41); Mean Corp Hgb Conc 32.1 g/dL (32-36); Mean Corpuscular Hgb 28.5 pg (27.0-32.0); Mean Corpuscular Volume 88.8 fL (80-94); Mean Platelet Vol. 9.5 fl (6.2-12.0); Monocyte# 2.77 X10^3/uL; Monocyte% 5.8 % (0-10); NRBC Flagged by Analyzer 0 % (0-5); Neutrophil # 42.75 X10^3/uL (2.7-7.7); Neutrophil % 89.5 % (47-70); POSITIVE COUNT YES; POSITIVE DIFFERENTIAL YES; Platelet Count 247 K/mm3 (150-450); RBC Distribution Width CV 13.8 % (11.6-14.6); RBC Distribution Width SD 44.6 fl (35.1-43.9); Red Blood Count 4.39 M/mm3 (4.6-6.2)
[2024-03-29 07:13] LABS: Differential Indicated SCAN CRITERIA MET; White Blood Count 47.8 K/mm3 (4.4-11.0)
--- NOTE | 2024-03-29 07:26 | PCM.PN.HOSP ---
Reason for Visit Reason for Visit: Abdominal pain Subjective Subjective Patient is a 68-year-old white male with a past medical history of ulcerative colitis who presented to the emergency department at [facility] on 03/28/2024 with epigastric pain that has been constant since he awoke that morning. He reported he ate a half a donut and some worse juice the morning of admission and stated that a few hours later he developed nausea and vomited twice. He indicated his stool is typically soft and watery and he was started on prednisone last week for muscle injury. His stool became solid for a few days but since finishing the prednisone it became more watery. He indicated on the day of presentation it was brownish-red. He denied any fever or chills and stated that he had about 3 abdominal surgery previously for colon resection and then colostomy with subsequent reversal. He does not see a GI physician or take any medications on a chronic basis for ulcerative colitis. He indicated he been fatigued all week. Vital signs on presentation showed temperature of 96.8, heart rates 87, respiratory was 18 oxygen saturations were 100% on room air with initial blood pressure of 86/50 but a repeat at 129/79. CBC showed a markedly elevated white count at 32.7 with a marked left shift showing an 87.5% neutrophilia. His initial chemistry panel showed a low serum bicarb at 16 with an elevated BUN and serum creatinine at 49 and 2.15 respectively) we did find that this is close to his outpatient baseline serum creatinine and he does follow-up with Dr. Lorenzo). His initial lactate was 6.0 with a repeat at 3 point 0-1/3 this morning at 2.4. LFTs were unremarkable other than a mildly elevated alk phos at 123. Lipase was normal at 55. His UA was unremarkable. CT of the abdomen pelvis showed extensive large complex abdominal wall hernias containing numerous amount of bowel but no evidence of obstruction and a distended gallbladder and common bile duct with severe moderate to severe bilateral renal parenchymal thinning. Gallbladder ultrasound was performed and showed a distended gallbladder but no cholelithiasis or acute cholecystitis, renal cortical thinning on the right with no stones masses or hydronephrosis and no other significant abnormalities. He was evaluated by general surgery and a repeat CT of the abdomen was performed with p.o. contrast. Patient states that his diarrhea is chronic. His abdominal pain is a little bit better and diffuse but mostly on the right side in the mid abdomen the lower abdominal area. Pain medication does seem to be helping. Objective Data Objective Data Vital Signs: Vital Signs Temp Pulse Resp BP Pulse Ox O2 Del Method O2 Flow Rate 99.7 F H 102 H 16 137/79 H 97 Room Air 2 03/29/24 04:24 03/29/24 04:24 03/29/24 04:24 03/29/24 04:24 03/29/24 04:24 03/29/24 04:24 03/29/24 01:56 Oxygen Flow Rate (L/min) 2 Oxygen Delivery Method Room Air Weight: 65.3 kg Body Mass Index (BMI) 21.2 Intake & Output: Intake and Output for Last 24 Hours 03/27/24 03/28/24 03/29/24 23:59 23:59 23:59 Intake Total 1680 / 1680 887.08 / 887.08 Balance 1680 / 1680 887.08 / 887.08 Lab / Micro Data 03/29/24 06:00 03/29/24 06:00 Labs: Laboratory Results - last 24 hr 03/28/24 17:55: WBC 32.7 H*, RBC 4.64, Hgb 13.1, Hct 40.2, MCV 86.6, MCH 28.2, MCHC 32.6, RDW Std Deviation 42.6, RDW Coeff of Shavon 13.5, Plt Count 269, MPV 9.3, Immature Gran % (Auto) 3.000 H, Neut % (Auto) 87.5 H, Lymph % (Auto) 2.7 L, [place] % (Auto) 6.4, Eos % (Auto) 0.0, Baso % (Auto) 0.4, Absolute Neuts (auto) 28.6 H, Absolute Lymphs (auto) 0.87, Nucleated RBC % 0, Differential Comment SCANNED, Diff Path Review March, Sodium 136, Potassium 4.5, Chloride 108 H, Carbon Dioxide 16.0 L, Anion Gap 12, BUN 49 H, Creatinine 2.15 H, Estim Creat Clear Calc 35.60, Est GFR (MDRD) Af Amer 39 L, Est GFR (MDRD) Non-Af 33 L, BUN/Creatinine Ratio 22.8 H, Glucose 161 H, Calcium 9.1, Total Bilirubin 0.80, AST 17, ALT 39, Alkaline Phosphatase 123 H, Total Protein 7.0, Albumin 3.1 L, Globulin 3.9, Albumin/Globulin Ratio 0.8 L, Lipase 55 03/28/24 18:15: Lactic Acid 6.0 H* 03/28/24 20:00: Urine Color Straw, Urine Clarity Clear, Urine pH 5.0, Ur Specific [place] 1.010, Urine Protein Negative, Urine Glucose (UA) Normal, Urine Ketones Negative, Urine Occult Blood Negative, Urine Nitrite Negative, Urine Bilirubin Negative, Urine Urobilinogen Normal, Ur Leukocyte Esterase Negative, Urine RBC 0 SEEN, Urine WBC 0 SEEN, Ur Squamous Epith Cells 0 SEEN, Urine Bacteria 0 SEEN, Urine Mucus 0 SEEN 03/28/24 23:06: Lactic Acid 3.0 H* 03/29/24 06:00: WBC 47.8 H*, RBC 4.39 L, Hgb 12.5 L, Hct 39.0 L, MCV 88.8, MCH 28.5, MCHC 32.1, RDW Std Deviation 44.6 H, RDW Coeff of Shavon 13.8, Plt Count 247, MPV 9.5, Immature Gran % (Auto) 2.700 H, Neut % (Auto) 89.5 H, Lymph % (Auto) 1.5 L, [place] % (Auto) 5.8, Eos % (Auto) 0.1, Baso % (Auto) 0.4, Absolute Neuts (auto) 42.8 H, Absolute Lymphs (auto) 0.72 L, Nucleated RBC % 0 Radiography Diagnostic Testing: Radiology Impression Abdomen/Pelvis CT 03/28/24 18:34 IMPRESSION: Patient has extensive large complex abdominal wall hernias containing numerous bowel. No evidence for obstruction. Distended gallbladder and common bile duct. Correlate with liver function tests. Moderate to severe bilateral renal parenchymal thinning. Electronically Signed: Nicolás Chinchilla MD at 19:43 EDT , Gallbladder Ultrasound 03/28/24 20:10 IMPRESSION: 1. Distended gallbladder but no cholelithiasis or acute cholecystitis. 2. Right renal cortical thinning but no stones, masses or hydronephrosis. 3. No other significant abnormality. Electronically Signed: Efren Turner MD at 21:49 EDT , Physical Exam Const alert, oriented x3 and well nourished; Negative for no apparent distress, average body habitus or healthy appearing Constitutional Narrative: Overweight, upper middle-aged, white male who appears somewhat uncomfortable, lying in bed, at bedside, although why he appears uncomfortable he does not appear acutely toxic HEENT head/scalp atraumatic and moist oral mucous membranes HEENT Narrative: Mallampati is 3, no thrush Head and Scalp: normocephalic Resp normal respiratory effort, no retractions, no use of accessory muscles and clear to auscultation bilaterally Auscultation: Negative for rales, rhonchi or wheezes Cardio regular rate, regular rhythm, S1 normal heart sound, no murmurs, no rub, no gallops and no clicks GI GI Narrative: Abdomen is not distended, large abdominal hernia anteriorly noted but bowel is soft in the area, diffuse tenderness but no specific at the mid right and lower abdominal areas, bowel sounds are normal active and abdomen is soft Palpation: hernia Extremity no clubbing, cyanosis or edema Extremity Narrative: Pedal pulses are 2+ Neuro oriented x3, moves all extremities and no focal motor deficits Speech: speech normal Psych Psych Narrative: Affect is flat appropriate for how the patient is feeling at this time, eye contact is good and patient interacts appropriately Assessment & Plan Assessment/Plan (1) Abdominal wall hernia: (2) Acute lactic acidosis: (3) Leukocytosis: (4) Abdominal pain: PLAN: Plan Abdominal pain and leukocytosis -Etiology is unclear at this time -Stool studies for enteric pathogens and C. difficile is pending -Will start vancomycin 125 mg every 6 hours empirically for now with his markedly elevated white count and lactic acidosis -Continue IV Zosyn -Gallbladder is distended on ultrasound but no signs of cholelithiasis or acute cholecystitis was identified -Cultures are pending -History of ulcerative colitis -Continue IV fluids and will give 1 bolus IV with 1 L of LR -Continue n.p.o. for now -Continue as needed IV Dilaudid -Continue as needed Zofran -Could be UC flare and may need IV steroids -Await further GI and general surgery input Leukocytosis -Markedly elevated -Patient was on prednisone prior to admission -Continue Zosyn -Start oral Flagyl in case patient has C. difficile -Discontinue if testing is negative -Continue to monitor with repeat lab in a.m. -UA was unremarkable Lactic acidosis -secondary to the above -Appears to be improving -Continue IV fluids and will give 1 L bolus Abdominal wall hernia -Easily reducible by general surgery -General surgery is following-appreciate input CKD stage IIIa -Baseline is unknown -2.15 on admission -Continue IV fluids -Hold home lisinopril -Avoid nephrotoxins as able -A.m. labs pending but suspect he was dehydrated based on other findings Essential hypertension/hyperlipidemia -Hold home statin -Hold home antihypertensives -Hydralazine 10 mg every 6 hours as needed for systolic pressure greater than 160 -Restart home medication when appropriate DVT prophylaxis -Patient did complain of some blood in his stool on admission so we will hold off on chemoprophylaxis for now until we can verify stable hemoglobin -SCDs CODE STATUS Full code Charges/Coding Visit Charges Inpatient E&M: 14599 Subs Hosp L2
--- NOTE | 2024-03-29 07:27 | CT_ITS ---
STUDY: CT ABDOMEN AND PELVIS WITHOUT CONTRAST REASON FOR EXAM: Male, 68 years old. Abdominal pain. History of ulcerative colitis and a subpleural colectomy. RADIATION DOSAGE (If Supplied By Facility): CTDIvol = ( 14.27 ) mGy, DLP = ( 742.29 ) mGycm TECHNIQUE: Transaxial images were obtained from the dome of the diaphragm to the symphysis pubis without oral contrast, and without intravenous contrast. Sagittal and coronal images were reconstructed. Individualized dose optimization techniques were used for this CT. COMPARISON: Comparison is made with prior examination dated March 28, 2024. FINDINGS: Mild increased linear markings at the lung bases suggestive of linear atelectasis. Coronary artery calcification. Normal liver. Normal gallbladder and extrahepatic biliary system. Normal spleen. There is diffuse atrophy of the pancreas. Normal bilateral adrenal glands. Normal right kidney. Normal left kidney. Nonspecific bilateral perinephric stranding. There is a small hiatal hernia. The patient is status post subtotal colectomy with ileal rectal anastomosis. There is evidence of a stable right lower anterior abdominal wall hernia containing nondilated small bowel loops. This was a site of prior stoma. There is also evidence of a smaller anterior abdominal wall hernia containing nondilated small bowel loops. Focally dilated small bowel loop proximal to the right lower quadrant herniation although there is no evidence of a bowel obstruction or bowel ischemia. There is scattered atherosclerotic calcification of the abdominal aorta, without a demonstrated aneurysm. Normal inferior vena cava. Normal retroperitoneum. Contrast is seen within the urinary bladder. Normal abdominal wall. Normal osseous structures. CT/Abdomen/Pel W ORAL Cont Only IMPRESSION: Essentially stable examination. Electronically Signed: Cortez Arredondo MD at 11:20 EDT ,
[2024-03-29 07:40] LABS: ALB/GLOB Ratio 0.7 RATIO (0.9-2.4); AST(SGOT) 15 U/L (15-37); Alanine Aminotransfer ALT/SGPT 31 U/L (16-61); Albumin, Serum 2.7 g/dL (3.2-5.0); Alkaline Phosphatase 116 U/L (45-117); Anion Gap 8 (5-15); BUN 38 mg/dL (7-18); BUN/Creat Ratio 17.5 RATIO (10-20); Calcium,Total 8.4 mg/dL (8.5-10.1); Chloride 114 mmol/L (98-107); Creatinine, Serum 2.17 mg/dL (0.70-1.30); EST Glomerular Filtration Rate 32 mL/min (>60); Est Glom Filt Rate - Afr Amer 39 mL/min (>60); Estimated Creatinine Clearance 29.67 ml/min; Globulin 3.7 g/dL (2.2-4.2); Glucose 150 mg/dL (74-106); Lipase 26 U/L (13-75); Potassium 4.7 mmol/L (3.5-5.1); Protein, Total 6.4 g/dL (6.4-8.2); Sodium Level 140 mmol/L (136-145)
[2024-03-29] MEDS: 0.9% Saline Lock 10 ML Syringe IV (08:00)
[2024-03-29] MEDS: Lactated Ringers 1,000 ML 999 ML IV (08:00)
--- NOTE | 2024-03-29 08:13 | PCM.PN.SRG ---
Subjective Subjective Patient reports he is still very tender. Denies nausea or vomiting currently. He says he has been having red liquid from his rectum overnight every few hours. Objective Data Objective Data Vital Signs: Vital Signs Temp Pulse Resp BP Pulse Ox O2 Del Method O2 Flow Rate 99.7 F H 102 H 16 137/79 H 97 Room Air 2 03/29/24 04:24 03/29/24 04:24 03/29/24 04:24 03/29/24 04:24 03/29/24 04:24 03/29/24 07:53 03/29/24 01:56 Oxygen Flow Rate (L/min) 2 Oxygen Delivery Method Room Air Weight: 143 lb 15.39 oz Body Mass Index (BMI) 21.2 Intake & Output: Intake and Output for Last 24 Hours 03/27/24 03/28/24 03/29/24 23:59 23:59 23:59 Intake Total 1680 / 1680 887.08 / 887.08 Balance 1680 / 1680 887.08 / 887.08 Lab / Micro Data 03/29/24 06:00 03/29/24 06:00 Labs: Laboratory Results - last 24 hr 03/28/24 17:55: WBC 32.7 H*, RBC 4.64, Hgb 13.1, Hct 40.2, MCV 86.6, MCH 28.2, MCHC 32.6, RDW Std Deviation 42.6, RDW Coeff of Shavon 13.5, Plt Count 269, MPV 9.3, Immature Gran % (Auto) 3.000 H, Neut % (Auto) 87.5 H, Lymph % (Auto) 2.7 L, [place] % (Auto) 6.4, Eos % (Auto) 0.0, Baso % (Auto) 0.4, Absolute Neuts (auto) 28.6 H, Absolute Lymphs (auto) 0.87, Nucleated RBC % 0, Differential Comment SCANNED, Diff Path Review March, Sodium 136, Potassium 4.5, Chloride 108 H, Carbon Dioxide 16.0 L, Anion Gap 12, BUN 49 H, Creatinine 2.15 H, Estim Creat Clear Calc 35.60, Est GFR (MDRD) Af Amer 39 L, Est GFR (MDRD) Non-Af 33 L, BUN/Creatinine Ratio 22.8 H, Glucose 161 H, Calcium 9.1, Total Bilirubin 0.80, AST 17, ALT 39, Alkaline Phosphatase 123 H, Total Protein 7.0, Albumin 3.1 L, Globulin 3.9, Albumin/Globulin Ratio 0.8 L, Lipase 55 03/28/24 18:15: Lactic Acid 6.0 H* 03/28/24 20:00: Urine Color Straw, Urine Clarity Clear, Urine pH 5.0, Ur Specific [place] 1.010, Urine Protein Negative, Urine Glucose (UA) Normal, Urine Ketones Negative, Urine Occult Blood Negative, Urine Nitrite Negative, Urine Bilirubin Negative, Urine Urobilinogen Normal, Ur Leukocyte Esterase Negative, Urine RBC 0 SEEN, Urine WBC 0 SEEN, Ur Squamous Epith Cells 0 SEEN, Urine Bacteria 0 SEEN, Urine Mucus 0 SEEN 03/28/24 23:06: Lactic Acid 3.0 H* 03/29/24 06:00: WBC 47.8 H*, RBC 4.39 L, Hgb 12.5 L, Hct 39.0 L, MCV 88.8, MCH 28.5, MCHC 32.1, RDW Std Deviation 44.6 H, RDW Coeff of Shavon 13.8, Plt Count 247, MPV 9.5, Immature Gran % (Auto) 2.700 H, Neut % (Auto) 89.5 H, Lymph % (Auto) 1.5 L, [place] % (Auto) 5.8, Eos % (Auto) 0.1, Baso % (Auto) 0.4, Absolute Neuts (auto) 42.8 H, Absolute Lymphs (auto) 0.72 L, Nucleated RBC % 0, Sodium 140, Potassium 4.7, Chloride 114 H, Carbon Dioxide 18.0 L, Anion Gap 8, BUN 38 H, Creatinine 2.17 H, Estim Creat Clear Calc 29.67, Est GFR (MDRD) Af Amer 39 L, Est GFR (MDRD) Non-Af 32 L, BUN/Creatinine Ratio 17.5, Glucose 150 H, Calcium 8.4 L, Total Bilirubin 1.20 H, AST 15, ALT 31, Alkaline Phosphatase 116, Total Protein 6.4, Albumin 2.7 L, Globulin 3.7, Albumin/Globulin Ratio 0.7 L, Lipase 26 Micro: Microbiology 03/29/24 02:30 Stool Stool Occult Blood (ULISES) - Final Occult Blood Positive Radiography Diagnostic Testing: Radiology Impression Abdomen/Pelvis CT 03/28/24 18:34 IMPRESSION: Patient has extensive large complex abdominal wall hernias containing numerous bowel. No evidence for obstruction. Distended gallbladder and common bile duct. Correlate with liver function tests. Moderate to severe bilateral renal parenchymal thinning. Electronically Signed: Nicolás Chinchilla MD at 19:43 EDT , Gallbladder Ultrasound 03/28/24 20:10 IMPRESSION: 1. Distended gallbladder but no cholelithiasis or acute cholecystitis. 2. Right renal cortical thinning but no stones, masses or hydronephrosis. 3. No other significant abnormality. Electronically Signed: Efren Turner MD at 21:49 EDT , Physical Exam Const oriented x3 Resp normal respiratory effort GI soft to palpation Palpation: tender Assessment & Plan Assessment/Plan (1) Abdominal wall hernia: (2) Abdominal pain: QUALIFIERS: Abdominal location: unspecified location Qualified Code(s): R10.9 - Unspecified abdominal pain (3) Leukocytosis: QUALIFIERS: Leukocytosis type: unspecified Qualified Code(s): D72.829 - Elevated white blood cell count, unspecified PLAN: Plan Still unsure as to the diagnosis. The patient's white count mishel from 30-47 today. C. difficile is pending. Fecal occult blood was positive. The patient was having tenderness throughout the abdomen. I was able to reduce his hernia easily just like yesterday and it was painful but he was also having pain in the upper abdomen and it was painful there as well. CT scan yesterday showed these large hernias with bowel included but there was no sign of obstruction or ischemia. The patient's lactate went from 6 down to 3 and repeat is pending. I am ordering a repeat CT scan of the patient with oral contrast. If there are any signs of ischemia I will address at that time otherwise continue antibiotics and IV fluids. Ultrasound the gallbladder was read as normal. Juan Carlos Wood MD Pager: [facility] [address] [place] [address], [facility] [address] [place] [address] Office:
[2024-03-29] MEDS: Ondansetron 4 MG/2 ML Vial IV (09:03)
[2024-03-29] MEDS: HYDROmorphone 1 MG/ML Syringe IV (09:04)
[2024-03-29] MEDS: Vancomycin IV 1,000 MG/200 ML BAG 200 MG IV (09:14)
[2024-03-29 09:15] LABS: Lactic Acid 2.4 mmol/L (0.4-1.9)
--- NOTE | 2024-03-29 09:28 | PCM.RX.CS ---
Consult Antibiotic Management Pharmacy has been consulted to manage selected antibiotic: Vancomycin Type of Intervention Type of Consult: New start Labs Labs: Sodium 140 mmol/L (136-145) 03/29/24 06:00 Potassium 4.7 mmol/L (3.5-5.1) 03/29/24 06:00 Chloride 114 mmol/L (98-107) H 03/29/24 06:00 Carbon Dioxide 18.0 mmol/L (21.0-32.0) L 03/29/24 06:00 Anion Gap 8 (5-15) 03/29/24 06:00 BUN 38 mg/dL (7-18) H 03/29/24 06:00 Creatinine 2.17 mg/dL (0.70-1.30) H 03/29/24 06:00 Est GFR (MDRD) Af Amer 39 mL/min (>60) L 03/29/24 06:00 Est GFR (MDRD) Non-Af 32 mL/min (>60) L 03/29/24 06:00 BUN/Creatinine Ratio 17.5 RATIO (10-20) 03/29/24 06:00 Glucose 150 mg/dL (74-106) H 03/29/24 06:00 Microbiology Microbiology: Microbiology 03/29/24 02:30 Stool Clostridioides difficile (PCR) - Final 03/29/24 02:30 Stool Stool Occult Blood (ULISES) - Final Occult Blood Positive Dosing Weight Weight used for dosin.3 kg Estimated Creatinine Clearance Estimated Creatinine Clearance: 30 ML/MIN Goal Trough Goal Trough: 15-20 mcg/mL Pharmacy Plan for Drug Dosing Pharmacy Plan for Drug Dosing: Give initial standard dose (15mg/kg) of 1000mg IV x1, then continue with 1000mg IV q24h per [facility] dosing protocol. Check a trough before the 3rd dose. Pharmacy Service will continue to monitor and adjust dosing as required. Follow-Up Labs Follow-Up Labs: Trough: Vancomycin Date/Time Labs Ordered Labs to be done on [date and time ordered]: 03/31/24 08:30
[2024-03-29 10:34] LABS: Differential Comment SCANNED
--- NOTE | 2024-03-29 11:07 | CASEMGMT ---
RN CM Assessment Face to Face with patient for initial transition planning/care coordination assessment. RN CM introduced self and role at [facility], pt voices understanding. Pt is A&Ox4 and is resting comfortably in bed and is calm. Pt at bedside. Care providers, pharmacy, and demographics verified. Admitting dx: ABD Pain PCP: Jaguar Kaur Specialists: Denies Preferred Pharmacy: [facility] Insurance: [facility] A/B, [place] [place] Prescription Benefit: Yes LNOK: Rere De Leon (W) Living Arrangements: Pt lives with his in a single story home with 2 steps to enter ADLs/IADLs: Ind Transportation: Self, DME: CPAP at [facility]. Denies further uses or needs at this time. CM to follow for potential home oxygen needs. HHC/SNF: Denies history or needs Pt?s goal: Home Plan: Plan is to continue to work this pt up regarding his ABD pain. Towards the end of this RN CM assessment, the pt became irritable and needed to use the bathroom. This RN CM anticipates the pt returning home once medically ready. CONTAINER COORDINATOR CM updated and to follow. Diandra Bunch RN, CM
--- NOTE | 2024-03-29 11:45 | PN_ITS ---
Progress Note The patient was still having severe abdominal pain and I repeated an oral contrast CT. it appears the contrast moves in and out of both hernias with no sign of obstruction but there is a loop of small bowel between the right hernia and the anastomosis that does look more inflamed than it did yesterday with dilation. Given his extreme tenderness over this area I thought there may be some ischemia in the hernia but it appears to be posterior to the hernia. I discussed this with him and I would like to perform exploratory laparoscopy to evaluate the bowel for ischemia. The patient's white count has increased dramatically and he is very tender still. I discussed exploratory laparoscopy with him with possible conversion to open. I also discussed possible need for bowel resection end ileostomy. I also discussed possible hernia repair without mesh. Patient understands all the risks including but not limited to bleeding, infection, injury to other organs, need for further bowel resection. Juan Carlos Wood MD Pager: [facility] [address] [place] [address] [address] [place] [address] Office:
--- NOTE | 2024-03-29 11:52 | EKG12_ITS ---
Test Reason : PREOP Blood Pressure : / mmHG Vent. Rate : 090 BPM Atrial Rate : 090 BPM P-R Int : 172 ms QRS Dur : 076 ms QT Int : 354 ms P-R-T Axes : 067 066 060 degrees QTc Int : 433 ms Normal sinus rhythm Normal ECG No previous ECGs available Confirmed by Brant Urban ([id number]), brands editor ROBBIE CHATMAN ([id number]) on 04/04/2024 1:35:08 PM Referred By: Confirmed By:Brant Urban
[2024-03-29 12:12] LABS: Reflex Lactate? Y
--- NOTE | 2024-03-29 14:25 | HERN_PTH ---
PATIENT: ANGELICA VELAZQUEZ LOC: [facility] U#:[id number] AGE/SX: 68/M ROOM: [facility] RE03/28/[address]: Dr. Chanell Kelly DO : 1955 BED: 1 DIS: 03/31/2024 SPEC #: [id number] RECD: 03/29/24 16:00 STATUS: LINDA REMartita #: [id number] MARY: 03/29/24 14:[address]: Juan Carlos Wood DEPT: SURGICAL PATHOLOGY RECD BY: Elenita Brunson ENTERED: 03/30/24 09:32 SP TYPE: Hernia OTHR DR: MD Dr. Chanell Curtis DO Dr. Paul Nielsen, MD Tissues: A - HERNIA B - Small intestine mucous membrane C - Colon, NOS Procedures: Surgery Specimen Level II Surgery Specimen Level IV Surgery Specimen Level V Comments: @ Ordering doctor for SUII edited from to @ by ELAINA at 03/30/24 1321 @ Ordering doctor for SUIV edited from to @ by ELAINA at 03/30/24 1321 @ Ordering doctor for SUV edited from to @ by ELAINA at 03/30/24 1321 @ Submitting doctor edited from to @ by ELAINA at 03/30/24 1321 HEADER OPERATION: Exploratory laparoscopic, possible open, possible bowel resection PRE-OP DIAGNOSIS: Personal history of other diseases of digestive system, vascular disorder of intestine, ventral hernia without obstruction TISSUE SUBMITTED: A- Hernia sac, B- Small bowel segment, C- Distal small bowel segment MICROSCOPIC DIAGNOSIS A. Hernia sac, herniorrophy: Fibrosis and minimal chronic inflammation. B. Small bowel, segmental resection: Hemorrhagic infarction. Acute ileitis with focal necrotizing ileitis. Denudation of mucosa. One out of one lymph node with no pathologic change. C. Distal small bowel segment, excision: Hemorrhagic infarction with associated acute ileitis. AM/ 04/01/2024 MICROSCOPIC DESCRIPTION Slides are reviewed. GROSS DESCRIPTION A. Received in fixative is one container labeled with the patient's name and designated Hernia sac. The specimen consists of an irregular fragment of pink-yellow fibrofatty tissue measuring 6.0 x 6.0 x 2.0cm. Serial sections do not reveal mass lesions. Communications Project Manager sections are submitted in one cassette. B. Received in fixative is one container labeled with the patient's name and designated Small bowel segment. The specimen consists of a bowel measuring 29.5cm in length and surrounded by bess-yellow fibrofatty tissue. Both ends of the bowel are stapled. The mucosa is bess-corbett in color and dusky corbett in areas. No gross perforation is evident. The diameter of the bowel varies from 4.0cm to 13.0cm. No mucosal mass lesions are identified. The bowel wall varies in thickness from 0.6 to 0.1cm in greatest dimension. Communications Project Manager sections are submitted in eight cassettes as follows: 1- one mucosal margin, 2- the opposite mucosal margin, 3- non-dilated segment from one end, 4- non-dilated segment from the opposite end, 5-7- dilated portion of bowel, 8- periolar fibrofatty tissue. C. Received in fixative is one container labeled with the patient's name and designated Distal small bowel segment. The specimen consists of a 2.5cm of bowel with an open end and a stapled end. The mucosa is reddish-bess in color with a dusky corbett appearance. No mass lesions are identified. The end that is stapled is inked black. The open end is inked blue. Communications Project Manager sections from both ends and mid portion are submitted in three cassettes. TAE/ 03/31/2024 TC:[id number]:[id number]
[2024-03-29 14:42] LABS: Pathologist Review Reviewed
[2024-03-29] MEDS: Bupivacaine Mpf 0.5% 30 ML VIAL (16:00)
--- NOTE | 2024-03-29 16:08 | OP.PCM_ITS ---
Report of Operation Date of Procedure: 03/29/24 Pre-Operative Diagnosis: Ischemic bowel and abdominal pain Post-Operative Diagnosis: Ischemic small bowel Surgery/Procedure Performed:: Exploratory laparoscopy with small bowel resection and ileostomy and flexible endoscopy Description of Surgical Findings:: Ischemia of the distal small bowel Type of Anesthesia: General/Regional Specimen's removed: distal small bowel Estimated Blood Loss (mL): 30 Description of Procedure: Patient was brought back to the operating room and general anesthesia was induced. Chavez catheter was placed. The abdomen was prepped and draped in usual sterile fashion. Midline incision was made superior to the umbilicus and deepened to the fascia was elevated and incised. A Beltre port was placed into the abdomen and it was insufflated 15 mmHg. Camera was placed into the abdomen and patient was placed in Trendelenburg position. Under direct visualization a 5 mm port was placed in the left lateral abdomen and left lower quadrant. There were tightly adherent bowel in the ileostomy site hernia. These were sharply taken down, and the bowel was reduced into the abdomen fully. There is no ischemia to the bowel that was in the hernia. It appeared that the area was ischemic distal to the second hernia all the way to the ileoanal anastomosis. Flexible sigmoidoscopy was performed and it appeared that the patient had necrosis of the entire ischemic segment on the mucosa. There was decided to remove this segment. The mesentery was taken down until the distal bowel was reached. I tried to dissect into the pelvis but it was very scarred and I was unable to reach the staple line. The Junction stapler was used to staple across the small bowel just proximal to the pelvis. The area was irrigated and suctioned dry. The bowel was inspected from the beginning to the end and there were no other adhesions or signs of ischemia. The pelvis was inspected once more and he was irrigated and suctioned dry and hemostasis was obtained. Next the mesentery was taken down proximally until the healthy bowel was reached using the Enseal. The end of the small bowel was grasped with a grasper and then the ileostomy site was created over the old ileostomy. The abdomen was allowed to desufflate. The old ileostomy site was opened using scalpel and a new ileostomy was created. The hernia at the old ileostomy site was partially closed with interrupted [id number] 0 Nurolon sutures to close the gap to the appropriate size. The abdomen the midline fascia was closed with [id number] 0 Vicryl suture. The other port sites were closed with interrupted 4-0 Monocryl sutures. After the bandages and Steri-Strips were placed the ileostomy was matured. It was brought out to the skin level and sutured to the fascia using interrupted 3-0 silk sutures. Next it was matured in a Cece fashion using interrupted 3-0 silk suture circumferentially. Stoma appliance was applied. The stoma was digitized and the finger easily mated through the fascia with no resistance. Next patient was awoken and taken to PACU in stable condition and Chavez was left in place. Because I was unable to reach the distal staple line I have contacted [facility] and arrange for transfer for him to a colorectal surgeon who can come from the bottom and get to the rectal stump and what ever is left of the J-pouch to resect. Patient will be kept on n.p.o. and antibiotics until transfer. Admit VTE Documentation VTE Mechan Device Prophylaxis: SCD's
--- NOTE | 2024-03-29 16:23 | PCM.HOSP.N ---
Hospitalist Note Discussed case postoperatively with Dr. Wood and the patient does have bowel with bowel remaining that he was not able to access and will need transferred. He will be called to transfer to [facility]. Plan is for discharge to [facility] once bed available.
[2024-03-30] MEDS: 0.9% Normal Saline (1000mL) 1,000 ML 125 ML IV (02:38)
[2024-03-30 04:15] VITALS: BP 113/75; PULSE 85; RESP 18; TEMP 36.4; O2SAT 96
[2024-03-30] MEDS: Piperacil/Tazobactam 3.375 GM in 0.9% Normal Saline (50mL MB+) 50 ML IV ×3 (05:22→23:16)
[2024-03-30 06:52] LABS: Absolute Lymphocyte Count 0.61 X10^3/uL (0.83-4.51); Absolute Neutrophil Count 33.1 X10^3/uL (2.0-7.7); Basophil# 0.08 X10^3/uL; Basophil% 0.2 % (0-1); Hematocrit 33.2 % (40-54); Hemoglobin 10.5 g/dL (13.0-16.5); Lymphocyte # 0.61 X10^3/ul (0.83-4.51); Lymphocyte % 1.7 % (19-41); Mean Corp Hgb Conc 31.6 g/dL (32-36); Mean Corpuscular Hgb 28.4 pg (27.0-32.0); Mean Corpuscular Volume 89.7 fL (80-94); Monocyte# 1.58 X10^3/uL; Monocyte% 4.4 % (0-10); NRBC Flagged by Analyzer 0 % (0-5); Neutrophil # 33.06 X10^3/uL (2.7-7.7); Neutrophil % 91.1 % (47-70); POSITIVE COUNT YES; POSITIVE DIFFERENTIAL YES; Platelet Count 195 K/mm3 (150-450); RBC Distribution Width CV 14.3 % (11.6-14.6); RBC Distribution Width SD 46.6 fl (35.1-43.9)
[2024-03-30 06:58] LABS: Differential Indicated SCAN CRITERIA MET; White Blood Count 36.3 K/mm3 (4.4-11.0)
--- NOTE | 2024-03-30 07:07 | PCM.PN.SRG ---
Subjective Subjective Patient reports he was comfortable overnight was able to sleep. He is having abdominal pain in the lower but it is much better than yesterday. Denies fevers or chills or nausea or vomiting. Objective Data Objective Data Vital Signs: Vital Signs Temp Pulse Resp BP Pulse Ox O2 Del Method O2 Flow Rate 97.6 F L 85 18 113/75 96 Nasal Cannula 2 03/30/24 04:15 03/30/24 04:15 03/30/24 04:15 03/30/24 04:15 03/30/24 04:15 03/30/24 04:15 03/30/24 04:15 Oxygen Flow Rate (L/min) 2 Oxygen Delivery Method Nasal Cannula Weight: 201 lb 9.451 oz Body Mass Index (BMI) 21.2 Intake & Output: Intake and Output for Last 24 Hours 03/28/24 03/29/24 03/30/24 23:59 23:59 23:59 Intake Total 1680 / 1680 3297.08 / 3297.08 1074.58 / 1074.58 Output Total 850 / 1350 500 / 500 Balance 1680 / 1680 2447.08 / 1947.08 574.58 / 574.58 Lab / Micro Data 03/30/24 05:40 03/29/24 06:00 Labs: Laboratory Results - last 24 hr 03/28/24 17:55: Diff Path Review Reviewed 03/29/24 06:00: WBC 47.8 H*, RBC 4.39 L, Hgb 12.5 L, Hct 39.0 L, MCV 88.8, MCH 28.5, MCHC 32.1, RDW Std Deviation 44.6 H, RDW Coeff of Shavon 13.8, Plt Count 247, MPV 9.5, Immature Gran % (Auto) 2.700 H, Neut % (Auto) 89.5 H, Lymph % (Auto) 1.5 L, [place] % (Auto) 5.8, Eos % (Auto) 0.1, Baso % (Auto) 0.4, Absolute Neuts (auto) 42.8 H, Absolute Lymphs (auto) 0.72 L, Nucleated RBC % 0, Differential Comment SCANNED, Diff Path Review March, Sodium 140, Potassium 4.7, Chloride 114 H, Carbon Dioxide 18.0 L, Anion Gap 8, BUN 38 H, Creatinine 2.17 H, Estim Creat Clear Calc 29.67, Est GFR (MDRD) Af Amer 39 L, Est GFR (MDRD) Non-Af 32 L, BUN/Creatinine Ratio 17.5, Glucose 150 H, Calcium 8.4 L, Total Bilirubin 1.20 H, AST 15, ALT 31, Alkaline Phosphatase 116, Total Protein 6.4, Albumin 2.7 L, Globulin 3.7, Albumin/Globulin Ratio 0.7 L, Lipase 26 03/29/24 08:05: Lactic Acid 2.4 H* 03/29/24 17:23: Lactic Acid 2.0 03/30/24 05:40: WBC 36.3 H*, RBC 3.70 L, Hgb 10.5 L, Hct 33.2 L, MCV 89.7, MCH 28.4, MCHC 31.6 L, RDW Std Deviation 46.6 H, RDW Coeff of Shavon 14.3, Plt Count 195, MPV 10.0, Immature Gran % (Auto) 2.600 H, Neut % (Auto) 91.1 H, Lymph % (Auto) 1.7 L, [place] % (Auto) 4.4, Eos % (Auto) 0.0, Baso % (Auto) 0.2, Absolute Neuts (auto) 33.1 H, Absolute Lymphs (auto) 0.61 L, Nucleated RBC % 0 Micro: Microbiology 03/29/24 02:30 Stool Enteric Bacteriology - Final 03/29/24 02:30 Stool Clostridioides difficile (PCR) - Final 03/29/24 02:30 Stool Stool Occult Blood (ULISES) - Final Occult Blood Positive Radiography Diagnostic Testing: Radiology Impression Abdomen CT 03/29/24 07:27 IMPRESSION: Essentially stable examination. Electronically Signed: Cortez Arredondo MD at 11:20 EDT , Physical Exam Const oriented x3 and no apparent distress Resp normal respiratory effort GI soft to palpation Palpation: tender Extremity normal to inspection Assessment & Plan Assessment/Plan (1) Small bowel ischemia: PLAN: Patient had small bowel ischemia from his anastomosis up about a foot and half. I resected what I could of the bowel and brought on the ileostomy which is pink and putting out some stool. He is more comfortable and his abdomen is soft and much less tender. His white count is still markedly elevated. He is waiting a transfer to [facility]. I was unable to get all the way into the pelvis to remove the entire pouch. I did take down all of the scar tissue inside of the abdomen so it should be fairly easy to get in laparoscopically if she decides to go abdominal approach or she may do a transanal resection. Either way the patient likely needs to be seen by colorectal surgery also to decide if there is any way to reconnect. I was unable to find a cause for the ischemia. Unsure if it was an embolic event but there was no twisting or turning of the bowel or the mesentery. Continue antibiotics and clears as tolerated until transfer. IV fluids. Juan Carlos Wood MD Pager: [facility] [address] [place] [address] [address] [place] [address] Office:
--- NOTE | 2024-03-30 07:22 | NURSING ---
I spoke to [facility] transfer line and they stated the patient is on their high priority list however they do not have a bed at this time.
[2024-03-30 07:46] VITALS: O2SAT 96
[2024-03-30 07:58] LABS: Differential Comment SCANNED
[2024-03-30 08:25] VITALS: BP 115/75; PULSE 85; RESP 16; TEMP 36.7; O2SAT 94
[2024-03-30] MEDS: 0.9% Saline Lock 10 ML Syringe IV (08:36)
[2024-03-30 08:43] LABS: ALB/GLOB Ratio 0.6 RATIO (0.9-2.4); AST(SGOT) 14 U/L (15-37); Alanine Aminotransfer ALT/SGPT 20 U/L (16-61); Alkaline Phosphatase 98 U/L (45-117); Anion Gap 6 (5-15); BUN 35 mg/dL (7-18); BUN/Creat Ratio 17.6 RATIO (10-20); Calcium,Total 8.2 mg/dL (8.5-10.1); Chloride 119 mmol/L (98-107); Creatinine, Serum 1.99 mg/dL (0.70-1.30); EST Glomerular Filtration Rate 36 mL/min (>60); Est Glom Filt Rate - Afr Amer 43 mL/min (>60); Estimated Creatinine Clearance 39.15 ml/min; Globulin 3.4 g/dL (2.2-4.2); Glucose 129 mg/dL (74-106); Potassium 4.4 mmol/L (3.5-5.1); Protein, Total 5.4 g/dL (6.4-8.2); Sodium Level 144 mmol/L (136-145)
[2024-03-30] MEDS: Vancomycin IV 1,000 MG/200 ML BAG 200 MG IV (09:15)
--- NOTE | 2024-03-30 10:37 | CASEMGMT ---
Patient indicated he has Healthcare Power of Applications Engineer Manufacturing and Healthcare Living Will. Patient is aware copies are not on file and to bring in copies as able. Olga Witt MSW BRET
[2024-03-30 10:40] LABS: Phosphorus 2.8 mg/dL (2.5-4.9)
[2024-03-30] MEDS: Pantoprazole Sodium 40 MG in 0.9% Normal Saline (100mL MB+) 100 ML 330 MG IV ×2 (10:54→22:00)
--- NOTE | 2024-03-30 11:54 | PCM.PN.HOSP ---
Reason for Visit Reason for Visit: Abdominal pain Subjective Subjective Patient notes that he is feeling better today. Aware that he is awaiting transfer to [facility] for further surgery. We did discuss that his white count is improved and that he will remain on IV antibiotics for now. We did call the clinic to assess for timing of bed availability as patient and family were asking and they are unsure as this is discharge dependent. Objective Data Objective Data Vital Signs: Vital Signs Temp Pulse Resp BP Pulse Ox O2 Del Method O2 Flow Rate 98.0 F 85 16 115/75 94 Nasal Cannula 2 03/30/24 08:25 03/30/24 08:25 03/30/24 08:25 03/30/24 08:25 03/30/24 08:25 03/30/24 08:25 03/30/24 08:25 Oxygen Flow Rate (L/min) 2 Oxygen Delivery Method Nasal Cannula Weight: 91.44 kg Body Mass Index (BMI) 21.2 Intake & Output: Intake and Output for Last 24 Hours 03/28/24 03/29/24 03/30/24 23:59 23:59 23:59 Intake Total 1680 / 1680 3297.08 / 3297.08 2132.50 / 2132.50 Output Total 850 / 1350 1200 / 1200 Balance 1680 / 1680 2447.08 / 1947.08 932.50 / 932.50 Lab / Micro Data 03/30/24 05:40 03/30/24 05:40 Labs: Laboratory Results - last 24 hr 03/28/24 17:55: Diff Path Review Reviewed 03/29/24 17:23: Lactic Acid 2.0 03/30/24 05:40: WBC 36.3 H*, RBC 3.70 L, Hgb 10.5 L, Hct 33.2 L, MCV 89.7, MCH 28.4, MCHC 31.6 L, RDW Std Deviation 46.6 H, RDW Coeff of Shavon 14.3, Plt Count 195, MPV 10.0, Immature Gran % (Auto) 2.600 H, Neut % (Auto) 91.1 H, Lymph % (Auto) 1.7 L, [place] % (Auto) 4.4, Eos % (Auto) 0.0, Baso % (Auto) 0.2, Absolute Neuts (auto) 33.1 H, Absolute Lymphs (auto) 0.61 L, Nucleated RBC % 0, Differential Comment SCANNED, Diff Path Review March foll, Sodium 144, Potassium 4.4, Chloride 119 H, Carbon Dioxide 19.0 L, Anion Gap 6, BUN 35 H, Creatinine 1.99 H, Estim Creat Clear Calc 39.15, Est GFR (MDRD) Af Amer 43 L, Est GFR (MDRD) Non-Af 36 L, BUN/Creatinine Ratio 17.6, Glucose 129 H, Calcium 8.2 L, Phosphorus 2.8, Magnesium 2.0, Total Bilirubin 0.50, AST 14 L, ALT 20, Alkaline Phosphatase 98, Total Protein 5.4 L, Albumin 2.0 L, Globulin 3.4, Albumin/Globulin Ratio 0.6 L Micro: Microbiology 03/29/24 02:30 Stool Enteric Bacteriology - Final 03/29/24 02:30 Stool Clostridioides difficile (PCR) - Final 03/29/24 02:30 Stool Stool Occult Blood (ULISES) - Final Occult Blood Positive Physical Exam Const alert, oriented x3, no apparent distress, no limitations and well nourished; Negative for average body habitus or healthy appearing Constitutional Narrative: Overweight, upper middle-aged, white male who is lying in bed, appears much more comfortable today, family at bedside, does not appear acutely toxic HEENT normocephalic, head/scalp atraumatic, hearing grossly normal bilaterally and moist oral mucous membranes HEENT Narrative: Mallampati 3, no thrush Resp normal respiratory effort, no retractions, no use of accessory muscles and clear to auscultation bilaterally Resp Narrative: Poor inspiratory effort with few inspiratory crackles at bases that clear with deep breathing Auscultation: crackles; Negative for rales, rhonchi or wheezes Cardio regular rate, regular rhythm, S1 normal heart sound, S2 normal heart sound, no murmurs, no rub, no gallops and no clicks GI GI Narrative: Abdomen is soft, mildly diffusely tender, bowel sounds are hypoactive Palpation: tender epigastric and hernia; Negative for guarding Extremity normal capillary refill and no clubbing, cyanosis or edema Extremity Narrative: Pedal pulses are 2+ Neuro oriented x3, moves all extremities and no focal motor deficits Speech: speech normal Psych thought process normal, cooperative and affect normal Psych Narrative: Affect is flat appropriate for how the patient is feeling at this time, eye contact is good and patient interacts appropriately Assessment & Plan Assessment/Plan (1) Small bowel ischemia: PLAN: Plan Abdominal pain and leukocytosis secondary to ischemic bowel -Ex lap performed yesterday at which time ischemic bowel was noted however not able to be completely removed and colorectal surgery as needed -Transferred and accepted by [facility] and currently awaiting bed -Stool studies for enteric pathogens and C. difficile were unremarkable -Discontinue p.o. and IV vancomycin -Continue IV Zosyn -Cultures remain pending however I suspect all of his symptoms are related to his ischemic gut -Continue IV fluids but decrease rate to 70 cc/h -Clear liquids as tolerated per general surgery -Continue as needed IV Dilaudid -Continue as needed Zofran -General surgery is following-appreciate input Leukocytosis -Trending down -Likely reactive to ischemic gut -Cultures are pending -Continue Zosyn -Continue to monitor with repeat lab in a.m. Lactic acidosis -Resolved -secondary to the above -Appears to be improving -Continue IV fluids History of ulcerative colitis -Has had pretty devious bowel surgery x 3 -Not on any modulating drugs or steroids at this time -Will need outpatient follow-up after discharge Abdominal wall hernia -Easily reducible by general surgery -General surgery is following-appreciate input CKD stage IIIa -Baseline is between 2 and 2.25 -2.15 on admission--> currently 1.99 -Continue IV fluids -Hold home lisinopril -Avoid nephrotoxins as able -Patient does follow as an outpatient with Dr. Lorenzo Essential hypertension/hyperlipidemia -Hold home statin -Hold home antihypertensives -Restart home medication when appropriate DVT prophylaxis -Hold chemoprophylaxis due to recent surgery and need for upcoming further surgery -SCDs CODE STATUS Full code Charges/Coding Visit Charges Inpatient E&M: 36532 Subs Hosp L2
[2024-03-30] MEDS: 0.9% Normal Saline (1000mL) 1,000 ML 75 ML IV ×2 (12:05→23:20)
--- NOTE | 2024-03-30 13:28 | CHAPLAIN ---
Type of Pastoral Visit _x__ Initial Visit ___ Follow-up Visit ___ On-call Visit ___ General Patient Visit ___ Spiritual Assessment ___ Family Conference ___ Bereavement ___ Rapid Response ___ Code Blue ___ Other (describe below) Pastoral Care Referral From _x__ Patient ___ Family ___ Nurse ___ Physician ___ Dredge Boat Engineer ___ Electric Motor Repairing Supervisor ___ Other (describe below) Sacrament/Intervention _x__ Active listening ___ Anointing ___ Sabianism ___ Bereavement ___ Communion ___ Ilene exploration ___ ___ Life review _x__ Prayer ___ Reconciliation ___ Sacrament of Sick _x__ Supportive presence ___ Wedding ___ Other (describe below) Pastoral Comments spouse and son are with patient in the room; pt is alert and able to answer questions but is also somewhat weakened by appearance; pt recalls his visit to ED and decision to be transferred out to another hospital when a bed becomes available; pt main concern is for transfer and correct follow up for phase two; pt has had this issue before and has been given phase one; prayer is accepted by patient for today's support
[2024-03-30 14:03] LABS: Pathologist Review Reviewed
[2024-03-30 14:20] VITALS: BP 103/66; PULSE 87; RESP 16; TEMP 36.8; O2SAT 99
[2024-03-30 20:20] VITALS: BP 117/70; PULSE 81; RESP 18; TEMP 36.6; O2SAT 99
[2024-03-31 02:20] VITALS: BP 113/73; PULSE 62; RESP 18; TEMP 36.2; O2SAT 95
[2024-03-31] MEDS: Piperacil/Tazobactam 3.375 GM in 0.9% Normal Saline (50mL MB+) 50 ML IV (06:07)
[2024-03-31 06:19] LABS: Absolute Lymphocyte Count 1.22 X10^3/uL (0.83-4.51); Absolute Neutrophil Count 28.2 X10^3/uL (2.0-7.7); Basophil# 0.07 X10^3/uL; Basophil% 0.2 % (0-1); Eosinophil# 0.01 X10^3/uL; Hematocrit 32.6 % (40-54); Hemoglobin 10.2 g/dL (13.0-16.5); Lymphocyte # 1.22 X10^3/ul (0.83-4.51); Lymphocyte % 3.9 % (19-41); Mean Corp Hgb Conc 31.3 g/dL (32-36); Mean Corpuscular Hgb 28.7 pg (27.0-32.0); Mean Corpuscular Volume 91.6 fL (80-94); Mean Platelet Vol. 10.1 fl (6.2-12.0); Monocyte# 1.17 X10^3/uL; Monocyte% 3.8 % (0-10); NRBC Flagged by Analyzer 0 % (0-5); Neutrophil # 28.17 X10^3/uL (2.7-7.7); Neutrophil % 90.4 % (47-70); POSITIVE COUNT YES; POSITIVE DIFFERENTIAL YES; Platelet Count 212 K/mm3 (150-450); RBC Distribution Width CV 14.3 % (11.6-14.6); RBC Distribution Width SD 48.6 fl (35.1-43.9); Red Blood Count 3.56 M/mm3 (4.6-6.2)
[2024-03-31 06:33] LABS: Differential Indicated SCAN CRITERIA MET; White Blood Count 31.2 K/mm3 (4.4-11.0)
[2024-03-31 07:01] LABS: ALB/GLOB Ratio 0.5 RATIO (0.9-2.4); AST(SGOT) 10 U/L (15-37); Alanine Aminotransfer ALT/SGPT 18 U/L (16-61); Albumin, Serum 1.8 g/dL (3.2-5.0); Alkaline Phosphatase 99 U/L (45-117); Anion Gap 7 (5-15); BUN 39 mg/dL (7-18); BUN/Creat Ratio 19.8 RATIO (10-20); Chloride 117 mmol/L (98-107); Creatinine, Serum 1.97 mg/dL (0.70-1.30); EST Glomerular Filtration Rate 36 mL/min (>60); Est Glom Filt Rate - Afr Amer 44 mL/min (>60); Estimated Creatinine Clearance 39.54 ml/min; Globulin 3.4 g/dL (2.2-4.2); Glucose 91 mg/dL (74-106); Phosphorus 2.8 mg/dL (2.5-4.9); Potassium 4.3 mmol/L (3.5-5.1); Protein, Total 5.2 g/dL (6.4-8.2); Sodium Level 142 mmol/L (136-145)
--- NOTE | 2024-03-31 07:23 | NURSING ---
I spoke with Sánchez at [facility] transfer line they stated that the pt is still on the wait list however they do not have a bed at this time. They were unable to give me a time frame of when they would have a bed available.
[2024-03-31 07:44] VITALS: O2SAT 96
--- NOTE | 2024-03-31 07:49 | PCM.PN.SRG ---
Subjective Subjective Patient reports that his pain is well-controlled. He denies nausea or vomiting and tolerated clear liquids. He has output from his ileostomy Objective Data Objective Data Vital Signs: Vital Signs Temp Pulse Resp BP Pulse Ox O2 Del Method O2 Flow Rate 97.1 F L 62 18 113/73 95 Nasal Cannula 2 03/31/24 02:20 03/31/24 02:20 03/31/24 02:20 03/31/24 02:20 03/31/24 02:20 03/31/24 02:03/31/24 02:20 Oxygen Flow Rate (L/min) 2 Oxygen Delivery Method Nasal Cannula Weight: 201 lb 9.451 oz Body Mass Index (BMI) 21.2 Intake & Output: Intake and Output for Last 24 Hours 03/29/24 03/30/24 03/31/24 23:59 23:59 23:59 Intake Total 3297.08 / 3297.08 3426.25 / 3606.25 230 / 230 Output Total 850 / 1350 1675 / 2175 500 / 500 Balance 2447.08 / 1947.08 1751.25 / 1431.25 -270 / -270 Lab / Micro Data 03/31/24 05:25 03/31/24 05:25 Labs: Laboratory Results - last 24 hr 03/29/24 06:00: Diff Path Review Reviewed 03/30/24 05:40: Differential Comment SCANNED, Diff Path Review March foll, Sodium 144, Potassium 4.4, Chloride 119 H, Carbon Dioxide 19.0 L, Anion Gap 6, BUN 35 H, Creatinine 1.99 H, Estim Creat Clear Calc 39.15, Est GFR (MDRD) Af Amer 43 L, Est GFR (MDRD) Non-Af 36 L, BUN/Creatinine Ratio 17.6, Glucose 129 H, Calcium 8.2 L, Phosphorus 2.8, Magnesium 2.0, Total Bilirubin 0.50, AST 14 L, ALT 20, Alkaline Phosphatase 98, Total Protein 5.4 L, Albumin 2.0 L, Globulin 3.4, Albumin/Globulin Ratio 0.6 L 03/31/24 05:25: WBC 31.2 H*, RBC 3.56 L, Hgb 10.2 L, Hct 32.6 L, MCV 91.6, MCH 28.7, MCHC 31.3 L, RDW Std Deviation 48.6 H, RDW Coeff of Shavon 14.3, Plt Count 212, MPV 10.1, Immature Gran % (Auto) 1.700 H, Neut % (Auto) 90.4 H, Lymph % (Auto) 3.9 L, [place] % (Auto) 3.8, Eos % (Auto) 0.0, Baso % (Auto) 0.2, Absolute Neuts (auto) 28.2 H, Absolute Lymphs (auto) 1.22, Nucleated RBC % 0, Diff Path Review March, Sodium 142, Potassium 4.3, Chloride 117 H, Carbon Dioxide 18.0 L, Anion Gap 7, BUN 39 H, Creatinine 1.97 H, Estim Creat Clear Calc 39.54, Est GFR (MDRD) Af Amer 44 L, Est GFR (MDRD) Non-Af 36 L, BUN/Creatinine Ratio 19.8, Glucose 91, Calcium 8.0 L, Phosphorus 2.8, Magnesium 2.0, Total Bilirubin 0.40, AST 10 L, ALT 18, Alkaline Phosphatase 99, Total Protein 5.2 L, Albumin 1.8 L, Globulin 3.4, Albumin/Globulin Ratio 0.5 L Micro: Microbiology 03/29/24 02:30 Stool Enteric Bacteriology - Final 03/29/24 02:30 Stool Clostridioides difficile (PCR) - Final 03/29/24 02:30 Stool Stool Occult Blood (ULISES) - Final Occult Blood Positive Physical Exam Const oriented x3 and no apparent distress Resp normal respiratory effort GI soft to palpation Palpation: tender Assessment & Plan Assessment/Plan (1) Small bowel ischemia: PLAN: The patient reports that his pain is improving and he did tolerate clear liquids with output from his ileostomy. Patient's white count is still markedly elevated and he is still on antibiotics. He still has a piece of ischemic pouch attached to his anus that needs to be resected. I called [facility] transfer line again today and they still do not have a bed for him. At this point continue antibiotics and IV fluids and I will try to reach out to other hospitals Juan Carlos Wood MD Pager: [facility] [address] [place] [address], [address] [place] [address] Office:
[2024-03-31 07:55] VITALS: BP 133/69; PULSE 74; RESP 18; TEMP 35.9; O2SAT 94
--- NOTE | 2024-03-31 09:01 | NURSING ---
consent for transfer obtained
[2024-03-31 09:18] LABS: Pathologist Review Reviewed
--- NOTE | 2024-03-31 09:37 | NURSING ---
attempted iv start by Jose CONTRERAS Nursing coil machine supervisor unsuccessful. currently no iv access.
--- NOTE | 2024-03-31 11:48 | PCM.DC.SUM ---
Providers Date of Admission: 03/28/24 Date of Discharge: 03/30/24 Primary Care Physician: Dr. Michael Kaur MD Consultations 03/28/24 23:41 Consult: General Surgery Routine Consulting Provider: Juan Carlos Wood Reason for Consult: Abdominal pain EMERGENT Consult: Yes Notified: Yes Date Notified: 03/28/24 Time Notified: 22:24 Method of Notification: Verbal 03/29/24 06:56 Consult: Gastroenterology Routine Consulting Provider: [facility] Reason for Consult: UC and bloody stool EMERGENT Consult: Yes Notified: Yes Date Notified: 03/29/24 Time Notified: 05:40 Method of Notification: Text Reason For Visit: ABDOMINAL PAIN Diagnosis Discharge Diagnosis (1) Small bowel ischemia: Status: Acute Code(s): K55.9 - Vascular disorder of intestine, unspecified Medications at Discharge Home Medications amlodipine 10 mg tablet 5 mg PO DAILY BP 10/13/18 lisinopril 10 mg tablet 10 mg PO DAILY 10/13/18 cholecalciferol (vitamin D3) 25 mcg (1,000 unit) tablet 1,000 unit PO DAILY 05/31/19 atorvastatin 20 mg tablet 20 mg PO DAILY 03/28/24 Hospital Course Operations - (Exploratory laparoscopy with small bowel resection and ileostomy and flexible endoscopy) Procedures PICC line placement (Placed on 03/31/2024) and - (CT abdomen pelvis with and without contrast/gallbladder ultrasound) Summary of Care Provided Minutes Spent on Discharge: 41 Hospital Course: Patient is a 68-year-old white male with a past medical history of ulcerative colitis who presented to the emergency department at [facility] on 03/28/2024 with epigastric pain that has been constant since he awoke that morning. He reported he ate a half a donut and some worse juice the morning of admission and stated that a few hours later he developed nausea and vomited twice. He indicated his stool is typically soft and watery and he was started on prednisone last week for muscle injury. His stool became solid for a few days but since finishing the prednisone it became more watery. He indicated on the day of presentation it was brownish-red. He denied any fever or chills and stated that he had about 3 abdominal surgery previously for colon resection and then colostomy with subsequent reversal. He does not see a GI physician or take any medications on a chronic basis for ulcerative colitis. He indicated he been fatigued all week. Vital signs on presentation showed temperature of 96.8, heart rates 87, respiratory was 18 oxygen saturations were 100% on room air with initial blood pressure of 86/50 but a repeat at 129/79. CBC showed a markedly elevated white count at 32.7 with a marked left shift showing an 87.5% neutrophilia. His initial chemistry panel showed a low serum bicarb at 16 with an elevated BUN and serum creatinine at 49 and 2.15 respectively) we did find that this is close to his outpatient baseline serum creatinine and he does follow-up with Dr. Lorenzo). His initial lactate was 6.0 with a repeat at 3 point 0-1/3 this morning at 2.4. LFTs were unremarkable other than a mildly elevated alk phos at 123. Lipase was normal at 55. His UA was unremarkable. CT of the abdomen pelvis showed extensive large complex abdominal wall hernias containing numerous amount of bowel but no evidence of obstruction and a distended gallbladder and common bile duct with severe moderate to severe bilateral renal parenchymal thinning. Gallbladder ultrasound was performed and showed a distended gallbladder but no cholelithiasis or acute cholecystitis, renal cortical thinning on the right with no stones masses or hydronephrosis and no other significant abnormalities. He was evaluated by general surgery and a repeat CT of the abdomen was performed with p.o. contrast. Repeat CT showed no signs of obstruction however there was a loop of bowel in the right hernia and the anastomosis that did look more inflamed than on previous imaging. Given his severe abdominal pain in the area there was concern for ischemia so he was taken to the OR for an exploratory laparoscopy to evaluate for bowel ischemia. An exploratory laparoscopy with small bowel resection and ileostomy and flexible endoscopy was performed at which time he was found to have small bowel ischemia from his anastomosis is up to about a foot and a half. This was resected and the ileostomy was noted to be pink with some stool output. There was still some bowel ischemia noted in the colorectal area so Dr. Wood recommended transfer to tertiary center and discussed with Dr. Rodriges at the [facility] at which time he was accepted. Since a bed did not become available at [facility] we did call and he was accepted there for transfer as well. A bed became available at [facility] in [facility] on 03/31/2024 and he was discharged for further care. While he was hospitalized he was maintained on Zosyn, IV fluids, antiemetics, and IV pain medication. PICC line had to be placed due to poor IV access. Discharge diagnoses: Abdominal pain secondary to ischemic bowel Leukocytosis Lactic acidosis Abdominal wall hernia Rash CKD stage IIIa Essential hypertension Hyperlipidemia Ulcerative colitis History of multiple bowel resection History of tobacco abuse Physical Exam Const alert, oriented x3, no apparent distress, no limitations and well nourished; Negative for average body habitus or healthy appearing Constitutional Narrative: Overweight, upper middle-aged, white male who is lying in bed, appears comfortable, just had a shower, at bedside, nontoxic-appearing General Appearance: cooperative, comfortable, well kempt and well developed Orientation / Consciousness: awake, oriented to person, oriented to place and oriented to time Exam Limitations: no limitations Nutritional Appearance: overweight HEENT normocephalic, head/scalp atraumatic, hearing grossly normal bilaterally and moist oral mucous membranes HEENT Narrative: Mallampati is 3, no thrush Eyes PERRL, EOMs intact bilaterally and conjunctivae normal Eyes Narrative: No scleral icterus Neck no lymphadenopathy and supple Neck Narrative: Trachea midline, no thyroid enlargement Resp normal respiratory effort, no retractions, no use of accessory muscles and clear to auscultation bilaterally Resp Narrative: Improved aeration at the bases bilaterally with resolution of crackles Auscultation: Negative for crackles, rales, rhonchi or wheezes Cardio regular rate, regular rhythm, S1 normal heart sound, S2 normal heart sound, no murmurs, no rub, no gallops and no clicks GI GI Narrative: Abdomen is soft, mildly diffusely tender, bowel sounds remain slightly hypoactive, laparoscopic incisions are clean dry and intact, ostomy is pink with minimal output Extremity no clubbing, cyanosis or edema Extremity Narrative: Pedal pulses are 2+ Skin No no rashes or lesions noted, No no wounds, skin turgor normal and no jaundice Skin Narrative: Diffuse rash noted on entire trunk, upper legs, chest and back, small macular that are not pruritic and where they are prior to coming to the hospital General Skin Exam: no breakdown Neuro oriented x3, CN's II-XII intact bilaterally, moves all extremities and no focal motor deficits Speech: speech normal Psych thought process normal, cooperative and affect normal Psych Narrative: Pleasant, interacts appropriately, eye contact is good, does appear as if he is feeling better overall Weight / BMI Weight Weight: 91.44 kg Body Mass Index (BMI) 21.2 ABG / Lab / Microbiology Data 03/31/24 05:25 03/31/24 05:25 Laboratory: Laboratory Results - last 24 hr 03/28/24 17:55: Diff Path Review Reviewed 03/29/24 17:23: Lactic Acid 2.0 03/30/24 05:40: WBC 36.3 H*, RBC 3.70 L, Hgb 10.5 L, Hct 33.2 L, MCV 89.7, MCH 28.4, MCHC 31.6 L, RDW Std Deviation 46.6 H, RDW Coeff of Shavon 14.3, Plt Count 195, MPV 10.0, Immature Gran % (Auto) 2.600 H, Neut % (Auto) 91.1 H, Lymph % (Auto) 1.7 L, [place] % (Auto) 4.4, Eos % (Auto) 0.0, Baso % (Auto) 0.2, Absolute Neuts (auto) 33.1 H, Absolute Lymphs (auto) 0.61 L, Nucleated RBC % 0, Differential Comment SCANNED, Diff Path Review March foll, Sodium 144, Potassium 4.4, Chloride 119 H, Carbon Dioxide 19.0 L, Anion Gap 6, BUN 35 H, Creatinine 1.99 H, Estim Creat Clear Calc 39.15, Est GFR (MDRD) Af Amer 43 L, Est GFR (MDRD) Non-Af 36 L, BUN/Creatinine Ratio 17.6, Glucose 129 H, Calcium 8.2 L, Phosphorus 2.8, Magnesium 2.0, Total Bilirubin 0.50, AST 14 L, ALT 20, Alkaline Phosphatase 98, Total Protein 5.4 L, Albumin 2.0 L, Globulin 3.4, Albumin/Globulin Ratio 0.6 L Microbiology: Microbiology 03/29/24 02:30 Stool Enteric Bacteriology - Final 03/29/24 02:30 Stool Clostridioides difficile (PCR) - Final 03/29/24 02:30 Stool Stool Occult Blood (ULISES) - Final Occult Blood Positive Meaningful Use Info Meaningful Use Meaningful Use Diagnoses (Choose all that apply): None applicable Ischemic Stroke Statin Dosing Therapy Reference: STATIN DOSE THERAPY REFERENCE: * Patients > 75 years receive moderate or high dose statin therapy. * Patients 75 years or YOUNGER should receive HIGH intensity statin dose unless contraindicated. You will be required to document reason for non-treatment if statin daily dose does not meet guidelines. HIGH DOSE STATIN THERAPY DAILY Atorvastatin > than or = to 40 mg Rosuvastatin > than or = to 20 mg Amlodipine + Atorvastatin > than or = to 2.5/40 mg Ezetimibe + Simvastatin 10/80 mg Simvastatin 80mg Discharge Plan Admission Admit Date/Time: 03/28/24 22:21 Primary Reason for Your Visit: Abdominal pain Attending Provider: Chanell Kelly Primary Care Provider: Michael Kaur Consulting Providers: Juan Carlos Wood; Aydin Geller Discharge Orders/Prescriptions Prescriptions: No Action amlodipine 10 MG tablet 5 mg PO DAILY lisinopril 10 MG tablet 10 mg PO DAILY cholecalciferol (vitamin D3) 1,000 UNIT tablet 1,000 unit PO DAILY atorvastatin 20 mg tablet 20 mg PO DAILY Referrals / Follow Up: Michael Kaur MD [Primary Care Provider] - Care Physician,No Primary [Non-Staff] - Disposition Disposition (needs filled in before D/C Order can be placed): Acute Care Hospital Charges/Coding Visit Charges Inpatient E&M: 45814 Disch Hosp >30min
--- NOTE | 2024-03-31 11:51 | PN.HOSP_ITS ---
Reason for Visit Reason for Visit: Diagnoses Elevated white blood cell count, unspecified (03/28/24) Acute metabolic acidosis (03/28/24) Ventral hernia without obstruction or gangrene (03/28/24) Vascular disorder of intestine, unspecified (03/28/24) Chronic kidney disease, unspecified (03/28/24) Unspecified abdominal pain (03/28/24) Personal history of other diseases of the digestive system (03/28/24) Objective Data Objective Data Vital Signs: Vital Signs Temp Pulse Resp BP Pulse Ox O2 Del Method O2 Flow Rate 96.7 F L 74 18 133/69 H 94 Room Air 2 03/31/24 07:55 03/31/24 07:55 03/31/24 07:55 03/31/24 07:55 03/31/24 07:55 03/31/24 07:55 03/31/24 07:44 Oxygen Flow Rate (L/min) 2 Oxygen Delivery Method Room Air Weight: 91.44 kg Body Mass Index (BMI) 21.2 Intake & Output: Intake and Output for Last 24 Hours 03/29/24 03/30/24 03/31/24 23:59 23:59 23:59 Intake Total 3297.08 / 3297.08 3426.25 / 3606.25 991.04 / 991.04 Output Total 850 / 1350 1675 / 2175 500 / 500 Balance 2447.08 / 1947.08 1751.25 / 1431.25 491.04 / 491.04 Lab / Micro Data 03/31/24 05:25 03/31/24 05:25 Labs: Laboratory Results - last 24 hr 03/29/24 06:00: Diff Path Review Reviewed 03/30/24 05:40: Diff Path Review Reviewed 03/31/24 05:25: WBC 31.2 H*, RBC 3.56 L, Hgb 10.2 L, Hct 32.6 L, MCV 91.6, MCH 28.7, MCHC 31.3 L, RDW Std Deviation 48.6 H, RDW Coeff of Shavon 14.3, Plt Count 212, MPV 10.1, Immature Gran % (Auto) 1.700 H, Neut % (Auto) 90.4 H, Lymph % (Auto) 3.9 L, [place] % (Auto) 3.8, Eos % (Auto) 0.0, Baso % (Auto) 0.2, Absolute Neuts (auto) 28.2 H, Absolute Lymphs (auto) 1.22, Nucleated RBC % 0, Diff Path Review March, Sodium 142, Potassium 4.3, Chloride 117 H, Carbon Dioxide 18.0 L, Anion Gap 7, BUN 39 H, Creatinine 1.97 H, Estim Creat Clear Calc 39.54, Est GFR (MDRD) Af Amer 44 L, Est GFR (MDRD) Non-Af 36 L, BUN/Creatinine Ratio 19.8, Glucose 91, Calcium 8.0 L, Phosphorus 2.8, Magnesium 2.0, Total Bilirubin 0.40, AST 10 L, ALT 18, Alkaline Phosphatase 99, Total Protein 5.2 L, Albumin 1.8 L, Globulin 3.4, Albumin/Globulin Ratio 0.5 L Micro: Microbiology 03/28/24 18:15 Blood Culture (Wb) - Arm Right Blood Culture - Preliminary No growth in 48 hours. 03/28/24 18:30 Blood Culture (Wb) - Arm Right Blood Culture - Preliminary No growth in 48 hours. 03/29/24 02:30 Stool Enteric Bacteriology - Final 03/29/24 02:30 Stool Clostridioides difficile (PCR) - Final 03/29/24 02:30 Stool Stool Occult Blood (ULISES) - Final Occult Blood Positive
--- NOTE | 2024-03-31 12:41 | NURSING ---
nurse to nurse report given to Dinora at [phone]. aware of approximate cook pickled meat time with transport.
[2024-03-31] MEDS: Lactated Ringers 1,000 ML 100 ML IV (12:47)
[2024-03-31] MEDS: Pantoprazole Sodium 40 MG in 0.9% Normal Saline (100mL MB+) 100 ML 330 MG IV (12:47)
--- NOTE | 2024-03-31 12:57 | WOUNDNOTE ---
Was consulted on patient for new ileostomy. pt is currently getting an IV line. will check back later. pt is awaiting transfer to [facility] and the appliance was just changed last evening. nursing aware to call if issues arise.
[2024-03-31 12:58] VITALS: BP 144/83; PULSE 82; RESP 18; TEMP 36.4; O2SAT 95
--- NOTE | 2024-03-31 13:01 | PCM.OP.PRO ---
Procedure Report Date of Procedure: 03/31/24 Assessment & Plan Assessment/Plan (1) Small bowel ischemia: Procedures Radiology Radiology Access Procedures: PICC Procedure Time Out Time Out Informed consent given: Yes Consent signed: Yes Time out checklist: patient, procedure, site marked/identified, positioning of patient, supplies available and allergies confirmed Time out verified: Yes Time out date: 03/31/24 Time out time: 10:45 PICC Line Consent Screening tool completed:: Yes Consent obtained:: Yes Consent given by (patient or responsible libertarian):: patient Line successful (if no, document why in comments):: Yes Insertion Reason for Insertion: Poor Venous Access Date of Insertion: 03/31/24 Ok to use: Yes Type of PICC inserted: Dual Power PICC PICC Lot #: [id number] PICC Reference #: [id number] Microintroducer Used: Yes (in kit) Ultrasound/Equipment Used: Probe Cover Kit Trimmed Length (cm): 49 Insertion Length (cm): 49 Exposed Length (cm): 0 Tip Placement: Caval Atrial Junction Placement Confirmation: 3CG Insertion Vein: Left Brachial Insertion Attempts: 2 Local Anesthesia Used: Lidocaine 1% (in kit) Dressing Applied: Statlock and Tegaderm CHG Arm Measurement above site (in cm): 33 Patient Tolerated Procedure: Well Threading Difficulties: No Comments Comment: Patient identity was verified with two patient identifiers. Informed consent was obtained and time-out was completed. Hands were sanitized. The patient was positioned supine with right arm at 90 degrees. The patient's upper arm vasculature was assessed using ultrasound. Patency of the right brachial vein was confirmed and the vein was externally marked. An external measurement was obtained of 47 cm. External leads were applied to the patient's right upper chest and laterally and inferior of the umbilicus on the mid axillary line. Cap, mask, and prep gloves were donned. The underdrape was placed under the patient's arm. The site was prepped with chlorhexidine, and tourniquet was loosely applied. Prep gloves were discarded, and hands were sanitized. The sterile kit was opened with additional supplies dropped in. Sterile gown and gloves were donned, and the patient was draped. The sterile kit was assembled with needle, introducer, needless connectors, and each catheter lumen flushed with sterile normal saline. The marked site of insertion was anesthetized with 1% lidocaine from the kit. Patient tolerated well. The right brachial vein was then attempted to be accessed using ultrasound guidance but access was unable to obtained. A second attempt on the right side was made in the cephalic vein. Access was easily obtained, but the safety wire met resistance on insertion. The procedure was discontinued. Both the patient and his were informed of the unsuccessful attempt and were agreeable to proceeding with the left side. An opsite was applied to the right upper arm. Patient identity was verified with two patient identifiers. Informed consent was obtained and time-out was completed. Hands were sanitized. The patient was positioned supine with left arm at 90 degrees. The patient's upper arm vasculature was assessed using ultrasound. Patency of the left brachial vein was confirmed and the vein was externally marked. An external measurement was obtained of 49 cm. External leads were applied to the patient's right upper chest and laterally and inferior of the umbilicus on the mid axillary line. Cap, mask, and prep gloves were donned. The underdrape was placed under the patient's arm. The site was prepped with chlorhexidine, and tourniquet was loosely applied. Prep gloves were discarded, and hands were sanitized. The sterile kit was opened with additional supplies dropped in. Sterile gown and gloves were donned, and the patient was draped. The sterile kit was assembled with needle, introducer, needless connectors, and each catheter lumen flushed with sterile normal saline. The marked site of insertion was anesthetized with 1% lidocaine from the kit. Patient tolerated well. The left brachial vein was then accessed using ultrasound guidance and guidewire was inserted to safety regina. The tourniquet was released. The access needle was removed while securing the guidewire in place. The site was again anesthetized with 1% lidocaine, prior to insertion of introducer sheath and dilator. Patient tolerated the insertion well. The catheter was trimmed to a length of 49 cm. Using 3C guidance, the catheter was then inserted through the introducer sheath, slowly. There was no resistance on insertion. The catheter followed the expected course of the vessel using 3CG tracking. The introducer sheath was retracted and peeled away, incrementally, while keeping the catheter secured. Maximal p-wave, without deflection, confirming placement in the cavoatrial junction, was obtained at an insertion length of 49 cm, leaving 0 cm external. The stylet was removed. A flushed needleless connector was attached to the lumen. Aspiration of the lumen was performed to remove any air and confirm blood return. Blood return was verified and each lumen was flushed with 10 ml of sterile normal saline in a pulsatile fashion. The each lumen was clamped with the last pulsed flush. Total sterile flushes used for the insertion was 6 10 ml syringes, 2 from the kit. Finally, the insertion site was cleaned with chlorhexidine, and the catheter was secured using a StatLock. The site was covered with a Tegaderm CHG Dressing and disinfecting caps were applied. Baseline arm circumference was obtained at the insertion site and measured 33 cm. The patient was provided with a patient education handout on PICC line care of infection prevention, heavy lifting restriction, maintaining mobility, and watching for any signs of infection. The primary nurse and charge nurse are aware that the PICC line is ready for use.
[2024-03-31] MEDS: 0.9% Saline Lock 10 ML Syringe IV (13:10)
--- NOTE | 2024-03-31 13:20 | NURSING ---
report given to ambulance service, spouse at bedside.
[2024-04-01 15:42] LABS: Pathologist Review Reviewed
== END 2024-03-31 13:17 | disposition short-term general hospital (02) | DRG 330 ==
LOC: ED 22:04 → PCU 22:35
PROVIDERS: Physician Assistant; Surgery; Admitting Provider Family Medicine; Emergency Provider Emergency Medicine; PCP Family Medicine; Visit Provider Internal Medicine
PROC: 0D1B4Z4 Bypass Ileum to Cutaneous, Percutaneous Endoscopic Approach (ICD-10-PCS; CPT 44202; principal; 2024-03-29 14:05)
DX: K55.019 Acute (reversible) ischemia of small intestine, extent unspecified (principal); E87.21 Acute metabolic acidosis; K92.1 Melena; N18.31 Chronic kidney disease, stage 3a; I12.9 Hypertensive chronic kidney disease with stage 1 through stage 4 chronic kidney disease, or unspecified chronic kidney disease; E78.5 Hyperlipidemia, unspecified; K43.9 Ventral hernia without obstruction or gangrene; Z79.899 Other long term (current) drug therapy; Z87.891 Personal history of nicotine dependence; Z87.19 Personal history of other diseases of the digestive system; Z90.49 Acquired absence of other specified parts of digestive tract
CPT/HCPCS: 36415; 36569; 74176; 74177; 76705; 80053; 81001; 82274; 83605; 83690; 83735; 84100; 85025; 87040; 87493; 87506; 88302; 88305; 88307; 93005; 97802; 99283; J7030; J7040; J7120; Q9967; A4216; C1760; J2405

== ENCOUNTER 2024-05-03 11:25 | Inpatient (IN) | payer MEDICARE, OTHER, SELFPAY ==
[2024-05-03] VITALS (11 sets, daily range): BP systolic 78–94; BP diastolic 52–67; PULSE 86–117; RESP 12–22; TEMP 36.2–36.6; O2SAT 94–100; BMI 28.1
--- NOTE | 2024-05-03 12:09 | EKG12_ITS ---
Test Reason : ABN LABS Blood Pressure : / mmHG Vent. Rate : 080 BPM Atrial Rate : 080 BPM P-R Int : 206 ms QRS Dur : 072 ms QT Int : 340 ms P-R-T Axes : 061 082 059 degrees QTc Int : 392 ms Normal sinus rhythm Normal ECG Confirmed by Brant Urban ([id number]), general expeditor ROBBIE CHATMAN ([id number]) on 05/06/2024 9:16:25 AM Referred By: Confirmed By:Brant Urban
[2024-05-03 12:27] LABS: Absolute Lymphocyte Count 1.63 X10^3/uL (0.83-4.51); Absolute Neutrophil Count 7.7 X10^3/uL (2.0-7.7); Basophil# 0.09 X10^3/uL; Basophil% 0.9 % (0-1); Eosinophil# 0.29 X10^3/uL; Eosinophils% 2.7 % (0-5); Hematocrit 38.6 % (40-54); Hemoglobin 12.3 g/dL (13.0-16.5); Lymphocyte # 1.63 X10^3/ul (0.83-4.51); Lymphocyte % 15.4 % (19-41); Mean Corp Hgb Conc 31.9 g/dL (32-36); Mean Corpuscular Hgb 28.7 pg (27.0-32.0); Mean Platelet Vol. 8.8 fl (6.2-12.0); Monocyte# 0.66 X10^3/uL; Monocyte% 6.3 % (0-10); NRBC Flagged by Analyzer 0 % (0-5); Neutrophil % 72.9 % (47-70); Platelet Count 703 K/mm3 (150-450); RBC Distribution Width CV 16.3 % (11.6-14.6); RBC Distribution Width SD 53.5 fl (35.1-43.9); Red Blood Count 4.29 M/mm3 (4.6-6.2); White Blood Count 10.6 K/mm3 (4.4-11.0)
[2024-05-03 12:33] LABS: Anion Gap 11 (5-15); BUN 62 mg/dL (7-18); BUN/Creat Ratio 14.4 RATIO (10-20); Calcium,Total 9.8 mg/dL (8.5-10.1); Chloride 102 mmol/L (98-107); Creatinine, Serum 4.31 mg/dL (0.70-1.30); EST Glomerular Filtration Rate 15 mL/min (>60); Est Glom Filt Rate - Afr Amer 18 mL/min (>60); Estimated Creatinine Clearance 17.07 ml/min; Glucose 98 mg/dL (74-106); Sodium Level 129 mmol/L (136-145)
[2024-05-03 12:51] LABS: Lactic Acid 1.1 mmol/L (0.4-1.9)
[2024-05-03] MEDS: 0.9% Normal Saline (1000mL) 1,000 ML 999 ML IV (12:52)
--- NOTE | 2024-05-03 13:14 | EX.ED.DYSGE1 ---
HPI History of Present Illness Chief Complaint: Abn Labs Informant: patient Narrative Narrative: Patient is a 68-year-old male with history of ulcerative colitis status post colectomy with J-pouch 12 years ago. Last month he had some type of colonic infection that ultimately required resection of part of his colon and J-pouch and he ended up with ileostomy. This was performed at hospital. He was on IV antibiotics and TPN in the hospital for about 3 weeks. He was discharged home a week ago. He does also have a history of CKD [address] Lorenzo. He notes that since his ordeal has had about a 20 to 25 pound weight loss. Over the past few days (3 to 4 days) he has been having some lightheadedness and decreased urine output. He notes that he had increased output from his ileostomy despite what he eats. He denies any associate abdominal pain, chest pain or shortness of breath. He had outpatient blood work for his follow-up appointment at and was told to come to the ER because his potassium was elevated. [facility] Medical History Kidney stones GI bleed Former smoker CPAP (continuous positive airway pressure) dependence DVT (deep venous thrombosis) Ileostomy present Hyperlipidemia Hx of ulcerative colitis Kidney disease Hypertension Home Medications ?Medication ?Instructions ?Recorded ?Last Taken ?Type amlodipine 10 mg tablet 5 mg PO DAILY BLOOD PRESSURE 10/13/18 05/03/24 History lisinopril 10 mg tablet 10 mg PO DAILY BLOOD PRESSURE 10/13/18 05/03/24 History cholecalciferol (vitamin D3) 25 1,000 unit PO DAILY SUPPLEMENT 05/31/19 05/03/24 History mcg (1,000 unit) tablet atorvastatin 20 mg tablet 20 mg PO QPM CHOLESTEROL 03/28/24 05/01/24 History apixaban 5 mg tablet (Eliquis) 5 mg PO BID BLOOD THINNER 05/03/24 05/03/24 History Allergy/AdvReac Type Severity Reaction Status Date / Time aspirin Allergy Other Verified 05/03/24 11:26 ibuprofen Allergy Laryngospas Verified 05/03/24 11:26 ms Surgical History History of bowel resection Social History Smoking Status: Former smoker ROS ROS ED Constitutional Constitutional ED: Reports weight loss and other Details: lightheaded ; Denies chills or fever(s) Eyes Eyes: Denies blurry vision Respiratory/Chest Respiratory/Chest: Denies cough or dyspnea Gastrointestinal Gastrointestinal: Reports other; Denies abdominal pain, nausea or vomiting Musculoskeletal Musculoskeletal: Denies myalgias Integumentary Denies rash Neurologic Neurologic: Reports weakness Hematologic/Lymphatic Hematologic/Lymphatic: Reports easy bleeding, easy bruising and other Details: On Eliquis EXAM Physical Exam Const Vital Signs: 05/03/24 11:25 05/03/24 11:25 05/03/24 11:29 Temperature 97.1 F L Temperature Source Temporal Pulse Rate 111 H 103 H 88 Respiratory Rate 12 12 16 Respiratory Effort Respiratory Pattern Blood Pressure 85/60 L 78/62 L 93/67 Blood Pressure Mean 68 67 75 Pulse Ox 95 94 98 Oxygen Delivery Method Room Air Room Air Room Air 05/03/24 11:35 05/03/24 12:22 05/03/24 13:00 Temperature Temperature Source Pulse Rate 86 107 H Respiratory Rate 22 H 17 Respiratory Effort Normal Non-Labored Respiratory Pattern Normal Blood Pressure 88/60 L 94/66 Blood Pressure Mean 69 75 Pulse Ox 99 100 Oxygen Delivery Method Room Air Room Air 05/03/24 13:20 05/03/24 13:20 Temperature Temperature Source Pulse Rate 101 H Respiratory Rate 16 Respiratory Effort Respiratory Pattern Blood Pressure Blood Pressure Mean Pulse Ox 100 Oxygen Delivery Method Room Air Positive well nourished and well developed General Appearance ED: well developed HEENT Reports dry mucous membranes Mouth ED: Yes dry mucous membranes Mouth: dry mucous membranes Eyes General Eye ED: Negative for scleral icterus Neck supple Chest Wall inspection of chest normal and palpation of chest normal Resp normal respiratory effort and clear to auscultation bilaterally Cardio regular rhythm Rate: tachycardic GI normal to inspection, nondistended, normoactive bowel sounds and non-tender GI Narrative: Ileostomy in place with output of liquid/green stool Extremity normal to inspection General Extremety ED: Negative for edema General Extremity: Negative for edema Neuro oriented x3 Motor Exam: general weakness Psych mental status grossly normal Skin no rashes or lesions noted and no wounds MDM MDM MDM Narrative Medical decision making narrative: Patient is evaluated for abnormal outpatient labs including elevated potassium and what sound like elevated creatinine. He is sent to the emergency room for further evaluation. EKG obtained for concern of hyperkalemia which does not show any acute findings consistent with hyperkalemia. In addition the emergency room patient has low/soft blood pressures. He had increased output from his new ileostomy and I suspect this is a volume depletion issue. In addition he is continue to take his Norvasc and his lisinopril. Patient is fluid responsive with his blood pressure in the ER. His lactate is normal. I do not suspect shock at this time. His CBC is largely stable with a normal white blood cell count of 10.6 however his BMP shows a potassium of 6.0, sodium of 129, bicarb of 16 and a creatinine of 4.31. These changes are acute. Magnesium was added on which is normal. Patient is started on IV fluids and given cocktail for hyperkalemia. Given no EKG changes or arrhythmia he is not given calcium gluconate. Case is discussed with Dr. Lorenzo, nephrology, who also recommends adding 100 mill equivalent bolus of sodium bicarbonate. Patient does not require emergent dialysis and our hope is that with IV fluids his kidney function will improve and his potassium continue to normalize. Will be admitted to PCU under hospital service. Lab Data Attestation: I reviewed the patient's lab results. Labs: Laboratory Results - last 24 hr 05/03/24 05/03/24 12:03 12:18 WBC 10.6 RBC 4.29 L Hgb 12.3 L Hct 38.6 L MCV 90.0 MCH 28.7 MCHC 31.9 L RDW Std Deviation 53.5 H RDW Coeff of Shavon 16.3 H Plt Count 703 H MPV 8.8 Immature Gran % (Auto) 1.800 H Neut % (Auto) 72.9 H Lymph % (Auto) 15.4 L [place] % (Auto) 6.3 Eos % (Auto) 2.7 Baso % (Auto) 0.9 Absolute Neuts (auto) 7.7 Absolute Lymphs (auto) 1.63 Nucleated RBC % 0 Sodium 129 L Potassium 6.0 H* Chloride 102 Carbon Dioxide 16.0 L Anion Gap 11 BUN 62 H Creatinine 4.31 H Estim Creat Clear Calc 17.07 Est GFR (MDRD) Af Amer 18 L Est GFR (MDRD) Non-Af 15 L BUN/Creatinine Ratio 14.4 Glucose 98 Lactic Acid 1.1 Calcium 9.8 Magnesium 2.2 Rhythm Strip Rhythm Strip: Sinus Rhythm Rate: 80 Ectopy: None EKG Initial EKG: Attestation: I personally reviewed and interpreted this EKG as follows: Interpretation: Sinus Rhythm Comments: Normal sinus rhythm rate of 80 bpm Normal axis Normal intervals Normal ST segments Management Discussion w/another healthcare provider: Hospitalist and Mortgage Coordinator (Nephrology) Critical Care Time Critical care time (excluding procedures): 30-74 minutes (36), Discussing w/Patient &/or Family/Aircraft Shipping Checker, Discussing w/Consultants and Arranging Admission or Transfer Discharge Plan Dx/Rx/DC Orders Clinical Impression: Hyperkalemia, Hypotension, Hyponatremia, Acute kidney injury superimposed on stage 3b chronic kidney disease Disposition Disposition: [facility] Discharge Date/Time: 05/03/24 14:29
[2024-05-03] MEDS: Albuterol *CONC* 2.5mg/0.5mL VIAL.NEB. 10 MG INHALATION (13:20)
--- NOTE | 2024-05-03 13:43 | HP.PCM.HOS_ITS ---
HPI - General General Date of Admission: 05/03/24 Date of Service: 05/03/24 Chief Complaint: High potassium HPI Narrative ANGELICA VELAZQUEZ, is a 68-year-old male history of CKD, ulcerative colitis status post colectomy ileostomy 12 years ago with recent bowel ischemia s/p resection, and hypertension presented to [facility] ED 05/03/2024 due to a potassium of 6.4. In the ED he was found to have a sodium of 129, potassium of 6, BUN 62 with a creatinine of 4.31. He was given a K lowering cocktail and hospitalist contacted for admission. Patient was admitted here in March with bowel ischemia and had emergent ex lap and was transferred to for further management, required PICC line with TPN and IV antibiotics at and was discharged home a week ago. Reports his ostomy had intermittently been watery at the hospital but it started bulking up prior to discharge however has been more watery again since that time, eating fair but difficulty maintaining hydration. Reports he felt a little lightheaded this morning when he was up moving around but nothing at rest, has had slight swelling in his lower extremities that is not new and denies any abdominal pain, has had some decreased urine output due to hydration status but denies any other specific complaints. [facility] Medical History Ileostomy present Hyperlipidemia Hx of ulcerative colitis Kidney disease Hypertension Home Medications ?Medication ?Instructions ?Recorded ?Last Taken ?Type amlodipine 10 mg tablet 5 mg PO DAILY BLOOD PRESSURE 10/13/18 05/03/24 History lisinopril 10 mg tablet 10 mg PO DAILY BLOOD PRESSURE 10/13/18 05/03/24 History cholecalciferol (vitamin D3) 25 1,000 unit PO DAILY SUPPLEMENT 05/31/19 05/03/24 History mcg (1,000 unit) tablet atorvastatin 20 mg tablet 20 mg PO QPM CHOLESTEROL 03/28/24 05/01/24 History apixaban 5 mg tablet (Eliquis) 5 mg PO BID BLOOD THINNER 05/03/24 05/03/24 History Allergy/AdvReac Type Severity Reaction Status Date / Time aspirin Allergy Other Verified 05/03/24 11:26 ibuprofen Allergy Laryngospas Verified 05/03/24 11:26 ms Surgical History History of bowel resection Social History Smoking Status: Former smoker ROS ROS Narrative General: Denies fever/chills HENT: Denies headache, denies stuffy nose, denies sore throat EYES: Denies changes in vision Resp: Denies cough, denies shortness of breath Cardiac: Denies chest pain GI: Denies abdominal pain, ostomy output has been more liquid, denies nausea/vomiting : Denies changes in urination Extremity: Has had a little bit of lower extremity swelling it is not new MSK: Somewhat generally weak, little bit lightheaded earlier Neuro: Denies any numbness/tingling Heme: Denies any bleeding or bruising Skin: Denies rashes Psychiatric: No complaints voiced Vital Signs Vital Signs Vital Signs: 05/03/24 11:25 05/03/24 11:25 05/03/24 11:29 Temperature 97.1 F L Temperature Source Temporal Pulse Rate 111 H 103 H 88 Respiratory Rate 12 12 16 Respiratory Effort Respiratory Pattern Blood Pressure 85/60 L 78/62 L 93/67 Blood Pressure Mean 68 67 75 Pulse Ox 95 94 98 Oxygen Delivery Method Room Air Room Air Room Air 05/03/24 11:35 05/03/24 12:22 05/03/24 13:20 Temperature Temperature Source Pulse Rate 86 Respiratory Rate 22 H Respiratory Effort Normal Non-Labored Respiratory Pattern Normal Blood Pressure 88/60 L Blood Pressure Mean 69 Pulse Ox 99 100 Oxygen Delivery Method Room Air Room Air 05/03/24 13:20 Temperature Temperature Source Pulse Rate 77 Respiratory Rate 14 Respiratory Effort Respiratory Pattern Blood Pressure Blood Pressure Mean Pulse Ox Oxygen Delivery Method Weight Weight: 83.9 kg Body Mass Index (BMI) 28.1 Physical Exam Narrative General: Alert, oriented HEENT: Atraumatic, normocephalic Eyes: Anicteric, normal conjunctiva, extraocular movements grossly intact Neck: Supple Respiratory: Clear to auscultation bilaterally, normal respiratory effort Cardiovascular: Regular rate and rhythm GI: Soft, nontender, nondistended, ostomy noted, no blood in stool Extremities: No edema Musculoskeletal: Moving all extremities Neuro: No overt focal neurological deficits Skin: No rashes appreciated Psych: Cooperative Results Lab / Micro Data 05/03/24 12:03 05/03/24 12:03 Labs: Laboratory Results - last 24 hr 05/03/24 12:03: WBC 10.6, RBC 4.29 L, Hgb 12.3 L, Hct 38.6 L, MCV 90.0, MCH 28.7, MCHC 31.9 L, RDW Std Deviation 53.5 H, RDW Coeff of Shavon 16.3 H, Plt Count 703 H, MPV 8.8, Immature Gran % (Auto) 1.800 H, Neut % (Auto) 72.9 H, Lymph % (Auto) 15.4 L, [place] % (Auto) 6.3, Eos % (Auto) 2.7, Baso % (Auto) 0.9, Absolute Neuts (auto) 7.7, Absolute Lymphs (auto) 1.63, Nucleated RBC % 0, Sodium 129 L, Potassium 6.0 H*, Chloride 102, Carbon Dioxide 16.0 L, Anion Gap 11, BUN 62 H, C reatinine 4.31 H, Estim Creat Clear Calc 17.07, Est GFR (MDRD) Af Amer 18 L, Est GFR (MDRD) Non-Af 15 L, BUN/Creatinine Ratio 14.4, Glucose 98, Calcium 9.8 05/03/24 12:18: Lactic Acid 1.1 Assessment & Plan Assessment/Plan (1) Acute kidney injury superimposed on stage 3b chronic kidney disease: (2) Hypotension: (3) Hyperkalemia: (4) Hyponatremia: (5) Colostomy in place: PLAN: Plan #JANA on CKD stage IIIb -Suspect largely due to volume depletion -Received bolus in ED -Will give further IV fluids -Hold patient's home [place] -Continue to monitor BMPs -Nephrology contacted in ED, will place consult if patient not improving with current management, no present urgent indication for dialysis -Daily weights, I's and O's # Hyperkalemia -No significant EKG changes -Likely due to kidney injury and continued [place] use -Patient received K lowering cocktail in ED -Continue IV fluids -Repeat BMP this evening -Renal diet # Hyponatremia -Suspect due to dehydration -IVF -Trend BMP # UC with ostomy recently increased wateriness of stool output -Stool studies ordered in ED -IVF -Replace lytes if indicated -Check mag -If stool studies negative will start Metamucil #Hypertension?presently hypotensive -Has remained on his [place] and amlodipine despite losing weight recently, suspect that current low BP is due to dehydration and continued taking his medications, hold home medications and replete fluids #DVT ppx: On home sandiequis Tracey Cain MD Time spent in the patient's overall evaluation,decision-making process, review of diagnostic data, adjustment of management, discussion with other providers, nursing nursing and ancillary staff involved in patient's care documentation, 56 Minutes Charges/Coding Visit Charges Inpatient E&M: 92054 Init Hosp L2
[2024-05-03] MEDS: Dextrose 10%-Water 250 ML 999 ML IV (13:46)
[2024-05-03] MEDS: Sodium Bicarbonate 8.4% 50 ML Syringe 100 MEQ IV (13:47)
[2024-05-03] MEDS: Insulin Lispro 10 UNIT in Syringe 0 ML 6 UNIT IV (13:58)
[2024-05-03 14:16] LABS: Magnesium 2.2 mg/dL (1.6-2.6)
[2024-05-03] MEDS: Dextrose 10%-Water 250 ML 40 ML IV (14:21)
[2024-05-03] MEDS: 0.9% Normal Saline (1000mL) 1,000 ML 100 ML IV ×2 (14:53→23:14)
[2024-05-03] MEDS: 0.9% Normal Saline (500mL Bag) 500 ML 999 ML IV (17:54)
[2024-05-03] MEDS: Atorvastatin Calcium 20 MG Tablet PO (20:45)
[2024-05-03 21:46] LABS: Anion Gap 9 (5-15); BUN 64 mg/dL (7-18); BUN/Creat Ratio 15.9 RATIO (10-20); Calcium,Total 8.4 mg/dL (8.5-10.1); Chloride 103 mmol/L (98-107); Creatinine, Serum 4.03 mg/dL (0.70-1.30); EST Glomerular Filtration Rate 16 mL/min (>60); Est Glom Filt Rate - Afr Amer 19 mL/min (>60); Estimated Creatinine Clearance 18.25 ml/min; Glucose 137 mg/dL (74-106); Potassium 4.7 mmol/L (3.5-5.1); Sodium Level 132 mmol/L (136-145)
[2024-05-04] VITALS (7 sets, daily range): BP systolic 91–104; BP diastolic 53–71; PULSE 76–86; RESP 14–18; TEMP 36.2–37; O2SAT 95–99; BMI 28.1
[2024-05-04 07:29] LABS: Absolute Lymphocyte Count 1.76 X10^3/uL (0.83-4.51); Absolute Neutrophil Count 3.8 X10^3/uL (2.0-7.7); Basophil# 0.07 X10^3/uL; Eosinophil# 0.37 X10^3/uL; Eosinophils% 5.5 % (0-5); Hematocrit 32.8 % (40-54); Hemoglobin 10.6 g/dL (13.0-16.5); Lymphocyte # 1.76 X10^3/ul (0.83-4.51); Lymphocyte % 26.4 % (19-41); Mean Corp Hgb Conc 32.3 g/dL (32-36); Mean Corpuscular Hgb 28.8 pg (27.0-32.0); Mean Corpuscular Volume 89.1 fL (80-94); Mean Platelet Vol. 8.9 fl (6.2-12.0); Monocyte# 0.55 X10^3/uL; Monocyte% 8.2 % (0-10); NRBC Flagged by Analyzer 0 % (0-5); Neutrophil # 3.82 X10^3/uL (2.7-7.7); Neutrophil % 57.4 % (47-70); Platelet Count 567 K/mm3 (150-450); RBC Distribution Width CV 16.2 % (11.6-14.6); RBC Distribution Width SD 52.5 fl (35.1-43.9); Red Blood Count 3.68 M/mm3 (4.6-6.2); White Blood Count 6.7 K/mm3 (4.4-11.0)
--- NOTE | 2024-05-04 07:57 | PCM.PN.HOSP ---
Reason for Visit Reason for Visit: Abnormal labs Subjective Subjective Patient is a 59-year-old white male who presented to the emergency department [facility] on 05/03/2024 due to abnormal labs as an outpatient. He has a history of ulcerative colitis and a recent admission with transfer to tertiary center at [facility] on 03/31/2024 due to ischemic bowel. He ended up with an ileostomy. He was on IV antibiotics and TPN for about 3 weeks at tertiary center was discharged home about a week ago. He does have a history of CKD stage III and follows at baseline with Dr. Lorenzo. Over the past few days prior to presentation (approximately 3 to 4 days) he had been having some lightheadedness and decreased urine output and had noted some increased output from his ileostomy despite his oral intake. He denies any other symptoms but had outpatient blood work for his follow-up appointment at and was told to come to the emergency department because his potassium was elevated. He reports that his ostomy output initially at the surgery center was watery but had been bulking up prior to discharge. Again, he stated that it was more watery in the past several days. Patient reported that he had been eating fair but his hydration has been difficult for him to maintain. The lightheadedness he has been experiencing is predominantly when he is up moving around and it resolves at rest. He complained of some mild swelling in his lower extremities that is chronic for him and has not had any new abdominal pain. Vital signs on presentation showed temperature of 97.1, heart rate 111, blood pressure was 85/60, respiratory rate was 12 and oxygen saturation was 95% on room air. His chemistry panel showed likely hemoconcentration with a hemoglobin of 12.3 and a baseline between 10 and 11 and thrombocytosis with a platelet count of 703. His chemistry panel showed hyponatremia with a sodium of 129, hyperkalemia with potassium of 6.0 and a metabolic acidosis with a bicarb of 16. His baseline serum creatinine runs between 1.9 and 2.2; on presentation his serum creatinine was 4.31. Stool studies were ordered on presentation and negative for C. difficile and his enteric panel was negative as well. He was admitted to the medical floor and placed on aggressive hydration. Patient does admit that his output has been high. He does not feel like he is keeping up. We discussed that he needs to drink a mix of solute heavy fluid like Pedialyte, Gatorade, or liquid IV along with water so he does not develop hyponatremia. He voiced understanding. With negative infectious panel for his ostomy output we also discussed bulk forming of stool utilizing some Metamucil 3 times daily to decrease his output some as well. Patient asked that he come back this afternoon to discuss further with his . Objective Data Objective Data Vital Signs: Vital Signs Temp Pulse Resp BP Pulse Ox O2 Del Method 98.4 F 79 14 91/53 L 99 Room Air 05/04/24 04:22 05/04/24 04:22 05/04/24 04:22 05/04/24 04:22 05/04/24 04:22 05/04/24 04:22 Oxygen Delivery Method Room Air Weight: 84 kg Body Mass Index (BMI) 28.1 Intake & Output: Intake and Output for Last 24 Hours 05/02/24 05/03/24 05/04/24 23:59 23:59 23:59 Intake Total 3342.83 / 3702.83 460 / 460 Output Total 200 / 200 875 / 875 Balance 3142.83 / 3502.83 -415 / -415 Lab / Micro Data 05/04/24 06:33 05/04/24 06:33 Labs: Laboratory Results - last 24 hr 05/03/24 12:03: WBC 10.6, RBC 4.29 L, Hgb 12.3 L, Hct 38.6 L, MCV 90.0, MCH 28.7, MCHC 31.9 L, RDW Std Deviation 53.5 H, RDW Coeff of Shavon 16.3 H, Plt Count 703 H, MPV 8.8, Immature Gran % (Auto) 1.800 H, Neut % (Auto) 72.9 H, Lymph % (Auto) 15.4 L, [place] % (Auto) 6.3, Eos % (Auto) 2.7, Baso % (Auto) 0.9, Absolute Neuts (auto) 7.7, Absolute Lymphs (auto) 1.63, Nucleated RBC % 0, Sodium 129 L, Potassium 6.0 H*, Chloride 102, Carbon Dioxide 16.0 L, Anion Gap 11, BUN 62 H, Creatinine 4.31 H, Estim Creat Clear Calc 17.07, Est GFR (MDRD) Af Amer 18 L, Est GFR (MDRD) Non-Af 15 L, BUN/Creatinine Ratio 14.4, Glucose 98, Calcium 9.8, Magnesium 2.2 05/03/24 12:18: Lactic Acid 1.1 05/03/24 20:25: Sodium 132 L, Potassium 4.7, Chloride 103, Carbon Dioxide 20.0 L, Anion Gap 9, BUN 64 H, Creatinine 4.03 H, Estim Creat Clear Calc 18.25, Est GFR (MDRD) Af Amer 19 L, Est GFR (MDRD) Non-Af 16 L, BUN/Creatinine Ratio 15.9, Glucose 137 H, Calcium 8.4 L 05/04/24 06:33: WBC 6.7, RBC 3.68 L, Hgb 10.6 L, Hct 32.8 L, MCV 89.1, MCH 28.8, MCHC 32.3, RDW Std Deviation 52.5 H, RDW Coeff of Shavon 16.2 H, Plt Count 567 H, MPV 8.9, Immature Gran % (Auto) 1.500 H, Neut % (Auto) 57.4, Lymph % (Auto) 26.4, [place] % (Auto) 8.2, Eos % (Auto) 5.5 H, Baso % (Auto) 1.0, Absolute Neuts (auto) 3.8, Absolute Lymphs (auto) 1.76, Nucleated RBC % 0 Micro: Microbiology 05/03/24 14:15 Stool Stool Lactoferrin - Final 05/03/24 14:15 Stool Enteric Bacteriology - Final 05/03/24 14:15 Stool Clostridioides difficile (PCR) - Final Rhythm Strip Rhythm Strip: Sinus Rhythm Rate: 80 Ectopy: None Physical Exam Const alert, oriented x3, no apparent distress and well nourished; Negative for healthy appearing Constitutional Narrative: Upper middle-aged, white male, lying in bed, appears comfortable, nontoxic HEENT head/scalp atraumatic and moist oral mucous membranes Head and Scalp: normocephalic Eyes PERRL, EOMs intact bilaterally and conjunctivae normal Eyes Narrative: No scleral icterus Neck no lymphadenopathy and supple Neck Narrative: Trachea midline, no thyroid enlargement Resp normal respiratory effort, no retractions, no use of accessory muscles and clear to auscultation bilaterally Auscultation: Negative for rales, rhonchi or wheezes Cardio regular rate, regular rhythm, S1 normal heart sound, S2 normal heart sound, no murmurs, no rub, no gallops and no clicks GI normal to inspection, nondistended, normoactive bowel sounds, soft to palpation and non-tender GI Narrative: Ostomy with yellowish liquid output and minimal solid, well-healing postoperative incisions Extremity no clubbing, cyanosis or edema Extremity Narrative: Pedal and radial pulses are 2+ Skin no rashes or lesions noted, no wounds, skin turgor normal, no jaundice, no petechiae and no mottling Neuro oriented x3, moves all extremities and no focal motor deficits Speech: speech normal Psych Psych Narrative: Affect is flat, patient intermittently tearful, appears depressed, eye contact is poor Assessment & Plan Assessment/Plan (1) Hyponatremia: (2) Hyperkalemia: (3) Hypotension: (4) Acute kidney injury superimposed on stage 3b chronic kidney disease: PLAN: Plan JANA on CKD stage IIIb -Baseline serum creatinine is 1.9-2.2 -4.31 on presentation--> down to 3.52 today -Secondary to decreased p.o. liquid intake and increased ostomy output -C. difficile and enteric panel are negative -Add Metamucil 3 times daily for bulk forming of stool -Continue aggressive hydration but increase from 100 to 200 cc of fluid per hour and transition from normal saline to LR -Renal function appears to be improving slowly -Continue to hold lisinopril -Avoid nephrotoxins -Serum creatinine appears to be improving and I think we can hold off on consulting nephrology at this point as long as he continues to improve clinically Hyperkalemia -secondary dehydration -Improved and now only slightly elevated -Should come continue to improve with improved renal function Hyponatremia -Hypovolemic hyponatremia secondary to dehydration -Resolving -Sodium has trended up from 129 and 133 currently -Continue IV fluids Metabolic acidosis -secondary to JANA -Improving -continue hydration but will transition to lactated Ringer's Thrombocytosis -Hemoconcentration -Continue to monitor -Improving Chronic anemia -Baseline hemoglobin appears to run between 10 and 11 -12.3 on presentation due to hemoconcentration and now 10.6 -Repeat CBC in a.m. UC with ileostomy -Surgery was recent due to ischemic bowel -Done at [facility] -Stool studies were unremarkable -Add Metamucil due to increased output Right upper extremity DVT -Continue apixaban 5 mg p.o. twice daily -Patient is to be on this for 3 months as it was provoked Hypotension -Resolving with IV fluids -Hold amlodipine and lisinopril -Restart once appropriate Essential hypertension -Home medications on hold due to hypotension from dehydration on presentation Hyperlipidemia -Continue home atorvastatin Suspected depression -Affect is flat and patient intermittently tearful with depressed appearing mood -Will start Lexapro 10 mg daily DVT prophylaxis -Continue Eliquis CODE STATUS Full code Charges/Coding Visit Charges Inpatient E&M: 89995 Subs Hosp L3
[2024-05-04 08:07] LABS: ALB/GLOB Ratio 0.6 RATIO (0.9-2.4); AST(SGOT) 36 U/L (15-37); Alanine Aminotransfer ALT/SGPT 79 U/L (16-61); Albumin, Serum 2.5 g/dL (3.2-5.0); Alkaline Phosphatase 188 U/L (45-117); Anion Gap 9 (5-15); BUN 60 mg/dL (7-18); Calcium,Total 8.4 mg/dL (8.5-10.1); Chloride 106 mmol/L (98-107); Creatinine, Serum 3.52 mg/dL (0.70-1.30); EST Glomerular Filtration Rate 18 mL/min (>60); Est Glom Filt Rate - Afr Amer 22 mL/min (>60); Estimated Creatinine Clearance 20.91 ml/min; Glucose 91 mg/dL (74-106); Phosphorus 5.7 mg/dL (2.5-4.9); Potassium 5.3 mmol/L (3.5-5.1); Protein, Total 6.5 g/dL (6.4-8.2); Sodium Level 133 mmol/L (136-145); Thyroid Stim Hormone (TSH) 2.17 uIU/mL (0.358-3.74)
[2024-05-04] MEDS: Lactated Ringers 1,000 ML 200 ML IV ×3 (09:37→19:56)
[2024-05-04] MEDS: APIXABAN 5 MG TABLET PO ×2 (09:39→21:08)
[2024-05-04] MEDS: Psyllium 1 PACKET PO ×2 (09:44→21:08)
--- NOTE | 2024-05-04 11:55 | CASEMGMT ---
BEN CARTER Assessment: Face to Face with pt for initial transition planning/care coordination assessment. RN EMMA introduced self and role at [facility], pt voices understanding and consents to assessment. Pt is A&O x4 and answers all questions appropriately at this time. Pt lying in bed in no distress, sitting at bedside. Pt agreeable to answering questions with in the room. Care providers, pharmacy, and demographics verified/updated. Admitting Dx: JANA, Hyperkalemia PCP: Natasha Specialists: Orestes - Call Center Director, Sadaf - colorectal Preferred Pharmacy: [facility] Insurance: [facility], [facility] Prescription Benefit: yes LNOK: Rere - Living Arrangements: Pt lives with in a 1 story home with 2 steps and handrails to enter. Pt states I with ADLs and IADLs. Transportation: Pt drives self and denies concerns with transportation. DME: Walker, CPAP, portable commode, Glucometer and supplies - previously checked BS when on TPN, does not need to check them at this time. Ileostomy and supplies. HHC/SNF: Denies SNF, previously used HHC - does not recall agency. Pt states no concerns with going home at time of dc. Pt states no further concerns/needs. CM to follow. Advised pt to ask CM if any further question/concerns/needs arise, voices understanding. Pt Goal: Home Plan: Home, will follow plan of care. Hamzah CONTRERAS CM
--- NOTE | 2024-05-04 12:05 | WOUNDNOTE ---
In to see patient for ileostomy. present in the room. patient states he had a stoma approx 12 years ago and then had a j pouch. patient had to have more bowel removed and now has an ileostomy again. pt states the plan is to transition to a j pouch again in the future. pt was admitted for dehydration. patient has been having a large volume of liquid stool. states he just spent approx 4 weeks in and has been home for about a week. wanted to be sure she was not doing anything wrong with the appliances changes. pt is currently using a 1 piece flat Sulaiman appliance. removed the appliance at this time. stoma is well budded. slightly oval in shape. peristomal skin is intact. this nurse off set the opening slightly to avoid placing over the umbilical area. pt is currently using a paste ring. appliance applied without difficulty. this nurse assured the that she is doing everything correctly. pt and very appreciative.
[2024-05-04] MEDS: Atorvastatin Calcium 20 MG Tablet PO (21:08)
[2024-05-05] VITALS (7 sets, daily range): BP systolic 80–116; BP diastolic 63–73; PULSE 61–90; RESP 16–18; TEMP 36.4–36.7; O2SAT 96–99; BMI 28.2
[2024-05-05] MEDS: Lactated Ringers 1,000 ML 200 ML IV ×3 (01:08→12:55)
[2024-05-05] MEDS: Psyllium 1 PACKET PO ×2 (05:25→12:57)
[2024-05-05 06:24] LABS: Hematocrit 31.9 % (40-54); Hemoglobin 10.4 g/dL (13.0-16.5); Mean Corp Hgb Conc 32.6 g/dL (32-36); Mean Corpuscular Hgb 29.1 pg (27.0-32.0); Mean Corpuscular Volume 89.4 fL (80-94); Mean Platelet Vol. 8.8 fl (6.2-12.0); Platelet Count 502 K/mm3 (150-450); RBC Distribution Width CV 15.9 % (11.6-14.6); RBC Distribution Width SD 52.1 fl (35.1-43.9); Red Blood Count 3.57 M/mm3 (4.6-6.2); White Blood Count 6.6 K/mm3 (4.4-11.0)
[2024-05-05 06:50] LABS: Anion Gap 9 (5-15); BUN 44 mg/dL (7-18); BUN/Creat Ratio 17.3 RATIO (10-20); Calcium,Total 8.8 mg/dL (8.5-10.1); Chloride 108 mmol/L (98-107); Creatinine, Serum 2.55 mg/dL (0.70-1.30); EST Glomerular Filtration Rate 27 mL/min (>60); Est Glom Filt Rate - Afr Amer 32 mL/min (>60); Estimated Creatinine Clearance 28.91 ml/min; Glucose 88 mg/dL (74-106); Magnesium 1.8 mg/dL (1.6-2.6); Phosphorus 4.3 mg/dL (2.5-4.9); Potassium 4.8 mmol/L (3.5-5.1); Sodium Level 136 mmol/L (136-145)
[2024-05-05 10:44] LABS: Bedside Glucose 104 mg/dL (74-106)
[2024-05-05] MEDS: 0.9% Saline Lock 10 ML Syringe IV (12:14)
[2024-05-05] MEDS: Loperamide 2 MG Capsule PO ×3 (12:14→23:31)
[2024-05-05] MEDS: APIXABAN 5 MG TABLET PO ×2 (12:14→21:57)
--- NOTE | 2024-05-05 14:30 | PN.HOSP_ITS ---
Reason for Visit Reason for Visit: Abnormal labs Subjective Subjective Patient was up in a chair and getting a new IV started and had a syncopal episode today. Blood pressure was noted to be low. Sounds like he had a vasovagal event. He has had this 1 time previously however the episode was a little bit different. He is feeling better now. Ostomy output is still fairly watery despite adding Metamucil. Renal function is improving. Patient has no complaints. Objective Data Objective Data Vital Signs: Vital Signs Temp Pulse Resp BP Pulse Ox O2 Del Method 98.0 F 82 18 103/70 98 Room Air 05/05/24 12:05 05/05/24 12:05 05/05/24 12:05 05/05/24 12:05 05/05/24 12:05/05/24 12:05 Oxygen Delivery Method Room Air Weight: 84.3 kg Body Mass Index (BMI) 28.2 Intake & Output: Intake and Output for Last 24 Hours 05/03/24 05/04/24 05/05/24 23:59 23:59 23:59 Intake Total 3342.83 / 3702.83 4060 / 4540 3720 / 3720 Output Total 200 / 200 2575 / 3375 3075 / 3075 Balance 3142.83 / 3502.83 1485 / 1165 645 / 645 Lab / Micro Data 05/05/24 05:24 05/05/24 05:24 Labs: Laboratory Results - last 24 hr 05/05/24 05:24: WBC 6.6, RBC 3.57 L, Hgb 10.4 L, Hct 31.9 L, MCV 89.4, MCH 29.1, MCHC 32.6, RDW Std Deviation 52.1 H, RDW Coeff of Shavon 15.9 H, Plt Count 502 H, MPV 8.8, Sodium 136, Potassium 4.8, Chloride 108 H, Carbon Dioxide 19.0 L, Anion Gap 9, BUN 44 H, Creatinine 2.55 H, Estim Creat Clear Calc 28.91, Est GFR (MDRD) Af Amer 32 L, Est GFR (MDRD) Non-Af 27 L, BUN/Creatinine Ratio 17.3, Glucose 88, Calcium 8.8, Phosphorus 4.3, Magnesium 1.8 05/05/24 10:12: POC Glucose 104 Micro: Microbiology 05/03/24 14:15 Stool Stool Lactoferrin - Final 05/03/24 14:15 Stool Enteric Bacteriology - Final 05/03/24 14:15 Stool Clostridioides difficile (PCR) - Final Rhythm Strip Rhythm Strip: Sinus Rhythm Rate: 80 Ectopy: None Physical Exam Const alert, oriented x3, no apparent distress, average body habitus and well nourished; Negative for healthy appearing Constitutional Narrative: Upper middle-aged, white male, sitting up in a chair at the bedside, at the bedside, appears comfortable, nontoxic HEENT head/scalp atraumatic and moist oral mucous membranes HEENT Narrative: Mallampati 2, no thrush Head and Scalp: normocephalic Resp normal respiratory effort, no retractions, no use of accessory muscles and clear to auscultation bilaterally Auscultation: Negative for rales, rhonchi or wheezes Cardio regular rate, regular rhythm, S1 normal heart sound, S2 normal heart sound, no murmurs, no rub, no gallops and no clicks GI normal to inspection, nondistended, normoactive bowel sounds, soft to palpation and non-tender GI Narrative: Patient continues to have watery yellowish liquid out of his ostomy, well- healing postoperative incisions Extremity no clubbing, cyanosis or edema Extremity Narrative: Pedal and radial pulses are 2+ Neuro oriented x3, moves all extremities and no focal motor deficits Speech: speech normal Psych Psych Narrative: Affect remains flat patient continues to appear depressed, eye contact is poor, interacts as little as he has to, talks more Assessment & Plan Assessment/Plan (1) Hyponatremia: (2) Hyperkalemia: (3) Hypotension: (4) Acute kidney injury superimposed on stage 3b chronic kidney disease: PLAN: Plan JANA on CKD stage IIIb -Baseline serum creatinine is 1.9-2.2 -4.31 on presentation--> down to 2.55 today -Secondary to decreased p.o. liquid intake and increased ostomy output -Continue Metamucil -Add Imodium 4 times daily scheduled for now -Continue LR at 200 cc an hour to stop at 1400 -Check BMP at 1400 -Renal function appears to be improving slowly -Continue to hold lisinopril and will likely discontinue at discharge -Avoid nephrotoxins -Serum creatinine appears to be improving and I think we can hold off on consulting nephrology at this point as long as he continues to improve clinically Syncope -Patient has syncopal event this morning while having new IV placed and sitting up in a chair -Blood pressure dropped to 80 systolic -Blood pressure improving currently 103/70 -Highly suspect vasovagal event given circumstances -Patient states he has done this once before while hospitalized -1 L IV bolus given -continue to monitor Hyperkalemia -Resolved Hyponatremia -Resolved Metabolic acidosis -secondary to JANA -Resolving with bicarb up to 19 -continue hydration but will transition to lactated Ringer's Thrombocytosis -Resolving -Likely related to hemoconcentration Chronic anemia -Baseline hemoglobin appears to run between 10 and 11 - stable at 10.4 today -Repeat CBC in a.m. UC with ileostomy -Seems to have high output -Surgery was recent due to ischemic bowel -Patient had part of the surgery done here and part of it done at -Seems to have a small fistula at his ostomy site--> no current issues or abdominal pain so will have follow-up with scheduled appointment at on May 17 -Ostomy nurses following -Stool studies were unremarkable -Continue Metamucil -Add scheduled Imodium for now every 6 hours Right upper extremity DVT -Continue apixaban 5 mg p.o. twice daily -Patient is to be on this for 3 months as it was provoked Hypotension -Resolving with IV fluids -Hold amlodipine and lisinopril -Plan is to completely discontinue lisinopril at discharge and will monitor need for reinitiation of amlodipine Essential hypertension -Home medications on hold due to hypotension from dehydration on presentation Hyperlipidemia -Continue home atorvastatin Suspected depression -Affect is flat and patient intermittently tearful with depressed appearing mood -Discussed with patient and he admits to being depressed however declined any medication DVT prophylaxis -Continue Eliquis CODE STATUS Full code Charges/Coding Visit Charges Inpatient E&M: 29775 Subs Hosp L2
[2024-05-05 15:07] LABS: Anion Gap 8 (5-15); BUN 41 mg/dL (7-18); BUN/Creat Ratio 16.4 RATIO (10-20); Calcium,Total 9.1 mg/dL (8.5-10.1); Chloride 109 mmol/L (98-107); EST Glomerular Filtration Rate 27 mL/min (>60); Est Glom Filt Rate - Afr Amer 33 mL/min (>60); Estimated Creatinine Clearance 29.49 ml/min; Glucose 137 mg/dL (74-106); Potassium 5.2 mmol/L (3.5-5.1); Sodium Level 136 mmol/L (136-145)
[2024-05-05] MEDS: Atorvastatin Calcium 20 MG Tablet PO (21:57)
[2024-05-06] VITALS (7 sets, daily range): BP systolic 101–114; BP diastolic 70–78; PULSE 79–91; RESP 16–18; TEMP 36.3–36.8; O2SAT 92–100; BMI 28.6
[2024-05-06] MEDS: Loperamide 2 MG Capsule PO ×4 (05:40→23:56)
[2024-05-06 05:52] LABS: Anion Gap 8 (5-15); BUN 39 mg/dL (7-18); BUN/Creat Ratio 17.6 RATIO (10-20); Calcium,Total 8.8 mg/dL (8.5-10.1); Chloride 111 mmol/L (98-107); Creatinine, Serum 2.21 mg/dL (0.70-1.30); EST Glomerular Filtration Rate 32 mL/min (>60); Est Glom Filt Rate - Afr Amer 38 mL/min (>60); Estimated Creatinine Clearance 33.36 ml/min; Glucose 98 mg/dL (74-106); Potassium 4.6 mmol/L (3.5-5.1); Sodium Level 138 mmol/L (136-145)
[2024-05-06 06:49] LABS: Hematocrit 33.3 % (40-54); Hemoglobin 10.5 g/dL (13.0-16.5); Mean Corp Hgb Conc 31.5 g/dL (32-36); Mean Corpuscular Hgb 28.5 pg (27.0-32.0); Mean Corpuscular Volume 90.5 fL (80-94); Mean Platelet Vol. 9.2 fl (6.2-12.0); Platelet Count 483 K/mm3 (150-450); RBC Distribution Width CV 15.6 % (11.6-14.6); RBC Distribution Width SD 51.7 fl (35.1-43.9); Red Blood Count 3.68 M/mm3 (4.6-6.2); White Blood Count 6.7 K/mm3 (4.4-11.0)
[2024-05-06] MEDS: APIXABAN 5 MG TABLET PO ×2 (10:33→21:45)
--- NOTE | 2024-05-06 10:45 | CASEMGMT ---
RN CM NOTE: RN CM to room. Pt sitting up in chair. @ bedside. Pt and deny having any discharge needs/concerns. Pt states he was not using a walker prior to this admission, but is using one now. He does have one @ home he can use. Per therapy, pt ambulated 400 ft this AM. Pt denies wanting [facility] for SN or therapy and declines wanting OP therapy. They are aware to f/u with PCP if pt changes his mind once he returns home. Pt and made aware to ask for CM if any discharge needs/concerns arise. Harsh ESCOBARN BEN CM
--- NOTE | 2024-05-06 11:14 | PCM.PN.HOSP ---
Reason for Visit Reason for Visit: Abnormal labs Subjective Subjective Patient states that his stool seems to be thickening up as of this morning. Was very watery yesterday. We did discuss that he had about 2-1/2 L of ostomy output yesterday and high output ostomy is greater than 1.5 L daily. He was concerned that drinking increased fluids could make his output go up some. We did discuss that his output would be a little bit higher with fluids however with gastric absorption and other small bowel absorption he still needs higher fluid intakes with higher output to maintain his intravascular volume. He states he has not been tolerating the Metamucil as it makes him nauseated so has been refusing it. Feels that the loperamide is helping. We did discuss that his renal function is stable despite being off IV fluids yesterday and we will reevaluate tomorrow to make sure renal function is stable with his current output and discharge if he remains stable. Objective Data Objective Data Vital Signs: Vital Signs Temp Pulse Resp BP Pulse Ox O2 Del Method 98.0 F 91 18 108/70 100 Room Air 05/06/24 09:15 05/06/24 09:15 05/06/24 09:15 05/06/24 09:15 05/06/24 09:15 05/06/24 09:15 Oxygen Delivery Method Room Air Weight: 85.5 kg Body Mass Index (BMI) 28.6 Intake & Output: Intake and Output for Last 24 Hours 05/04/24 05/05/24 05/06/24 23:59 23:59 23:59 Intake Total 4060 / 4540 4650 / 4650 120 / 120 Output Total 2575 / 3375 4530 / 4530 Balance 1485 / 1165 120 / 120 120 / 120 Lab / Micro Data 05/06/24 05:16 05/06/24 05:16 Labs: Laboratory Results - last 24 hr 05/05/24 13:50: Sodium 136, Potassium 5.2 H, Chloride 109 H, Carbon Dioxide 19.0 L, Anion Gap 8, BUN 41 H, Creatinine 2.50 H, Estim Creat Clear Calc 29.49, Est GFR (MDRD) Af Amer 33 L, Est GFR (MDRD) Non-Af 27 L, BUN/Creatinine Ratio 16.4, Glucose 137 H, Calcium 9.1 05/06/24 05:16: WBC 6.7, RBC 3.68 L, Hgb 10.5 L, Hct 33.3 L, MCV 90.5, MCH 28.5, MCHC 31.5 L, RDW Std Deviation 51.7 H, RDW Coeff of Shavon 15.6 H, Plt Count 483 H, MPV 9.2, Sodium 138, Potassium 4.6, Chloride 111 H, Carbon Dioxide 19.0 L, Anion Gap 8, BUN 39 H, Creatinine 2.21 H, Estim Creat Clear Calc 33.36, Est GFR (MDRD) Af Amer 38 L, Est GFR (MDRD) Non-Af 32 L, BUN/Creatinine Ratio 17.6, Glucose 98, Calcium 8.8 Micro: Microbiology 05/03/24 14:15 Stool Stool Lactoferrin - Final 05/03/24 14:15 Stool Enteric Bacteriology - Final 05/03/24 14:15 Stool Clostridioides difficile (PCR) - Final Rhythm Strip Rhythm Strip: Sinus Rhythm Rate: 80 Ectopy: None Physical Exam Const alert, oriented x3, no apparent distress, average body habitus and well nourished; Negative for healthy appearing Constitutional Narrative: Upper middle-aged, white male, sitting up in bed watching television and eating breakfast, arrived at the bedside during our conversation, appears comfortable, nontoxic HEENT head/scalp atraumatic and moist oral mucous membranes HEENT Narrative: Mallampati 2, no thrush Head and Scalp: normocephalic Resp normal respiratory effort, no retractions, no use of accessory muscles and clear to auscultation bilaterally Auscultation: Negative for rales, rhonchi or wheezes Cardio regular rate, regular rhythm, S1 normal heart sound, S2 normal heart sound, no murmurs, no rub, no gallops and no clicks GI normal to inspection, nondistended, normoactive bowel sounds, soft to palpation and non-tender GI Narrative: Ostomy output thicker today, ostomy site is pink Extremity no clubbing, cyanosis or edema Extremity Narrative: Pedal and radial pulses are 2+ Neuro oriented x3, moves all extremities and no focal motor deficits Speech: speech normal Psych Psych Narrative: Affect still flat and patient more interactive and talkative today, eye contact is better, patient still seems depressed Assessment & Plan Assessment/Plan (1) Hyponatremia: (2) Hyperkalemia: (3) Hypotension: (4) Acute kidney injury superimposed on stage 3b chronic kidney disease: PLAN: Plan JANA on CKD stage IIIb -Baseline serum creatinine is 1.9-2.2 -4.31 on presentation--> down to 2.22 which is close to his baseline -Secondary to decreased p.o. liquid intake and increased ostomy output -Will discontinue Metamucil as patient has been refusing it and states it makes him nauseated -Continue Imodium 4 times daily scheduled for now with plans to decrease dosing to twice daily and as needed the other 2 doses at home after discharge -Continue off IV fluids and monitor I's and O's closely -Repeat BMP in a.m. Vasovagal syncope -Patient had a syncopal event yesterday while sitting up in a chair getting an IV started -Blood pressure dropped to 80 systolic -Resolved and no further issues Metabolic acidosis -secondary to JANA -Bicarb remains stable at 119 Thrombocytosis -Resolving and almost normalized down from 703,000--> 483,000 today -Likely related to hemoconcentration Chronic anemia -Baseline hemoglobin appears to run between 10 and 11 - stable at 10.5 today -Repeat CBC in a.m. UC with ileostomy -Patient has high output ostomy with total output yesterday being 2130 cc -Surgery was recent due to ischemic bowel -Not tolerating Metamucil so we will discontinue -Continue loperamide -Goal would be 1000 cc of ostomy output daily on an ideal world -Patient had part of the surgery done here and part of it done at -Seems to have a small fistula at his ostomy site--> no current issues or abdominal pain so will have follow-up with scheduled appointment at on May 17 Right upper extremity DVT -Continue apixaban 5 mg p.o. twice daily -Patient is to be on this for 3 months as it was provoked Hypotension -Resolved Essential hypertension -Home medications on hold due to hypotension from dehydration on presentation -Anticipate this may have resolved with his weight loss and patient may not need any antihypertensives at discharge Hyperlipidemia -Continue home atorvastatin Suspected depression -Affect is flat and patient intermittently tearful with depressed appearing mood -Patient maintains that he does not want any medication treatment DVT prophylaxis -Continue Eliquis CODE STATUS Full code Charges/Coding Visit Charges Inpatient E&M: 81031 Subs Hosp L2
[2024-05-06] MEDS: Atorvastatin Calcium 20 MG Tablet PO (21:45)
[2024-05-07 03:00] VITALS: BP 100/70; PULSE 80; RESP 16; TEMP 37; O2SAT 95
[2024-05-07] MEDS: Loperamide 2 MG Capsule PO (05:18)
[2024-05-07 05:52] VITALS: BMI 28.5
[2024-05-07 07:31] LABS: Hematocrit 32.3 % (40-54); Hemoglobin 10.5 g/dL (13.0-16.5); Mean Corp Hgb Conc 32.5 g/dL (32-36); Mean Corpuscular Hgb 29.2 pg (27.0-32.0); Mean Corpuscular Volume 89.7 fL (80-94); Mean Platelet Vol. 9.2 fl (6.2-12.0); Platelet Count 467 K/mm3 (150-450); RBC Distribution Width CV 15.3 % (11.6-14.6); RBC Distribution Width SD 50.3 fl (35.1-43.9); White Blood Count 6.4 K/mm3 (4.4-11.0)
[2024-05-07 07:59] LABS: Anion Gap 7 (5-15); BUN 41 mg/dL (7-18); Chloride 109 mmol/L (98-107); Creatinine, Serum 2.16 mg/dL (0.70-1.30); EST Glomerular Filtration Rate 32 mL/min (>60); Est Glom Filt Rate - Afr Amer 39 mL/min (>60); Estimated Creatinine Clearance 34.31 ml/min; Glucose 91 mg/dL (74-106); Magnesium 1.7 mg/dL (1.6-2.6); Phosphorus 4.5 mg/dL (2.5-4.9); Potassium 4.4 mmol/L (3.5-5.1); Sodium Level 136 mmol/L (136-145)
--- NOTE | 2024-05-07 08:21 | DS.PCM_ITS ---
Providers Date of Admission: 05/03/24 Date of Discharge: 05/07/24 Primary Care Physician: Dr. Michael Kaur MD Consultations 05/03/24 14:34 Consult: Onc/Wound/media associate Routine Comment: Reason for Consult:: Ostomy Reason For Visit: JANA, HYPERKALEMIA Diagnosis Discharge Diagnosis (1) Hyponatremia: Status: Acute Code(s): E87.1 - Hypo-osmolality and hyponatremia (2) Hyperkalemia: Status: Acute Code(s): E87.5 - Hyperkalemia (3) Hypotension: Status: Acute Code(s): I95.9 - Hypotension, unspecified (4) Acute kidney injury superimposed on stage 3b chronic kidney disease: Status: Acute Code(s): N17.9 - Acute kidney failure, unspecified; N18.32 - Chronic kidney disease, stage 3b Medications at Discharge Home Medications cholecalciferol (vitamin D3) 25 mcg (1,000 unit) tablet 1,000 unit PO DAILY SUPPLEMENT 05/31/19 atorvastatin 20 mg tablet 20 mg PO QPM CHOLESTEROL 03/28/24 apixaban 5 mg tablet (Eliquis) 5 mg PO BID BLOOD THINNER 05/03/24 loperamide 2 mg capsule 2 mg PO BID #60 caps 05/07/24 Hospital Course Operations None Procedures None Summary of Care Provided Minutes Spent on Discharge: 45 Hospital Course: Patient is a 59-year-old white male who presented to the emergency department [facility] on 05/03/2024 due to abnormal labs as an outpatient. He has a history of ulcerative colitis and a recent admission with transfer to tertiary center at [facility] on 03/31/2024 due to ischemic bowel. He ended up with an ileostomy. He was on IV antibiotics and TPN for about 3 weeks at [facility] center was discharged home about a week ago. He does have a history of CKD stage III and follows at baseline with Dr. Lorenzo. Over the past few days prior to presentation (approximately 3 to 4 days) he had been having some lightheadedness and decreased urine output and had noted some increased output from his ileostomy despite his oral intake. He denies any other symptoms but had outpatient blood work for his follow-up appointment at and was told to come to the emergency department because his potassium was elevated. He reports that his ostomy output initially at the surgery center was watery but had been bulking up prior to discharge. Again, he stated that it was more watery in the past several days. Patient reported that he had been eating fair but his hydration has been difficult for him to maintain. The lightheadedness he has been experiencing is predominantly when he is up moving around and it resolves at rest. He complained of some mild swelling in his lower extremities that is chronic for him and has not had any new abdominal pain. Vital signs on presentation showed temperature of 97.1, heart rate 111, blood pressure was 85/60, respiratory rate was 12 and oxygen saturation was 95% on room air. His chemistry panel showed likely hemoconcentration with a hemoglobin of 12.3 and a baseline between 10 and 11 and thrombocytosis with a platelet count of 703. His chemistry panel showed hyponatremia with a sodium of 129, hyperkalemia with potassium of 6.0 and a metabolic acidosis with a bicarb of 16. His baseline serum creatinine runs between 1.9 and 2.2; on presentation his serum creatinine was 4.31. Stool studies were ordered on presentation and negative for C. difficile and his enteric panel was negative as well. He was admitted to the medical floor and placed on aggressive hydration. His ostomy output was considerably high with being 2-1/2 L in a 24-hour period 1 day. We trialed Metamucil at first at higher doses but the patient did not tolerate this so we had to discontinue this and transition to loperamide. Initially he was on loperamide 4 times daily which significantly decreased his stool output and resulted in thicker stools with the consistency of applesauce. He was maintained on hydration until the afternoon of 05/05/2024. We monitored him for 24 hours off of IV hydration to ensure he can maintain hydration and his renal function was stable for 48 hours prior to discharge without IV fluids. Serum creatinine at time of discharge was 2.16 with a baseline of 1.9-2.2. With him being able to maintain hydration and his stool output decreasing dramatically we did discharge him home on 05/07/2024. I have advised that he continue loperamide twice daily. We discussed extensively about the consistency of his stool and what the goal would be. They are going to monitor his output and if he gets above a liter and a half a day they will increase his loperamide stump to decrease his output. We did recommend a goal fluid intake between 2 and 3 L a day for now with mixed fluids solute and solute free. We did discuss the ramifications of replacing his fluid with only water and both he and his voiced understanding. He was discharged home off of his antihypertensives as his blood pressure was stable throughout his entire hospitalization off his antihypertensives. He is lost a considerable amount of weight and I suspect maybe he does not need them anymore. Advised him to follow-up with his primary care physician to monitor his blood pressure and his serum creatinine. I have asked that he follow-up with his PCP within the next week. If an appointment cannot be obtained before Thursday I have asked that a basic metabolic profile will be ordered to reassess his electrolytes and kidney function. He has follow-up with surgery up at . We did discover during his hospital course that he has a fistula leak and he will address that 2 with the surgeon at at his follow-up appointment on May 17, 2024. Prescriptions for loperamide were sent to local pharmacy and he will use [id number] loperamide to follow. I did discuss with them based on stool consistency they could increase the dose up to 2 mg 4 times a day but not to exceed that dosing. If his ostomy output is up considerably I have asked that he call his surgeon at to update them. Patient did seem somewhat depressed during his hospital course and we did discuss this he declined going on any medication at this point in time. He was discharged home in stable condition on 05/07/2024. Discharge diagnoses: -JANA-resolved CKD stage IIIb Hyperkalemia-resolved Hyponatremia-resolved Metabolic acidosis-resolved High output ostomy-resolved Thrombocytosis-resolved Chronic anemia-stable History of ulcerative colitis with ileostomy History of ischemic bowel Right upper extremity DVT Hypotension-resolved History of essential hypertension Hyperlipidemia Suspected depression Physical Exam Narrative Patient reports that his ostomy output has thickened up consider the output is decreased. He has tried to increase his fluid intake as well. Anxious to go home. Const alert, oriented x3, no apparent distress, average body habitus, no limitations and well nourished; Negative for healthy appearing Constitutional Narrative: Upper middle-aged, white male, sitting up in a chair at the bedside, at the bedside, appears comfortable, nontoxic General Appearance: cooperative, comfortable, well kempt and well developed Orientation / Consciousness: awake, oriented to person, oriented to place and oriented to time Exam Limitations: no limitations HEENT normocephalic, head/scalp atraumatic and moist oral mucous membranes; Negative for hearing grossly normal bilaterally HEENT Narrative: Moderate hearing loss, Mallampati is 2, no thrush Eyes PERRL, EOMs intact bilaterally and conjunctivae normal Eyes Narrative: No scleral icterus Neck no lymphadenopathy and supple Neck Narrative: Trachea midline, no thyroid enlargement Resp normal respiratory effort, no retractions, no use of accessory muscles and clear to auscultation bilaterally Auscultation: Negative for rales, rhonchi or wheezes Cardio regular rate, regular rhythm, S1 normal heart sound, S2 normal heart sound, no murmurs, no rub, no gallops and no clicks GI normal to inspection, nondistended, normoactive bowel sounds, soft to palpation and non-tender GI Narrative: Ostomy output is significantly decreased and much thicker than previous where it seemed to be predominantly pure water Extremity no clubbing, cyanosis or edema Extremity Narrative: Pedal and radial pulses are 2+ Skin no rashes or lesions noted, no wounds, skin turgor normal, no jaundice, no petechiae and no mottling Neuro oriented x3, CN's II-XII intact bilaterally, moves all extremities and no focal motor deficits Speech: speech normal Psych affect normal Psych Narrative: Affect is much flat, patient interacts appropriately Weight / BMI Weight Weight: 85.3 kg Body Mass Index (BMI) 28.5 ABG / Lab / Microbiology Data 05/07/24 06:20 05/07/24 06:20 Laboratory: Laboratory Results - last 24 hr 05/07/24 06:20: WBC 6.4, RBC 3.60 L, Hgb 10.5 L, Hct 32.3 L, MCV 89.7, MCH 29.2, MCHC 32.5, RDW Std Deviation 50.3 H, RDW Coeff of Shavon 15.3 H, Plt Count 467 H, MPV 9.2, Sodium 136, Potassium 4.4, Chloride 109 H, Carbon Dioxide 20.0 L, Anion Gap 7, BUN 41 H, Creatinine 2.16 H, Estim Creat Clear Calc 34.31, Est GFR (MDRD) Af Amer 39 L, Est GFR (MDRD) Non-Af 32 L, BUN/Creatinine Ratio 19.0, Glucose 91, Calcium 9.0, Phosphorus 4.5, Magnesium 1.7 Microbiology: Microbiology 05/03/24 14:15 Stool Stool Lactoferrin - Final 05/03/24 14:15 Stool Enteric Bacteriology - Final 05/03/24 14:15 Stool Clostridioides difficile (PCR) - Final D/C Instructions Discharge Diet: Low fat / Low cholesterol (Goal fluid in the intake per day is between 2 and 3 L depending on ostomy output) Meaningful Use Info Meaningful Use Meaningful Use Diagnoses (Choose all that apply): None applicable Ischemic Stroke Statin Dosing Therapy Reference: STATIN DOSE THERAPY REFERENCE: * Patients > 75 years receive moderate or high dose statin therapy. * Patients 75 years or YOUNGER should receive HIGH intensity statin dose unless contraindicated. You will be required to document reason for non-treatment if statin daily dose does not meet guidelines. HIGH DOSE STATIN THERAPY DAILY Atorvastatin > than or = to 40 mg Rosuvastatin > than or = to 20 mg Amlodipine + Atorvastatin > than or = to 2.5/40 mg Ezetimibe + Simvastatin 10/80 mg Simvastatin 80mg Discharge Plan Admission Admit Date/Time: 05/03/24 13:47 Primary Reason for Your Visit: Abnormal Kidney Function Attending Provider: Chanell Kelly Primary Care Provider: Michael Kaur Consulting Providers: Tracey Cain Instructions Additional Instructions / Restrictions: 1. Take loperamide 2 mg twice daily scheduled. Buy [id number] loperamide to supplement and if ostomy output increases increase dose to 3 times a day if that is not enough may take at a maximum of 2 mg 4 times a day 2. If your ostomy output picks up and shows signs that it is greater than 1500 cc/day for more than 48 hours call your colorectal surgeon at . Also as your ostomy output increases your fluid intake orally must increase. For now I would try to get in 2 to 3 L of fluid orally per day of mixed types and avoid water only due to the reasons we discussed why you were hospitalized with regards to sodium. 3. Please follow-up on May 17 with your colorectal surgeon at [facility] 4. Please call your primary care physician and get an appointment to be seen in the next week. Please call on Thursday and asked that a basic metabolic profile be done no later than Thursday of next week to recheck your kidney function and electrolytes. Discharge Orders/Prescriptions Prescriptions: New loperamide 2 mg Capsule 2 mg PO BID Qty: 60 0RF Continued cholecalciferol (vitamin D3) 1,000 UNIT tablet 1,000 unit PO DAILY Eliquis 5 mg tablet 5 mg PO BID atorvastatin 20 mg tablet 20 mg PO QPM Discontinued amlodipine 10 MG tablet 5 mg PO DAILY lisinopril 10 MG tablet 10 mg PO DAILY Referrals / Follow Up: Michael Kaur MD [Primary Care Provider] - Within 1 Week Andrea Lorenzo MD [Med Staff - Consulting] - Within 1 Month (Call on Thursday to set up a follow-up appointment) Disposition Disposition (needs filled in before D/C Order can be placed): Home, Self Care Charges/Coding Visit Charges Inpatient E&M: 81182 Disch Hosp >30min
[2024-05-07 09:00] VITALS: BP 111/74; PULSE 78; RESP 16; TEMP 36.7; O2SAT 96
[2024-05-07] MEDS: APIXABAN 5 MG TABLET PO (09:59)
== END 2024-05-07 12:05 | disposition home or self-care (01) | DRG 683 ==
LOC: ED 12:45 → PCU 13:54
PROVIDERS: Admitting Provider Internal Medicine; Emergency Provider Emergency Medicine; PCP Family Medicine; Visit Provider Internal Medicine
DX: N17.9 Acute kidney failure, unspecified (principal); I82.621 Acute embolism and thrombosis of deep veins of right upper extremity; E87.20 Acidosis, unspecified; E87.1 Hypo-osmolality and hyponatremia; I95.9 Hypotension, unspecified; N18.32 Chronic kidney disease, stage 3b; Z93.2 Ileostomy status; Z93.3 Colostomy status; D64.9 Anemia, unspecified; I12.9 Hypertensive chronic kidney disease with stage 1 through stage 4 chronic kidney disease, or unspecified chronic kidney disease; F32.A Depression, unspecified; E86.0 Dehydration; E87.5 Hyperkalemia; E78.5 Hyperlipidemia, unspecified; Z87.891 Personal history of nicotine dependence; Z79.01 Long term (current) use of anticoagulants; Z87.19 Personal history of other diseases of the digestive system
CPT/HCPCS: 36415; 80048; 80053; 82962; 83605; 83630; 83735; 84100; 84443; 85025; 85027; 87493; 87506; 93005; 94640; 97116; 97162; 97530; 97802; 99284; J7030; J7040; J7120; A4216

== ENCOUNTER 2025-02-01 11:26 | Inpatient (IN) | payer MEDICARE, OTHER, SELFPAY ==
[2025-02-01] VITALS (7 sets, daily range): BP systolic 104–131; BP diastolic 71–82; PULSE 70–115; RESP 15–18; TEMP 36.3–37.1; O2SAT 97–100; BMI 28.8; BMI 28.6
--- NOTE | 2025-02-01 11:48 | RAD_ITS ---
PROCEDURE: CHEST PA AND LATERAL 02/01/2025 REASON FOR EXAM: CHEST PAIN Lightheadedness. TECHNIQUE: Frontal and lateral views of the chest. COMPARISON: None FINDINGS: Hardware: None Heart: Borderline cardiomegaly. Atherosclerotic calcification of the aortic arch. Mediastinum: The mediastinal contour is unremarkable. Lungs: Minimal linear atelectasis in the lingula segment left upper lobe. No focal infiltrate is seen. Bones: Degenerative changes are identified within the thoracic spine. RAD/Chest PA and Lateral IMPRESSION: Borderline cardiomegaly. Minimal linear atelectasis in the lingular segment of the left upper lobe. Reading Location: [facility]
--- NOTE | 2025-02-01 11:48 | EKG12_ITS ---
Test Reason : Blood Pressure : */* mmHG Vent. Rate : 75 BPM Atrial Rate : 75 BPM P-R Int : 210 ms QRS Dur : 78 ms QT Int : 364 ms P-R-T Axes : 75 81 66 degrees QTcB Int : 406 ms Sinus rhythm with 1st degree A-V block Otherwise normal ECG Confirmed by KELLEN LIN, DARYL ([id number]), associate editor KENYA SMITH ([id number]) on 02/03/2025 9:26:57 AM Referred By: Confirmed By: DARYL FOREMAN MD
[2025-02-01 11:59] LABS: Absolute Lymphocyte Count 0.96 X10^3/uL (0.83-4.51); Basophil# 0.05 X10^3/uL; Basophil% 0.5 % (0-1); Eosinophil# 0.19 X10^3/uL; Hematocrit 30.5 % (40-54); Hemoglobin 9.8 g/dL (13.0-16.5); Lymphocyte # 0.96 X10^3/ul (0.83-4.51); Lymphocyte % 9.9 % (19-41); Mean Corp Hgb Conc 32.1 g/dL (32-36); Mean Corpuscular Hgb 28.4 pg (27.0-32.0); Mean Corpuscular Volume 88.4 fL (80-94); Mean Platelet Vol. 9.5 fl (6.2-12.0); Monocyte# 0.45 X10^3/uL; Monocyte% 4.6 % (0-10); NRBC Flagged by Analyzer 0 % (0-5); Neutrophil % 82.1 % (47-70); Platelet Count 434 K/mm3 (150-450); RBC Distribution Width CV 14.2 % (11.6-14.6); RBC Distribution Width SD 46.3 fl (35.1-43.9); Red Blood Count 3.45 M/mm3 (4.6-6.2); White Blood Count 9.7 K/mm3 (4.4-11.0)
[2025-02-01 12:46] LABS: Anion Gap 17 (5-15); BUN 56 mg/dL (4-19); BUN/Creat Ratio 10.5 RATIO (10-20); Calcium,Total 9.4 mg/dL (7.6-11.0); Carbon Dioxide 15.6 mmol/L (21.0-32.0); Chloride 100 mmol/L (98-108); EST Glomerular Filtration Rate 11 (>60); Estimated Creatinine Clearance 13.83 ml/min (50-250); Glucose 154 mg/dL (70-99); Potassium 4.3 mmol/L (3.3-5.1); Sodium Level 133 mmol/L (133-145); Troponin T High Sensitivity 29 ng/L (<=22)
--- NOTE | 2025-02-01 13:18 | EDS_ITS ---
<Statement entered by Charles Evans DO - 02/02/25 14:25> Patient was seen and examined with nurse real Perrin All components of the history and physical confirmed and agreed. History of present illness and physical exam: Patient is a 69-year-old male with past medical history of DVT, colitis, diverticulitis, ileostomy who presented to the Emergency Department with abnormal laboratory values that were obtained in the outpatient setting. Patient states that he had routine blood work obtained recently and was notified that he needed to go to the emergency department as his labs were abnormal. Patient himself has no complaints overall. Review of systems: Agree with above Physical exam: Agree with above MDM: Patient is a 69-year-old male who presented to the Emergency Department chief complaint of abnormal laboratory values obtained in the outpatient setting. On the differential Merna includes Melamin to JANA secondary to hypovolemia, obstructive pathology, acute on chronic kidney disease. Once workup is obtained reviewed he will be reevaluated. Patient CBC reviewed showed no evidence leukocytosis white blood count normal at 9.7, hemoglobin 9.8, plate count normal at 434. Patient sodium 133, potassium normal 4.3, creatinine was elevated to 5.30. Patient's troponin was 29 with a delta troponin of 38 this is likely secondary to his renal dysfunction. Patient's urinalysis reviewed and showed no evidence of infection. Patient chest x-ray reviewed by myself by radiology which showed minimal linear atelectasis in the lingular segment of the left upper lobe. Patient was admitted to the hospital for further evaluation management. Patient case discussed with hospitalist by nurse real Perrin. Patient was notified is agreeable to plan all question concerns answered. Plan: Final impression: Acute on chronic renal failure Ileostomy Disposition: Patient will be admitted to the hospital for further evaluation management Supervising attending attestation: Charles Evans D.O. HPI History of Present Illness Chief Complaint: Abn Labs Narrative Narrative: Patient is a 69-year-old male with history of colitis, diverticulitis, hernias who now has an ileostomy. Initial ileostomy was multiple years ago, however patient had another one placed in March 2024, in December 2024 tried to have a reversal however there was not enough bowel to work with so now he has a third ileostomy. Patient states he thought he was doing pretty well however over the last month he has been more fatigued. Patient had some basic laboratory values and showed that there was a JANA which she was admitted for in May 2024 as well. Patient was here after calling his PCP. [facility] Medical History Kidney stones GI bleed Former smoker CPAP (continuous positive airway pressure) dependence DVT (deep venous thrombosis) Ileostomy present Hyperlipidemia Hx of ulcerative colitis Kidney disease Hypertension Home Medications ?Medication ?Instructions ?Recorded ?Last Taken ?Type cholecalciferol (vitamin D3) 25 1,000 unit PO DAILY SOUSA PPLEMENT 05/31/19 05/03/24 History mcg (1,000 unit) tablet atorvastatin 20 mg tablet 20 mg PO QPM CHOLESTEROL 05/01/24 History apixaban 5 mg tablet (Eliquis) 5 mg PO BID BLOOD THINN ER 05/03/24 05/03/24 History loperamide 2 mg capsule 2 mg PO BID #60 caps 4 Unknown Rx Allergy/AdvReac Type Severity Reaction Status Date / Time aspirin Allergy Other Verified 02/01/25 11:29 ibuprofen Allergy Laryngospas Verified 02/01/25 11:29 ms Surgical History History of bowel resection Social History Smoking Status: Former smoker ROS ROS ED ROS Narrative Constitutional: Negative for fever, chills, weight loss. Positive generalized weakness Eyes: Negative for vision loss, vision change, double vision ENT: Negative for any sore throat, ear pain, congestion Cardiovascular: Negative for any chest pain, tightness, palpitations Respiratory: Negative for any cough, sputum production, hemoptysis, dyspnea, dyspnea on exertion, orthopnea Gastrointestinal: Negative for any abdominal pain, nausea, vomiting, diarrhea, constipation, blood in stool, blood in vomit : Negative for any urinary frequency, dysuria, retention, blood in urine Muscle skeletal: Negative for any neck pain, back pain Neurological: Negative for any headache, syncope, dizziness Skin: Negative for any rashes, itching, abrasions, lacerations Psychiatric: Negative for any depression, anxiety, stress, suicidal ideation, homicidal ideation Hematologic: Negative for any excessive bruising, easy bleeding EXAM Physical Exam Narrative Exam Narrative: Vital signs reviewed. Patient is in no obvious distress. He states he just feels generalized fatigue. HEET: Head normocephalic atraumatic, TMs clear bilaterally. Posterior pharynx is clear, dry mucous membranes. Nares clear bilaterally. Neck: Supple with no lymphadenopathy or tenderness. No signs of meningismus. Cardiac: Regular rate and rhythm no murmurs gallops or rubs, equal peripheral p ulses bilaterally. Respiratory: Lungs clear to auscultation bilaterally. No chest tenderness. Abdomen: Soft. Patient does have an ileostomy more midline, I do see healing incision sites from the surgery in December. This does look well-appearing. There is no signs of hernia, there is no signs of infection. There is active bowel sounds in all quadrants. There is light brown stool/green stool in the bag. No black or bloody stool. No abdominal bruit or pulsatile masses. No hepatosplenomegaly Extremities: No peripheral edema, no signs of gross trauma or deformity. Active full range of motion of all extremities. Neuro: Cranial nerves II through XII intact, no focal neurological deficits. Skin: Clean dry and intact with no rash, purpura, petechiae, vesicles or pustules. Backs/flank: No CVA tenderness, no midline spinal tenderness, no deformity. Psych: Normal mood and affect. No SI, HI or acute psychosis. Const Vital Signs: 02/01/25 11:27 02/01/25 12:42 02/01/25 13:07 Temperature 97.3 F L Temperature Source Oral Pulse Rate 115 H 82 Respiratory Rate 18 Respiratory Effort Respiratory Pattern Blood Pressure 111/71 104/82 H Blood Pressure Mean 84 89 Pulse Ox 98 100 97 Oxygen Delivery Method Room Air Room Air 02/01/25 14:11 02/01/25 14:11 Temperature Temperature Source Pulse Rate 70 Respiratory Rate Respiratory Effort Normal Non-Labored Respiratory Pattern Normal Blood Pressure 131/80 H Blood Pressure Mean 97 Pulse Ox 99 Oxygen Delivery Method [facility] Lab Data Labs: Laboratory Results - last 24 hr 02/01/25 02/01/25 02/01/25 11:46 13:46 13:47 WBC 9.7 RBC 3.45 L Hgb 9.8 L Hct 30.5 L MCV 88.4 MCH 28.4 MCHC 32.1 RDW Std Deviation 46.3 H RDW Coeff of Shavon 14.2 Plt Count 434 MPV 9.5 Immature Gran % (Auto) 0.900 Neut % (Auto) 82.1 H Lymph % (Auto) 9.9 L [place] % (Auto) 4.6 Eos % (Auto) 2.0 Baso % (Auto) 0.5 Absolute Neuts (auto) 8.0 H Absolute Lymphs (auto) 0.96 Nucleated RBC % 0 PT Cancelled 14.5 INR Cancelled 1.1 Sodium 133 Potassium 4.3 Chloride 100 Carbon Dioxide 15.6 L Anion Gap 17 H BUN 56 H Creatinine 5.30 H Estim Creat Clear Calc 13.83 L Est GFR (MDRD) Non-Af 11 L BUN/Creatinine Ratio 10.5 Glucose 154 H Calcium 9.4 Troponin T High Sens 29 H Troponin T Hi Sens 2 Hr 38 H Urine Color Yellow Urine Clarity Clear Urine pH 5.0 Ur Specific [place] 1.020 Urine Protein 30 H Urine Glucose (UA) Normal Urine Ketones Negative Urine Occult Blood 25 H Urine Nitrite Negative Urine Bilirubin Negative Urine Urobilinogen Normal Ur Leukocyte Esterase 500 H Urine RBC 0 SEEN Urine WBC 0-5 SEEN Ur Squamous Epith Cells 0 SEEN Urine Bacteria 0 SEEN Urine Mucus 0 SEEN Radiography Diagnostic Testing: Clinical Impression(s) from Imaging Studies Chest X-Ray 02/01/25 11:48 IMPRESSION: Borderline cardiomegaly. Minimal linear atelectasis in the lingular segment of the left upper lobe. Reading Location: [place] [id number] EKG Sinus rhythm with first-degree AV block: Attestation: I personally reviewed and interpreted this EKG as follows: Interpretation: Sinus Rhythm Comments: Sinus rhythm first-degree AV block, rate of 75 bpm, TX interval 210 ms, QRS duration 78 ms Treatment and Re-Evaluation :: Differential diagnosis includes however is not limited to: JANA secondary to hypovolemia, JANA secondary to obstructing pathology, acute on chronic JAAN, dehydration, electrolyte abnormality, failure to thrive, decreased oral intake Patient appears generally well, vital signs are stable, patient is nontoxic- appearing. Presenting to the emergency department for complaints of elevated creatinine. Patient did receive lab values here. Patient's hematocrit was 9.8, this is slightly low, patient is usually between 10 and 10.5. Patient's chemistries showed multiple abnormalities with anion gap of 17, BUN of 56 with a creatinine of 15.3, GFR is 11 which is significantly low. Initial troponin was 29, repeat will be drawn. Patient will likely need to be admitted to the hospital. Urinalysis will also be ordered. Patient will be given IV fluids. Patient CBC does show a slight hemoglobin is low at 9.8, PT/INR within normal limits. Patient's creatinine is 5.30, in May 2024, was 2 2.16. This is a significant increase. Patient glucose 154 with a troponin of 29 with a second troponin of 38. Patient has no chest pain. Patient's urinalysis was showing no bacteria, there was 500 leukocyte esterase, slight blood however no other acute process. This was sent for culture. Patient was given 1 L normal saline. Patient will need to be admitted to the hospital for JANA. I will reach out to the hospitalist Discharge Plan Triage Chief Complaint: Abn Labs ED Midlevel Provider: Aydin Francis ED Provider: Charles Evans Dx/Rx/DC Orders Clinical Impression: Acute dehydration, JANA (acute kidney injury) Prescriptions: No Action cholecalciferol (vitamin D3) 1,000 UNIT tablet 1,000 unit PO DAILY Eliquis 5 mg tablet 5 mg PO BID loperamide 2 mg Capsule 2 mg PO BID Qty: 60 0RF atorvastatin 20 mg tablet 20 mg PO QPM Primary Care Provider: Michael Kaur Referrals: Michael Kaur MD [Primary Care Provider] - Print Language: American
[2025-02-01 13:53] LABS: Bacteria 0 SEEN /hpf (None Seen); Mucous, Urine 0 SEEN /hpf (<or=2+); Red Blood Cells-Urine 0 SEEN /hpf (0-5); Squamous Epithelial Cells - UA 0 SEEN /hpf (0-5)
[2025-02-01] MEDS: 0.9% Normal Saline (1000mL) 1,000 ML 999 ML IV (13:57)
[2025-02-01 14:02] LABS: Color, Urine Yellow (Yellow); Glucose, Dipstick Normal (Normal); Ketone-Dipstick Negative (Negative); Leukocyte Esterase-Dipstick 500 /ul (Negative); Nitrite-Dipstick Negative (Negative); Occult Blood-Urine 25 /ul (Negative); Protein-Dipstick 30 mg/dl (Negative); Urine Bilirubin Dipstick Negative (Negative); Urine Clarity Clear (Clear); Urine Urobilinogen Normal (Normal)
[2025-02-01 14:04] LABS: International Normalized Ratio 1.1; Prothrombin Time (Protime)PT. 14.5 SECONDS (11.7-14.9)
[2025-02-01 14:30] LABS: Troponin T High Sens 2 HR 38 ng/L (<=22)
[2025-02-01 14:31] LABS: White Blood Cells 0-5 SEEN /hpf (0-5)
--- NOTE | 2025-02-01 15:16 | HP.PCM.HOS_ITS ---
HPI - General General Date of Admission: 02/01/25 Date of Service: 02/01/25 Chief Complaint: abnormal labs HPI Narrative ANGELICA VELAZQUEZ, is a 69 M with a PMh as outlined who presents via the ED On 02/01/2025 with a complaint of abnormal labs. He has a history of diverticulosis and is s/p ileostomy. HE recently went to for reversal, but this was unsuccessful as he did not have enough bowel to do reverse it. He therefore still has an ileostomy in place. He came in with a complaint of weakness and tiredness. He denied any nausea or vomiting and also denied increased output from the ileostomy. Vitals in the ED were temp of 97.3F, FL of 70, BP of 131/80 and he was saturating at 99% on room air. CBC showed hemoglobin of 9.8 with WBC of 9.7 and platelets of 434. INR is 1.1. Chemistry shows sodium of 133 with potassium of 4.3 and bicarb of 15.6. Anion gap of 17 and Cr of 5.30. baseline Cr is ~ 2.16. Urinalysis showed no evidence of UTI. Chest x-ray showed borderline cardiomegaly and minimal linear atelectasis in the lingular segment of the left upper lobe. He has been admitted to be managed for JANA on CKD. [facility] Medical History Kidney stones GI bleed Former smoker CPAP (continuous positive airway pressure) dependence DVT (deep venous thrombosis) Ileostomy present Hyperlipidemia Hx of ulcerative colitis Kidney disease Hypertension Home Medications ?Medication ?Instructions ?Recorded ?Last Taken ?Type cholecalciferol (vitamin D3) 25 1,000 unit PO DAILY SOUSA PPLEMENT 05/31/19 01/31/25 History mcg (1,000 unit) tablet atorvastatin 20 mg tablet 20 mg PO QHS CHOLESTEROL 01/31/25 History loperamide 2 mg capsule 2 mg PO DAILY 02/01/2501/31 History tamsulosin 0.4 mg capsule 0.8 mg PO DAILY 02/01/2511/26 History Allergy/AdvReac Type Severity Reaction Status Date / Time aspirin Allergy Other Verified 02/01/25 11:29 ibuprofen Allergy Laryngospas Verified 02/01/25 11:29 ms Surgical History History of bowel resection Social History Smoking Status: Former smoker ROS Constitutional Constitutional: Reports fatigue and weakness; Denies anorexia, chills or fever(s) Eyes Eyes: Denies change in vision ENT HEENT: Denies dysphagia Cardiovascular Cardiovascular: Denies chest pain, dyspnea on exertion, edema, lightheadedness, orthopnea, palpitations, paroxysmal nocturnal dyspnea, rapid heart rate or syncope Respiratory/Chest Respiratory/Chest: Denies cough, dyspnea, shortness of breath at rest or shortness of breath with exertion Gastrointestinal Gastrointestinal: Denies abdominal pain, coffee ground emesis, constipation, diarrhea, nausea or vomiting Genitourinary Genitourinary: Reports urinary hesitancy; Denies dysuria, urinary frequency or urinary incontinence Musculoskeletal Musculoskeletal: Denies back pain or joint swelling Neurologic Neurologic: Denies confusion, dizziness, focal weakness or headache(s) Psychiatric Psychiatric: Denies anxiety Hematologic/Lymphatic Hematologic/Lymphatic: Denies anemia Vital Signs Vital Signs Vital Signs: 02/01/25 11:27 02/01/25 12:42 02/01/25 13:07 Temperature 97.3 F L Temperature Source Oral Pulse Rate 115 H 82 Respiratory Rate 18 Respiratory Effort Respiratory Pattern Blood Pressure 111/71 104/82 H Blood Pressure Mean 84 89 Pulse Ox 98 100 97 Oxygen Delivery Method Room Air Room Air 02/01/25 14:11 02/01/25 14:11 Temperature Temperature Source Pulse Rate 70 Respiratory Rate Respiratory Effort Normal Non-Labored Respiratory Pattern Normal Blood Pressure 131/80 H Blood Pressure Mean 97 Pulse Ox 99 Oxygen Delivery Method Weight Weight: 189 lb 6.4 oz Body Mass Index (BMI) 28.8 Physical Exam Const alert, oriented x3 and no apparent distress General Appearance: cooperative HEENT normocephalic, head/scalp atraumatic, hearing grossly normal bilaterally, moist oral mucous membranes and oropharynx normal Mouth: oral and palatal mucosa normal Eyes PERRL, EOMs intact bilaterally and conjunctivae normal Neck no lymphadenopathy and supple Resp normal respiratory effort, no retractions, no use of accessory muscles and clear to auscultation bilaterally Cardio regular rate, regular rhythm, S1 normal heart sound, S2 normal heart sound and no murmurs GI normal to inspection, nondistended, normoactive bowel sounds, soft to palpation and non-distended GI Narrative: ileostomy bag in situ Extremity normal to inspection, full ROM and no clubbing, cyanosis or edema Neuro oriented x3, CN's II-XII intact bilaterally, moves all extremities and no focal motor deficits Sensorium / Orientation: awake and alert Motor Exam: strength 5/5 throughout Psych affect normal Results Lab / Micro Data 02/01/25 11:46 02/01/25 11:46 Labs: Laboratory Results - last 24 hr 02/01/25 11:46: WBC 9.7, RBC 3.45 L, Hgb 9.8 L, Hct 30.5 L, MCV 88.4, MCH 28.4, MCHC 32.1, RDW Std Deviation 46.3 H, RDW Coeff of Shavon 14.2, Plt Count 434, MPV 9.5, Immature Gran % (Auto) 0.900, Neut % (Auto) 82.1 H, Lymph % (Auto) 9.9 L, Branch % (Auto) 4.6, Eos % (Auto) 2.0, Baso % (Auto) 0.5, Absolute Neuts (auto) 8.0 H, Absolute Lymphs (auto) 0.96, Nucleated RBC % 0, PT Cancelled, INR Cancelled, Sodium 133, Potassium 4.3, Chloride 100, Carbon Dioxide 15.6 L, Anion Gap 17 H, BUN 56 H, Creatinine 5.30 H, Estim Creat Clear Calc 13.83 L, Est GFR (MDRD) Non-Af 11 L, BUN/Creatinine Ratio 10.5, Glucose 154 H, Calcium 9.4, T roponin T High Sens 29 H 02/01/25 13:46: PT 14.5, INR 1.1, Troponin T Hi Sens 2 Hr 38 H 02/01/25 13:47: Urine Color Yellow, Urine Clarity Clear, Urine pH 5.0, Ur Specific [place] 1.020, Urine Protein 30 H, Urine Glucose (UA) Normal, Urine Ketones Negative, Urine Occult Blood 25 H, Urine Nitrite Negative, Urine Bilirubin Negative, Urine Urobilinogen Normal, Ur Leukocyte Esterase 500 H, Urine RBC 0 SEEN, Urine WBC 0-5 SEEN, Ur Squamous Epith Cells 0 SEEN, Urine Bacteria 0 SEEN, Urine Mucus 0 SEEN Imaging Radiology Impression Chest X-Ray 02/01/25 11:48 IMPRESSION: Borderline cardiomegaly. Minimal linear atelectasis in the lingular segment of the left upper lobe. Reading Location: [facility] Assessment & Plan Assessment/Plan (1) JANA (acute kidney injury): PLAN: Plan #JANA on CKD # * Patient admitted on account of abnormal labs. He saw his PCP yesterday and blood work done showed creatinine had trended up so he was asked to come into the ED. * Creatinine today is 5.3. His baseline creatinine is 2.16 from 05/07/2024. * He states he was recently admitted at [facility] in December for reversal of colostomy but this was not successful as he did not have enough bowel. * He says he also had difficulty with urination, and had to be started on flomax. * hydrate with IVF NS @ 150cc/hr * insert tidwell catheter to monitor urine output. * get CT abdomen and pelvis without contrast to check for any obstructive uropathy. * consult nephrology. * #Anion gap metabolic acidosis due to JANA on CKD * Bicarb is 15/6 and anion gap is 17. * likely due to JANA on CKD * should improve as JANA on CKD improves. * on tamsulosin. * #Elevated troponins * Initial troponin was 29 and trended up to 38 but came down to 23. He denies any chest pain or shortness of breath. * likely due to decreased troponin clearance due to JANA on CKD. * will monitor. * no baseline Cr in the EMR. WIll get an echo to evaluate cardiac function. * #History of Crohn's disease s/p small bowel resection and ileostomy * has ileostomy in situ. * on loperamide * #Hyperlipidemia: on statin. DVT prophylaxis: on lovenox Code status: full code * Patient counseled extensively about different types of CODE STATUS including full code, DNR CCA and DNR CCA. * Patient elects to be full code. * Total [id number] time 16 minutes. Charges/Coding Visit Charges Inpatient E&M: 73669 Init Hosp L3 Procedures Hospitalists Procedures: 86887 Advncd Care Plan 30 Min
[2025-02-01 16:22] LABS: Troponin T High Sens 4 HR 23 ng/L (<=22)
--- NOTE | 2025-02-01 17:18 | CT_ITS ---
PROCEDURE: ABDOMEN/PELVIS WITHOUT CONT 02/01/2025 REASON FOR EXAM: 69-year-old male, JANA ON CKD, history of diverticulitis, ileostomy and ulcerative colitis. TECHNIQUE: Abdomen and pelvis CT without intravenous contrast. Noncontrast technique limits evaluation of the abdominal and pelvic viscera. Coronal and Sagittal reconstruction series were provided. One or more dose reduction techniques were used (e.g., Automated exposure control, adjustment of the mA and/or kV according to patient size, use of iterative reconstruction technique). PATIENT PREPARATION: Per protocol ORAL CONTRAST TYPE: None. COMPARISON: CT abdomen pelvis 03/29/2024. FINDINGS: Lung bases: The lung bases are clear. The heart is normal in size with coronary artery calcifications. Liver: The unopacified liver is normal in size. No biliary ductal dilation. Gallbladder: No radiopaque stones within the gallbladder. Spleen: Normal in size. Pancreas: The unopacified pancreas is mildly atrophic. Adrenals: Unremarkable. Kidneys: Moderate bilateral renal cortical atrophy. Bilateral nonobstructing renal calculi, the largest within the left lower pole measuring 0.6 cm. No left hydronephrosis. Mild right hydroureteronephrosis. Mild thickening of the right ureter with large obstructing calculus at the right ureteropelvic junction measuring 0.8 cm. Bladder: Decompressed by indwelling Chavez catheter. Reproductive Organs: Unremarkable. Bowel: Right lower quadrant ileostomy. The bowel loops are normal in caliber. No ascites or pneumoperitoneum. Lymph nodes: Visualization is limited without the use of IV contrast. No suspicious lymphadenopathy. Vasculature: Moderate calcific plaque throughout the aortoiliac vessels. Bones/soft tissues: Thoracolumbar spondylosis. Small fat containing right inguinal hernia. Small parastomal hernia containing a nondilated small bowel loop. Cutaneous and subcutaneous thickening along the midline ventral abdominal wall, compatible with prior surgical history. CT/Abdomen/Pelvis without Cont IMPRESSION: 1. Obstructing calculus at the right ureteropelvic junction with mild right hyd roureteronephrosis. 2. Additional large bilateral nonobstructing renal calculi. Reading Location: [id number]
[2025-02-01] MEDS: 0.9% Normal Saline (1000mL) 1,000 ML 150 ML IV (17:48)
[2025-02-01] MEDS: Atorvastatin Calcium 20 MG Tablet PO (20:38)
[2025-02-02] MEDS: 0.9% Normal Saline (1000mL) 1,000 ML 150 ML IV ×2 (00:48→09:58)
[2025-02-02 04:00] VITALS: BP 113/68; PULSE 68; RESP 15; TEMP 36.6; O2SAT 97
[2025-02-02] MEDS: Cholecalciferol (VIT D3) 25 MCG TABLET (1,000 UNITS) PO (08:14)
[2025-02-02] MEDS: Tamsulosin HCl 0.4 MG Capsule 0.8 MG PO (08:14)
[2025-02-02] MEDS: Enoxaparin 30 MG/0.3 ML Syringe SC (08:14)
[2025-02-02] MEDS: Loperamide 2 MG Capsule PO (08:14)
[2025-02-02 08:27] VITALS: BP 111/68; PULSE 63; RESP 18; TEMP 37.1; O2SAT 99
[2025-02-02 08:41] LABS: Basophil# 0.04 X10^3/uL; Basophil% 0.5 % (0-1); Eosinophil# 0.27 X10^3/uL; Eosinophils% 3.6 % (0-5); Hematocrit 24.9 % (40-54); Hemoglobin 8.1 g/dL (13.0-16.5); Lymphocyte % 20.2 % (19-41); Mean Corp Hgb Conc 32.5 g/dL (32-36); Mean Corpuscular Volume 89.2 fL (80-94); Mean Platelet Vol. 9.7 fl (6.2-12.0); Monocyte# 0.59 X10^3/uL; NRBC Flagged by Analyzer 0 % (0-5); Neutrophil # 4.96 X10^3/uL (2.7-7.7); Platelet Count 375 K/mm3 (150-450); RBC Distribution Width CV 14.2 % (11.6-14.6); RBC Distribution Width SD 45.9 fl (35.1-43.9); Red Blood Count 2.79 M/mm3 (4.6-6.2); White Blood Count 7.4 K/mm3 (4.4-11.0)
[2025-02-02 09:06] LABS: Anion Gap 12 (5-15); BUN 50 mg/dL (4-19); BUN/Creat Ratio 11.5 RATIO (10-20); Calcium,Total 8.3 mg/dL (7.6-11.0); Carbon Dioxide 16.2 mmol/L (21.0-32.0); Chloride 109 mmol/L (98-108); Creatinine, Serum 4.29 mg/dL (0.70-1.20); EST Glomerular Filtration Rate 14 (>60); Estimated Creatinine Clearance 17.04 ml/min (50-250); Glucose 80 mg/dL (70-99); Potassium 4.2 mmol/L (3.3-5.1); Sodium Level 138 mmol/L (133-145)
--- NOTE | 2025-02-02 09:19 | PCM.PN.HOSP ---
Reason for Visit Reason for Visit: Diagnoses Acute kidney failure, unspecified (02/01/25) Subjective Subjective Patient is a 69-year-old gentleman with history of ileostomy on account of Crohn's disease with unsuccessful reversal who was admitted with abnormal labs. Patient was found to have worsening kidney function superimposed on his chronic kidney disease. Objective Data Objective Data Vital Signs: Vital Signs Temp Pulse Resp BP Pulse Ox O2 Del Method 98.7 F 63 18 111/68 99 Room Air 02/02/25 08:27 02/02/25 08:27 02/02/25 08:27 02/02/25 08:27 02/02/25 08:27 02/02/25 08:27 Oxygen Delivery Method Room Air Weight: 85.366 kg Body Mass Index (BMI) 28.6 Intake & Output: Intake and Output for Last 24 Hours 01/31/25 02/01/25 02/02/25 23:59 23:59 23:59 Intake Total 1000 / 1000 2000 / 2000 Output Total 775 / 775 Balance 1000 / 600 1225 / 1225 Lab / Micro Data 02/02/25 06:38 02/02/25 06:38 Labs: Laboratory Results - last 24 hr 02/01/25 11:46: WBC 9.7, RBC 3.45 L, Hgb 9.8 L, Hct 30.5 L, MCV 88.4, MCH 28.4, MCHC 32.1, RDW Std Deviation 46.3 H, RDW Coeff of Shavon 14.2, Plt Count 434, MPV 9.5, Immature Gran % (Auto) 0.900, Neut % (Auto) 82.1 H, Lymph % (Auto) 9.9 L, [place] % (Auto) 4.6, Eos % (Auto) 2.0, Baso % (Auto) 0.5, Absolute Neuts (auto) 8.0 H, Absolute Lymphs (auto) 0.96, Nucleated RBC % 0, PT Cancelled, INR Cancelled, Sodium 133, Potassium 4.3, Chloride 100, Carbon Dioxide 15.6 L, Anion Gap 17 H, BUN 56 H, Creatinine 5.30 H, Estim Creat Clear Calc 13.83 L, Est GFR (MDRD) Non-Af 11 L, BUN/Creatinine Ratio 10.5, Glucose 154 H, Calcium 9.4, Troponin T High Sens 29 H 02/01/25 13:46: PT 14.5, INR 1.1, Troponin T Hi Sens 2 Hr 38 H 02/01/25 13:47: Urine Color Yellow, Urine Clarity Clear, Urine pH 5.0, Ur Specific [place] 1.020, Urine Protein 30 H, Urine Glucose (UA) Normal, Urine Ketones Negative, Urine Occult Blood 25 H, Urine Nitrite Negative, Urine Bilirubin Negative, Urine Urobilinogen Normal, Ur Leukocyte Esterase 500 H, Urine RBC 0 SEEN, Urine WBC 0-5 SEEN, Ur Squamous Epith Cells 0 SEEN, Urine Bacteria 0 SEEN, Urine Mucus 0 SEEN 02/01/25 15:48: Troponin T Hi Sens 4Hr 23 H 02/02/25 06:38: WBC 7.4, RBC 2.79 L, Hgb 8.1 L, Hct 24.9 L, MCV 89.2, MCH 29.0, MCHC 32.5, RDW Std Deviation 45.9 H, RDW Coeff of Shavon 14.2, Plt Count 375, MPV 9.7, Immature Gran % (Auto) 0.700, Neut % (Auto) 67.0, Lymph % (Auto) 20.2, [place] % (Auto) 8.0, Eos % (Auto) 3.6, Baso % (Auto) 0.5, Absolute Neuts (auto) 5.0, Absolute Lymphs (auto) 1.50, Nucleated RBC % 0, Sodium 138, Potassium 4.2, Chloride 109 H, Carbon Dioxide 16.2 L, Anion Gap 12, BUN 50 H, Creatinine 4.29 H, Estim Creat Clear Calc 17.04 L, Est GFR (MDRD) Non-Af 14 L, BUN/Creatinine Ratio 11.5, Glucose 80, Calcium 8.3 Radiography Diagnostic Testing: Radiology Impression Chest X-Ray 02/01/25 11:48 IMPRESSION: Borderline cardiomegaly. Minimal linear atelectasis in the lingular segment of the left upper lobe. Reading Location: [facility] Abdomen/Pelvis CT 02/01/25 17:18 IMPRESSION: 1. Obstructing calculus at the right ureteropelvic junction with mild right hydroureteronephrosis. 2. Additional large bilateral nonobstructing renal calculi. Reading Location: [facility] Physical Exam Narrative GENERAL: cooperative HEENT: Atraumatic; normocephalic EYES; Anicteric, Normal Conjunctiva NECK; supple, normal thyroid, RESPIRATORY: Diminished to auscultation CARDIOVASCULAR: Regular S1 S2, GI: soft, normoactive bowel sounds, ileostomy in place : No Renal angle tenderness; EXTREMITIES: No edema, no clubbing, MUSCULOSKELETAL: no muscle wasting NEURO: Awake; no lateralizing signs. SKIN: No Rash PSYCH; Flat affect Assessment & Plan Assessment/Plan (1) JANA (acute kidney injury): PLAN: Plan Patient is a 69-year-old gentleman with history of ileostomy on account of Crohn's disease with unsuccessful reversal who was admitted with abnormal labs. Patient was found to have worsening kidney function superimposed on his chronic kidney disease. 1. Acute kidney injury ? Superimposed on chronic kidney disease stage IV. Patient has been admitted to the regular nursing floor managed with IV fluids with monitoring of BMP ordered consult was placed to nephrology. 2. Nephrolithiasis ? CT of the abdomen obtained did show. Obstructing calculus at the right ureteropelvic junction with mild right hydroureteronephrosis.. Additional large bilateral nonobstructing renal calculi. Consult placed to urology 3. History of Crohn disease ? With bowel resection and subsequent ileostomy. Patient did fail attempt at reversal 4. Metabolic acidosis ? Secondary to JANA do expect improvement with treatment of underlying condition 5. Anemia ? Secondary to chronic disorder. Patient hemoglobin on admission was 9.8 did drop to 8.1 ordered iron studies, monitoring H&H and transfuse if patient becomes symptomatic or hemoglobin falls below 7 6. Elevated troponin ? Suspected to be secondary to demand ischemia from worsening kidney function patient presentation not consistent with ACS 7. BPH with lower urinary obstructive symptoms - Patient treated with tamsulosin 8. Dyslipidemia ?Patient is on statin therapy, continued at home dose 9. DVT prophylaxis ? On enoxaparin Time spent in the patient's overall evaluation,decision-making process, review of diagnostic data, adjustment of management, discussion with other providers, nursing nursing and ancillary staff involved in patient's care documentation, 52 minutes Charges/Coding Visit Charges Inpatient E&M: [address] [place] [id number]
[2025-02-02] MEDS: 0.9% Saline Lock 10 ML Syringe IV (10:02)
--- NOTE | 2025-02-02 11:11 | PCM.CONS.R ---
Documented by User: ANASTACIO Santana 02/02/25 11:21 Assessment & Plan Assessment/Plan (1) JANA (acute kidney injury): (2) CKD (chronic kidney disease) stage 3, GFR 30-59 ml/min: PLAN: Plan This is a 69-year-old male with past medical history significant for chronic kidney disease stage III from biopsy-proven Aquilino's in April 2018 received prednisone and rituximab, baseline creatinine has been ranging around 2.2 to 2.4 mg/dL but patient does have JANA/fluctuating serum creatinine secondary to stomal output. Patient follows with Dr. Lorenzo [place] office, last seen in November 2024, his labs in October creatinine 2.88 10/24/2024 and 10/14/2024 creatinine 4.01). Creatinine was 5.3 yesterday, today creatinine is 4.29, potassium normal, bicarb 16; patient has good urine output. He is on IV fluids with improvement of renal function. No acute indication for [employer]. Will change IV fluids to LR. Noncontrast CT of abdomen and pelvis showed obstructing calculus at right ureteropelvic junction with mild right hydroureteronephrosis and additional large bilateral nonobstructing renal calculi, urology consulted. Patient has Chavez. Blood pressures acceptable, patient is not on any antihypertensives. Further orders forthcoming as hospitalization evolves. Assessment and plan reviewed with Dr. Lorenzo. HPI Consult Data Date of Consult: 02/02/25 HPI Narrative HPI Narrative: ANGELICA VELAZQUEZ, is a 69 M with past medical history significant for ulcerative colitis status post ileostomy, history of CKD stage IIIb with history of kidney biopsy proven Aquilino's diagnosed in April 2018 received rituximab and prednisone, continues to follow with Dr. Lorenzo in [place] office who presented to the emergency room because of abnormal labs. Creatinine was 5.3. Baseline creatinine has been ranging around 2.2 mg/dL. Patient was started on IV fluids and admitted for further evaluation and treatment. Nephrology consulted given history of CKD now with JANA. With IV fluids alone serum creatinine has improved to 4.2 today. Patient denies any recent nausea or vomiting. He does state appetite has been poor recently with poor fluid intake. Patient states he has had some loose stools more than normal. Patient was just at [facility] for potential reversal of ilerostomy but patient did not have enough bowel for reversal. [facility] Medical History (Updated 02/02/25 @ 13:[address] Brando Ponce MD) Colostomy in place Kidney stones GI bleed Former smoker CPAP (continuous positive airway pressure) dependence DVT (deep venous thrombosis) Ileostomy present Hyperlipidemia Hx of ulcerative colitis Kidney disease Hypertension Home Medications ?Medication ?Instructions ?Recorded ?Last Taken ?Type cholecalciferol (vitamin D3) 25 1,000 unit PO DAILY SUPPLEMENT 05/31/19 01/31/25 History mcg (1,000 unit) tablet atorvastatin 20 mg tablet 20 mg PO QHS CHOLESTEROL 03/28/24 01/31/25 History loperamide 2 mg capsule 2 mg PO DAILY 02/01/25 01/31/25 History tamsulosin 0.4 mg capsule 0.8 mg PO DAILY 02/01/25 01/31/25 History Allergy/AdvReac Type Severity Reaction Status Date / Time aspirin Allergy Other Verified 02/01/25 11:29 ibuprofen Allergy Laryngospas Verified 02/01/25 11:29 ms Surgical History History of bowel resection Social History Smoking Status: Former smoker ROS ROS Narrative As in HPI Physical Exam Narrative Alert and oriented x 3, no apparent distress S1, S2, RRR Lung sounds clear, on room air abdomen soft, nontender. Ostomy in place with soft greenish stool No edema Indwelling Chavez with clear yellow urine in bag Lab / Micro Data 02/02/25 06:38 02/02/25 06:38 Labs: Laboratory Results - last 24 hr 02/01/25 11:46: WBC 9.7, RBC 3.45 L, Hgb 9.8 L, Hct 30.5 L, MCV 88.4, MCH 28.4, MCHC 32.1, RDW Std Deviation 46.3 H, RDW Coeff of Shavon 14.2, Plt Count 434, MPV 9.5, Immature Gran % (Auto) 0.900, Neut % (Auto) 82.1 H, Lymph % (Auto) 9.9 L, [place] % (Auto) 4.6, Eos % (Auto) 2.0, Baso % (Auto) 0.5, Absolute Neuts (auto) 8.0 H, Absolute Lymphs (auto) 0.96, Nucleated RBC % 0, PT Cancelled, INR Cancelled, Sodium 133, Potassium 4.3, Chloride 100, Carbon Dioxide 15.6 L, Anion Gap 17 H, BUN 56 H, Creatinine 5.30 H, Estim Creat Clear Calc 13.83 L, Est GFR (MDRD) Non-Af 11 L, BUN/Creatinine Ratio 10.5, Glucose 154 H, Calcium 9.4, Troponin T High Sens 29 H 02/01/25 13:46: PT 14.5, INR 1.1, Troponin T Hi Sens 2 Hr 38 H 02/01/25 13:47: Urine Color Yellow, Urine Clarity Clear, Urine pH 5.0, Ur Specific [place] 1.020, Urine Protein 30 H, Urine Glucose (UA) Normal, Urine Ketones Negative, Urine Occult Blood 25 H, Urine Nitrite Negative, Urine Bilirubin Negative, Urine Urobilinogen Normal, Ur Leukocyte Esterase 500 H, Urine RBC 0 SEEN, Urine WBC 0-5 SEEN, Ur Squamous Epith Cells 0 SEEN, Urine Bacteria 0 SEEN, Urine Mucus 0 SEEN 02/01/25 15:48: Troponin T Hi Sens 4Hr 23 H 02/02/25 06:38: WBC 7.4, RBC 2.79 L, Hgb 8.1 L, Hct 24.9 L, MCV 89.2, MCH 29.0, MCHC 32.5, RDW Std Deviation 45.9 H, RDW Coeff of Shavon 14.2, Plt Count 375, MPV 9.7, Immature Gran % (Auto) 0.700, Neut % (Auto) 67.0, Lymph % (Auto) 20.2, [place] % (Auto) 8.0, Eos % (Auto) 3.6, Baso % (Auto) 0.5, Absolute Neuts (auto) 5.0, Absolute Lymphs (auto) 1.50, Nucleated RBC % 0, Sodium 138, Potassium 4.2, Chloride 109 H, Carbon Dioxide 16.2 L, Anion Gap 12, BUN 50 H, Creatinine 4.29 H, Estim Creat Clear Calc 17.04 L, Est GFR (MDRD) Non-Af 14 L, BUN/Creatinine Ratio 11.5, Glucose 80, Calcium 8.3 Imaging Radiology Impression Chest X-Ray 02/01/25 11:48 IMPRESSION: Borderline cardiomegaly. Minimal linear atelectasis in the lingular segment of the left upper lobe. Reading Location: [id number] Abdomen/Pelvis CT 02/01/25 17:18 IMPRESSION: 1. Obstructing calculus at the right ureteropelvic junction with mild right hydroureteronephrosis. 2. Additional large bilateral nonobstructing renal calculi. Reading Location: [facility] Documented by User: Dr. Andrea Lorenzo MD 02/02/25 21:09 Assessment & Plan Assessment/Plan (1) JANA (acute kidney injury): (2) CKD (chronic kidney disease) stage 3, GFR 30-59 ml/min: PLAN: Plan This is a 69-year-old male with past medical history significant for chronic kidney disease stage III from biopsy-proven Aquilino's in April 2018 received prednisone and rituximab, baseline creatinine has been ranging around 2.2 to 2.4 mg/dL but patient does have JANA/fluctuating serum creatinine secondary to stomal output. Patient follows with Dr. Bj [place] office, last seen in November 2024, his labs in October creatinine 2.88 10/24/2024 and 10/14/2024 creatinine 4.01). Creatinine was 5.3 yesterday, today creatinine is 4.29, potassium normal, bicarb 16; patient has good urine output. He is on IV fluids with improvement of renal function. No acute indication for [employer]. Will change IV fluids to LR. Noncontrast CT of abdomen and pelvis showed obstructing calculus at right ureteropelvic junction with mild right hydroureteronephrosis and additional large bilateral nonobstructing renal calculi, urology consulted. Patient has Chavez. Blood pressures acceptable, patient is not on any antihypertensives. Further orders forthcoming as hospitalization evolves. Assessment and plan reviewed with Dr. Lorenzo. Addendum He is well known to me. 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 finished maintenance treatment as well. antibodies remain negative. Recent issues with high stomal output. I have arranged IV fluids as outpatient at [facility] on couple occasions for volume depletion and JANA recent cr has been around 2.5 or so presented to PCP with weakness. recent surgery at . Cr high, referred to ER CT abd without bladder distention multiple kidney stones - unilateral hydro - urology referral kidney stones risk factors - ileostomy, Crohs Acidosis. due to GI losses. change fluids to LR HPI Consult Data Date of Consult: 02/02/25 [facility] Medical History (Updated 02/02/25 @ 13:[address] Brando Ponce MD) Colostomy in place Kidney stones GI bleed Former smoker CPAP (continuous positive airway pressure) dependence DVT (deep venous thrombosis) Ileostomy present Hyperlipidemia Hx of ulcerative colitis Kidney disease Hypertension Home Medications ?Medication ?Instructions ?Recorded ?Last Taken ?Type cholecalciferol (vitamin D3) 25 1,000 unit PO DAILY SUPPLEMENT 05/31/19 01/31/25 History mcg (1,000 unit) tablet atorvastatin 20 mg tablet 20 mg PO QHS CHOLESTEROL 03/28/24 01/31/25 History loperamide 2 mg capsule 2 mg PO DAILY 02/01/25 01/31/25 History tamsulosin 0.4 mg capsule 0.8 mg PO DAILY 02/01/25 01/31/25 History Allergy/AdvReac Type Severity Reaction Status Date / Time aspirin Allergy Other Verified 02/01/25 11:29 ibuprofen Allergy Laryngospas Verified 02/01/25 11:29 ms Surgical History History of bowel resection Social History Smoking Status: Former smoker Lab / Micro Data 02/02/25 06:38 02/02/25 06:38
[2025-02-02] MEDS: Lactated Ringers 1,000 ML 150 ML IV ×2 (11:28→18:13)
--- NOTE | 2025-02-02 12:59 | PCM.CONS.U ---
Assessment & Plan Assessment/Plan (1) JANA (acute kidney injury): (2) Kidney stones: PLAN: [place] plan to laser stone tomorrow at 1030 am HPI Consult Data Date of Consult: 02/02/25 HPI Narrative Reason for Consultation: right kidney stone HPI Narrative: ANGELICA VELAZQUEZ, is a 69 M who presents to [facility] with stone in distal right ureter on ct scan plan to take to surgery tomorrow to laser and remove stone. npo [facility] Medical History (Updated 02/02/25 @ 13:[address] Brando Ponce MD) Colostomy in place Kidney stones GI bleed Former smoker CPAP (continuous positive airway pressure) dependence DVT (deep venous thrombosis) Ileostomy present Hyperlipidemia Hx of ulcerative colitis Kidney disease Hypertension Home Medications ?Medication ?Instructions ?Recorded ?Last Taken ?Type cholecalciferol (vitamin D3) 25 1,000 unit PO DAILY SUPPLEMENT 05/31/19 01/31/25 History mcg (1,000 unit) tablet atorvastatin 20 mg tablet 20 mg PO QHS CHOLESTEROL 03/28/24 01/31/25 History loperamide 2 mg capsule 2 mg PO DAILY 02/01/25 01/31/25 History tamsulosin 0.4 mg capsule 0.8 mg PO DAILY 02/01/25 01/31/25 History Allergy/AdvReac Type Severity Reaction Status Date / Time aspirin Allergy Other Verified 02/01/25 11:29 ibuprofen Allergy Laryngospas Verified 02/01/25 11:29 ms Surgical History History of bowel resection Social History Smoking Status: Former smoker Physical Exam Const alert and oriented x3 General Appearance: cooperative HEENT normocephalic, head/scalp atraumatic, EAC's normal and TM's normal bilaterally Eyes PERRL and EOMs intact bilaterally Pupil: sluggish Neck no lymphadenopathy, supple and no JVD General: trachea midline Lymph Lymphatic: no lymphadenopathy noted, lymphedema and lymphadenopathy Resp normal respiratory effort, normal air movement and clear to auscultation bilaterally Cardio regular rate, regular rhythm and peripheral pulses 2+ throughout GI soft to palpation, non-tender and non-distended Extremity normal capillary refill and no clubbing, cyanosis or edema General Extremity: no tenderness to palpation of joints or extremities Skin no rashes or lesions noted General Skin Exam: turgor normal Lesions: no lesions Rashes: no rashes Neuro CN's II-XII intact bilaterally Speech: speech normal Motor Exam: strength 5/5 throughout; Negative for general weakness Psych thought process normal, cooperative and affect normal Appearance: appropriate Lab / Micro Data 02/02/25 06:38 02/02/25 06:38 Labs: Laboratory Results - last 24 hr 02/01/25 13:46: PT 14.5, INR 1.1, Troponin T Hi Sens 2 Hr 38 H 02/01/25 13:47: Urine Color Yellow, Urine Clarity Clear, Urine pH 5.0, Ur Specific [place] 1.020, Urine Protein 30 H, Urine Glucose (UA) Normal, Urine Ketones Negative, Urine Occult Blood 25 H, Urine Nitrite Negative, Urine Bilirubin Negative, Urine Urobilinogen Normal, Ur Leukocyte Esterase 500 H, Urine RBC 0 SEEN, Urine WBC 0-5 SEEN, Ur Squamous Epith Cells 0 SEEN, Urine Bacteria 0 SEEN, Urine Mucus 0 SEEN 02/01/25 15:48: Troponin T Hi Sens 4Hr 23 H 02/02/25 06:38: WBC 7.4, RBC 2.79 L, Hgb 8.1 L, Hct 24.9 L, MCV 89.2, MCH 29.0, MCHC 32.5, RDW Std Deviation 45.9 H, RDW Coeff of Shavon 14.2, Plt Count 375, MPV 9.7, Immature Gran % (Auto) 0.700, Neut % (Auto) 67.0, Lymph % (Auto) 20.2, [place] % (Auto) 8.0, Eos % (Auto) 3.6, Baso % (Auto) 0.5, Absolute Neuts (auto) 5.0, Absolute Lymphs (auto) 1.50, Nucleated RBC % 0, Sodium 138, Potassium 4.2, Chloride 109 H, Carbon Dioxide 16.2 L, Anion Gap 12, BUN 50 H, Creatinine 4.29 H, Estim Creat Clear Calc 17.04 L, Est GFR (MDRD) Non-Af 14 L, BUN/Creatinine Ratio 11.5, Glucose 80, Calcium 8.3 Imaging Radiology Impression Abdomen/Pelvis CT 02/01/25 17:18 IMPRESSION: 1. Obstructing calculus at the right ureteropelvic junction with mild right hydroureteronephrosis. 2. Additional large bilateral nonobstructing renal calculi. Reading Location: [id number]
[2025-02-02 14:40] VITALS: BP 109/71; PULSE 83; RESP 18; TEMP 36.8; O2SAT 100
[2025-02-02 15:28] LABS: Ferritin 129 ng/mL (37-417); Iron 21 ug/dL (65-175); Iron Binding Capacity,Unsat 173 ug/dL (228-428); Vitamin B12 275 pg/mL (180-914)
[2025-02-02 15:47] LABS: Iron Binding Capacity,Total 194 ug/dL (250-450)
--- NOTE | 2025-02-02 16:18 | CASEMGMT ---
BEN CARTER Assessment Face to Face with patient for initial transition planning/care coordination assessment. BEN CARTER introduced self and role at [facility], pt voices understanding. Pt is A&Ox4 and is resting comfortably in bed and is calm. Pt @ bedside. Care providers, pharmacy, and demographics verified. Admitting dx: Weakness, JANA PCP: [facility] Specialists: Bj (Nephro). Dr. Ponce (Uro) is also consulted Preferred Pharmacy: [facility] Insurance: [facility] A/B, [facility] [place] Prescription Benefit: Yes LNOK: Rere (W) Living Arrangements: Pt lives with his in a single story home with 2 steps to enter ADLs/IADLs: Ind Transportation: Self, . Denies needs DME: CPAP @ [facility] with no additional oxygen. Denies all other DME uses or needs at this time HHC/SNF: Denies history or needs Pt?s goal: Home Plan: Home, anticipate no additional needs. 6-Click score is 24. Pt denies the need for HHC or OP Tx. CM to follow nephro and uro consult. Pt also has an ileostomy that he states he can care for independently. Pt is scheduled for a cystoscopy tomorrow. Pt and pt deny and further questions or concerns at this time. Diandra Bunch RN, CM
[2025-02-02 21:18] VITALS: BP 105/63; PULSE 76; RESP 15; TEMP 36.7; O2SAT 97
[2025-02-02] MEDS: Atorvastatin Calcium 20 MG Tablet PO (21:20)
[2025-02-03] VITALS (13 sets, daily range): BP systolic 115–145; BP diastolic 65–79; PULSE 60–99; RESP 15–18; TEMP 36.3–37.1; O2SAT 95–100; BMI 28.5
[2025-02-03] MEDS: Lactated Ringers 1,000 ML 150 ML IV ×3 (01:47→22:24)
[2025-02-03 06:40] LABS: Absolute Lymphocyte Count 1.51 X10^3/uL (0.83-4.51); Absolute Neutrophil Count 3.4 X10^3/uL (2.0-7.7); Basophil# 0.04 X10^3/uL; Basophil% 0.7 % (0-1); Eosinophil# 0.32 X10^3/uL; Eosinophils% 5.6 % (0-5); Hematocrit 24.7 % (40-54); Hemoglobin 7.7 g/dL (13.0-16.5); Lymphocyte # 1.51 X10^3/ul (0.83-4.51); Lymphocyte % 26.2 % (19-41); Mean Corp Hgb Conc 31.2 g/dL (32-36); Mean Corpuscular Hgb 28.1 pg (27.0-32.0); Mean Corpuscular Volume 90.1 fL (80-94); Mean Platelet Vol. 9.1 fl (6.2-12.0); Monocyte% 8.7 % (0-10); NRBC Flagged by Analyzer 0 % (0-5); Neutrophil # 3.36 X10^3/uL (2.7-7.7); Neutrophil % 58.3 % (47-70); Platelet Count 356 K/mm3 (150-450); RBC Distribution Width CV 14.2 % (11.6-14.6); RBC Distribution Width SD 46.5 fl (35.1-43.9); Red Blood Count 2.74 M/mm3 (4.6-6.2); White Blood Count 5.8 K/mm3 (4.4-11.0)
[2025-02-03 06:57] LABS: Anion Gap 11 (5-15); BUN 43 mg/dL (4-19); BUN/Creat Ratio 13.3 RATIO (10-20); Calcium,Total 8.4 mg/dL (7.6-11.0); Carbon Dioxide 17.3 mmol/L (21.0-32.0); Chloride 111 mmol/L (98-108); Creatinine, Serum 3.24 mg/dL (0.70-1.20); EST Glomerular Filtration Rate 20 (>60); Estimated Creatinine Clearance 22.56 ml/min (50-250); Glucose 87 mg/dL (70-99); Sodium Level 140 mmol/L (133-145)
--- NOTE | 2025-02-03 07:32 | PN.HOSP_ITS ---
Reason for Visit Reason for Visit: Diagnoses Acute kidney failure, unspecified (02/01/25) Chronic kidney disease, stage 3 unspecified (02/01/25) Calculus of kidney (02/01/25) Subjective Subjective Patient is scheduled to undergo laser treatment for his obstructing calculus at the right UPJ by Dr Ponce. Objective Data Objective Data Vital Signs: Vital Signs Temp Pulse Resp BP Pulse Ox O2 Del Method 97.3 F L 75 15 124/71 H 95 Room Air 02/03/25 01:43 02/03/25 01:43 02/03/25 01:43 02/03/25 01:43 02/03/25 01:43 02/03/25 04:00 Oxygen Delivery Method Room Air Weight: 85.366 kg Body Mass Index (BMI) 28.6 Intake & Output: Intake and Output for Last 24 Hours 02/01/25 02/02/25 02/03/25 23:59 23:59 23:59 Intake Total 1000 / 1000 3467.5 / 3467.5 1000 / 1000 Output Total 1225 / 1725 800 / 800 Balance 1000 / 600 2242.5 / 1742.5 200 / 200 Lab / Micro Data 02/03/25 06:25 02/03/25 06:25 Labs: Laboratory Results - last 24 hr 02/02/25 06:38: WBC 7.4, RBC 2.79 L, Hgb 8.1 L, Hct 24.9 L, MCV 89.2, MCH 29.0, MCHC 32.5, RDW Std Deviation 45.9 H, RDW Coeff of Shavon 14.2, Plt Count 375, MPV 9.7, Immature Gran % (Auto) 0.700, Neut % (Auto) 67.0, Lymph % (Auto) 20.2, [place] % (Auto) 8.0, Eos % (Auto) 3.6, Baso % (Auto) 0.5, Absolute Neuts (auto) 5.0, Absolute Lymphs (auto) 1.50, Nucleated RBC % 0, Sodium 138, Potassium 4.2, C hloride 109 H, Carbon Dioxide 16.2 L, Anion Gap 12, BUN 50 H, Creatinine 4.29 H, Estim Creat Clear Calc 17.04 L, Est GFR (MDRD) Non-Af 14 L, BUN/Creatinine Ratio 11.5, Glucose 80, Calcium 8.3, Iron 21 L, TIBC 194 L, Iron Saturation 11.0, U nsaturated IBC 173 L, Ferritin 129, Vitamin B12 275 02/03/25 06:25: WBC 5.8, RBC 2.74 L, Hgb 7.7 L, Hct 24.7 L, MCV 90.1, MCH 28.1, MCHC 31.2 L, RDW Std Deviation 46.5 H, RDW Coeff of Shavon 14.2, Plt Count 356, MPV 9.1, Immature Gran % (Auto) 0.500, Neut % (Auto) 58.3, Lymph % (Auto) 26.2, [place] % (Auto) 8.7, Eos % (Auto) 5.6 H, Baso % (Auto) 0.7, Absolute Neuts (auto) 3.4, Absolute Lymphs (auto) 1.51, Nucleated RBC % 0, Sodium 140, Potassium 4.0, C hloride 111 H, Carbon Dioxide 17.3 L, Anion Gap 11, BUN 43 H, Creatinine 3.24 H, Estim Creat Clear Calc 22.56 L, Est GFR (MDRD) Non-Af 20 L, BUN/Creatinine Ratio 13.3, Glucose 87, Calcium 8.4 Physical Exam Narrative GENERAL: cooperative HEENT: Atraumatic; normocephalic EYES; Anicteric, Normal Conjunctiva NECK; supple, normal thyroid, RESPIRATORY: Diminished to auscultation CARDIOVASCULAR: Regular S1 S2, GI: soft, normoactive bowel sounds, ileostomy in place : No Renal angle tenderness; EXTREMITIES: No edema, no clubbing, MUSCULOSKELETAL: no muscle wasting NEURO: Awake; no lateralizing signs. SKIN: No Rash PSYCH; Flat affect Assessment & Plan Assessment/Plan (1) JANA (acute kidney injury): PLAN: Plan Patient is a 69-year-old gentleman with history of ileostomy on account of Crohn's disease with unsuccessful reversal who was admitted with abnormal labs. Patient was found to have worsening kidney function superimposed on his chronic kidney disease. 1. Acute kidney injury ? Superimposed on chronic kidney disease stage IV. Patient has been admitted to the regular nursing floor managed with IV fluids with monitoring of BMP ordered consult was placed to nephrology. ? 02/03/2025 patient creatinine down to 3.24 did decrease IV fluids rate 2. Nephrolithiasis ? CT of the abdomen obtained did show. Obstructing calculus at the right ureteropelvic junction with mild right hydroureteronephrosis.. Additional large bilateral nonobstructing renal calculi. Consult placed to urology ? 02/03/2025 cervical patient is scheduled to undergo laser treatment for his obstructing calculus at the right UPJ by Dr Ponce. 3. History of Crohn disease ? With bowel resection and subsequent ileostomy. Patient did fail attempt at reversal 4. Metabolic acidosis ? Secondary to JANA do expect improvement with treatment of underlying condition 5. Anemia ? Secondary to chronic disorder. Patient hemoglobin on admission was 9.8 did drop to 8.1 ordered iron studies, monitoring H&H and transfuse if patient becomes symptomatic or hemoglobin falls below 7 ? 02/03/2025 subsequent drop in patient hemoglobin levels down to 7.7 did order iron studies with low threshold to transfuse since patient is complaining of excessive fatigue with activity 6. Elevated troponin ? Suspected to be secondary to demand ischemia from worsening kidney function patient presentation not consistent with ACS 7. BPH with lower urinary obstructive symptoms - Patient treated with tamsulosin 8. Dyslipidemia ?Patient is on statin therapy, continued at home dose 9. DVT prophylaxis ? On enoxaparin Time spent in the patient's overall evaluation,decision-making process, review of diagnostic data, adjustment of management, discussion with other providers, nursing nursing and ancillary staff involved in patient's care documentation, 50 minutes Charges/Coding Visit Charges Inpatient E&M: 55376 [facility] L3
[2025-02-03 07:58] LABS: International Normalized Ratio 1.2; Prothrombin Time (Protime)PT. 15.4 SECONDS (11.7-14.9)
[2025-02-03 07:59] LABS: Partial Thromboplast Time 47.3 Seconds (24.1-36.2)
--- NOTE | 2025-02-03 08:23 | PN.RENAL_ITS ---
Subjective Subjective Resting in bed, no overnight events. Objective Data Objective Data Vital Signs: Vital Signs Temp Pulse Resp BP Pulse Ox O2 Del Method 97.3 F L 75 15 124/71 H 95 Room Air 02/03/25 01:43 02/03/25 01:43 02/03/25 01:43 02/03/25 01:43 02/03/25 01:43 02/03/25 04:00 Oxygen Delivery Method Room Air Weight: 85.366 kg Body Mass Index (BMI) 28.6 Intake & Output: Intake and Output for Last 24 Hours 02/01/25 02/02/25 02/03/25 23:59 23:59 23:59 Intake Total 1000 / 1000 3467.5 / 3467.5 1920 / 1920 Output Total 1225 / 1725 800 / 800 Balance 1000 / 600 2242.5 / 1742.5 1120 / 1120 Lab / Micro Data 02/03/25 06:25 02/03/25 06:25 Labs: Laboratory Results - last 24 hr 02/02/25 06:38: WBC 7.4, RBC 2.79 L, Hgb 8.1 L, Hct 24.9 L, MCV 89.2, MCH 29.0, MCHC 32.5, RDW Std Deviation 45.9 H, RDW Coeff of Shavon 14.2, Plt Count 375, MPV 9.7, Immature Gran % (Auto) 0.700, Neut % (Auto) 67.0, Lymph % (Auto) 20.2, [place] % (Auto) 8.0, Eos % (Auto) 3.6, Baso % (Auto) 0.5, Absolute Neuts (auto) 5.0, Absolute Lymphs (auto) 1.50, Nucleated RBC % 0, Sodium 138, Potassium 4.2, C hloride 109 H, Carbon Dioxide 16.2 L, Anion Gap 12, BUN 50 H, Creatinine 4.29 H, Estim Creat Clear Calc 17.04 L, Est GFR (MDRD) Non-Af 14 L, BUN/Creatinine Ratio 11.5, Glucose 80, Calcium 8.3, Iron 21 L, TIBC 194 L, Iron Saturation 11.0, U nsaturated IBC 173 L, Ferritin 129, Vitamin B12 275 02/03/25 06:25: WBC 5.8, RBC 2.74 L, Hgb 7.7 L, Hct 24.7 L, MCV 90.1, MCH 28.1, MCHC 31.2 L, RDW Std Deviation 46.5 H, RDW Coeff of Shavon 14.2, Plt Count 356, MPV 9.1, Immature Gran % (Auto) 0.500, Neut % (Auto) 58.3, Lymph % (Auto) 26.2, [place] % (Auto) 8.7, Eos % (Auto) 5.6 H, Baso % (Auto) 0.7, Absolute Neuts (auto) 3.4, Absolute Lymphs (auto) 1.51, Nucleated RBC % 0, PT 15.4 H, INR 1.2, APTT 47.3 H, Sodium 140, Potassium 4.0, Chloride 111 H, Carbon Dioxide 17.3 L, Anion Gap 11, BUN 43 H, Creatinine 3.24 H, Estim Creat Clear Calc 22.56 L, Est GFR (MDRD) Non- Af 20 L, BUN/Creatinine Ratio 13.3, Glucose 87, Calcium 8.4 Physical Exam Narrative Alert and oriented x 3, no apparent distress S1, S2, RRR Lung sounds clear, on room air abdomen soft, nontender. Ostomy in place with soft greenish stool No edema Indwelling Chavez with clear yellow urine in bag Assessment & Plan Assessment/Plan (1) JANA (acute kidney injury): (2) CKD (chronic kidney disease) stage 3, GFR 30-59 ml/min: PLAN: Plan This is a 69-year-old male with past medical history significant for chronic kidney disease stage III from biopsy-proven Aquilino's in April 2018 received prednisone and rituximab, baseline creatinine has been ranging around 2.2 to 2.4 mg/dL but patient does have JANA/fluctuating serum creatinine secondary to stomal output. Patient follows with Dr. Lorenzo [place] office, last seen in November 2024, his labs in October creatinine 2.88 10/24/2024 and 10/14/2024 creatinine 4.01). - JANA superimposed on CKD stage IIIb: Creatinine was 5.3 on admission--> 4.29--> today SCr 3.24. With IV fluids renal function improved. Bps acceptable. Acidosis from GI losses, JANA is improving, on LR and will decrease rate. Assessment and plan reviewed with Dr. Lorenzo. - kidney stones; urology consulted and plan for surgery today
[2025-02-03 09:08] LABS: Platelet Count 374 K/mm3 (150-450); RET-HE 28.9 pg (30-35); Reticulocyte Count 1.16 % (0.5-1.5)
[2025-02-03 09:42] LABS: Ferritin 101 ng/mL (37-417); Iron 26 ug/dL (65-175); Iron Binding Capacity,Unsat 157 ug/dL (228-428)
[2025-02-03] MEDS: 0.9% Normal Saline (1000mL) 1,000 ML 15 ML IV (09:45)
--- NOTE | 2025-02-03 09:53 | PRE.ANES_ITS ---
ASA Classification* ASA Classification ASA Classification: 3 Assessment & Plan Anesthesia* Anesthesia Assessment Anesthesia Assessment: Discussed sedation and/or anesthesia options, risks, benefits, and alternatives with patient/parents/legal guardian/POA. Questions invited. The patient/parents/legal guardian/POA seems to understand and agrees to proceed with anesthesia plan. Reviewed the physical assessment, medical history, allergy history and patient home medications list prior to surgery/procedure/anesthetic and documented any changes. Performed airway and anesthesia risk assessments. Anesthesia Type Anesthesia Type: General History Source History Obtained from:: Patient and Chart Anesthesia Focused Assessment* Temperature: 98.0 F Pulse Rate: 66 Blood Pressure: 141/78 Respiratory Rate: 18 Pulse Ox: 99 Oxygen Delivery Method: Room Air Airway Assessment Mouth opens: 2 cm Mallampati Score: IV Teeth Condition: Intact Neck Range of motion (ROM): Limited ROM (Slight decrease in extension) Focused Labs Anesthesia Preop lab: CBC WBC 5.8 K/mm3 (4.4-11.0) 02/03/25 06:25 02/03/25 RBC 2.74 M/mm3 (4.6-6.2) L 02/03/25 06:25 02/03/25 Hgb 7.7 g/dL (13.0-16.5) L 02/03/25 06:25 02/03/25 Hct 24.7 % (40-54) L 02/03/25 06:25 02/03/25 Plt Count 356 K/mm3 (150-450) 02/03/25 06:25 02/03/25 CHEMISTRY Potassium 4.0 mmol/L (3.3-5.1) 02/03/25 06:25 02/03/25 Sodium 140 mmol/L (133-145) 02/03/25 06:25 02/03/25 Magnesium 1.7 mg/dL (1.6-2.6) 05/07/24 06:20 05/07/24 Phosphorus 4.5 mg/dL (2.5-4.9) 05/07/24 06:20 05/07/24 BUN 43 mg/dL (4-19) H 02/03/25 06:25 02/03/25 Creatinine 3.24 mg/dL (0.70-1.20) H 02/03/25 06:25 Glucose 87 mg/dL (70-99) 02/03/25 06:25 02/03/25 POC Glucose 104 mg/dL (74-106) 05/05/24 10:12 05/05/24 TSH 2.17 uIU/mL (0.358-3.74) 05/04/24 06:33 COAG PT 15.4 SECONDS (11.7-14.9) H 02/03/25 06:25 0402/24 Pre-Assessment Diagnosis/Proposed Procedure Planned Operative Procedure(s): Cystoscopy, right ureteroscopy, laser stone with possible stent. 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 When Was Last Pacemaker Check QUESTION #4 FULL TEXT: You/Your Family Experience fever (hyperthermia) with Anesthesia Last Oral Intake Last Oral intake: Last Oral Intake NPO since 0000 02/03/25 08:00 Meds taken in AM with sips of No 02/03/25 08:00 water? Meds patient instructed to take am of surgery Any additional information?: Yes NPO since: 00:00 Meds taken in AM with sips of water?: No PONV PONV - information technology architect: PONV - information technology architect Female HX of Motion Sickness HX of N/V After Surgery Non-Smoker Duration of Surgery greater than 60 minutes Number of Risk Factors PONV Score Height & Weight Height & Weight: Anesthesia: Height & Weight Height 5 ft 8.11 in 02/03/25 08:00 Weight: 85.366 kg 02/03/25 08:00 Body Mass Index (BMI) 28.5 02/03/25 08:00 Respiratory Assessment Respiratory Assessment - information technology architect: Respiratory Tract Infection Hx - information technology architect Hx Respiratory Tract Infection No 02/03/25 01:45 STOP Sleep Apnea STOP Sleep Apnea - information technology architect: STOP Sleep Apnea - information technology architect Hx Hypertension Yes 02/02/25 11:30 Hx Sleep Apnea Yes 02/01/25 16:17 CPAP Yes 02/01/25 16:17 BIPAP No 02/01/25 16:17 Do you snore loudly (louder than talking or can be heard Do you often feel tired/ fatigued/ sleepy during daytime? Has anyone observed you stop breathing during sleep? STOP Results Positive 02/01/25 16:17 QUESTION #5 FULL TEXT : Do you snore loudly (louder than talking or can be heard through closed doors)? 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 Specify any problems Hx of Preganancy in last 3 N/A 02/01/25 16:17 Months Nurse Filling Out Transfusion KMESSENGE 02/01/25 16:17 & Questions: Date: 02/01/25 02/01/25 16:17 Time: 16:18 02/01/25 16:17 Patient unable to answer at this time (ie. confused, unrespo /Reproduction History /Reproductive History - information technology architect: /Reproductive Hx- information technology architect Hx Now No 02/03/25 01:45 Gestational Age (in weeks): EDC: Hx Hx Para Hx Section SAB No 03/29/24 11:33 Active Medications Active Medications: Current Medications Generic Name Dose Route Start Last Admin Trade Name Freq PRN Reason Stop Dose Admin Acetaminophen 650 mg 02/01/25 17:18 Acetaminophen 325 Mg Tablet PO Q6H PRN PRN Pain 1-10 Or Fever >100.7 Atorvastatin Calcium 20 mg 02/01/25 22:00 02/02/25 21:20 Atorvastatin Calcium 20 Mg Tablet PO 20 mg QHS TOSHIA Administration Cholecalciferol 25 mcg 02/02/25 10:00 02/02/25 08:14 Cholecalciferol (Vit D3) 25 Mcg Tablet (1,000 Units) PO 25 mcg DAILY TOSHIA Administration Enoxaparin Sodium 30 mg 02/02/25 10:00 02/03/25 07:13 Enoxaparin 30 Mg/0.3 Ml Syringe SC Not Given DAILY TOSHIA Sodium Chloride 100 mls @ 15 mls/hr 02/01/25 16:15 IV .Q6H40M PRN Saline Flush Sodium Chloride 100 mls @ 15 mls/hr 02/01/25 16:15 IV .Q6H40M PRN Additional IVPB Infusion Lactated Ringer's 1,000 mls @ 100 mls/hr 02/02/25 11:15 02/03/25 07:55 IV 150 mls/hr .Q10H TOSHIA Administration Cefazolin Sodium 2 gm/ Sodium 110 mls @ 150 mls/hr 02/03/25 10:00 Chloride IV 02/03/25 10:43 X1 ONE Sodium Chloride 1,000 mls @ 15 mls/hr 02/03/25 09:40 02/03/25 09:45 IV 15 mls/hr .Q48H TOSHIA Administration Loperamide HCl 2 mg 02/02/25 10:00 02/02/25 08:14 Loperamide 2 Mg Capsule PO 2 mg DAILY TOSHIA Administration Nitroglycerin 0.4 mg 02/01/25 17:18 Nitroglycerin (Inpatient Use) 0.4 Mg Tab.Subl SL Q5M PRN CARDIAC/CHEST PAIN Ondansetron HCl 4 mg 02/01/25 17:18 Ondansetron 4 Mg/2 Ml Vial IV Q8H PRN PRN NAUSEA/VOMITING Oxycodone HCl 2.5 - 5 mg 02/01/25 17:18 Oxycodone 5 Mg Tablet PO Q4H PRN PRN Pain Score 4-10 Sodium Chloride 10 - 40 ml 02/01/25 16:15 02/02/25 10:02 0.9% Saline Lock 10 Ml Syringe IV 10 ml UD PRN Administration SALINE FLUSH Tamsulosin HCl 0.8 mg 02/02/25 10:00 02/02/25 08:14 Tamsulosin Hcl 0.4 Mg Capsule PO 0.8 mg DAILY TOSHIA Administration PFSH Medical History (Updated 02/02/25 @ 13:[address] Brando Ponce MD) Colostomy in place Kidney stones GI bleed Former smoker CPAP (continuous positive airway pressure) dependence DVT (deep venous thrombosis) Ileostomy present Hyperlipidemia Hx of ulcerative colitis Kidney disease Hypertension Home Medications ?Medication ?Instructions ?Recorded ?Last Taken ?Type cholecalciferol (vitamin D3) 25 1,000 unit PO DAILY SOUSA PPLEMENT 05/31/19 01/31/25 History mcg (1,000 unit) tablet atorvastatin 20 mg tablet 20 mg PO QHS CHOLESTEROL 01/31/25 History loperamide 2 mg capsule 2 mg PO DAILY 02/01/2501/31 History tamsulosin 0.4 mg capsule 0.8 mg PO DAILY 02/01/2511/26 History Allergy/AdvReac Type Severity Reaction Status Date / Time aspirin Allergy Other Verified 02/01/25 11:29 ibuprofen Allergy Laryngospas Verified 02/01/25 11:29 ms Surgical History History of bowel resection Social History Smoking Status: Former smoker Review of Systems (Anesthesia) ROS Narrative System reviewed and no additional complaints, except as documented.
[2025-02-03] MEDS: Cefazolin 2 GM in 0.9% Normal Saline (100mL Bag) 100 ML IV (10:17)
--- NOTE | 2025-02-03 10:30 | CALC_PTH ---
PATIENT: ANGELICA VELAZQUEZ LOC: [facility] U#:[id number] AGE/SX: 69/M ROOM: [facility]311 RE02/03/[address]: Dr. Idania Nina MD : 1955 BED: 1 DIS: 02/04/2025 SPEC #: [id number] RECD: 02/03/25 10:54 STATUS: LINDA ARAYA #: [id number] MARY: 02/03/25 10:[address]: Brando Ponce DEPT: SURGICAL PATHOLOGY RECD BY: Elenita Brunson ENTERED: 02/03/25 12:31 SP TYPE: Calculi OTHR DR: MD Dr. Dave Curtis MD Dr. Jayaprakas Dasari, MD Dr. Juan Miguel Proano, MD Dr. Nana Yaa Koram, MD Tissues: CALCULI Procedures: Surgery Specimen Level I Comments: @ Ordering doctor for RICK edited from to @ by ELAINA at 02/03/25 1336 @ Submitting doctor edited from to @ by ELAINA at 02/03/25 1336 HEADER OPERATION: Litholapaxy, ureteroscopy PRE-OP DIAGNOSIS: Acute kidney injury, kidney stones TISSUE SUBMITTED: A- Ureteral calculi, right GROSS DIAGNOSIS A. Right ureter, calculi, litholapaxy: - Calculi confirmed (gross examination only). - Chemical analysis is pending and will be reported separately. GROSS DESCRIPTION A. Received fresh in a container labeled with the patient's name, date of , and ureteral calculi, right are multiple bess-brown, firm and irregular stones measuring 1.2 x 1.0 x 0.6 cm in aggregate. The specimen is sent for chemical analysis. [facility] 02-03-2025 CPT:29190
--- NOTE | 2025-02-03 10:39 | PCM.OPRPT ---
Operative Report (Standard) Operative Information Date of Procedure: 02/03/25 Pre-Operative Diagnosis: Ureteral calculi Post-Operative Diagnosis: The same Surgery/Procedure Performed: Cystoscopy removal of stones from bladder large and right ureteroscopy. grinding machine operator: No Type of Anesthesia: General RN Documented Start/Stop Times: Operation Date: 02/03/25 10:30 Case Time Into Pre-Op 02/03/25 09:30 Out of Pre-Op 02/03/25 10:13 Anesthesia Start 02/03/25 10:17 Into Room 02/03/25 10:17 Procedure Start 02/03/25 10:30 Procedure Start Time: 10:30 Procedure Stop Time: 10:40 Select all DRAINS/GRAFTS/IMPLANTS that apply: None Estimated Blood Loss: None Specimen collected: No Description of surgery: 69-year-old male presented to the hospital with acute renal insufficiency acute renal injury CT scan was done demonstrated multiple stones in the distal right ureter causing obstruction patient is taken back to surgery today for removal of the stones. He underwent general anesthesia and went inside the bladder with a 21 [place] rigid cystourethroscope once has got inside the bladder he had bilateral hypertrophy and enlarged prostate small median lobe I then removed all the stones in the bladder. He is a numerous large stones were removed from the bladder after this was completed then I cannulated the right ureter orifice with a semirigid ureteroscope and up the ureter as far as possible no other stone seen in the ureter but a wire up into the kidney and went over the wire with a flexible ureteroscope inspect all the way up to the kidney inspect upper pole midpole lower pole there is no major fragments or stones in the kidney work my way down the ureter no stones along the course of the ureter ureteroscope was removed bladder was drained no catheter was placed looks like he had successfully passed the stones I removed all the stones are inside the bladder he does have an enlarged prostate. And the patient was taken back to PACU in good condition. No stent was placed Surgical Findings: Stones removed from the bladder and right ureteroscopy done no stones in the ureter Complications Complications: No Admit VTE Documentation VTE Present on Admission: No VTE Mechan Device Prophylaxis: SCD's VTE Pharm Prophylaxis ordered?: No
--- NOTE | 2025-02-03 11:06 | PCM.POST.ANE ---
Anesthesia: Postop Eval I Current Vital Signs Temperature: 97.5 F Pulse Rate: 66 Blood Pressure: 119/76 Respiratory Rate: 16 Pulse Ox: 100 Oxygen Delivery Method: Room Air Assessment Airway patent: Yes Spontaneous unlabored respirations: Yes Mental status: Awake and Calm nausea: No Vomiting: No Anesthesia Complication: No Fluid Hydration Crystalloid volume administer (ml): 500 Total IV fluid infused: 500 Progress Note Anesthesia document: Postop Eval 1 completed: Yes
--- NOTE | 2025-02-03 11:37 | POSTOPAN2_ITS ---
Anesthesia Postop Eval I Sum Postop Eval Completion status Anesthesia document: Postop Eval 1 completed: Yes Anesthesia Postop Eval I Summary Anesthesia Postop Eval I Summary: Anesthesia Postop Eval I: Assessment Summary Airway patent Yes 02/03/25 11:06 OR ASSISTANT.DBAK Spontaneous unlabored Yes 02/03/25 11:06 OR ASSISTANT.DBAK respirations Mental status Awake,Calm 02/03/25 11:06 OR ASSISTANT.DBAK nausea No 02/03/25 11:06 OR ASSISTANT.DBAK Vomiting No 02/03/25 11:06 OR ASSISTANT.DBAK Anesthesia Postop Eval I: Fluid Summary Crystalloid volume administer 500 02/03/25 11:06 OR ASSISTANT.DBAK (ml) Colloids volume administered ( ml) Blood Product volume administered (ml) Total IV fluid infused 500 02/03/25 11:06 OR ASSISTANT.DBAK Anesthesia Postop Eval I: Summary Notes Anesthesia Complication No 02/03/25 11:06 OR ASSISTANT.DBAK Anesthesia Complication Comment: Post-operative progress note Anesthesia: Postop Eval II Evaluation Mental status: Awake Pain Level: 2 nausea: No Vomiting: No
--- NOTE | 2025-02-03 11:37 | PCM.POSTANE2 ---
Anesthesia Postop Eval I Sum Postop Eval Completion status Anesthesia document: Postop Eval 1 completed: Yes Anesthesia Postop Eval I Summary Anesthesia Postop Eval I Summary: Anesthesia Postop Eval I: Assessment Summary Airway patent Yes 02/03/25 11:06 VENEER JOINER.DBAK Spontaneous unlabored Yes 02/03/25 11:06 VENEER JOINER.DBAK respirations Mental status Awake,Calm 02/03/25 11:06 VENEER JOINER.DBAK nausea No 02/03/25 11:06 VENEER JOINER.DBAK Vomiting No 02/03/25 11:06 VENEER JOINER.DBAK Anesthesia Postop Eval I: Fluid Summary Crystalloid volume administer 500 02/03/25 11:06 VENEER JOINER.DBAK (ml) Colloids volume administered ( ml) Blood Product volume administered (ml) Total IV fluid infused 500 02/03/25 11:06 VENEER JOINER.DBAK Anesthesia Postop Eval I: Summary Notes Anesthesia Complication No 02/03/25 11:06 VENEER JOINER.DBAK Anesthesia Complication Comment: Post-operative progress note Anesthesia: Postop Eval II Evaluation Mental status: Awake Pain Level: 2 nausea: No Vomiting: No
[2025-02-03] MEDS: Cholecalciferol (VIT D3) 25 MCG TABLET (1,000 UNITS) PO (13:35)
[2025-02-03] MEDS: Tamsulosin HCl 0.4 MG Capsule 0.8 MG PO (13:35)
[2025-02-03] MEDS: Atorvastatin Calcium 20 MG Tablet PO (20:07)
[2025-02-04 00:26] VITALS: BP 116/63; PULSE 50; RESP 18; TEMP 36.4; O2SAT 97
[2025-02-04 04:23] VITALS: BP 121/63; PULSE 50; RESP 16; TEMP 36.4; O2SAT 99
[2025-02-04 08:11] VITALS: BP 128/82; PULSE 61; RESP 16; TEMP 36.5; O2SAT 98
[2025-02-04] MEDS: Lactated Ringers 1,000 ML 100 ML IV (08:25)
[2025-02-04] MEDS: Tamsulosin HCl 0.4 MG Capsule 0.8 MG PO (08:25)
[2025-02-04] MEDS: Cholecalciferol (VIT D3) 25 MCG TABLET (1,000 UNITS) PO (08:26)
--- NOTE | 2025-02-04 08:26 | PCM.PN.HOSP ---
Reason for Visit Reason for Visit: Diagnoses Acute kidney failure, unspecified (02/01/25) Chronic kidney disease, stage 3 unspecified (02/01/25) Calculus of kidney (02/01/25) Subjective Subjective Patient underwent cystoscopy removal of stones from bladder large and right ureteroscopy on 02/03/2025. Objective Data Objective Data Vital Signs: Vital Signs Temp Pulse Resp BP Pulse Ox O2 Del Method 97.7 F L 61 16 128/82 H 98 Room Air 02/04/25 08:11 02/04/25 08:11 02/04/25 08:11 02/04/25 08:11 02/04/25 08:11 02/04/25 08:14 Oxygen Delivery Method Room Air Weight: 85.366 kg Body Mass Index (BMI) 28.5 Intake & Output: Intake and Output for Last 24 Hours 02/02/25 02/03/25 02/04/25 23:59 23:59 23:59 Intake Total 3467.5 / 3467.5 3030 / 3030 500 / 500 Output Total 1225 / 1725 800 / 800 150 / 150 Balance 2242.5 / 1742.5 2230 / 2230 350 / 350 Lab / Micro Data 02/04/25 07:51 02/04/25 07:51 Labs: Laboratory Results - last 24 hr 02/03/25 06:25: Retic Count 1.16, Immature Retic Fraction 11.40, Retic Hgb Equivalent 28.9 L, Iron 26 L, TIBC TNP, Iron Saturation 14.0, Unsaturated IBC 157 L, Ferritin 101 Micro: Microbiology 02/01/25 13:47 Urine, Clean Catch Urine Culture - Final Culture exhibits no growth. Physical Exam Narrative GENERAL: cooperative HEENT: Atraumatic; normocephalic EYES; Anicteric, Normal Conjunctiva NECK; supple, normal thyroid, RESPIRATORY: Diminished to auscultation CARDIOVASCULAR: Regular S1 S2, GI: soft, normoactive bowel sounds, ileostomy in place : No Renal angle tenderness; EXTREMITIES: No edema, no clubbing, MUSCULOSKELETAL: no muscle wasting NEURO: Awake; no lateralizing signs. SKIN: No Rash PSYCH; Flat affect Assessment & Plan Assessment/Plan (1) JANA (acute kidney injury): PLAN: Plan Patient is a 69-year-old gentleman with history of ileostomy on account of Crohn's disease with unsuccessful reversal who was admitted with abnormal labs. Patient was found to have worsening kidney function superimposed on his chronic kidney disease. 1. Acute kidney injury ? Superimposed on chronic kidney disease stage IV. Patient has been admitted to the regular nursing floor managed with IV fluids with monitoring of BMP ordered consult was placed to nephrology. ? 02/03/2025 patient creatinine down to 3.24 did decrease IV fluids rate ? 02/04/2025; creatinine down to2.87 patient will be discharged home 2. Nephrolithiasis ? CT of the abdomen obtained did show. Obstructing calculus at the right ureteropelvic junction with mild right hydroureteronephrosis.. Additional large bilateral nonobstructing renal calculi. Consult placed to urology ? 02/03/2025 cervical patient is scheduled to undergo laser treatment for his obstructing calculus at the right UPJ by Dr Ponce. ? 02/04/2025Patient underwent cystoscopy removal of stones from bladder large and right ureteroscopy on 02/03/2025. 3. History of Crohn disease ? With bowel resection and subsequent ileostomy. Patient did fail attempt at reversal 4. Metabolic acidosis ? Secondary to JANA do expect improvement with treatment of underlying condition 5. Anemia ? Secondary to chronic disorder. Patient hemoglobin on admission was 9.8 did drop to 8.1 ordered iron studies, monitoring H&H and transfuse if patient becomes symptomatic or hemoglobin falls below 7 ? 02/03/2025 subsequent drop in patient hemoglobin levels down to 7.7 did order iron studies with low threshold to transfuse since patient is complaining of excessive fatigue with activity 6. Elevated troponin ? Suspected to be secondary to demand ischemia from worsening kidney function patient presentation not consistent with ACS 7. BPH with lower urinary obstructive symptoms - Patient treated with tamsulosin 8. Dyslipidemia ?Patient is on statin therapy, continued at home dose 9. DVT prophylaxis ? On enoxaparin Time spent in the patient's overall evaluation,decision-making process, review of diagnostic data, adjustment of management, discussion with other providers, nursing nursing and ancillary staff involved in patient's care documentation, 36 minutes
[2025-02-04 08:29] LABS: Hematocrit 25.7 % (40-54); Mean Corp Hgb Conc 31.1 g/dL (32-36); Mean Corpuscular Hgb 28.1 pg (27.0-32.0); Mean Corpuscular Volume 90.2 fL (80-94); Mean Platelet Vol. 9.6 fl (6.2-12.0); NRBC Flagged by Analyzer 0 % (0-5); Platelet Count 361 K/mm3 (150-450); RBC Distribution Width CV 13.7 % (11.6-14.6); RBC Distribution Width SD 45.7 fl (35.1-43.9); Red Blood Count 2.85 M/mm3 (4.6-6.2)
[2025-02-04 08:40] LABS: Anion Gap 11 (5-15); BUN 42 mg/dL (4-19); BUN/Creat Ratio 14.7 RATIO (10-20); Calcium,Total 8.6 mg/dL (7.6-11.0); Carbon Dioxide 17.2 mmol/L (21.0-32.0); Chloride 109 mmol/L (98-108); Creatinine, Serum 2.87 mg/dL (0.70-1.20); EST Glomerular Filtration Rate 23 (>60); Estimated Creatinine Clearance 25.47 ml/min (50-250); Glucose 132 mg/dL (70-99); Magnesium 1.4 mg/dL (1.5-2.2); Phosphorus 4.3 mg/dL (2.7-4.5); Potassium 4.3 mmol/L (3.3-5.1); Sodium Level 137 mmol/L (133-145)
--- NOTE | 2025-02-04 09:52 | PCM.DC.SUM ---
Providers Date of Admission: 02/01/25 Date of Discharge: 02/04/25 Primary Care Physician: Dr. Michael Kaur MD Consultations 02/01/25 17:18 Consult: Nephrology Routine Consulting Provider: Andrea Lorenzo Reason for Consult: JANA on CKD EMERGENT Consult: No Notified: Yes Date Notified: 02/01/25 Time Notified: 17:20 Method of Notification: Text 02/02/25 09:44 Consult: Urology Routine Consulting Provider: Brando Ponce Reason for Consult: Nephrolithiasis EMERGENT Consult: No Notified: Yes Date Notified: 02/02/25 Time Notified: 09:44 Method of Notification: Verbal Reason For Visit: WEAKNESS, JANA Diagnosis Discharge Diagnosis (1) JANA (acute kidney injury): Status: Acute Code(s): N17.9 - Acute kidney failure, unspecified Plan Patient is a 69-year-old gentleman with history of ileostomy on account of Crohn's disease with unsuccessful reversal who was admitted with abnormal labs. Patient was found to have worsening kidney function superimposed on his chronic kidney disease. 1. Acute kidney injury ? Superimposed on chronic kidney disease stage IV. Patient has been admitted to the regular nursing floor managed with IV fluids with monitoring of BMP ordered consult was placed to nephrology. ? 02/03/2025 patient creatinine down to 3.24 did decrease IV fluids rate ? 02/04/2025; creatinine down to2.87 patient will be discharged home 2. Nephrolithiasis ? CT of the abdomen obtained did show. Obstructing calculus at the right ureteropelvic junction with mild right hydroureteronephrosis.. Additional large bilateral nonobstructing renal calculi. Consult placed to urology ? 02/03/2025 cervical patient is scheduled to undergo laser treatment for his obstructing calculus at the right UPJ by Dr Ponce. ? 02/04/2025Patient underwent cystoscopy removal of stones from bladder large and right ureteroscopy on 02/03/2025. 3. History of Crohn disease ? With bowel resection and subsequent ileostomy. Patient did fail attempt at reversal 4. Metabolic acidosis ? Secondary to JANA do expect improvement with treatment of underlying condition 5. Anemia ? Secondary to chronic disorder. Patient hemoglobin on admission was 9.8 did drop to 8.1 ordered iron studies, monitoring H&H and transfuse if patient becomes symptomatic or hemoglobin falls below 7 ? 02/03/2025 subsequent drop in patient hemoglobin levels down to 7.7 did order iron studies with low threshold to transfuse since patient is complaining of excessive fatigue with activity 6. Elevated troponin ? Suspected to be secondary to demand ischemia from worsening kidney function patient presentation not consistent with ACS 7. BPH with lower urinary obstructive symptoms - Patient treated with tamsulosin 8. Dyslipidemia ?Patient is on statin therapy, continued at home dose 9. DVT prophylaxis ? On enoxaparin Time spent in the patient's overall evaluation,decision-making process, review of diagnostic data, adjustment of management, discussion with other providers, nursing nursing and ancillary staff involved in patient's care documentation, 36 minutes Medications at Discharge Home Medications cholecalciferol (vitamin D3) 25 mcg (1,000 unit) tablet 1,000 unit PO DAILY SUPPLEMENT 05/31/19 atorvastatin 20 mg tablet 20 mg PO QHS CHOLESTEROL 03/28/24 loperamide 2 mg capsule 2 mg PO DAILY 02/01/25 tamsulosin 0.4 mg capsule 0.8 mg PO DAILY 02/01/25 Physical Exam Narrative GENERAL: cooperative HEENT: Atraumatic; normocephalic EYES; Anicteric, Normal Conjunctiva NECK; supple, normal thyroid, RESPIRATORY: Diminished to auscultation CARDIOVASCULAR: Regular S1 S2, GI: soft, normoactive bowel sounds, ileostomy in place : No Renal angle tenderness; EXTREMITIES: No edema, no clubbing, MUSCULOSKELETAL: no muscle wasting NEURO: Awake; no lateralizing signs. SKIN: No Rash PSYCH; Flat affect Weight / BMI Weight Weight: 85.366 kg Body Mass Index (BMI) 28.5 ABG / Lab / Microbiology Data 02/04/25 07:51 02/04/25 07:51 Laboratory: Laboratory Results - last 24 hr 02/04/25 07:51: WBC 10.0, RBC 2.85 L, Hgb 8.0 L, Hct 25.7 L, MCV 90.2, MCH 28.1, MCHC 31.1 L, RDW Std Deviation 45.7 H, RDW Coeff of Shavon 13.7, Plt Count 361, MPV 9.6, Nucleated RBC % 0, Sodium 137, Potassium 4.3, Chloride 109 H, Carbon Dioxide 17.2 L, Anion Gap 11, BUN 42 H, Creatinine 2.87 H, Estim Creat Clear Calc 25.47 L, Est GFR (MDRD) Non-Af 23 L, BUN/Creatinine Ratio 14.7, Glucose 132 H, Calcium 8.6, Phosphorus 4.3, Magnesium 1.4 L Microbiology: Microbiology 02/01/25 13:47 Urine, Clean Catch Urine Culture - Final Culture exhibits no growth. D/C Instructions Discharge Diet: No restrictions Discharge Activity: Return to Normal Activity Call your doctor if you observe: Fever of 101 or Higher, Shortness of breath, Fainting spells and Chest pain DC O2, CPAP, BIPAP Needs Home O2 Discharge instructions: No Meaningful Use Info Meaningful Use Meaningful Use Diagnoses (Choose all that apply): None applicable Ischemic Stroke Statin Dosing Therapy Reference: STATIN DOSE THERAPY REFERENCE: * Patients > 75 years receive moderate or high dose statin therapy. * Patients 75 years or YOUNGER should receive HIGH intensity statin dose unless contraindicated. You will be required to document reason for non-treatment if statin daily dose does not meet guidelines. HIGH DOSE STATIN THERAPY DAILY Atorvastatin > than or = to 40 mg Rosuvastatin > than or = to 20 mg Amlodipine + Atorvastatin > than or = to 2.5/40 mg Ezetimibe + Simvastatin 10/80 mg Simvastatin 80mg Discharge Plan Admission Admit Date/Time: 02/01/25 15:45 Attending Provider: Dave Brandon Primary Care Provider: Michael Kaur Consulting Providers: Andrea Lorenzo; Idania Nina; Brando Ponce Discharge Orders/Prescriptions Prescriptions: Continued cholecalciferol (vitamin D3) 1,000 UNIT tablet 1,000 unit PO DAILY tamsulosin 0.4 mg capsule 0.8 mg PO DAILY loperamide 2 mg Capsule 2 mg PO DAILY atorvastatin 20 mg tablet 20 mg PO QHS Referrals / Follow Up: Michael Kaur MD [Primary Care Provider] - Within 2 Weeks Andrea Lorenzo MD [Med Staff - Consulting] - Within 2 Weeks Brando Ponce MD [Med Staff - Active Staff] - Within 2 Weeks Disposition Disposition (needs filled in before D/C Order can be placed): Home, Self Care Charges/Coding Visit Charges Inpatient E&M: 31034 Disch Hosp >30min
[2025-02-04 11:32] VITALS: BP 118/66; PULSE 59; RESP 18; TEMP 36.8; O2SAT 100
[2025-02-04 13:24] LABS: Absolute Lymphocyte Count 0.75 X10^3/uL (0.83-4.51); Absolute Neutrophil Count 8.8 X10^3/uL (2.0-7.7); Basophil# 0.01 X10^3/uL; Basophil% 0.1 % (0-1); Lymphocyte # 0.75 X10^3/ul (0.83-4.51); Lymphocyte % 7.6 % (19-41); Monocyte# 0.29 X10^3/uL; Monocyte% 2.9 % (0-10); Neutrophil # 8.81 X10^3/uL (2.7-7.7); Neutrophil % 88.9 % (47-70)
[2025-02-12 00:07] LABS: Size 8x5 mm (.); Source Ureter (.); Uric Acid 100 % (.)
== END 2025-02-04 12:00 | disposition home or self-care (01) | DRG 726 ==
LOC: ED 15:29 → MS3 02-02 06:57
PROVIDERS: Anesthesiology; Internal Medicine; Nurse Practitioner; Nurse Practitioner Adult Health; Urology; Admitting Provider Student in an Organized Health Care Education/Training Program; Emergency Provider Emergency Medicine; PCP Family Medicine; Visit Provider Student in an Organized Health Care Education/Training Program
PROC: 0TCB8ZZ Extirpation of Matter from Bladder, Via Natural or Artificial Opening Endoscopic (ICD-10-PCS; CPT 52353; principal; 2025-02-03 10:20)
DX: N40.1 Benign prostatic hyperplasia with lower urinary tract symptoms (principal); I24.89 Other forms of acute ischemic heart disease; E87.20 Acidosis, unspecified; N13.2 Hydronephrosis with renal and ureteral calculous obstruction; N18.4 Chronic kidney disease, stage 4 (severe); K50.90 Crohn's disease, unspecified, without complications; N17.9 Acute kidney failure, unspecified; N13.8 Other obstructive and reflux uropathy; D63.1 Anemia in chronic kidney disease; Z66 Do not resuscitate; I12.9 Hypertensive chronic kidney disease with stage 1 through stage 4 chronic kidney disease, or unspecified chronic kidney disease; Z93.2 Ileostomy status; E86.0 Dehydration; E78.5 Hyperlipidemia, unspecified; Z87.891 Personal history of nicotine dependence; Z87.19 Personal history of other diseases of the digestive system; Z86.718 Personal history of other venous thrombosis and embolism; Z87.440 Personal history of urinary (tract) infections; N21.0 Calculus in bladder
CPT/HCPCS: 36415; 71046; 74176; 80048; 81001; 82360; 82607; 82728; 83540; 83550; 83735; 84100; 84484; 85025; 85045; 85610; 85730; 87086; 88300; 93005; 99285; A4216; C1769; J2405

== ENCOUNTER 2025-08-02 12:48 | Inpatient (IN) | payer MEDICARE, OTHER, SELFPAY ==
[2025-08-02] VITALS (7 sets, daily range): BP systolic 100–120; BP diastolic 74–81; PULSE 72–89; RESP 16–18; TEMP 36.5–37.1; O2SAT 92–100; BMI 27.8; BMI 27.3
--- NOTE | 2025-08-02 14:22 | US_ITS ---
PROCEDURE: KIDNEY AND BLADDER 08/02/2025 REASON FOR EXAM: JANA ON CKD TECHNIQUE: Procedure Code: USKI Modality: US Procedure: KIDNEY AND BLADDER FINDINGS: Right kidney measures 11 cm and left kidney measures 12.3 cm. Increased echotexture of bilateral kidneys. Possible mild hydronephrosis of bilateral kidneys. . 4 mm calculi within the right kidney. 1.2 cm and 0.6 cm calculi within the left kidney. Cortical thinning is noted within left kidney. Urinary bladder is unremarkable. US/Kidney and Bladder IMPRESSION: Medical renal disease. Possible mild hydronephrosis of bilateral kidneys. Stones within bilateral kidneys as above. Cortical thinning within the left k idney. Reading Location: [id number]
--- NOTE | 2025-08-02 14:32 | EX.ED.DYSGE1 ---
HPI History of Present Illness Chief Complaint: Abn Labs Narrative Narrative: Chief complaint and HPI:69-year-old male with past medical history of iron deficiency, CKD who follows with nephrology, Dr. Lorenzo presents for evaluation of JANA on CKD. Patient states that he had a routine primary care appointment coming up in which he got outpatient labs performed. He states he was told to go to immediately to the emergency department because his creatinine was elevated. He states he has had a decreased p.o. intake but is still eating and drinking. General symptoms are fatigue and weakness. He denies any fever, chills, shortness of breath, chest pain, abdominal pain, nausea, vomiting, dysuria. States he has been urinating fine. Review of systems: See HPI Medications: As listed on the chart Allergies: As listed on the chart PFSH: Per chart Vital signs: As listed on the chart. Reviewed. Physical exam: Gen: A&O x3, NAD Head: Normocephalic, atraumatic Eyes: No sclera icterus, conjunctiva clear ENT: Moist mucous membranes Neck: Trachea midline CV: RRR, no murmurs, no peripheral edema Resp: Lungs CTA BL, no w/r/c GI: Abd soft, non-distended, non-tender, no r/r/g Musc: Full ROM, no deformity Skin: Warm, dry Neuro: Alert, oriented, grossly intact, sensation intact Psych: Cooperative, appropriate mood and affect [facility] Medical History Colostomy in place Kidney stones GI bleed Former smoker CPAP (continuous positive airway pressure) dependence DVT (deep venous thrombosis) Ileostomy present Hyperlipidemia Hx of ulcerative colitis Kidney disease Hypertension Home Medications ?Medication ?Instructions ?Recorded ?Last Taken ?Type cholecalciferol (vitamin D3) 25 1,000 unit PO DAILY SUPPLEMENT 05/31/19 01/31/25 History mcg (1,000 unit) tablet atorvastatin 20 mg tablet 20 mg PO QHS CHOLESTEROL 03/28/24 01/31/25 History loperamide 2 mg capsule 2 mg PO DAILY 02/01/25 01/31/25 History tamsulosin 0.4 mg capsule 0.8 mg PO DAILY 02/01/25 01/31/25 History ferrous sulfate 325 mg (65 mg 325 mg PO QDAY 05/15/25 Unknown History iron) tablet (Feosol) prednisone 10 mg tablet 10 mg PO QDAY #30 tabs 05/15/25 Unknown Rx Allergy/AdvReac Type Severity Reaction Status Date / Time aspirin Allergy Other Verified 08/02/25 13:09 ibuprofen Allergy Laryngospas Verified 08/02/25 13:09 ms Surgical History History of bowel resection Social History Smoking Status: Former smoker EXAM Physical Exam Const Vital Signs: 08/02/25 12:48 08/02/25 13:06 08/02/25 14:48 Temperature 97.7 F L Temperature Source Oral Pulse Rate 89 72 Respiratory Rate 18 16 Respiratory Effort Normal Respiratory Pattern Normal Blood Pressure 100/81 H 108/74 Blood Pressure Mean 87 85 Pulse Ox 92 99 Oxygen Delivery Method Room Air Room Air 08/02/25 16:00 Temperature Temperature Source Pulse Rate 77 Respiratory Rate 16 Respiratory Effort Respiratory Pattern Blood Pressure 117/80 Blood Pressure Mean 92 Pulse Ox 100 Oxygen Delivery Method Room Air MDM MDM MDM Narrative Medical decision making narrative: 69-year-old male with past medical history of iron deficiency, CKD who follows with nephrology, Dr. Lorenzo presents for evaluation of JANA on CKD. Patient states that he had a routine primary care appointment coming up in which he got outpatient labs performed. He states he was told to go to immediately to the emergency department because his creatinine was elevated. On chart review patient's labs from 07/31/2025 showed BUN of 102 and a creatinine of 9.26. On chart review, in January his creatinine was 2.87. His baseline appears anywhere from 2-4. Differential diagnosis includes but is not limited to JANA on CKD, worsening CKD, electrolyte abnormality, dehydration, UTI, renal dysfunction. Basic labs ordered with urine and ultrasound of the kidney. CBC without leukocytosis. Patient has baseline anemia of 11.8. Thrombocytosis of 472 however on chart review has had this in the past. BMP shows JANA on CKD with a BUN of 127 and creatinine of 10.10. Magnesium mildly elevated at 2.5. UA pending. Renal ultrasound shows medical renal disease. Possible mild hydronephrosis of bilateral kidneys. Stones in bilateral kidneys as above. Cortical thinning within the left kidney. Patient will warrant admission for further workup. I spoke with the hospitalist service who accepted admission. Talked to the hospitalist about starting fluids, would like me to hold off at this time until evaluated. Impression: 1. JANA on CKD 2. Chronic anemia 4. Thrombocytosis Lab Data Labs: Laboratory Results - last 24 hr 08/02/25 14:44 WBC 10.5 RBC 4.03 L Hgb 11.8 L Hct 33.7 L MCV 83.6 MCH 29.3 MCHC 35.0 RDW Std Deviation 41.8 RDW Coeff of Shavon 13.6 Plt Count 472 H MPV 9.0 Immature Gran % (Auto) 3.100 H Neut % (Auto) 76.9 H Lymph % (Auto) 9.7 L [place] % (Auto) 8.1 Eos % (Auto) 1.7 Baso % (Auto) 0.5 Absolute Neuts (auto) 8.1 H Absolute Lymphs (auto) 1.02 Nucleated RBC % 0 Sodium 133 Potassium 3.7 Chloride 94 L Carbon Dioxide 12.3 L Anion Gap 26 H BUN 127 H* Creatinine 10.10 H* Estim Creat Clear Calc 7.14 L* Est GFR (MDRD) Non-Af 5 L BUN/Creatinine Ratio 12.6 Glucose 100 H Calcium 8.7 Magnesium 2.5 H Radiography Diagnostic Testing: Clinical Impression(s) from Imaging Studies Renal Ultrasound 08/02/25 14:22 IMPRESSION: Medical renal disease. Possible mild hydronephrosis of bilateral kidneys. Stones within bilateral kidneys as above. Cortical thinning within the left kidney. Reading Location: [facility] Discharge Plan Triage Chief Complaint: Abn Labs ED Provider: Franc Phelps Dx/Rx/DC Orders Prescriptions: No Action ferrous sulfate [Feosol] 325 mg (65 mg iron) tablet 325 mg PO QDAY prednisone 10 mg tablet 10 mg PO QDAY Qty: 30 0RF Rx Instructions: 4 tablets daily x3 days, then 3 tablets daily x3 days, then 2 tablets daily x3 days, then 1 tablet daily x3 days cholecalciferol (vitamin D3) 1,000 UNIT tablet 1,000 unit PO DAILY tamsulosin 0.4 mg capsule 0.8 mg PO DAILY loperamide 2 mg Capsule 2 mg PO DAILY atorvastatin 20 mg tablet 20 mg PO QHS Primary Care Provider: Michael Kaur Referrals: Michael Kaur MD [Primary Care Provider, Family Practice] Print Language: Maltese
[2025-08-02 15:02] LABS: Hematocrit 33.7 % (40-54); Hemoglobin 11.8 g/dL (13.0-16.5); Immature Granulocytes Count 0.320 X10^3/uL (0.0-0.0); Mean Corp Hgb Conc 35.0 g/dL (32-36); Mean Corpuscular Volume 83.6 fL (80-94); Mean Platelet Vol. 9.0 fl (6.2-12.0); NRBC Flagged by Analyzer 0 % (0-5); Platelet Count 472 K/mm3 (150-450); RBC Distribution Width CV 13.6 % (11.6-14.6); RBC Distribution Width SD 41.8 fl (35.1-43.9); Red Blood Count 4.03 M/mm3 (4.6-6.2); White Blood Count 10.5 K/mm3 (4.4-11.0)
[2025-08-02 15:32] LABS: Magnesium 2.5 mg/dL (1.5-2.2)
[2025-08-02 15:33] LABS: Mucous, Urine 0 SEEN /hpf (<or=2+)
[2025-08-02 15:44] LABS: Color, Urine Yellow (Yellow); Glucose, Dipstick Normal (Normal); Ketone-Dipstick Negative (Negative); Leukocyte Esterase-Dipstick 100 /ul (Negative); Nitrite-Dipstick Negative (Negative); Occult Blood-Urine 150 /ul (Negative); Protein-Dipstick 30 mg/dl (Negative); Specific Gravity, Urine 1.020 (1.002-1.030); Urine Bilirubin Dipstick Negative (Negative)
[2025-08-02 15:55] LABS: Anion Gap 26 (5-15); BUN 127 mg/dL (4-19); BUN/Creat Ratio 12.6 RATIO (10-20); Calcium,Total 8.7 mg/dL (7.6-11.0); Carbon Dioxide 12.3 mmol/L (21.0-32.0); Chloride 94 mmol/L (98-108); Estimated Creatinine Clearance 7.14 ml/min (50-250); Glucose 100 mg/dL (70-99); Potassium 3.7 mmol/L (3.3-5.1)
--- NOTE | 2025-08-02 16:58 | PCM.HP.STD ---
HPI - General General Date of Admission: 08/02/25 Date of Service: 08/02/25 Chief Complaint: Abnormal labs HPI Narrative ANGELICA VELAZQUEZ, is a 69 M who presented to [facility] ED on 08/02/2025 for abnormal labs. Patient has history of CKD stage III-IV and has followed with Dr. Lorenzo for several years. Medical history is otherwise significant for Crohn's disease with bowel resection and chronic ileostomy, BPH with obstructive symptoms and chronic anemia. He had outpatient labs drawn today for his upcoming PCP appointment and was found to have significantly abnormal labs with creatinine 10.10, BUN 127, bicarb 12 so he was sent to the ED for further evaluation. Repeat labs in the ED showed creatinine 9.37, BUN 117, bicarb 10. CBC appeared somewhat hemoconcentrated but was otherwise stable from previous. Renal ultrasound in the ED showed possible mild hydronephrosis of bilateral kidneys but normal urinary bladder and no other concerning findings. Given his acute kidney failure, hospitalist was contacted for admission. I saw the patient at bedside in the ED, was present. Patient was mildly fatigued appearing but was otherwise laying back comfortably in bed, conversing normally and in no acute distress. Notes that over the past 7 to 10 days he has felt more fatigued and weak than his normal. States that he typically has good p.o. intake but in the past week or so he has had fairly minimal appetite. He denies any recent illnesses. Denies any new medications or changes to medications. Reports adequate urine output recently. No other acute concerns currently. Will be admitted for further management. [facility] Medical History (Updated 08/02/25 @ 21:[address] Ramin Quintanilla, DO) Colostomy in place Kidney stones GI bleed Former smoker CPAP (continuous positive airway pressure) dependence DVT (deep venous thrombosis) Ileostomy present Hyperlipidemia Hx of ulcerative colitis Kidney disease Hypertension Home Medications ?Medication ?Instructions ?Recorded ?Last Taken ?Type cholecalciferol (vitamin D3) 25 1,000 unit PO DAILY SUPPLEMENT 05/31/19 01/31/25 History mcg (1,000 unit) tablet atorvastatin 20 mg tablet 20 mg PO QHS CHOLESTEROL 03/28/24 01/31/25 History loperamide 2 mg capsule 2 mg PO DAILY diarrhea 02/01/25 01/31/25 History tamsulosin 0.4 mg capsule 0.8 mg PO DAILY BPH 02/01/25 01/31/25 History ferrous sulfate 325 mg (65 mg 325 mg PO QDAY supplement 05/15/25 Unknown History iron) tablet (Feosol) Allergy/AdvReac Type Severity Reaction Status Date / Time aspirin Allergy Other Verified 08/02/25 13:09 ibuprofen Allergy Laryngospas Verified 08/02/25 13:09 ms Surgical History History of bowel resection Social History Smoking Status: Former smoker ROS Constitutional Constitutional: Reports fatigue and weakness; Denies chills or fever(s) Eyes Eyes: Denies change in vision Cardiovascular Cardiovascular: Denies chest pain Respiratory/Chest Respiratory/Chest: Denies shortness of breath at rest Gastrointestinal Gastrointestinal: Reports nausea; Denies abdominal pain or vomiting Musculoskeletal Musculoskeletal: Denies arthralgias or myalgias Neurologic Neurologic: Denies dizziness, focal weakness or headache(s) Vital Signs Vital Signs Vital Signs: 08/02/25 12:48 08/02/25 13:06 08/02/25 14:48 Temperature 97.7 F L Temperature Source Oral Pulse Rate 89 72 Respiratory Rate 18 16 Respiratory Effort Normal Respiratory Pattern Normal Blood Pressure 100/81 H 108/74 Blood Pressure Mean 87 85 Pulse Ox 92 99 Oxygen Delivery Method Room Air Room Air 08/02/25 16:00 Temperature Temperature Source Pulse Rate 77 Respiratory Rate 16 Respiratory Effort Respiratory Pattern Blood Pressure 117/80 Blood Pressure Mean 92 Pulse Ox 100 Oxygen Delivery Method Room Air Weight Weight: 82.871 kg Body Mass Index (BMI) 27.8 Physical Exam Const alert, oriented x3, no apparent distress and average body habitus Constitutional Narrative: Pleasant elderly male, fatigued appearing but otherwise laying back comfortably in bed, conversing normally, in no acute distress. General Appearance: cooperative and comfortable HEENT normocephalic, head/scalp atraumatic, hearing grossly normal bilaterally, nasal mucous membranes and turbinates normal and moist oral mucous membranes Eyes PERRL, EOMs intact bilaterally and conjunctivae normal Neck full ROM Chest inspection of chest normal Resp normal respiratory effort, normal air movement, no use of accessory muscles and clear to auscultation bilaterally Cardio regular rate, regular rhythm, no murmurs and peripheral pulses 2+ throughout GI normal to inspection, nondistended, normoactive bowel sounds, soft to palpation, non-tender and non-distended Back/Spine normal ROM Extremity normal to inspection, full ROM and no pedal edema Skin no rashes or lesions noted Psych mental status grossly normal Results Lab / Micro Data 08/02/25 14:44 08/02/25 17:35 Labs: Laboratory Results - last 24 hr 08/02/25 14:44: WBC 10.5, RBC 4.03 L, Hgb 11.8 L, Hct 33.7 L, MCV 83.6, MCH 29.3, MCHC 35.0, RDW Std Deviation 41.8, RDW Coeff of Shavon 13.6, Plt Count 472 H, MPV 9.0, Immature Gran % (Auto) 3.100 H, Neut % (Auto) 76.9 H, Lymph % (Auto) 9.7 L, [place] % (Auto) 8.1, Eos % (Auto) 1.7, Baso % (Auto) 0.5, Absolute Neuts (auto) 8.1 H, Absolute Lymphs (auto) 1.02, Nucleated RBC % 0, Sodium 133, Potassium 3.7, Chloride 94 L, Carbon Dioxide 12.3 L, Anion Gap 26 H, BUN 127 H*, Creatinine 10.10 H*, Estim Creat Clear Calc 7.14 L*, Est GFR (MDRD) Non-Af 5 L, BUN/Creatinine Ratio 12.6, Glucose 100 H, Calcium 8.7, Magnesium 2.5 H Imaging Radiology Impression Renal Ultrasound 08/02/25 14:22 IMPRESSION: Medical renal disease. Possible mild hydronephrosis of bilateral kidneys. Stones within bilateral kidneys as above. Cortical thinning within the left kidney. Reading Location: [facility] Assessment & Plan Assessment/Plan (1) Acute kidney injury superimposed on stage 4 chronic kidney disease: PLAN: Plan Patient is a 69-year-old male who presented to [facility] ED on 08/02/2025 with abnormal labs. 1. Severe JANA in setting of CKD stage IV with metabolic acidosis and azotemia ? Admit under inpatient status to PCU. Nephrology consulted. Creatinine 10.1, BUN 127, bicarb 12 on admit. Baseline creatinine around 2.5-2.8. FeNa 0.9% consistent with prerenal etiology. Renal ultrasound with possible mild hydronephrosis called but no bladder abnormalities and patient reports adequate urine output. Will run IV sodium HCO3 infusion for 1 L overnight and follow-up a.m. labs. Appreciate further nephrology recommendations. 2. History of Crohn's disease with colonic resection and ileostomy placement ? Patient reports no significant change in ileostomy output recently. No inpatient needs, continue outpatient follow-up. 3. Chronic normocytic anemia ? Hemoglobin 11.8 on admit, baseline around 9. CBC appeared hemoconcentrated on admit suspect patient is about at baseline hemoglobin. Continue home iron supplement. 4. Hyperlipidemia ? Continue home statin. 5. BPH with obstructive symptoms ? Continue home Flomax. DVT prophylaxis: Heparin subcu CODE STATUS: Full code, verified Expected disposition: Home, TBD Total clinical time spent by myself addressing the patient's medical issues, reviewing all the data, and collaborating with patient's care team: 76 minutes. Charges/Coding Visit Charges Inpatient E&M: 25689 Init Hosp L3
[2025-08-02 17:32] LABS: Red Blood Cells-Urine 0-5 SEEN /hpf (0-5)
[2025-08-02 17:34] LABS: Squamous Epithelial Cells - UA 0-5 SEEN /hpf (0-5)
--- NOTE | 2025-08-02 18:27 | CASEMGMT ---
Care Management Face to Face with patient for initial transition planning/care coordination assessment in the ED.? This machine sign writer introduced self and role at [facility]. Patient alert and oriented. Patient willing to participate in assessment and is able to answer all questions appropriately.? Care providers, pharmacy, and demographics verified. Admitting Diagnosis: Acute renal failure? Other diagnosis history: ?hypertension, kidney stones, CPCP, ileostomy, colostomy PCP: ?Natasha Specialists: ?Rosario Lorenzo Preferred Pharmacy: [facility] Insurance: ??Medicare Prescription Benefit: ?yes Living Will/HPOA: ?has LW and HPOA LNOK: ? Living Arrangements: ?Lives with in one story home, 2 steps to enter Transportation: ? or patient DME: ?Cpap HHC: ?none SNF/Rehab: none Community Resources: none Behavioral Health History: Patient goals: Patient wishes to discharge home. Patient denies any further needs or concerns at this time. Disposition Plan: admission to acute; RN CM/SW to follow for discharge planning needs that may arise. Viky Gonzalez, PAYROLL CONSULTANT, DIRECTOR LIFE INSURANCE
[2025-08-02 19:27] LABS: Anion Gap 25 (5-15); BUN 117 mg/dL (4-19); BUN/Creat Ratio 12.5 RATIO (10-20); Calcium,Total 7.6 mg/dL (7.6-11.0); Carbon Dioxide 10.6 mmol/L (21.0-32.0); Chloride 98 mmol/L (98-108); Estimated Creatinine Clearance 7.10 ml/min (50-250); Glucose 90 mg/dL (70-99); Potassium 3.1 mmol/L (3.3-5.1)
[2025-08-02] MEDS: 0.9% Saline Lock 10 ML Syringe IV (20:25)
[2025-08-02] MEDS: Heparin Injection (Vial) 5,000 UNIT/ML VIAL 5000 UNIT SC (22:26)
[2025-08-02] MEDS: Potassium Chloride Oral Tablet 20 MEQ 40 MEQ PO (22:26)
[2025-08-02] MEDS: Sodium Bicarbonate 50 MEQ in Dextrose 5%-Water (1000mL Bag) 1,000 ML 150 MEQ IV (22:28)
[2025-08-03 04:25] VITALS: BP 110/82; PULSE 67; RESP 16; TEMP 36.3; O2SAT 97
[2025-08-03] MEDS: Heparin Injection (Vial) 5,000 UNIT/ML VIAL 5000 UNIT SC ×3 (05:47→21:27)
[2025-08-03 05:52] LABS: Hematocrit 30.9 % (40-54); Hemoglobin 10.6 g/dL (13.0-16.5); Mean Corp Hgb Conc 34.3 g/dL (32-36); Mean Corpuscular Volume 84.0 fL (80-94); Mean Platelet Vol. 9.1 fl (6.2-12.0); Platelet Count 448 K/mm3 (150-450); RBC Distribution Width CV 13.4 % (11.6-14.6); RBC Distribution Width SD 41.5 fl (35.1-43.9); Red Blood Count 3.68 M/mm3 (4.6-6.2); White Blood Count 10.0 K/mm3 (4.4-11.0)
[2025-08-03 09:14] VITALS: BP 114/73; PULSE 79; RESP 16; TEMP 36.7; O2SAT 100
[2025-08-03] MEDS: Cholecalciferol (VIT D3) 25 MCG TABLET (1,000 UNITS) PO (10:42)
--- NOTE | 2025-08-03 11:13 | PCM.CONS.R ---
Assessment & Plan Assessment/Plan (1) Acute kidney injury superimposed on stage 3b chronic kidney disease: (2) Hypokalemia: PLAN: Plan This is a 69-year-old male with past medical history significant for chronic kidney disease stage IIIb from biopsy-proven Aquilino's in April 2018, baseline creatinine had been ranging around 2.2 to 2.4 mg/dL who presented to the emergency room yesterday due to abnormal labs, creatinine was 10, bicarb 12.3, potassium 3.7. Patient was admitted and started on IV fluids, bicarb drip. Patient is currently off IV fluids. Likely JANA secondary to increased ostomy output, significant volume depletion and recommend to continue with IV fluids. We will start LR at 150/hour, will not restart back on bicarb drip due to hypocalcemia. Also to note potassium slightly low at 3.1, patient did receive potassium supplement. Labs from this morning are pending. Patient does not need renal diet restrictions. At this time there is no acute indication for [employer]. Patient states he is making urine. Recommend strict urine output measurement. Blood pressure is acceptable, patient not on any antihypertensives. Last hospitalization in January 2025 patient was noted to have kidney stones per noncontrast CT and underwent cystoscopy with removal of kidney stones per urology. For this admission renal ultrasound noted calculi in right and left kidney with mild hydronephrosis of bilateral kidneys. Recommend consulting urology as patient is known to them. Further orders forthcoming as hospitalization evolves, thank you for allowing us to participate in the care of Mr. De Leon. Assessment and plan reviewed with Dr. Lorenzo. HPI Consult Data Date of Consult: 08/03/25 HPI Narrative HPI Narrative: ANGELICA DE LEON, is a 69 M who presented to the emergency room last evening because of abnormal labs, creatinine 10.10, BUN 127, bicarb 12, potassium 3.7. Patient was admitted for severe JANA. Nephrology consulted as patient is known to us. Patient has history of chronic kidney disease stage IIIb with history of kidney biopsy-proven Aquilino's diagnosed in April 2018, received rituximab and prednisone and continues to follow with Dr. Lorenzo in [place] office. Baseline creatinine had been ranging around 2.2 mg/dL range. Patient also has history of ulcerative colitis status post ileostomy. Today patient reports that he has been having increased loose watery stool from ostomy. States has not been taking his Imodium. Denies any new medications. Denies any dysuria or hematuria. Denies any flank pain. Denies any nausea or vomiting. Does not take NSAIDs. Repeat lab work last night creatinine 9.3, potassium 3.1. Patient was initially started on IV fluids, bicarb drip. [facility] Medical History (Updated 08/03/25 @ 11:19 by ANASTACIO Santana) Acute kidney injury superimposed on stage 3b chronic kidney disease Colostomy in place Kidney stones GI bleed Former smoker CPAP (continuous positive airway pressure) dependence DVT (deep venous thrombosis) Ileostomy present Hyperlipidemia Hx of ulcerative colitis Kidney disease Hypertension Home Medications ?Medication ?Instructions ?Recorded ?Last Taken ?Type cholecalciferol (vitamin D3) 25 1,000 unit PO DAILY SUPPLEMENT 05/31/19 01/31/25 History mcg (1,000 unit) tablet atorvastatin 20 mg tablet 20 mg PO QHS CHOLESTEROL 03/28/24 01/31/25 History loperamide 2 mg capsule 2 mg PO DAILY diarrhea 02/01/25 01/31/25 History tamsulosin 0.4 mg capsule 0.8 mg PO DAILY BPH 02/01/25 01/31/25 History ferrous sulfate 325 mg (65 mg 325 mg PO QDAY supplement 05/15/25 Unknown History iron) tablet (Feosol) Allergy/AdvReac Type Severity Reaction Status Date / Time aspirin Allergy Other Verified 08/02/25 13:09 ibuprofen Allergy Laryngospas Verified 08/02/25 13:09 ms Surgical History History of bowel resection Social History Smoking Status: Former smoker ROS ROS Narrative As in HPI, otherwise negative Physical Exam Narrative Alert and oriented x 3, no apparent distress S1, S2, RRR Lungs sound clear. No wheezes, rhonchi or rales. On room air Abdomen soft, nontender, nondistended. Ostomy in place with watery green stool No edema Lab / Micro Data 08/03/25 05:32 08/02/25 17:35 Labs: Laboratory Results - last 24 hr 08/02/25 14:40: Ur Random Sodium < 20, Urine Creatinine 159.00 08/02/25 14:44: WBC 10.5, RBC 4.03 L, Hgb 11.8 L, Hct 33.7 L, MCV 83.6, MCH 29.3, MCHC 35.0, RDW Std Deviation 41.8, RDW Coeff of Shavon 13.6, Plt Count 472 H, MPV 9.0, Immature Gran % (Auto) 3.100 H, Neut % (Auto) 76.9 H, Lymph % (Auto) 9.7 L, [place] % (Auto) 8.1, Eos % (Auto) 1.7, Baso % (Auto) 0.5, Absolute Neuts (auto) 8.1 H, Absolute Lymphs (auto) 1.02, Nucleated RBC % 0, Sodium 133, Potassium 3.7, Chloride 94 L, Carbon Dioxide 12.3 L, Anion Gap 26 H, BUN 127 H*, Creatinine 10.10 H*, Estim Creat Clear Calc 7.14 L*, Est GFR (MDRD) Non-Af 5 L, BUN/Creatinine Ratio 12.6, Glucose 100 H, Calcium 8.7, Magnesium 2.5 H 08/02/25 15:26: Urine Color Yellow, Urine Clarity Clear, Urine pH 6.0, Ur Specific [place] 1.020, Urine Protein 30 H, Urine Glucose (UA) Normal, Urine Ketones Negative, Urine Occult Blood 150 H, Urine Nitrite Negative, Urine Bilirubin Negative, Urine Urobilinogen Normal, Ur Leukocyte Esterase 100 H, Urine RBC 0-5 SEEN, Urine WBC 10-25 SEEN, Ur Squamous Epith Cells 0-5 SEEN, Urine Bacteria 1+, Urine Mucus 0 SEEN 08/02/25 17:35: Sodium 134, Potassium 3.1 L, Chloride 98, Carbon Dioxide 10.6 L, Anion Gap 25 H, BUN 117 H*, Creatinine 9.37 H*, Estim Creat Clear Calc 7.10 L*, Est GFR (MDRD) Non-Af 6 L, BUN/Creatinine Ratio 12.5, Glucose 90, Calcium 7.6, Phosphorus 11.6 H* 08/03/25 05:32: WBC 10.0, RBC 3.68 L, Hgb 10.6 L, Hct 30.9 L, MCV 84.0, MCH 28.8, MCHC 34.3, RDW Std Deviation 41.5, RDW Coeff of Shavon 13.4, Plt Count 448, MPV 9.1 Imaging Radiology Impression Renal Ultrasound 08/02/25 14:22 IMPRESSION: Medical renal disease. Possible mild hydronephrosis of bilateral kidneys. Stones within bilateral kidneys as above. Cortical thinning within the left kidney. Reading Location: [facility]
--- NOTE | 2025-08-03 11:14 | CT_ITS ---
PROCEDURE: ABDOMEN/PELVIS WITHOUT CONT 08/03/2025 REASON FOR EXAM: SID HYDRONEPHROSIS ON RENAL US TECHNIQUE: Procedure Code: CTABDPEL Modality: CT Procedure: ABDOMEN/PELVIS WITHOUT CONT Noncontrast technique limits evaluation of the abdominal and pelvic viscera. Coronal and Sagittal reconstruction series were provided. One or more dose reduction techniques were used (e.g., Automated exposure control, adjustment of the mA and/or kV according to patient size, use of iterative reconstruction technique). RADIATION DOSE SUMMARY: CTDlvol: 9.26 mGy DLP: 47.94 mGycm COMPARISON: 02/01/2025 FINDINGS: Lung bases: Clear Liver: Normal size. No obvious mass. Gallbladder: Contracted but unremarkable Spleen: Normal size. Pancreas: Normal size. No surrounding inflammation. Adrenals: Unremarkable Kidneys: The right kidney is free of obstructive uropathy or suspicious solid renal lesion, there is a stable nonobstructing stone in the lower pole measuring 5 mm. There is a hyperdense cyst in the lower pole of the right kidney. Left kidney shows hydronephrosis and hydroureter with perinephric and Shira ureteral inflammatory stranding. There is a 7.4 cm stone in the proximal 3rd of the left ureter seen on coronal recon image 55 and axial image 84. The left ureter distal to this stone is of normal course and caliber. Bladder: Unremarkable Reproductive Organs: No suspicious pelvic mass Bowel: There is a right lower quadrant ostomy free of complication. No anastomotic leak noted within bowel loops within the ostomy site. Appendix: Not visualized Lymph nodes: No suspicious mesenteric or retroperitoneal adenopathy Vasculature: Peripheral calcifications in an ectatic abdominal aorta without aneurysm. Peritoneum / Retroperitoneum: No free air or fluid Bones: Bony structures show degenerative change CT/Abdomen/Pelvis without Cont IMPRESSION: Left-sided hydronephrosis and hydroureter with perinephric and Shira ureteral in flammatory stranding. Findings due to a 7.4 mm stone in the proximal 3rd of the left ureter. Bilateral nonobstructing nephrolithiasis, stable hyperdense cyst in the lower p ole of the right kidney. No specific follow-up needed. Right lower quadrant ostomy site free of complication Degenerative bony changes No free intraperitoneal fluid, air, or suspicious adenopathy Reading Location: [facility]
[2025-08-03 11:18] LABS: Anion Gap 25 (5-15); BUN 124 mg/dL (4-19); BUN/Creat Ratio 11.9 RATIO (10-20); Calcium,Total 8.1 mg/dL (7.6-11.0); Carbon Dioxide 10.8 mmol/L (21.0-32.0); Chloride 93 mmol/L (98-108); Estimated Creatinine Clearance 6.39 ml/min (50-250); Glucose 134 mg/dL (70-99); Potassium 3.4 mmol/L (3.3-5.1)
--- NOTE | 2025-08-03 11:54 | PCM.CONS.GEN ---
HPI Consult Data Date of Consult: 08/03/25 HPI Narrative Reason for Consultation: Obstructing left this is a patient who presents to the hospital for treatme HPI Narrative: ANGELICA VELAZQUEZ, is a 69 M who presents to the hospital with acute kidney injury also has chronic renal sufficiency CAT scan was done demonstrates a large obstructing stone in the proximal left ureter with significant hydronephrosis we will add the patient on the schedule for tomorrow for cystoscopy and left stent placement and will delay treatment of the stone later on until he is clinically stable. N.p.o. at midnight and on tomorrow for cystoscopy left stent placement [facility] Medical History (Updated 08/03/25 @ 11:19 by ANASTACIO Santana) Acute kidney injury superimposed on stage 3b chronic kidney disease Colostomy in place Kidney stones GI bleed Former smoker CPAP (continuous positive airway pressure) dependence DVT (deep venous thrombosis) Ileostomy present Hyperlipidemia Hx of ulcerative colitis Kidney disease Hypertension Home Medications ?Medication ?Instructions ?Recorded ?Last Taken ?Type cholecalciferol (vitamin D3) 25 1,000 unit PO DAILY SUPPLEMENT 05/31/19 01/31/25 History mcg (1,000 unit) tablet atorvastatin 20 mg tablet 20 mg PO QHS CHOLESTEROL 03/28/24 01/31/25 History loperamide 2 mg capsule 2 mg PO DAILY diarrhea 02/01/25 01/31/25 History tamsulosin 0.4 mg capsule 0.8 mg PO DAILY BPH 02/01/25 01/31/25 History ferrous sulfate 325 mg (65 mg 325 mg PO QDAY supplement 05/15/25 Unknown History iron) tablet (Feosol) Allergy/AdvReac Type Severity Reaction Status Date / Time aspirin Allergy Other Verified 08/02/25 13:09 ibuprofen Allergy Laryngospas Verified 08/02/25 13:09 ms Surgical History History of bowel resection Social History Smoking Status: Former smoker Lab / Micro Data 08/03/25 05:32 08/03/25 05:32 Labs: Laboratory Results - last 24 hr 08/02/25 14:40: Ur Random Sodium < 20, Urine Creatinine 159.00 08/02/25 14:44: WBC 10.5, RBC 4.03 L, Hgb 11.8 L, Hct 33.7 L, MCV 83.6, MCH 29.3, MCHC 35.0, RDW Std Deviation 41.8, RDW Coeff of Shavon 13.6, Plt Count 472 H, MPV 9.0, Immature Gran % (Auto) 3.100 H, Neut % (Auto) 76.9 H, Lymph % (Auto) 9.7 L, [place] % (Auto) 8.1, Eos % (Auto) 1.7, Baso % (Auto) 0.5, Absolute Neuts (auto) 8.1 H, Absolute Lymphs (auto) 1.02, Nucleated RBC % 0, Sodium 133, Potassium 3.7, Chloride 94 L, Carbon Dioxide 12.3 L, Anion Gap 26 H, BUN 127 H*, Creatinine 10.10 H*, Estim Creat Clear Calc 7.14 L*, Est GFR (MDRD) Non-Af 5 L, BUN/Creatinine Ratio 12.6, Glucose 100 H, Calcium 8.7, Magnesium 2.5 H 08/02/25 15:26: Urine Color Yellow, Urine Clarity Clear, Urine pH 6.0, Ur Specific [place] 1.020, Urine Protein 30 H, Urine Glucose (UA) Normal, Urine Ketones Negative, Urine Occult Blood 150 H, Urine Nitrite Negative, Urine Bilirubin Negative, Urine Urobilinogen Normal, Ur Leukocyte Esterase 100 H, Urine RBC 0-5 SEEN, Urine WBC 10-25 SEEN, Ur Squamous Epith Cells 0-5 SEEN, Urine Bacteria 1+, Urine Mucus 0 SEEN 08/02/25 17:35: Sodium 134, Potassium 3.1 L, Chloride 98, Carbon Dioxide 10.6 L, Anion Gap 25 H, BUN 117 H*, Creatinine 9.37 H*, Estim Creat Clear Calc 7.10 L*, Est GFR (MDRD) Non-Af 6 L, BUN/Creatinine Ratio 12.5, Glucose 90, Calcium 7.6, Phosphorus 11.6 H* 08/03/25 05:32: WBC 10.0, RBC 3.68 L, Hgb 10.6 L, Hct 30.9 L, MCV 84.0, MCH 28.8, MCHC 34.3, RDW Std Deviation 41.5, RDW Coeff of Shavon 13.4, Plt Count 448, MPV 9.1, Sodium 129 L, Potassium 3.4, Chloride 93 L, Carbon Dioxide 10.8 L, Anion Gap 25 H, BUN 124 H*, Creatinine 10.40 H*, Estim Creat Clear Calc 6.39 L*, Est GFR (MDRD) Non-Af 5 L, BUN/Creatinine Ratio 11.9, Glucose 134 H, Calcium 8.1 Imaging Radiology Impression Renal Ultrasound 08/02/25 14:22 IMPRESSION: Medical renal disease. Possible mild hydronephrosis of bilateral kidneys. Stones within bilateral kidneys as above. Cortical thinning within the left kidney. Reading Location: [id number]
[2025-08-03] MEDS: Lactated Ringers 1,000 ML 150 ML IV ×2 (11:59→20:01)
--- NOTE | 2025-08-03 13:14 | PCM.PN.HOSP ---
Reason for Visit Chief Complaint: Abnormal labs Subjective Subjective Patient is a 69-year-old male with past medical history signal for chronic kidney disease who was sent to the ED with abnormal labs. Imaging studies obtained demonstrated mild hydronephrosis involving both kidneys Objective Data Objective Data Vital Signs: Vital Signs Temp Pulse Resp BP Pulse Ox O2 Del Method 98.0 F 79 16 114/73 100 Room Air 08/03/25 09:14 08/03/25 09:14 08/03/25 09:14 08/03/25 09:14 08/03/25 09:14 08/03/25 09:14 Oxygen Delivery Method Room Air Weight: 81.7 kg Body Mass Index (BMI) 27.3 Intake & Output: Intake and Output for Last 24 Hours 08/01/25 08/02/25 08/03/25 23:59 23:59 23:59 Intake Total 360 / 360 1050 / 1050 Balance 360 / 360 1050 / 1050 Lab / Micro Data 08/03/25 05:32 08/03/25 05:32 Labs: Laboratory Results - last 24 hr 08/02/25 14:40: Ur Random Sodium < 20, Urine Creatinine 159.00 08/02/25 14:44: WBC 10.5, RBC 4.03 L, Hgb 11.8 L, Hct 33.7 L, MCV 83.6, MCH 29.3, MCHC 35.0, RDW Std Deviation 41.8, RDW Coeff of Shavon 13.6, Plt Count 472 H, MPV 9.0, Immature Gran % (Auto) 3.100 H, Neut % (Auto) 76.9 H, Lymph % (Auto) 9.7 L, [place] % (Auto) 8.1, Eos % (Auto) 1.7, Baso % (Auto) 0.5, Absolute Neuts (auto) 8.1 H, Absolute Lymphs (auto) 1.02, Nucleated RBC % 0, Sodium 133, Potassium 3.7, Chloride 94 L, Carbon Dioxide 12.3 L, Anion Gap 26 H, BUN 127 H*, Creatinine 10.10 H*, Estim Creat Clear Calc 7.14 L*, Est GFR (MDRD) Non-Af 5 L, BUN/Creatinine Ratio 12.6, Glucose 100 H, Calcium 8.7, Magnesium 2.5 H 08/02/25 15:26: Urine Color Yellow, Urine Clarity Clear, Urine pH 6.0, Ur Specific [place] 1.020, Urine Protein 30 H, Urine Glucose (UA) Normal, Urine Ketones Negative, Urine Occult Blood 150 H, Urine Nitrite Negative, Urine Bilirubin Negative, Urine Urobilinogen Normal, Ur Leukocyte Esterase 100 H, Urine RBC 0-5 SEEN, Urine WBC 10-25 SEEN, Ur Squamous Epith Cells 0-5 SEEN, Urine Bacteria 1+, Urine Mucus 0 SEEN 08/02/25 17:35: Sodium 134, Potassium 3.1 L, Chloride 98, Carbon Dioxide 10.6 L, Anion Gap 25 H, BUN 117 H*, Creatinine 9.37 H*, Estim Creat Clear Calc 7.10 L*, Est GFR (MDRD) Non-Af 6 L, BUN/Creatinine Ratio 12.5, Glucose 90, Calcium 7.6, Phosphorus 11.6 H* 08/03/25 05:32: WBC 10.0, RBC 3.68 L, Hgb 10.6 L, Hct 30.9 L, MCV 84.0, MCH 28.8, MCHC 34.3, RDW Std Deviation 41.5, RDW Coeff of Shavon 13.4, Plt Count 448, MPV 9.1, Sodium 129 L, Potassium 3.4, Chloride 93 L, Carbon Dioxide 10.8 L, Anion Gap 25 H, BUN 124 H*, Creatinine 10.40 H*, Estim Creat Clear Calc 6.39 L*, Est GFR (MDRD) Non-Af 5 L, BUN/Creatinine Ratio 11.9, Glucose 134 H, Calcium 8.1 Radiography Diagnostic Testing: Radiology Impression Renal Ultrasound 08/02/25 14:22 IMPRESSION: Medical renal disease. Possible mild hydronephrosis of bilateral kidneys. Stones within bilateral kidneys as above. Cortical thinning within the left kidney. Reading Location: [id number] Abdomen/Pelvis CT 08/03/25 11:14 IMPRESSION: Left-sided hydronephrosis and hydroureter with perinephric and Shira ureteral inflammatory stranding. Findings due to a 7.4 mm stone in the proximal 3rd of the left ureter. Bilateral nonobstructing nephrolithiasis, stable hyperdense cyst in the lower pole of the right kidney. No specific follow-up needed. Right lower quadrant ostomy site free of complication Degenerative bony changes No free intraperitoneal fluid, air, or suspicious adenopathy Reading Location: [facility] Physical Exam Narrative GENERAL: cooperative HEENT: Atraumatic; normocephalic EYES; Anicteric, Normal Conjunctiva NECK; supple, normal thyroid, RESPIRATORY: Diminished to auscultation CARDIOVASCULAR: Regular S1 S2, GI: soft, ileostomy in place : No Renal angle tenderness; EXTREMITIES: No edema, no clubbing, MUSCULOSKELETAL: no muscle wasting NEURO: Awake; no lateralizing signs. SKIN: No Rash PSYCH; Flat affect Assessment & Plan Assessment/Plan (1) Acute kidney injury superimposed on stage 4 chronic kidney disease: PLAN: Plan Patient is a 69-year-old male with past medical history signal for chronic kidney disease who was sent to the ED with abnormal labs. Imaging studies obtained demonstrated mild hydronephrosis involving both kidneys 1. Acute kidney injury ? Superimposed on chronic kidney disease stage IV. Was admitted to a monitored bed consultation placed to nephrology. Patient was also found to have metabolic acidosis and subsequently did receive bicarb 2. Metabolic acidosis ? Secondary to patient JANA nephrology consulted patient did receive bicarb. Subsequently ordered repeat BMP to assess response to therapy 3. Bilateral hydronephrosis ? CT obtained demonstrated large obstructing stone in the proximal left ureter with significant hydronephrosis. Consult was placed Dr Ponce with urology case discussed with him plan is for patient to undergo cystoscopy with possible left stent placement in a.m. 4. Hyponatremia ? Secondary to patient impaired kidney function do expect improvement once patient kidney function improved 5. History of Crohn's disease With colonic resection and ileostomy placement following failed attempt at reversal 6. Anemia ? Secondary to chronic disorder monitoring H&H and transfuse if patient becomes symptomatic or hemoglobin falls below 7 7. Dyslipidemia ?Patient is on statin therapy, continued at home dose 8. BPH with lower urinary obstructive symptoms - Patient treated with tamsulosin 9. DVT prophylaxis ? Subcu heparin Time spent in the patient's overall evaluation,decision-making process, review of diagnostic data, adjustment of management, discussion with other providers, nursing nursing and ancillary staff involved in patient's care documentation, 50 Minutes Charges/Coding Visit Charges Inpatient E&M: [address] [place] [id number]
[2025-08-03 13:57] VITALS: BP 102/71; PULSE 77; RESP 16; TEMP 36.7; O2SAT 100
[2025-08-03 20:02] VITALS: BP 115/77; PULSE 83; RESP 16; TEMP 36.7; O2SAT 100
[2025-08-04] VITALS (14 sets, daily range): BP systolic 96–114; BP diastolic 62–83; PULSE 64–83; RESP 16–20; TEMP 36–36.8; O2SAT 97–100; BMI 27.3
[2025-08-04] MEDS: Lactated Ringers 1,000 ML 150 ML IV ×3 (03:35→20:32)
[2025-08-04 03:38] LABS: Hematocrit 27.5 % (40-54); Hemoglobin 9.5 g/dL (13.0-16.5); Immature Granulocytes Count 0.230 X10^3/uL (0.0-0.0); Mean Corp Hgb Conc 34.5 g/dL (32-36); Mean Corpuscular Volume 82.8 fL (80-94); Mean Platelet Vol. 9.0 fl (6.2-12.0); NRBC Flagged by Analyzer 0 % (0-5); Platelet Count 456 K/mm3 (150-450); RBC Distribution Width CV 13.4 % (11.6-14.6); RBC Distribution Width SD 40.7 fl (35.1-43.9); Red Blood Count 3.32 M/mm3 (4.6-6.2); White Blood Count 9.5 K/mm3 (4.4-11.0)
[2025-08-04 04:00] LABS: Prothrombin Time (Protime)PT. 15.5 SECONDS (11.7-14.9)
[2025-08-04 04:01] LABS: Partial Thromboplast Time 42.9 Seconds (24.1-36.2)
[2025-08-04 04:23] LABS: Anion Gap 23 (5-15); BUN 124 mg/dL (4-19); BUN/Creat Ratio 12.0 RATIO (10-20); Calcium,Total 7.7 mg/dL (7.6-11.0); Carbon Dioxide 11.1 mmol/L (21.0-32.0); Chloride 97 mmol/L (98-108); Estimated Creatinine Clearance 6.46 ml/min (50-250); Glucose 99 mg/dL (70-99); Magnesium 2.0 mg/dL (1.5-2.2); Potassium 3.3 mmol/L (3.3-5.1)
--- NOTE | 2025-08-04 05:55 | EKG12_ITS ---
Test Reason : AM EKG Blood Pressure : */* mmHG Vent. Rate : 75 BPM Atrial Rate : 75 BPM P-R Int : 198 ms QRS Dur : 78 ms QT Int : 412 ms P-R-T Axes : 78 84 73 degrees QTcB Int : 460 ms Normal sinus rhythm Normal ECG When compared with ECG of 01-Feb-2025 13:02, QT has lengthened Confirmed by ROSITA LIN, EVA ([id number]), proposal editor ROBBIE CHATMAN ([id number]) on 08/07/2025 6:33:32 AM Referred By: Confirmed By: EVA BECKER MD
--- NOTE | 2025-08-04 07:29 | PN.HOSP_ITS ---
Reason for Visit Chief Complaint: Abnormal labs Subjective Subjective Patient seen no change in kidney function. Scheduled to undergo cystoscopy with stent placement Objective Data Objective Data Vital Signs: Vital Signs Temp Pulse Resp BP Pulse Ox O2 Del Method 97.5 F L 83 16 107/67 97 Room Air 08/04/25 02:19 08/04/25 02:19 08/04/25 02:19 08/04/25 02:19 08/04/25 02:19 08/04/25 02:19 Oxygen Delivery Method Room Air Weight: 81.7 kg Body Mass Index (BMI) 27.3 Intake & Output: Intake and Output for Last 24 Hours 08/02/25 08/03/25 08/04/25 23:59 23:59 23:59 Intake Total 360 / 360 2049 1000 / 1000 Balance 360 / 360 2049 1000 / 1000 Lab / Micro Data 08/04/25 03:27 08/04/25 03:27 Labs: Laboratory Results - last 24 hr 08/03/25 05:32: Sodium 129 L, Potassium 3.4, Chloride 93 L, Carbon Dioxide 10.8 L, Anion Gap 25 H, BUN 124 H*, Creatinine 10.40 H*, Estim Creat Clear Calc 6.39 L*, Est GFR (MDRD) Non-Af 5 L, BUN/Creatinine Ratio 11.9, Glucose 134 H, Calcium 8.1 08/04/25 03:27: WBC 9.5, RBC 3.32 L, Hgb 9.5 L, Hct 27.5 L, MCV 82.8, MCH 28.6, MCHC 34.5, RDW Std Deviation 40.7, RDW Coeff of Shavon 13.4, Plt Count 456 H, MPV 9.0, Immature Gran % (Auto) 2.400 H, Neut % (Auto) 74.5 H, Lymph % (Auto) 13.1 L , [place] % (Auto) 7.1, Eos % (Auto) 2.5, Baso % (Auto) 0.4, Absolute Neuts (auto) 7.1, Absolute Lymphs (auto) 1.24, Nucleated RBC % 0, PT 15.5 H, INR 1.2, APTT 42.9 H, Sodium 131 L, Potassium 3.3, Chloride 97 L, Carbon Dioxide 11.1 L, Anion Gap 23 H, BUN 124 H*, Creatinine 10.30 H*, Estim Creat Clear Calc 6.46 L*, Est GFR (MDRD) Non-Af 5 L, BUN/Creatinine Ratio 12.0, Glucose 99, Calcium 7.7, P hosphorus 11.9 H*, Magnesium 2.0 Radiography Diagnostic Testing: Radiology Impression Abdomen/Pelvis CT 08/03/25 11:14 IMPRESSION: Left-sided hydronephrosis and hydroureter with perinephric and Shira ureteral inflammatory stranding. Findings due to a 7.4 mm stone in the proximal 3rd of the left ureter. Bilateral nonobstructing nephrolithiasis, stable hyperdense cyst in the lower pole of the right kidney. No specific follow-up needed. Right lower quadrant ostomy site free of complication Degenerative bony changes No free intraperitoneal fluid, air, or suspicious adenopathy Reading Location: [facility] Physical Exam Narrative GENERAL: cooperative HEENT: Atraumatic; normocephalic EYES; Anicteric, Normal Conjunctiva NECK; supple, normal thyroid, RESPIRATORY: Diminished to auscultation CARDIOVASCULAR: Regular S1 S2, GI: soft, ileostomy in place : No Renal angle tenderness; EXTREMITIES: No edema, no clubbing, MUSCULOSKELETAL: no muscle wasting NEURO: Awake; no lateralizing signs. SKIN: No Rash PSYCH; Flat affect Assessment & Plan Assessment/Plan (1) Acute kidney injury superimposed on stage 4 chronic kidney disease: PLAN: Plan Patient is a 69-year-old male with past medical history signal for chronic kidney disease who was sent to the ED with abnormal labs. Imaging studies obtained demonstrated mild hydronephrosis involving both kidneys 1. Acute kidney injury ? Superimposed on chronic kidney disease stage IV. Was admitted to a monitored bed consultation placed to nephrology. Patient was also found to have metabolic acidosis and subsequently did receive bicarb ? 08/04/2025; patient seen no change in creatinine. Do however expect improvement following relief of the obstruction 2. Metabolic acidosis ? Secondary to patient JANA nephrology consulted patient did receive bicarb. Subsequently ordered repeat BMP to assess response to therapy ? 08/04/2025; patient still remains acidotic with bicarb of 11.1 3. Bilateral hydronephrosis ? CT obtained demonstrated large obstructing stone in the proximal left ureter with significant hydronephrosis. Consult was placed Dr Ponce with urology case discussed with him plan is for patient to undergo cystoscopy with possible left stent placement in a.m. ? 07/05/2025; scheduled to undergo cystoscopy with stent placement 4. Hyponatremia ? Secondary to patient impaired kidney function do expect improvement once patient kidney function improved ? 08/04/2025; sodium level up to 131 will repeat BMP in a.m. 5. History of Crohn's disease With colonic resection and ileostomy placement following failed attempt at reversal 6. Anemia ? Secondary to chronic disorder monitoring H&H and transfuse if patient becomes symptomatic or hemoglobin falls below 7 ? 08/04/2025; patient hemoglobin did drop from 10.6-9.5 ordered iron studies. 7. Dyslipidemia ?Patient is on statin therapy, continued at home dose 8. BPH with lower urinary obstructive symptoms - Patient treated with tamsulosin 9. DVT prophylaxis ? Subcu heparin Time spent in the patient's overall evaluation,decision-making process, review of diagnostic data, adjustment of management, discussion with other providers, nursing nursing and ancillary staff involved in patient's care documentation, 52 Minutes Charges/Coding Visit Charges Inpatient E&M: 10588 Subs Hosp L3
--- NOTE | 2025-08-04 10:20 | PCM.CONS.GEN ---
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 Kidney stones GI bleed Former smoker CPAP (continuous positive airway pressure) dependence DVT (deep venous thrombosis) Ileostomy present Hyperlipidemia Hx of ulcerative colitis Kidney disease Hypertension Home Medications ?Medication ?Instructions ?Recorded ?Last Taken ?Type cholecalciferol (vitamin D3) 25 1,000 unit PO DAILY SUPPLEMENT 05/31/19 01/31/25 History mcg (1,000 unit) tablet atorvastatin 20 mg tablet 20 mg PO QHS CHOLESTEROL 03/28/24 01/31/25 History loperamide 2 mg capsule 2 mg PO DAILY diarrhea 02/01/25 01/31/25 History tamsulosin 0.4 mg capsule 0.8 mg PO DAILY BPH 02/01/25 01/31/25 History ferrous sulfate 325 mg (65 mg 325 mg PO QDAY supplement 05/15/25 Unknown History iron) tablet (Feosol) Allergy/AdvReac Type Severity Reaction Status Date / Time aspirin Allergy Other Verified 08/02/25 13:09 ibuprofen Allergy Laryngospas Verified 08/02/25 13:09 ms Surgical History History of bowel resection Social History Smoking Status: Former smoker Lab / Micro Data 08/04/25 03:27 08/04/25 03:27 Labs: Laboratory Results - last 24 hr 08/03/25 05:32: Sodium 129 L, Potassium 3.4, Chloride 93 L, Carbon Dioxide 10.8 L, Anion Gap 25 H, BUN 124 H*, Creatinine 10.40 H*, Estim Creat Clear Calc 6.39 L*, Est GFR (MDRD) Non-Af 5 L, BUN/Creatinine Ratio 11.9, Glucose 134 H, Calcium 8.1 08/04/25 03:27: WBC 9.5, RBC 3.32 L, Hgb 9.5 L, Hct 27.5 L, MCV 82.8, MCH 28.6, MCHC 34.5, RDW Std Deviation 40.7, RDW Coeff of Shavon 13.4, Plt Count 456 H, MPV 9.0, Immature Gran % (Auto) 2.400 H, Neut % (Auto) 74.5 H, Lymph % (Auto) 13.1 L, [place] % (Auto) 7.1, Eos % (Auto) 2.5, Baso % (Auto) 0.4, Absolute Neuts (auto) 7.1, Absolute Lymphs (auto) 1.24, Nucleated RBC % 0, PT 15.5 H, INR 1.2, APTT 42.9 H, Sodium 131 L, Potassium 3.3, Chloride 97 L, Carbon Dioxide 11.1 L, Anion Gap 23 H, BUN 124 H*, Creatinine 10.30 H*, Estim Creat Clear Calc 6.46 L*, Est GFR (MDRD) Non-Af 5 L, BUN/Creatinine Ratio 12.0, Glucose 99, Calcium 7.7, Phosphorus 11.9 H*, Magnesium 2.0 Imaging Radiology Impression Abdomen/Pelvis CT 08/03/25 11:14 IMPRESSION: Left-sided hydronephrosis and hydroureter with perinephric and Shira ureteral inflammatory stranding. Findings due to a 7.4 mm stone in the proximal 3rd of the left ureter. Bilateral nonobstructing nephrolithiasis, stable hyperdense cyst in the lower pole of the right kidney. No specific follow-up needed. Right lower quadrant ostomy site free of complication Degenerative bony changes No free intraperitoneal fluid, air, or suspicious adenopathy Reading Location: [id number]
--- NOTE | 2025-08-04 11:08 | PCM.PRE.AN2 ---
ASA Classification* ASA Classification ASA Classification: 2 Assessment & Plan Anesthesia* Anesthesia Assessment Anesthesia Assessment: Discussed sedation and/or anesthesia options, risks, benefits, and alternatives with patient/parents/legal guardian/POA. Questions invited. The patient/parents/legal guardian/POA seems to understand and agrees to proceed with anesthesia plan. Reviewed the physical assessment, medical history, allergy history and patient home medications list prior to surgery/procedure/anesthetic and documented any changes. Performed airway and anesthesia risk assessments. Anesthesia Type Anesthesia Type: MAC (GA bkup) Anesthesia Focused Assessment* Temperature: 96.8 F Pulse Rate: 73 Blood Pressure: 107/83 Respiratory Rate: 16 Pulse Ox: 98 Airway Assessment Mouth opens: >3 cm Mallampati Score: II Labs Anesthesia Preop lab: CBC WBC, (4.4-11.0) 9.5 K/mm3 Today, 03:27 RBC, (4.6-6.2) 3.32 M/mm3 L Today, 03:27 Hgb, (13.0-16.5) 9.5 g/dL L Today, 03:27 Hct, (40-54) 27.5 % L Today, 03:27 Plt Count, (150-450) 456 K/mm3 H Today, 03:27 CHEMISTRY Potassium, (3.3-5.1) 3.3 mmol/L Today, 03:27 Sodium, (133-145) 131 mmol/L L Today, 03:27 Magnesium, (1.5-2.2) 2.0 mg/dL Today, 03:27 Phosphorus, (2.7-4.5) 11.9 mg/dL H* Today, 03:27 BUN, (4-19) 124 mg/dL H* Today, 03:27 Creatinine, (0.70-1.20) 10.30 mg/dL H* Today, 03:27 Glucose, (70-99) 99 mg/dL Today, 03:27 POC Glucose, (74-106) 104 mg/dL 05/05/24, 10:12 TSH, (0.358-3.74) 2.17 uIU/mL 05/04/24, 06:33 COAG PT, (11.7-14.9) 15.5 SECONDS H Today, 03:27 Pre-Assessment Diagnosis/Proposed Procedure Planned Operative Procedure(s): Cystoscopy, left stent placement ureter Anesthesia History 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 When Was Last Pacemaker Check QUESTION #4 FULL TEXT: You/Your Family Experience fever (hyperthermia) with Anesthesia Last Oral Intake Last Oral intake: Last Oral Intake NPO since 00:00 08/04/25 10:23 Meds taken in AM with sips of water? Meds patient instructed to take am of surgery PONV PONV - general warehouse worker: PONV - general warehouse worker Female HX of Motion Sickness HX of N/V After Surgery Non-Smoker Duration of Surgery greater than 60 minutes Number of Risk Factors PONV Score Height & Weight Height & Weight: Anesthesia: Height & Weight Height 5 ft 8 in 08/04/25 10:23 Weight: 81.7 kg 08/04/25 10:23 Body Mass Index (BMI) 27.3 08/04/25 10:23 Respiratory Assessment Respiratory Assessment - general warehouse worker: Respiratory Tract Infection Hx - general warehouse worker Hx Respiratory Tract Infection No 08/03/25 22:37 STOP Sleep Apnea STOP Sleep Apnea - general warehouse worker: STOP Sleep Apnea - general warehouse worker Hx Hypertension Yes 08/02/25 20:01 Hx Sleep Apnea Yes 08/02/25 20:01 CPAP Yes 08/02/25 20:01 BIPAP No 08/02/25 20:01 Do you snore loudly (louder than talking or can be heard Do you often feel tired/ fatigued/ sleepy during daytime? Has anyone observed you stop breathing during sleep? STOP Results Positive 08/02/25 20:01 QUESTION #5 FULL TEXT : Do you snore loudly (louder than talking or can be heard through closed doors)? 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 Specify any problems Hx of Preganancy in last 3 N/A 08/02/25 20:01 Months Nurse Filling Out Transfusion JGALLOWAY 08/02/25 20:01 & Questions: Date: 08/02/25 08/02/25 20:01 Time: 20:02 08/02/25 20:01 Patient unable to answer at this time (ie. confused, unrespo /Reproduction History /Reproductive History - general warehouse worker: /Reproductive Hx- general warehouse worker Hx Now Gestational Age (in weeks): EDC: Hx Hx Para Hx Section SAB No 03/29/24 11:33 Active Medications Active Medications: Current Medications Generic Name Dose Route Start Last Admin Trade Name Freq PRN Reason Stop Dose Admin Acetaminophen 650 mg 08/02/25 18:47 Acetaminophen 325 Mg Tablet PO Q6H PRN PRN Pain 1-10 Or Fever>100.7 Atorvastatin Calcium 20 mg 08/02/25 22:00 08/03/25 21:27 Atorvastatin Calcium 20 Mg Tablet PO 20 mg QHS FOR[facility]LY [facility], [facility]1983 Administration Cholecalciferol 25 mcg 08/03/25 10:00 08/04/25 10:22 Cholecalciferol (Vit D3) 25 Mcg Tablet (1,000 Units) PO Not Given DAILY [facility]1983 Ferrous Sulfate 325 mg 08/03/25 12:00 08/03/25 12:07 Ferrous Sulfate 325 Mg Tablet PO 325 mg DAILY@1200 FOR[facility], [facility]1983 Administration Heparin Sodium (Porcine) 5,000 unit 08/02/25 22:00 08/04/25 00:14 Heparin Injection (Vial) 5,000 Unit/Ml Vial SC Not Given Q8 FOR[facility], [facility]1983 Sodium Chloride 250 mls @ 15 mls/hr 08/02/25 18:48 IV .[id number] PRN Saline Flush Sodium Chloride 250 mls @ 15 mls/hr 08/02/25 18:48 IV .[id number] PRN Additional IVPB Infusion Lactated Ringer's 1,000 mls @ 150 mls/hr 08/03/25 11:15 08/04/25 03:35 IV 150 mls/hr .[id number] TOSHIA Administration Cefazolin Sodium 2 gm/ Sodium 110 mls @ 200 mls/hr 08/04/25 11:00 Chloride IV 08/04/25 11:32 INTRAOP ONE Melatonin 3 mg 08/02/25 18:47 Melatonin 3 Mg Tablet PO QHS PRN PRN INSOMNIA Nutritional Formula (Lactose Free) 120 ml 08/04/25 08:00 08/04/25 10:21 Ensure Plus High Protein 120 Ml Liquid PO Not Given TIDCM TOSHIA Ondansetron HCl 4 mg 08/02/25 18:47 Ondansetron 4 Mg/2 Ml Vial IV Q8H PRN PRN NAUSEA/VOMITING Sodium Chloride 10 - 40 ml 08/02/25 18:48 08/02/25 20:25 0.9% Saline Lock 10 Ml Syringe IV 10 ml UD PRN Administration SALINE FLUSH Tamsulosin HCl 0.8 mg 08/03/25 10:00 08/04/25 10:22 Tamsulosin Hcl 0.4 Mg Capsule PO Not Given DAILY TOSHIA PFSH Medical History Acute kidney injury superimposed on stage 3b chronic kidney disease Colostomy in place Kidney stones GI bleed Former smoker CPAP (continuous positive airway pressure) dependence DVT (deep venous thrombosis) Ileostomy present Hyperlipidemia Hx of ulcerative colitis Kidney disease Hypertension Home Medications ?Medication ?Instructions ?Recorded ?Last Taken ?Type cholecalciferol (vitamin D3) 25 1,000 unit PO DAILY SUPPLEMENT 05/31/19 01/31/25 History mcg (1,000 unit) tablet atorvastatin 20 mg tablet 20 mg PO QHS CHOLESTEROL 03/28/24 01/31/25 History loperamide 2 mg capsule 2 mg PO DAILY diarrhea 02/01/25 01/31/25 History tamsulosin 0.4 mg capsule 0.8 mg PO DAILY BPH 02/01/25 01/31/25 History ferrous sulfate 325 mg (65 mg 325 mg PO QDAY supplement 05/15/25 Unknown History iron) tablet (Feosol) Allergy/AdvReac Type Severity Reaction Status Date / Time aspirin Allergy Other Verified 08/02/25 13:09 ibuprofen Allergy Laryngospas Verified 08/02/25 13:09 ms Surgical History History of bowel resection Social History Smoking Status: Former smoker Review of Systems (Anesthesia) ROS Narrative System reviewed and no additional complaints, except as documented.
[2025-08-04] MEDS: Lactated Ringers 1,000 ML 1000 ML IV (11:42)
[2025-08-04] MEDS: Cefazolin 1 GM/5 ML Vial 2 GM IV (11:42)
[2025-08-04] MEDS: PROPOFOL 10.07 MG IV (11:50)
[2025-08-04] MEDS: Lidocaine 1% (5 ml sdv) 5 ML Vial IV (11:50)
--- NOTE | 2025-08-04 12:02 | OP.PCM_ITS ---
Operative Report (Standard) Operative Information Date of Procedure: 08/04/25 Pre-Operative Diagnosis: Obstructing left proximal ureteral calculus Post-Operative Diagnosis: The same Surgery/Procedure Performed: Cystoscopy left retrograde pyelogram and left stent placement electronics department manager: No Type of Anesthesia: General RN Documented Start/Stop Times: Operation Date: 08/04/25 11:45 Case Time Into Pre-Op 08/04/25 10:42 Out of Pre-Op 08/04/25 11:39 Procedure Start Time: 11:56 Procedure Stop Time: 12:01 Select all DRAINS/GRAFTS/IMPLANTS that apply: Drains Drain details: Left stent Estimated Blood Loss: None Specimen collected: No Description of surgery: Patient is taken back to the operating room after induction of anesthesia he was placed in dorsolithotomy position within the bladder and a 21 Bengali rigid cystourethroscope I then cannulated the left ureteral orifice with a Glidewire a 0.038 Glidewire and a Pollick catheter I remove the Glidewire and injected 10 cc of 50% diluted contrast up into the kidney I really could not see the stone was to be radiolucent but the kidney did have severe hydronephrosis I put a wire up past the stone up into the kidney and then backloaded the ureteral catheter off the wire and over the wire I bloated the cystoscope back on and then loaded the stent it was a 6 Bengali by 26 cm stent the string was cut off I then advanced the stent up into the kidney once in good position I pulled the wire and the stent coiled in the kidney and bladder in good position I then drained the patient's bladder patient anesthetic was reversed and he was taken back to the PACU in stable condition plan is to bring him back later date when he stable to laser the stones. Surgical Findings: Stent placed in left side Complications Complications: No Admit VTE Documentation VTE Present on Admission: No VTE Mechan Device Prophylaxis: SCD's VTE Pharm Prophylaxis ordered?: No
--- NOTE | 2025-08-04 12:09 | PCM.POST.ANE ---
Anesthesia: Postop Eval I Current Vital Signs Temperature: 97.3 F Pulse Rate: 74 Blood Pressure: 97/62 Respiratory Rate: 20 Pulse Ox: 100 Assessment Airway patent: Yes Spontaneous unlabored respirations: Yes nausea: No Vomiting: No Anesthesia Complication: No Fluid Hydration Crystalloid volume administer (ml): 700 Total IV fluid infused: 700 Progress Note Anesthesia document: Postop Eval 1 completed: Yes
[2025-08-04 12:14] LABS: Immature Reticulocyte Fraction 4.60 % (3.00-15.90); Platelet Count 500 K/mm3 (150-450); Reticulocyte Count 1.03 % (0.5-1.5)
[2025-08-04 12:24] LABS: Ferritin 479 ng/mL (37-417); Iron 84 ug/dL (65-175); Iron Binding Capacity,Unsat 98 ug/dL (228-428); Vitamin B12 361 pg/mL (180-914)
[2025-08-04 12:45] LABS: Iron Binding Capacity,Total 182 ug/dL (250-450)
--- NOTE | 2025-08-04 13:19 | POSTOPAN2_ITS ---
Anesthesia Postop Eval I Sum Postop Eval Completion status Anesthesia document: Postop Eval 1 completed: Yes Anesthesia Postop Eval I Summary Anesthesia Postop Eval I Summary: Anesthesia Postop Eval I: Assessment Summary Airway patent Yes 08/04/25 12:17 CERTIFIED INCOME TAX PREPARER.CSIR Spontaneous unlabored Yes 08/04/25 12:17 CERTIFIED INCOME TAX PREPARER.CSIR respirations Mental status nausea No 08/04/25 12:17 CERTIFIED INCOME TAX PREPARER.CSIR Vomiting No 08/04/25 12:17 CERTIFIED INCOME TAX PREPARER.CSIR Anesthesia Postop Eval I: Fluid Summary Crystalloid volume administer 700 08/04/25 12:17 CERTIFIED INCOME TAX PREPARER.CSIR (ml) Colloids volume administered ( ml) Blood Product volume administered (ml) Total IV fluid infused 700 08/04/25 12:17 CERTIFIED INCOME TAX PREPARER.CSIR Anesthesia Postop Eval I: Summary Notes Anesthesia Complication No 08/04/25 12:17 CERTIFIED INCOME TAX PREPARER.CSIR Anesthesia Complication Comment: Post-operative progress note Anesthesia: Postop Eval II Evaluation Mental status: Awake Pain Level: 0 nausea: No Vomiting: No
--- NOTE | 2025-08-04 13:19 | PCM.POSTANE2 ---
Anesthesia Postop Eval I Sum Postop Eval Completion status Anesthesia document: Postop Eval 1 completed: Yes Anesthesia Postop Eval I Summary Anesthesia Postop Eval I Summary: Anesthesia Postop Eval I: Assessment Summary Airway patent Yes 08/04/25 12:17 [email or web address] OPERATOR.[email or web address] Spontaneous unlabored Yes 08/04/25 12:17 SLUBBER OPERATOR.CSIR respirations Mental status nausea No 08/04/25 12:17 SLUBBER OPERATOR.CSIR Vomiting No 08/04/25 12:17 SLUBBER OPERATOR.CSIR Anesthesia Postop Eval I: Fluid Summary Crystalloid volume administer 700 08/04/25 12:17 SLUBBER OPERATOR.CSIR (ml) Colloids volume administered ( ml) Blood Product volume administered (ml) Total IV fluid infused 700 08/04/25 12:17 SLUBBER OPERATOR.CSIR Anesthesia Postop Eval I: Summary Notes Anesthesia Complication No 08/04/25 12:17 SLUBBER OPERATOR.CSIR Anesthesia Complication Comment: Post-operative progress note Anesthesia: Postop Eval II Evaluation Mental status: Awake Pain Level: 0 nausea: No Vomiting: No
[2025-08-04] MEDS: Heparin Injection (Vial) 5,000 UNIT/ML VIAL 5000 UNIT SC (20:32)
[2025-08-05] MEDS: Lactated Ringers 1,000 ML 150 ML IV ×3 (02:14→19:36)
[2025-08-05 03:00] VITALS: PULSE 55
[2025-08-05 06:06] VITALS: BP 116/71; PULSE 79; RESP 20; TEMP 36.5; O2SAT 100
[2025-08-05] MEDS: Heparin Injection (Vial) 5,000 UNIT/ML VIAL 5000 UNIT SC ×3 (06:17→22:03)
[2025-08-05 07:14] LABS: Hematocrit 28.0 % (40-54); Hemoglobin 9.7 g/dL (13.0-16.5); Immature Granulocytes Count 0.100 X10^3/uL (0.0-0.0); Mean Corp Hgb Conc 34.6 g/dL (32-36); Mean Corpuscular Volume 83.3 fL (80-94); Mean Platelet Vol. 9.4 fl (6.2-12.0); NRBC Flagged by Analyzer 0 % (0-5); POSITIVE DIFFERENTIAL YES; Platelet Count 452 K/mm3 (150-450); RBC Distribution Width CV 13.3 % (11.6-14.6); RBC Distribution Width SD 41.1 fl (35.1-43.9); Red Blood Count 3.36 M/mm3 (4.6-6.2); White Blood Count 12.0 K/mm3 (4.4-11.0)
--- NOTE | 2025-08-05 07:44 | PCM.PN.HOSP ---
Reason for Visit Chief Complaint: Abnormal labs Subjective Subjective Patient underwent Cystoscopy left retrograde pyelogram and left stent placement on 08/04/2025 Objective Data Objective Data Vital Signs: Vital Signs Temp Pulse Resp BP Pulse Ox O2 Del Method 97.7 F L 79 20 H 116/71 100 Room Air 08/05/25 06:06 08/05/25 06:06 08/05/25 06:06 08/05/25 06:06 08/05/25 06:06 08/05/25 06:06 Oxygen Delivery Method Room Air Weight: 81.7 kg Body Mass Index (BMI) 27.3 Intake & Output: Intake and Output for Last 24 Hours 08/03/25 08/04/25 08/05/25 23:59 23:59 23:59 Intake Total 2049 3000 / 3000 855 / 855 Balance 2049 3000 / 3000 855 / 855 Lab / Micro Data 08/05/25 05:50 08/05/25 05:50 Labs: Laboratory Results - last 24 hr 08/04/25 03:27: Retic Count 1.03, Immature Retic Fraction 4.60, Retic Hgb Equivalent 33.1, Iron 84, TIBC 182 L, Iron Saturation 46.2, Unsaturated IBC 98 L, Ferritin 479 H, Vitamin B12 361 08/05/25 05:50: WBC 12.0 H, RBC 3.36 L, Hgb 9.7 L, Hct 28.0 L, MCV 83.3, MCH 28.9, MCHC 34.6, RDW Std Deviation 41.1, RDW Coeff of Shavon 13.3, Plt Count 452 H, MPV 9.4, Immature Gran % (Auto) 0.800, Neut % (Auto) 95.2 H, Lymph % (Auto) 2.9 L, Richardson % (Auto) 1.0, Eos % (Auto) 0.0, Baso % (Auto) 0.1, Absolute Neuts (auto) 11.4 H, Absolute Lymphs (auto) 0.35 L, Nucleated RBC % 0 Physical Exam Narrative GENERAL: cooperative HEENT: Atraumatic; normocephalic EYES; Anicteric, Normal Conjunctiva NECK; supple, normal thyroid, RESPIRATORY: Diminished to auscultation CARDIOVASCULAR: Regular S1 S2, GI: soft, ileostomy in place : No Renal angle tenderness; EXTREMITIES: No edema, no clubbing, MUSCULOSKELETAL: no muscle wasting NEURO: Awake; no lateralizing signs. SKIN: No Rash PSYCH; Flat affect Assessment & Plan Assessment/Plan (1) Acute kidney injury superimposed on stage 4 chronic kidney disease: PLAN: Plan Patient is a 69-year-old male with past medical history signal for chronic kidney disease who was sent to the ED with abnormal labs. Imaging studies obtained demonstrated mild hydronephrosis involving both kidneys 1. Acute kidney injury ? Superimposed on chronic kidney disease stage IV. Was admitted to a monitored bed consultation placed to nephrology. Patient was also found to have metabolic acidosis and subsequently did receive bicarb ? 08/04/2025; patient seen no change in creatinine. Do however expect improvement following relief of the obstruction ? 05/05/2025; patient creatinine down to 9.55 we will continue with daily BMPs 2. Metabolic acidosis ? Secondary to patient JANA nephrology consulted patient did receive bicarb. Subsequently ordered repeat BMP to assess response to therapy ? 08/04/2025; patient still remains acidotic with bicarb of 11.1 3. Bilateral hydronephrosis ? CT obtained demonstrated large obstructing stone in the proximal left ureter with significant hydronephrosis. Consult was placed Dr Ponce with urology case discussed with him plan is for patient to undergo cystoscopy with possible left stent placement in a.m. ?08/04/2025; scheduled to undergo cystoscopy with stent placement ? 08/05/2025;Patient underwent Cystoscopy left retrograde pyelogram and left stent placement on 08/04/2025 4. Hyponatremia ? Secondary to patient impaired kidney function do expect improvement once patient kidney function improved ? 08/04/2025; sodium level up to 131 will repeat BMP in a.m. 5. History of Crohn's disease With colonic resection and ileostomy placement following failed attempt at reversal 6. Anemia ? Secondary to chronic disorder monitoring H&H and transfuse if patient becomes symptomatic or hemoglobin falls below 7 ? 08/04/2025; patient hemoglobin did drop from 10.6-9.5 ordered iron studies. 7. Dyslipidemia ?Patient is on statin therapy, continued at home dose 8. BPH with lower urinary obstructive symptoms - Patient treated with tamsulosin 9. DVT prophylaxis ? Subcu heparin Time spent in the patient's overall evaluation,decision-making process, review of diagnostic data, adjustment of management, discussion with other providers, nursing nursing and ancillary staff involved in patient's care documentation, 45 minutes Charges/Coding Visit Charges Inpatient E&M: 16599 Subs Hosp L2
[2025-08-05 07:49] LABS: Magnesium 1.9 mg/dL (1.5-2.2)
[2025-08-05 09:09] LABS: Anion Gap 22 (5-15); BUN 120 mg/dL (4-19); BUN/Creat Ratio 12.6 RATIO (10-20); Calcium,Total 8.1 mg/dL (7.6-11.0); Carbon Dioxide 11.8 mmol/L (21.0-32.0); Chloride 100 mmol/L (98-108); Estimated Creatinine Clearance 6.96 ml/min (50-250); Glucose 154 mg/dL (70-99); Potassium 3.6 mmol/L (3.3-5.1)
[2025-08-05 10:00] VITALS: BP 119/70; PULSE 86; RESP 18; TEMP 36.1; O2SAT 100; BMI 27.3
[2025-08-05] MEDS: Cholecalciferol (VIT D3) 25 MCG TABLET (1,000 UNITS) PO (10:10)
[2025-08-05 14:44] VITALS: BP 107/66; PULSE 80; RESP 18; TEMP 36.1; O2SAT 100
--- NOTE | 2025-08-05 16:54 | PN.RENAL_ITS ---
Subjective Subjective no new complaints Objective Data Objective Data Vital Signs: Vital Signs Temp Pulse Resp BP Pulse Ox O2 Del Method 97 F L 80 18 107/66 100 Room Air 08/05/25 14:44 08/05/25 14:44 08/05/25 14:44 08/05/25 14:44 08/05/25 14:44 08/05/25 14:44 Oxygen Delivery Method Room Air Weight: 81.7 kg Body Mass Index (BMI) 27.3 Intake & Output: Intake and Output for Last 24 Hours 08/03/25 08/04/25 08/05/25 23:59 23:59 23:59 Intake Total 2049 3000 / 3000 2215 / 2215 Balance 2049 3000 / 3000 2215 / 2215 Lab / Micro Data 08/05/25 05:50 08/05/25 05:50 Labs: Laboratory Results - last 24 hr 08/05/25 05:50: WBC 12.0 H, RBC 3.36 L, Hgb 9.7 L, Hct 28.0 L, MCV 83.3, MCH 28.9, MCHC 34.6, RDW Std Deviation 41.1, RDW Coeff of Shavon 13.3, Plt Count 452 H, MPV 9.4, Immature Gran % (Auto) 0.800, Neut % (Auto) 95.2 H, Lymph % (Auto) 2.9 L, [place] % (Auto) 1.0, Eos % (Auto) 0.0, Baso % (Auto) 0.1, Absolute Neuts (auto) 11.4 H, Absolute Lymphs (auto) 0.35 L, Nucleated RBC % 0, Sodium 134, Potassium 3.6, Chloride 100, Carbon Dioxide 11.8 L, Anion Gap 22 H, BUN 120 H*, Creatinine 9.55 H*, Estim Creat Clear Calc 6.96 L*, Est GFR (MDRD) Non-Af 5 L, BUN/Creatinine Ratio 12.6, Glucose 154 H, Calcium 8.1, Phosphorus 8.4 H, Magnesium 1.9 Physical Exam Narrative Alert and oriented x 3, no apparent distress S1, S2, RRR Lungs sound clear. No wheezes, rhonchi or rales. On room air Abdomen soft, nontender, nondistended. Ostomy in place with watery green stool No edema Assessment & Plan Assessment/Plan (1) Acute kidney injury superimposed on stage 3b chronic kidney disease: (2) Hypokalemia: PLAN: Plan This is a 69-year-old male with past medical history significant for chronic kidney disease stage IIIb from biopsy-proven Aquilino's in April 2018, baseline creatinine had been ranging around 2.2 to 2.4 mg/dL who presented to the emergency room yesterday due to abnormal labs, creatinine was 10, bicarb 12.3, potassium 3.7. Patient was admitted and started on IV fluids, bicarb drip. Patient is currently off IV fluids. Likely JANA secondary to increased ostomy output, significant volume depletion and recommend to continue with IV fluids. We will start LR at 150/hour, will not restart back on bicarb drip due to hypocalcemia. Also to note potassium slightly low at 3.1, patient did receive potassium supplement. Labs from this morning are pending. Patient does not need renal diet restrictions. 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 Patient states he is making urine. Recommend strict urine output measurement. Blood pressure is acceptable, patient not on any antihypertensives. Last hospitalization in January 2025 patient was noted to have kidney stones per noncontrast CT and underwent cystoscopy with removal of kidney stones per urology. For this admission renal ultrasound noted calculi in right and left kidney with mild hydronephrosis of bilateral kidneys. Recommend consulting urology as patient is known to them. Further orders forthcoming as hospitalization evolves, thank you for allowing us to participate in the care of Mr. De Leon. Assessment and plan reviewed with Dr. Lorenzo. 08/05/25. Status post stenting by urology. Urine output is better subjectively. Creatinine better. Still acidotic. Continue Ringer's lactate, will likely change advisor to bicarbonate tomorrow or so. Phosphate levels are improving hence calcium levels should stabilize. I think JANA is a combination of volume depletion and obstruction.
[2025-08-05 22:02] VITALS: BP 109/70; PULSE 68; RESP 16; TEMP 36.6; O2SAT 100
[2025-08-06] MEDS: Lactated Ringers 1,000 ML 150 ML IV ×3 (00:33→13:52)
[2025-08-06 04:05] VITALS: BP 120/54; PULSE 74; RESP 17; TEMP 36.6; O2SAT 99
[2025-08-06] MEDS: Heparin Injection (Vial) 5,000 UNIT/ML VIAL 5000 UNIT SC ×3 (05:40→22:28)
[2025-08-06 07:15] LABS: Hematocrit 26.8 % (40-54); Hemoglobin 9.2 g/dL (13.0-16.5); Immature Granulocytes Count 0.170 X10^3/uL (0.0-0.0); Mean Corp Hgb Conc 34.3 g/dL (32-36); Mean Corpuscular Volume 84.5 fL (80-94); Mean Platelet Vol. 9.3 fl (6.2-12.0); NRBC Flagged by Analyzer 0 % (0-5); Platelet Count 490 K/mm3 (150-450); RBC Distribution Width CV 13.9 % (11.6-14.6); RBC Distribution Width SD 43.1 fl (35.1-43.9); Red Blood Count 3.17 M/mm3 (4.6-6.2); White Blood Count 17.3 K/mm3 (4.4-11.0)
--- NOTE | 2025-08-06 07:59 | PCM.PN.HOSP ---
Reason for Visit Chief Complaint: Abnormal labs Subjective Subjective Patient creatinine down to 8.65. There is slight improvement in his acidosis. Objective Data Objective Data Vital Signs: Vital Signs Temp Pulse Resp BP Pulse Ox O2 Del Method 97.8 F 74 17 120/54 L 99 Room Air 08/06/25 04:05 08/06/25 04:05 08/06/25 04:05 08/06/25 04:05 08/06/25 04:05 08/06/25 04:08 Oxygen Delivery Method Room Air Weight: 81.7 kg Body Mass Index (BMI) 27.3 Intake & Output: Intake and Output for Last 24 Hours 08/04/25 08/05/25 08/06/25 23:59 23:59 23:59 Intake Total 3000 / 3000 3775 / 3775 1697.5 / 1697.5 Balance 3000 / 3000 3775 / 3775 1697.5 / 1697.5 Lab / Micro Data 08/06/25 06:07 08/06/25 06:07 Labs: Laboratory Results - last 24 hr 08/05/25 05:50: Sodium 134, Potassium 3.6, Chloride 100, Carbon Dioxide 11.8 L, Anion Gap 22 H, BUN 120 H*, Creatinine 9.55 H*, Estim Creat Clear Calc 6.96 L*, Est GFR (MDRD) Non-Af 5 L, BUN/Creatinine Ratio 12.6, Glucose 154 H, Calcium 8.1 08/06/25 06:07: WBC 17.3 H, RBC 3.17 L, Hgb 9.2 L, Hct 26.8 L, MCV 84.5, MCH 29.0, MCHC 34.3, RDW Std Deviation 43.1, RDW Coeff of Shavon 13.9, Plt Count 490 H, MPV 9.3, Immature Gran % (Auto) 1.000 H, Neut % (Auto) 89.2 H, Lymph % (Auto) 6.0 L, [place] % (Auto) 3.7, Eos % (Auto) 0.0, Baso % (Auto) 0.1, Absolute Neuts (auto) 15.4 H, Absolute Lymphs (auto) 1.04, Nucleated RBC % 0 Physical Exam Narrative GENERAL: cooperative HEENT: Atraumatic; normocephalic EYES; Anicteric, Normal Conjunctiva NECK; supple, normal thyroid, RESPIRATORY: Diminished to auscultation CARDIOVASCULAR: Regular S1 S2, GI: soft, ileostomy in place : No Renal angle tenderness; EXTREMITIES: No edema, no clubbing, MUSCULOSKELETAL: no muscle wasting NEURO: Awake; no lateralizing signs. SKIN: No Rash PSYCH; Flat affect Assessment & Plan Assessment/Plan (1) Acute kidney injury superimposed on stage 4 chronic kidney disease: PLAN: Plan Patient is a 69-year-old male with past medical history signal for chronic kidney disease who was sent to the ED with abnormal labs. Imaging studies obtained demonstrated mild hydronephrosis involving both kidneys 1. Acute kidney injury ? Superimposed on chronic kidney disease stage IV. Was admitted to a monitored bed consultation placed to nephrology. Patient was also found to have metabolic acidosis and subsequently did receive bicarb ? 08/04/2025; patient seen no change in creatinine. Do however expect improvement following relief of the obstruction ? 08/05/2025; patient creatinine down to 9.55 we will continue with daily BMPs ? 08/06/2025;Patient creatinine down to 8.65. There is slight improvement in his acidosis. 2. Metabolic acidosis ? Secondary to patient JANA nephrology consulted patient did receive bicarb. Subsequently ordered repeat BMP to assess response to therapy ? 08/04/2025; patient still remains acidotic with bicarb of 11.1 3. Bilateral hydronephrosis ? CT obtained demonstrated large obstructing stone in the proximal left ureter with significant hydronephrosis. Consult was placed Dr Ponce with urology case discussed with him plan is for patient to undergo cystoscopy with possible left stent placement in a.m. ?08/04/2025; scheduled to undergo cystoscopy with stent placement ? 08/05/2025;Patient underwent Cystoscopy left retrograde pyelogram and left stent placement on 08/04/2025 4. Hyponatremia ? Secondary to patient impaired kidney function do expect improvement once patient kidney function improved ? 08/04/2025; sodium level up to 131 will repeat BMP in a.m. ? 08/06/2025; hyponatremia resolved 5. History of Crohn's disease With colonic resection and ileostomy placement following failed attempt at reversal 6. Anemia ? Secondary to chronic disorder monitoring H&H and transfuse if patient becomes symptomatic or hemoglobin falls below 7 ? 08/04/2025; patient hemoglobin did drop from 10.6-9.5 ordered iron studies. 7. Dyslipidemia ?Patient is on statin therapy, continued at home dose 8. BPH with lower urinary obstructive symptoms - Patient treated with tamsulosin 9. DVT prophylaxis ? Subcu heparin Time spent in the patient's overall evaluation,decision-making process, review of diagnostic data, adjustment of management, discussion with other providers, nursing nursing and ancillary staff involved in patient's care documentation, 35 minutes Charges/Coding Visit Charges Inpatient E&M: 82230 Subs Hosp L2
[2025-08-06 08:15] LABS: Anion Gap 20 (5-15); BUN 117 mg/dL (4-19); BUN/Creat Ratio 13.5 RATIO (10-20); Calcium,Total 7.9 mg/dL (7.6-11.0); Carbon Dioxide 12.2 mmol/L (21.0-32.0); Chloride 105 mmol/L (98-108); Estimated Creatinine Clearance 7.69 ml/min (50-250); Glucose 101 mg/dL (70-99); Potassium 3.6 mmol/L (3.3-5.1)
[2025-08-06 10:16] VITALS: BP 106/65; PULSE 72; RESP 16; TEMP 36.4; O2SAT 100
[2025-08-06] MEDS: Cholecalciferol (VIT D3) 25 MCG TABLET (1,000 UNITS) PO (10:17)
--- NOTE | 2025-08-06 15:03 | PCM.PN.REN ---
Subjective Subjective no new complaints Objective Data Objective Data Vital Signs: Vital Signs Temp Pulse Resp BP Pulse Ox O2 Del Method 97.5 F L 72 16 106/65 100 Room Air 08/06/25 10:16 08/06/25 10:16 08/06/25 10:16 08/06/25 10:16 08/06/25 10:16 08/06/25 10:16 Oxygen Delivery Method Room Air Weight: 81.7 kg Body Mass Index (BMI) 27.3 Intake & Output: Intake and Output for Last 24 Hours 08/04/25 08/05/25 08/06/25 23:59 23:59 23:59 Intake Total 3000 / 3000 3775 / 3775 3197.5 / 3197.5 Balance 3000 / 3000 3775 / 3775 3197.5 / 3197.5 Lab / Micro Data 08/06/25 06:07 08/06/25 06:07 Labs: Laboratory Results - last 24 hr 08/06/25 06:07: WBC 17.3 H, RBC 3.17 L, Hgb 9.2 L, Hct 26.8 L, MCV 84.5, MCH 29.0, MCHC 34.3, RDW Std Deviation 43.1, RDW Coeff of Shavon 13.9, Plt Count 490 H, MPV 9.3, Immature Gran % (Auto) 1.000 H, Neut % (Auto) 89.2 H, Lymph % (Auto) 6.0 L, [place] % (Auto) 3.7, Eos % (Auto) 0.0, Baso % (Auto) 0.1, Absolute Neuts (auto) 15.4 H, Absolute Lymphs (auto) 1.04, Nucleated RBC % 0, Sodium 138, Potassium 3.6, Chloride 105, Carbon Dioxide 12.2 L, Anion Gap 20 H, BUN 117 H*, Creatinine 8.65 H*, Estim Creat Clear Calc 7.69 L*, Est GFR (MDRD) Non-Af 6 L, BUN/Creatinine Ratio 13.5, Glucose 101 H, Calcium 7.9 Physical Exam Narrative Alert and oriented x 3, no apparent distress S1, S2, RRR Lungs sound clear. No wheezes, rhonchi or rales. On room air Abdomen soft, nontender, nondistended. Ostomy in place with watery green stool No edema Assessment & Plan Assessment/Plan (1) Acute kidney injury superimposed on stage 3b chronic kidney disease: (2) Hypokalemia: PLAN: Plan This is a 69-year-old male with past medical history significant for chronic kidney disease stage IIIb from biopsy-proven Aquilino's in April 2018, baseline creatinine had been ranging around 2.2 to 2.4 mg/dL who presented to the emergency room yesterday due to abnormal labs, creatinine was 10, bicarb 12.3, potassium 3.7. Patient was admitted and started on IV fluids, bicarb drip. Patient is currently off IV fluids. Likely JANA secondary to increased ostomy output, significant volume depletion and recommend to continue with IV fluids. We will start LR at 150/hour, will not restart back on bicarb drip due to hypocalcemia. Also to note potassium slightly low at 3.1, patient did receive potassium supplement. Labs from this morning are pending. Patient does not need renal diet restrictions. At this time there is no acute indication for LAPPING MACHINE TENDER. Patient states he is making urine. Recommend strict urine output measurement. Blood pressure is acceptable, patient not on any antihypertensives. Last hospitalization in January 2025 patient was noted to have kidney stones per noncontrast CT and underwent cystoscopy with removal of kidney stones per urology. For this admission renal ultrasound noted calculi in right and left kidney with mild hydronephrosis of bilateral kidneys. Recommend consulting urology as patient is known to them. Further orders forthcoming as hospitalization evolves, thank you for allowing us to participate in the care of Mr. De Leon. Assessment and plan reviewed with Dr. Lorenzo. 08/05/25. Status post stenting by urology. Urine output is better subjectively. Creatinine better. Still acidotic. Continue Ringer's lactate, will likely mold insert changer to bicarbonate tomorrow or so. Phosphate levels are improving hence calcium levels should stabilize. I think JANA is a combination of volume depletion and obstruction. 08/06/2025. Creatinine is better today. Good urine output as per him. Bicarbonate is still pretty low. Will change IV fluids to bicarbonate based solution today. Asking about discharge plans. We can decide based on labs tomorrow.
[2025-08-06 16:40] VITALS: BP 94/67; PULSE 71; RESP 16; TEMP 36.5; O2SAT 100
[2025-08-06] MEDS: Sodium Bicarbonate 150 MEQ in Dextrose 5%-Water (1000mL Bag) 1,000 ML 100 MEQ IV (16:51)
[2025-08-06 22:23] VITALS: BP 108/61; PULSE 73; RESP 17; TEMP 36.1; O2SAT 100
[2025-08-07 03:13] VITALS: BP 103/65; PULSE 66; RESP 16; TEMP 36.6; O2SAT 100
[2025-08-07] MEDS: Sodium Bicarbonate 150 MEQ in Dextrose 5%-Water (1000mL Bag) 1,000 ML 100 MEQ IV ×2 (03:14→18:06)
[2025-08-07] MEDS: Heparin Injection (Vial) 5,000 UNIT/ML VIAL 5000 UNIT SC ×3 (06:10→20:06)
[2025-08-07 07:00] VITALS: PULSE 70
[2025-08-07 09:15] VITALS: BP 111/73; PULSE 73; RESP 18; TEMP 36.1; O2SAT 100
[2025-08-07 09:44] LABS: Hematocrit 27.8 % (40-54); Hemoglobin 9.7 g/dL (13.0-16.5); Immature Granulocytes Count 0.090 X10^3/uL (0.0-0.0); Mean Corp Hgb Conc 34.9 g/dL (32-36); Mean Corpuscular Volume 84.0 fL (80-94); Mean Platelet Vol. 8.9 fl (6.2-12.0); NRBC Flagged by Analyzer 0 % (0-5); Platelet Count 491 K/mm3 (150-450); RBC Distribution Width CV 13.9 % (11.6-14.6); RBC Distribution Width SD 43.1 fl (35.1-43.9); Red Blood Count 3.31 M/mm3 (4.6-6.2); White Blood Count 10.3 K/mm3 (4.4-11.0)
[2025-08-07] MEDS: Cholecalciferol (VIT D3) 25 MCG TABLET (1,000 UNITS) PO (09:52)
[2025-08-07 10:04] LABS: AST(SGOT) 18 U/L (<=37); Alanine Aminotransfer ALT/SGPT 19 U/L (<=46); Albumin, Serum 2.9 g/dL (3.4-4.8); Alkaline Phosphatase 194 U/L (40-129); Anion Gap 19 (5-15); BUN 108 mg/dL (4-19); BUN/Creat Ratio 14.8 RATIO (10-20); Calcium,Total 7.5 mg/dL (7.6-11.0); Carbon Dioxide 17.7 mmol/L (21.0-32.0); Chloride 105 mmol/L (98-108); Estimated Creatinine Clearance 9.13 ml/min (50-250); Globulin 2.8 g/dL (2.2-4.2); Glucose 94 mg/dL (70-99); Potassium 3.2 mmol/L (3.3-5.1)
--- NOTE | 2025-08-07 13:06 | PN.RENAL_ITS ---
Subjective Subjective Patient sitting up in bed. Denies any complaints. at bedside. States feeling better. Objective Data Objective Data Vital Signs: Vital Signs Temp Pulse Resp BP Pulse Ox O2 Del Method 97.0 F L 73 18 111/73 100 Room Air 08/07/25 09:15 08/07/25 09:15 08/07/25 09:15 08/07/25 09:15 08/07/25 09:15 08/07/25 10:00 Oxygen Delivery Method Room Air Weight: 81.7 kg Body Mass Index (BMI) 27.3 Intake & Output: Intake and Output for Last 24 Hours 08/05/25 08/06/25 08/07/25 23:59 23:59 23:59 Intake Total 3775 / 3775 3947.5 / 3947.5 1038.33 / 1038.33 Balance 3775 / 3775 3947.5 / 3947.5 1038.33 / 1038.33 Lab / Micro Data 08/07/25 09:32 08/07/25 09:32 Labs: Laboratory Results - last 24 hr 08/07/25 09:32: WBC 10.3, RBC 3.31 L, Hgb 9.7 L, Hct 27.8 L, MCV 84.0, MCH 29.3, MCHC 34.9, RDW Std Deviation 43.1, RDW Coeff of Shavon 13.9, Plt Count 491 H, MPV 8.9, Immature Gran % (Auto) 0.900, Neut % (Auto) 70.7 H, Lymph % (Auto) 18.7 L, [place] % (Auto) 7.9, Eos % (Auto) 1.5, Baso % (Auto) 0.3, Absolute Neuts (auto) 7.3, Absolute Lymphs (auto) 1.92, Nucleated RBC % 0, Sodium 141, Potassium 3.2 L , Chloride 105, Carbon Dioxide 17.7 L, Anion Gap 19 H, BUN 108 H*, Creatinine 7.28 H, Estim Creat Clear Calc 9.13 L*, Est GFR (MDRD) Non-Af 7 L, BUN/Creatinine Ratio 14.8, Glucose 94, Calcium 7.5 L, Total Bilirubin 0.26, AST 18, ALT 19, Alkaline Phosphatase 194 H, Total Protein 5.7 L, Albumin 2.9 L, Globulin 2.8, Albumin/Globulin Ratio 1.0 Physical Exam Narrative Alert and oriented x 3, no apparent distress S1, S2, RRR Lungs sound clear. No wheezes, rhonchi or rales. On room air Abdomen soft, nontender, nondistended. No edema Assessment & Plan Assessment/Plan (1) Acute kidney injury superimposed on stage 3b chronic kidney disease: (2) Hypokalemia: PLAN: Plan This is a 69-year-old male with past medical history significant for chronic kidney disease stage IIIb from biopsy-proven Aquilino's in April 2018, baseline creatinine had been ranging around 2.2 to 2.4 mg/dL who presented to the emergency room yesterday due to abnormal labs, creatinine was 10, bicarb 12.3, potassium 3.7. Patient was admitted and started on IV fluids, bicarb drip. Patient is currently off IV fluids. Likely JANA secondary to increased ostomy output, significant volume depletion and recommend to continue with IV fluids. We will start LR at 150/hour, will not restart back on bicarb drip due to hypocalcemia. Also to note potassium slightly low at 3.1, patient did receive potassium supplement. Labs from this morning are pending. Patient does not need renal diet restrictions. At this time there is no acute indication for COMPACTING MACHINE OPERATOR/TENDER. Patient states he is making urine. Recommend strict urine output measurement. Blood pressure is acceptable, patient not on any antihypertensives. Last hospitalization in January 2025 patient was noted to have kidney stones per noncontrast CT and underwent cystoscopy with removal of kidney stones per urology. For this admission renal ultrasound noted calculi in right and left kidney with mild hydronephrosis of bilateral kidneys. Recommend consulting urology as patient is known to them. Further orders forthcoming as hospitalization evolves, thank you for allowing us to participate in the care of Mr. De Leon. Assessment and plan reviewed with Dr. Lorenzo. 08/05/25. Status post stenting by urology. Urine output is better subjectively. Creatinine better. Still acidotic. Continue Ringer's lactate, will likely exchange consultant to bicarbonate tomorrow or so. Phosphate levels are improving hence calcium levels should stabilize. I think JANA is a combination of volume depletion and obstruction. 08/06/2025. Creatinine is better today. Good urine output as per him. Bicarbonate is still pretty low. Will change IV fluids to bicarbonate based solution today. Asking about discharge plans. We can decide based on labs tomorrow. 08/07/2025; overall renal function has improved, serum creatinine 7.2 mg/dL today (peak creatinine 10.4 on 08/03). No acute indication for renal placement therapy. Recommend to continue on bicarb drip for another day, bicarb improving up to 17.7 today. Potassium 3.2, replacement ordered. Patient does not need to follow any renal diet restrictions, reviewed this with patient and his . Labs ordered for morning. Assessment and plan reviewed with Dr. Lorenzo.
[2025-08-07] MEDS: Potassium Chloride Oral Tablet 20 MEQ 60 MEQ PO (13:42)
[2025-08-07 15:15] VITALS: BP 132/83; PULSE 81; RESP 18; TEMP 36.6; O2SAT 95
--- NOTE | 2025-08-07 17:36 | PN.HOSP_ITS ---
Reason for Visit Chief Complaint: Abnormal labs Subjective Subjective Patient is clearly quite frustrated. His is at the bedside and does not aware that he stopped his Imodium completely. We did discuss that this definitely looks like dehydration. He states he is unclear what his output of his ostomy was. He previously had high output ostomy so we did discuss that we will watch his ostomy output closely and start him on Imodium scheduled with the goal being thicker but not stooled too thick as he has had issues with this previously. Anastomosis reversal is not a possibility. He is also in issues with urinary tract infections as of recently as well. Objective Data Objective Data Vital Signs: Vital Signs Temp Pulse Resp BP Pulse Ox O2 Del Method 97.8 F 81 18 132/83 H 95 Room Air 08/07/25 15:15 08/07/25 15:15 08/07/25 15:15 08/07/25 15:15 08/07/25 15:15 08/07/25 15:15 Oxygen Delivery Method Room Air Weight: 81.7 kg Body Mass Index (BMI) 27.3 Intake & Output: Intake and Output for Last 24 Hours 08/05/25 08/06/25 08/07/25 23:59 23:59 23:59 Intake Total 3775 / 3775 3947.5 / 3947.5 2115.00 / 5.00 Balance 3775 / 3775 3947.5 / 3947.5 2114.00 / 2114.00 Lab / Micro Data 08/07/25 09:32 08/07/25 09:32 Labs: Laboratory Results - last 24 hr 08/07/25 09:32: WBC 10.3, RBC 3.31 L, Hgb 9.7 L, Hct 27.8 L, MCV 84.0, MCH 29.3, MCHC 34.9, RDW Std Deviation 43.1, RDW Coeff of Shavon 13.9, Plt Count 491 H, MPV 8.9, Immature Gran % (Auto) 0.900, Neut % (Auto) 70.7 H, Lymph % (Auto) 18.7 L, [place] % (Auto) 7.9, Eos % (Auto) 1.5, Baso % (Auto) 0.3, Absolute Neuts (auto) 7.3, Absolute Lymphs (auto) 1.92, Nucleated RBC % 0, Sodium 141, Potassium 3.2 L , Chloride 105, Carbon Dioxide 17.7 L, Anion Gap 19 H, BUN 108 H*, Creatinine 7.28 H, Estim Creat Clear Calc 9.13 L*, Est GFR (MDRD) Non-Af 7 L, BUN/Creatinine Ratio 14.8, Glucose 94, Calcium 7.5 L, Total Bilirubin 0.26, AST 18, ALT 19, Alkaline Phosphatase 194 H, Total Protein 5.7 L, Albumin 2.9 L, Globulin 2.8, Albumin/Globulin Ratio 1.0 Physical Exam Const alert, oriented x3, no apparent distress and well nourished Constitutional Narrative: Frustrated and somewhat withdrawn, overweight, white male, lying in bed, watching television, at bedside, appears comfortable, does not look toxic HEENT head/scalp atraumatic and moist oral mucous membranes Head and Scalp: normocephalic Resp normal respiratory effort, no retractions, no use of accessory muscles and clear to auscultation bilaterally Auscultation: Negative for rales, rhonchi or wheezes Cardio regular rate, regular rhythm, S1 normal heart sound, S2 normal heart sound, no murmurs, no rub, no gallops and no clicks GI normal to inspection, nondistended, normoactive bowel sounds, soft to palpation and non-tender GI Narrative: Right upper quadrant ostomy with watery appearing brown output Extremity no clubbing, cyanosis or edema Extremity Narrative: 2+ pedal and radial pulses Neuro moves all extremities and no focal motor deficits Speech: speech normal Psych Psych Narrative: Affect is extremely flat and patient seems depressed Assessment & Plan Assessment/Plan (1) Hypokalemia: (2) Acute kidney injury superimposed on stage 3b chronic kidney disease: (3) Thrombocytosis: (4) Chronic anemia: (5) High anion gap metabolic acidosis: PLAN: Plan JANA on CKD stage IIIb secondary to ATN - Patient with biopsy-proven Aquilino's in 2018 - Baseline serum creatinine runs between 2 and 2.4 - Serum creatinine was 10 on presentation and patient appears to be dehydrated and likely related to increased ostomy output - Continue bicarb drip - Patient is making urine which seems to be improving - Renal function is slowly improving and will need to watch for post ATN diuresis - No SENIOR TELECOMMUNICATIONS TECHNICIAN needs at this time - Nephrology is following-appreciate input--> discussed with SUPERVISOR PAINT DEPARTMENT Anion gap metabolic acidosis - Slowly improving with improved renal function and bicarb drip - Continue bicarb drip and repeat lab in a.m. - If close to normal may be able to discontinue and transition back to LR Hypokalemia - Replacement ordered - Repeat lab in a.m. - Repeat a.m. mag Chronic anemia - No signs of acute blood loss - suspect related to renal disease - Continue to follow - Suspect drop with ongoing volume repletion - Continue iron Leukocytosis - Resolved Thrombocytosis - Etiology is unclear - Continue to monitor Bilateral hydronephrosis/nephrolithiasis - Patient with stent in place and plan is for upcoming lithotripsy with Dr. Ponce - Stent placed on 08/04/2025 - Continue Flomax Hyponatremia - Resolved High output ostomy - Start Imodium twice daily and monitor ostomy output closely\ History of ulcerative colitis -Has had several previous bowel surgeries -Not on any modulating drugs or steroids at this time - Continue ongoing outpatient follow-up - Follows at for his ostomy Abdominal wall hernia - Outpatient follow-up - Stable Essential hypertension/hyperlipidemia - Continue home statin - Patient no longer requiring scheduled antihypertensives PRNs will be added if needed DVT prophylaxis - Continue subcu heparin CODE STATUS - Full code Charges/Coding Visit Charges Inpatient E&M: 75907 Subs Hosp L2
[2025-08-07 19:55] VITALS: BP 126/79; PULSE 79; RESP 16; TEMP 36.9; O2SAT 98
--- NOTE | 2025-08-07 20:13 | NURSING ---
pt kindly expresses desire to maximize rest tonight. asks to receive his medications and have his assessment completed at this time. enc pt to call with any needs, but advised him we would minimize sleep disruptions on this shift per his request.
[2025-08-08 05:26] VITALS: BP 107/80; PULSE 75; RESP 16; TEMP 37.2; O2SAT 95
[2025-08-08] MEDS: Heparin Injection (Vial) 5,000 UNIT/ML VIAL 5000 UNIT SC ×3 (05:33→22:19)
[2025-08-08] MEDS: Sodium Bicarbonate 150 MEQ in Dextrose 5%-Water (1000mL Bag) 1,000 ML 100 MEQ IV (05:35)
[2025-08-08 05:53] LABS: Hematocrit 25.7 % (40-54); Hemoglobin 8.7 g/dL (13.0-16.5); Mean Corp Hgb Conc 33.9 g/dL (32-36); Mean Corpuscular Volume 86.0 fL (80-94); Mean Platelet Vol. 9.1 fl (6.2-12.0); Platelet Count 446 K/mm3 (150-450); RBC Distribution Width CV 13.6 % (11.6-14.6); RBC Distribution Width SD 43.2 fl (35.1-43.9); Red Blood Count 2.99 M/mm3 (4.6-6.2); White Blood Count 8.4 K/mm3 (4.4-11.0)
[2025-08-08 06:14] LABS: Anion Gap 15 (5-15); BUN 99 mg/dL (4-19); BUN/Creat Ratio 14.8 RATIO (10-20); Calcium,Total 6.8 mg/dL (7.6-11.0); Carbon Dioxide 22.1 mmol/L (21.0-32.0); Chloride 103 mmol/L (98-108); Estimated Creatinine Clearance 9.97 ml/min (50-250); Glucose 109 mg/dL (70-99); Magnesium 1.3 mg/dL (1.5-2.2); Potassium 3.4 mmol/L (3.3-5.1)
--- NOTE | 2025-08-08 08:01 | PN.HOSP_ITS ---
Reason for Visit Chief Complaint: Abnormal labs Subjective Subjective No significant issues overnight. Affect is still pretty flat. We did again discuss options for depression including antidepressants and patient client. Objective Data Objective Data Vital Signs: Vital Signs Temp Pulse Resp BP Pulse Ox O2 Del Method 98.9 F 75 16 107/80 95 Room Air 08/08/25 05:26 08/08/25 05:26 08/08/25 05:26 08/08/25 05:26 08/08/25 05:26 08/08/25 05:26 Oxygen Delivery Method Room Air Weight: 81.7 kg Body Mass Index (BMI) 27.3 Intake & Output: Intake and Output for Last 24 Hours 08/06/25 08/07/25 08/08/25 23:59 23:59 23:59 Intake Total 3947.5 / 3947.5 2488.33 / 2488.33 1548.33 / 1548.33 Balance 3947.5 / 3947.5 2488.33 / 2488.33 1548.33 / 1548.33 Lab / Micro Data 08/08/25 05:10 08/08/25 05:10 Labs: Laboratory Results - last 24 hr 08/07/25 09:32: WBC 10.3, RBC 3.31 L, Hgb 9.7 L, Hct 27.8 L, MCV 84.0, MCH 29.3, MCHC 34.9, RDW Std Deviation 43.1, RDW Coeff of Shavon 13.9, Plt Count 491 H, MPV 8.9, Immature Gran % (Auto) 0.900, Neut % (Auto) 70.7 H, Lymph % (Auto) 18.7 L, [place] % (Auto) 7.9, Eos % (Auto) 1.5, Baso % (Auto) 0.3, Absolute Neuts (auto) 7.3, Absolute Lymphs (auto) 1.92, Nucleated RBC % 0, Sodium 141, Potassium 3.2 L , Chloride 105, Carbon Dioxide 17.7 L, Anion Gap 19 H, BUN 108 H*, Creatinine 7.28 H, Estim Creat Clear Calc 9.13 L*, Est GFR (MDRD) Non-Af 7 L, BUN/Creatinine Ratio 14.8, Glucose 94, Calcium 7.5 L, Total Bilirubin 0.26, AST 18, ALT 19, Alkaline Phosphatase 194 H, Total Protein 5.7 L, Albumin 2.9 L, Globulin 2.8, Albumin/Globulin Ratio 1.0 08/08/25 05:10: WBC 8.4, RBC 2.99 L, Hgb 8.7 L, Hct 25.7 L, MCV 86.0, MCH 29.1, MCHC 33.9, RDW Std Deviation 43.2, RDW Coeff of Shavon 13.6, Plt Count 446, MPV 9.1, Sodium 140, Potassium 3.4, Chloride 103, Carbon Dioxide 22.1, Anion Gap 15, BUN 99 H, Creatinine 6.67 H, Estim Creat Clear Calc 9.97 L*, Est GFR (MDRD) Non- Af 8 L, BUN/Creatinine Ratio 14.8, Glucose 109 H, Calcium 6.8 L, Phosphorus 6.3 H, Magnesium 1.3 L Physical Exam Const alert, oriented x3, no apparent distress, average body habitus and well nourished Constitutional Narrative: withdrawn, overweight, white male, lying in bed, at bedside, appears comfortable, does not look toxic General Appearance: cooperative and comfortable HEENT normocephalic, head/scalp atraumatic and moist oral mucous membranes HEENT Narrative: Moderate hearing loss Resp normal respiratory effort, normal air movement, no retractions, no use of accessory muscles and clear to auscultation bilaterally Auscultation: Negative for rales, rhonchi or wheezes Cardio regular rate, regular rhythm, S1 normal heart sound, S2 normal heart sound, no murmurs, no rub, no gallops and no clicks Cardio Narrative: 2+ pedal and radial pulses GI normal to inspection, nondistended, normoactive bowel sounds, soft to palpation and non-tender GI Narrative: Still with right upper quadrant ostomy with liquid output but decreased volume Extremity no clubbing, cyanosis or edema Extremity Narrative: 2+ pedal and radial pulses Neuro moves all extremities and no focal motor deficits Speech: speech normal Psych Psych Narrative: Affect is extremely flat and patient seems depressed Assessment & Plan Assessment/Plan (1) Hypokalemia: (2) Acute kidney injury superimposed on stage 3b chronic kidney disease: (3) Thrombocytosis: (4) Chronic anemia: (5) High anion gap metabolic acidosis: PLAN: Plan JANA on CKD stage IIIb secondary to ATN - Patient with biopsy-proven Aquilino's in 2018 - Baseline serum creatinine runs between 2 and 2.4 - Serum creatinine was 10 on presentation and patient appears to be dehydrated and likely related to increased ostomy output -Creatinine continues to steadily improve with IV fluids - Discontinue bicarb drip and start LR at 150 cc/h - Urine output continues to be good - Renal function is slowly improving and will need to watch for post ATN diuresis - No FULL TIME STAFF INTERPRETER needs at this time but I did discuss with the patient that if this continues to be problematic with intermittent JANA on CKD ongoing and that he could end up on dialysis in the future - Nephrology is following-appreciate input--> discussed with HEALTH INFORMATION TECHNOLOGIST Anion gap metabolic acidosis - Resolved - Discontinue bicarb drip - Start LR next-repeat lab in a.m. Hypokalemia - Resolved Hypomagnesemia - Mild - 2 g of mag Recheck in a.m. Chronic anemia - No signs of acute blood loss - suspect related to renal disease - Continue to follow - Suspect drop with ongoing volume repletion - Continue iron Thrombocytosis - Resolved Bilateral hydronephrosis/nephrolithiasis - Patient with stent in place and plan is for upcoming lithotripsy with Dr. Ponce - Stent placed on 08/04/2025 - Continue Flomax - Outpatient follow-up after discharge Hyponatremia - Resolved High output ostomy - Continue Imodium but transition to liquid and continue to monitor ostomy output next-twice daily for now but may need to decrease to daily depending on ostomy output History of ulcerative colitis -Has had several previous bowel surgeries -Not on any modulating drugs or steroids at this time - Continue ongoing outpatient follow-up - Follows at for his ostomy Abdominal wall hernia - Outpatient follow-up - Stable Essential hypertension/hyperlipidemia - Continue home statin - Patient no longer requiring scheduled antihypertensives PRNs will be added if needed DVT prophylaxis - Continue subcu heparin CODE STATUS - Full code Charges/Coding Visit Charges Inpatient E&M: 49370 Subs Hosp L2
[2025-08-08] MEDS: Magnesium Sulfate 2 GM in Dextrose 5%-Water (100mL Bag) 100 ML IV (08:50)
[2025-08-08] MEDS: Lactated Ringers 1,000 ML 150 ML IV ×3 (08:50→22:20)
[2025-08-08 08:58] VITALS: BP 99/78; PULSE 77; RESP 15; TEMP 36.7; O2SAT 100
[2025-08-08] MEDS: Cholecalciferol (VIT D3) 25 MCG TABLET (1,000 UNITS) PO (10:27)
--- NOTE | 2025-08-08 11:51 | PN.RENAL_ITS ---
Subjective Subjective Patient resting in bed. at bedside. No overnight events. Objective Data Objective Data Vital Signs: Vital Signs Temp Pulse Resp BP Pulse Ox O2 Del Method 98.1 F 77 15 99/78 100 Room Air 08/08/25 08:58 08/08/25 08:58 08/08/25 08:58 08/08/25 08:58 08/08/25 08:58 08/08/25 09:34 Oxygen Delivery Method Room Air Weight: 81.7 kg Body Mass Index (BMI) 27.3 Intake & Output: Intake and Output for Last 24 Hours 08/06/25 08/07/25 08/08/25 23:59 23:59 23:59 Intake Total 3947.5 / 3947.5 2488.33 / 2488.33 Balance 3947.5 / 3947.5 248.33 / 8.33 Lab / Micro Data 08/08/25 05:10 08/08/25 05:10 Labs: Laboratory Results - last 24 hr 08/08/25 05:10: WBC 8.4, RBC 2.99 L, Hgb 8.7 L, Hct 25.7 L, MCV 86.0, MCH 29.1, MCHC 33.9, RDW Std Deviation 43.2, RDW Coeff of Shavon 13.6, Plt Count 446, MPV 9.1, Sodium 140, Potassium 3.4, Chloride 103, Carbon Dioxide 22.1, Anion Gap 15, BUN 99 H, Creatinine 6.67 H, Estim Creat Clear Calc 9.97 L*, Est GFR (MDRD) Non- Af 8 L, BUN/Creatinine Ratio 14.8, Glucose 109 H, Calcium 6.8 L, Phosphorus 6.3 H, Magnesium 1.3 L Physical Exam Narrative Alert and oriented x 3, no apparent distress S1, S2, RRR Lungs sound clear. No wheezes, rhonchi or rales. On room air Abdomen soft, nontender, nondistended. No edema Assessment & Plan Assessment/Plan (1) Acute kidney injury superimposed on stage 3b chronic kidney disease: (2) Hypokalemia: PLAN: Plan This is a 69-year-old male with past medical history significant for chronic kidney disease stage IIIb from biopsy-proven Aquilino's in April 2018, baseline creatinine had been ranging around 2.2 to 2.4 mg/dL who presented to the emergency room yesterday due to abnormal labs, creatinine was 10, bicarb 12.3, potassium 3.7. Patient was admitted and started on IV fluids, bicarb drip. Patient is currently off IV fluids. Likely JANA secondary to increased ostomy output, significant volume depletion and recommend to continue with IV fluids. We will start LR at 150/hour, will not restart back on bicarb drip due to hypocalcemia. Also to note potassium slightly low at 3.1, patient did receive potassium supplement. Labs from this morning are pending. Patient does not need renal diet restrictions. At this time there is no acute indication for DIRECTOR OF QUALITY. Patient states he is making urine. Recommend strict urine output measurement. Blood pressure is acceptable, patient not on any antihypertensives. Last hospitalization in January 2025 patient was noted to have kidney stones per noncontrast CT and underwent cystoscopy with removal of kidney stones per urology. For this admission renal ultrasound noted calculi in right and left kidney with mild hydronephrosis of bilateral kidneys. Recommend consulting urology as patient is known to them. Further orders forthcoming as hospitalization evolves, thank you for allowing us to participate in the care of Mr. De Leon. Assessment and plan reviewed with Dr. Lorenzo. 08/05/25. Status post stenting by urology. Urine output is better subjectively. Creatinine better. Still acidotic. Continue Ringer's lactate, will likely warp changer to bicarbonate tomorrow or so. Phosphate levels are improving hence calcium levels should stabilize. I think JANA is a combination of volume depletion and obstruction. 08/06/2025. Creatinine is better today. Good urine output as per him. Bicarbonate is still pretty low. Will change IV fluids to bicarbonate based solution today. Asking about discharge plans. We can decide based on labs tomorrow. 08/07/2025; overall renal function has improved, serum creatinine 7.2 mg/dL today (peak creatinine 10.4 on 08/03). No acute indication for renal placement therapy. Recommend to continue on bicarb drip for another day, bicarb improving up to 17.7 today. Potassium 3.2, replacement ordered. Patient does not need to follow any renal diet restrictions, reviewed this with patient and his . Labs ordered for morning. Assessment and plan reviewed with Dr. Lorenzo. 08/08/2025; renal function continues to improve daily, today SCr 6.67. K+ normal. Bicarb 22. Per patient he is having good urine output. Bicarb drip stopped and started on LR. We recommend to keep on IV fluids again today. Restarted back on Imodium twice daily. Labs ordered for am. Assessment and plan reviewed with Dr. Lorenzo.
[2025-08-08] MEDS: 0.9 % NaCl (Sterile) Posiflush 10 mL IV (12:33)
[2025-08-08 14:10] VITALS: BP 103/62; PULSE 95; RESP 15; TEMP 36.7; O2SAT 93
[2025-08-08 17:54] VITALS: BP 104/58; PULSE 89; RESP 14; TEMP 36.9; O2SAT 97
[2025-08-08] MEDS: Loperamide (Oral Liquid) 1 MG/7.5 ML ML 2 MG PO (22:19)
[2025-08-08 22:30] VITALS: BP 115/82; PULSE 85; RESP 16; TEMP 36.7; O2SAT 94
[2025-08-09] MEDS: Lactated Ringers 1,000 ML 150 ML IV ×4 (04:58→23:29)
[2025-08-09 05:00] VITALS: BP 112/75; PULSE 75; RESP 14; TEMP 36.6; O2SAT 97
[2025-08-09] MEDS: Heparin Injection (Vial) 5,000 UNIT/ML VIAL 5000 UNIT SC ×3 (05:02→21:05)
[2025-08-09 06:22] LABS: Anion Gap 12 (5-15); BUN 84 mg/dL (4-19); BUN/Creat Ratio 15.0 RATIO (10-20); Calcium,Total 6.8 mg/dL (7.6-11.0); Carbon Dioxide 25.5 mmol/L (21.0-32.0); Chloride 103 mmol/L (98-108); Estimated Creatinine Clearance 11.88 ml/min (50-250); Glucose 93 mg/dL (70-99); Potassium 3.9 mmol/L (3.3-5.1)
--- NOTE | 2025-08-09 07:58 | PCM.PN.HOSP ---
Reason for Visit Chief Complaint: Abnormal labs Subjective Subjective Patient states his output has been better with decreased volume. Not too thick at this point. We did discuss his creatinine is down another point. Hopeful for discharge in the next 24 to 48 hours. Objective Data Objective Data Vital Signs: Vital Signs Temp Pulse Resp BP Pulse Ox O2 Del Method 97.9 F 75 14 112/75 97 Room Air 08/09/25 05:00 08/09/25 05:00 08/09/25 05:00 08/09/25 05:00 08/09/25 05:00 08/09/25 05:05 Oxygen Delivery Method Room Air Weight: 81.7 kg Body Mass Index (BMI) 27.3 Intake & Output: Intake and Output for Last 24 Hours 08/07/25 08/08/25 08/09/25 23:59 23:59 23:59 Intake Total 2488.33 / 2488.33 5782.33 / 5782.33 1315 / 1315 Balance 2488.33 / 2488.33 5782.33 / 5782.33 1315 / 1315 Lab / Micro Data 08/08/25 05:10 08/09/25 05:24 Labs: Laboratory Results - last 24 hr 08/09/25 05:24: Sodium 140, Potassium 3.9, Chloride 103, Carbon Dioxide 25.5, Anion Gap 12, BUN 84 H, Creatinine 5.60 H, Estim Creat Clear Calc 11.88 L, Est GFR (MDRD) Non-Af 10 L, BUN/Creatinine Ratio 15.0, Glucose 93, Calcium 6.8 L Physical Exam Const alert, oriented x3, no apparent distress, average body habitus and well nourished Constitutional Narrative: withdrawn but less so today, overweight, white male, lying in bed, appears comfortable, does not look toxic HEENT normocephalic, head/scalp atraumatic and moist oral mucous membranes Resp normal respiratory effort, normal air movement, no retractions, no use of accessory muscles and clear to auscultation bilaterally Auscultation: Negative for rales, rhonchi or wheezes Cardio regular rate, regular rhythm, S1 normal heart sound, S2 normal heart sound, no murmurs, no rub, no gallops and no clicks Cardio Narrative: 2+ pedal and radial pulses GI normal to inspection, nondistended, normoactive bowel sounds, soft to palpation and non-tender GI Narrative: Ostomy in place with decreased output but still thin in consistency I am scanning her chest abdomen pelvis she is on no meds either I ordered an ionized she symptomatic to the yeah she has had no screening health no history of tobacco abuse so I figured I just scan her and wait for the vitamin D 25 and the PTH to come back she is getting zoledronic acid bisphosphonate and aggressive hydration Extremity no clubbing, cyanosis or edema Extremity Narrative: 2+ pedal and radial pulses Neuro moves all extremities and no focal motor deficits Speech: speech normal Psych mental status grossly normal Psych Narrative: Affect still flat but a little bit less so today, patient remains depressed in appearance Assessment & Plan Assessment/Plan (1) Hypokalemia: (2) Acute kidney injury superimposed on stage 3b chronic kidney disease: (3) Thrombocytosis: (4) Chronic anemia: (5) High anion gap metabolic acidosis: PLAN: Plan JANA on CKD stage IIIb secondary to ATN - Patient with biopsy-proven Aquilino's in 2018 - Baseline serum creatinine runs between 2 and 2.4 - Plan as an outpatient is to try to get 1-2 times a week of IV fluid infusion--> nephrology to help set up - Continue LR at the same rate - Urine output continues to be good - Nephrology is following-appreciate input--> discussed with Dr. Lorenzo Anion gap metabolic acidosis - Remains stable off bicarb drip Chronic anemia - No signs of acute blood loss - suspect related to renal disease - Continue to follow - Suspect drop with ongoing volume repletion - Continue iron - Repeat CBC in a.m. Bilateral hydronephrosis/nephrolithiasis - Patient with stent in place and plan is for upcoming lithotripsy with Dr. Ponce - Stent placed on 08/04/2025 - Continue Flomax - Outpatient follow-up after discharge High output ostomy - Continue Imodium but transition to liquid and continue to monitor ostomy output - Ostomy output has improved will keep on Imodium twice daily liquid for now History of ulcerative colitis -Has had several previous bowel surgeries -Not on any modulating drugs or steroids at this time - Continue ongoing outpatient follow-up - Follows at for his ostomy Abdominal wall hernia - Outpatient follow-up - Stable Essential hypertension/hyperlipidemia - Continue home statin - Patient no longer requiring scheduled antihypertensives PRNs will be added if needed DVT prophylaxis - Continue subcu heparin CODE STATUS - Full code Charges/Coding Visit Charges Inpatient E&M: 59650 Subs Hosp L2
[2025-08-09 09:11] VITALS: BP 90/57; PULSE 77; RESP 16; TEMP 36.6; O2SAT 98
[2025-08-09] MEDS: Cholecalciferol (VIT D3) 25 MCG TABLET (1,000 UNITS) PO (09:14)
[2025-08-09] MEDS: Loperamide (Oral Liquid) 1 MG/7.5 ML ML 2 MG PO ×2 (09:15→21:05)
--- NOTE | 2025-08-09 12:37 | PN.RENAL_ITS ---
Subjective Subjective no new complaints Objective Data Objective Data Vital Signs: Vital Signs Temp Pulse Resp BP Pulse Ox O2 Del Method 97.9 F 77 16 90/57 L 98 Room Air 08/09/25 09:11 08/09/25 09:11 08/09/25 09:11 08/09/25 09:11 08/09/25 09:11 08/09/25 09:20 Oxygen Delivery Method Room Air Weight: 81.7 kg Body Mass Index (BMI) 27.3 Intake & Output: Intake and Output for Last 24 Hours 08/07/25 08/08/25 08/09/25 23:59 23:59 23:59 Intake Total 2488.33 / 2488.33 5782.33 / 5782.33 2182.5 / 2182.5 Balance 2488.33 / 2488.33 5782.33 / 5782.33 2182.5 / 2182.5 Lab / Micro Data 08/08/25 05:10 08/09/25 05:24 Labs: Laboratory Results - last 24 hr 08/09/25 05:24: Sodium 140, Potassium 3.9, Chloride 103, Carbon Dioxide 25.5, Anion Gap 12, BUN 84 H, Creatinine 5.60 H, Estim Creat Clear Calc 11.88 L, Est GFR (MDRD) Non-Af 10 L, BUN/Creatinine Ratio 15.0, Glucose 93, Calcium 6.8 L Physical Exam Narrative Alert and oriented x 3, no apparent distress S1, S2, RRR Lungs sound clear. No wheezes, rhonchi or rales. On room air Abdomen soft, nontender, nondistended. No edema Assessment & Plan Assessment/Plan (1) Acute kidney injury superimposed on stage 3b chronic kidney disease: (2) Hypokalemia: PLAN: Plan This is a 69-year-old male with past medical history significant for chronic kidney disease stage IIIb from biopsy-proven Aquilino's in April 2018, baseline creatinine had been ranging around 2.2 to 2.4 mg/dL who presented to the emergency room yesterday due to abnormal labs, creatinine was 10, bicarb 12.3, potassium 3.7. Patient was admitted and started on IV fluids, bicarb drip. Patient is currently off IV fluids. Likely JANA secondary to increased ostomy output, significant volume depletion and recommend to continue with IV fluids. We will start LR at 150/hour, will not restart back on bicarb drip due to hypocalcemia. Also to note potassium slightly low at 3.1, patient did receive potassium supplement. Labs from this morning are pending. Patient does not need renal diet restrictions. At this time there is no acute indication for FAMILY MEDICINE PHYSICIAN ASSISTANT. Patient states he is making urine. Recommend strict urine output measurement. Blood pressure is acceptable, patient not on any antihypertensives. Last hospitalization in January 2025 patient was noted to have kidney stones per noncontrast CT and underwent cystoscopy with removal of kidney stones per urology. For this admission renal ultrasound noted calculi in right and left kidney with mild hydronephrosis of bilateral kidneys. Recommend consulting urology as patient is known to them. Further orders forthcoming as hospitalization evolves, thank you for allowing us to participate in the care of Mr. De Leon. Assessment and plan reviewed with Dr. Lorenzo. 08/05/25. Status post stenting by urology. Urine output is better subjectively. Creatinine better. Still acidotic. Continue Ringer's lactate, will likely private branch exchange operator to bicarbonate tomorrow or so. Phosphate levels are improving hence calcium levels should stabilize. I think JANA is a combination of volume depletion and obstruction. 08/06/2025. Creatinine is better today. Good urine output as per him. Bicarbonate is still pretty low. Will change IV fluids to bicarbonate based solution today. Asking about discharge plans. We can decide based on labs tomorrow. 08/07/2025; overall renal function has improved, serum creatinine 7.2 mg/dL today (peak creatinine 10.4 on 08/03). No acute indication for renal placement therapy. Recommend to continue on bicarb drip for another day, bicarb improving up to 17.7 today. Potassium 3.2, replacement ordered. Patient does not need to follow any renal diet restrictions, reviewed this with patient and his . Labs ordered for morning. Assessment and plan reviewed with Dr. Lorenzo. 08/08/2025; renal function continues to improve daily, today SCr 6.67. K+ normal. Bicarb 22. Per patient he is having good urine output. Bicarb drip stopped and started on LR. We recommend to keep on IV fluids again today. Restarted back on Imodium twice daily. Labs ordered for am. Assessment and plan reviewed with Dr. Lorenzo. 08/09/2025. Creatinine continues to improve. Potassium normal. Bicarbonate normal. Urine output is okay. Creatinine still on the higher side even though better. Discussed with hospitalist. In the past we have arranged IV fluid with primary care physician at [facility]. This is related to fluid losses in the stoma. Apparently he is not taking Imodium as prescribed. If needed can reach out to his primary care physician about rearranging this.
--- NOTE | 2025-08-09 13:25 | CASEMGMT ---
RN CM in to discuss discharge planning with patient. Patient is up independent in room. Patient denies needs or help at discharge. Patient had no further qusetions. CM will continue to follow this patient and plan for a safe discharge.
[2025-08-09 15:11] VITALS: BP 114/78; PULSE 70; RESP 18; TEMP 36.4; O2SAT 98
[2025-08-09 21:02] VITALS: BP 113/68; PULSE 82; RESP 14; TEMP 36.6; O2SAT 98
[2025-08-10 04:00] VITALS: BP 110/68; PULSE 72; RESP 16; TEMP 36.9; O2SAT 100
[2025-08-10 04:30] VITALS: BP 134/77; PULSE 81; RESP 16; O2SAT 95
[2025-08-10 05:55] LABS: Hematocrit 25.2 % (40-54); Hemoglobin 8.1 g/dL (13.0-16.5); Mean Corp Hgb Conc 32.1 g/dL (32-36); Mean Corpuscular Volume 89.7 fL (80-94); Mean Platelet Vol. 9.1 fl (6.2-12.0); Platelet Count 381 K/mm3 (150-450); RBC Distribution Width CV 13.4 % (11.6-14.6); RBC Distribution Width SD 44.7 fl (35.1-43.9); Red Blood Count 2.81 M/mm3 (4.6-6.2); White Blood Count 6.6 K/mm3 (4.4-11.0)
[2025-08-10 06:22] LABS: Anion Gap 11 (5-15); BUN 75 mg/dL (4-19); BUN/Creat Ratio 15.0 RATIO (10-20); Calcium,Total 6.8 mg/dL (7.6-11.0); Carbon Dioxide 24.2 mmol/L (21.0-32.0); Chloride 104 mmol/L (98-108); Estimated Creatinine Clearance 13.33 ml/min (50-250); Glucose 89 mg/dL (70-99); Magnesium 1.3 mg/dL (1.5-2.2); Potassium 3.7 mmol/L (3.3-5.1)
[2025-08-10] MEDS: Lactated Ringers 1,000 ML 150 ML IV (06:34)
[2025-08-10] MEDS: Heparin Injection (Vial) 5,000 UNIT/ML VIAL 5000 UNIT SC (06:35)
[2025-08-10 09:49] VITALS: BP 109/67; PULSE 90; RESP 16; TEMP 36.2; O2SAT 99
[2025-08-10] MEDS: Magnesium Sulfate 4gm/100mL 4 GM/100 ML IV.SOLN. IV (09:52)
[2025-08-10] MEDS: Cholecalciferol (VIT D3) 25 MCG TABLET (1,000 UNITS) PO (09:55)
[2025-08-10] MEDS: Loperamide (Oral Liquid) 1 MG/7.5 ML ML 2 MG PO (09:56)
--- NOTE | 2025-08-10 12:29 | PCM.PN.HOSP ---
Reason for Visit Chief Complaint: Abnormal labs Objective Data Objective Data Vital Signs: Vital Signs Temp Pulse Resp BP Pulse Ox O2 Del Method 97.1 F L 90 16 109/67 99 Room Air 08/10/25 09:49 08/10/25 09:49 08/10/25 09:49 08/10/25 09:49 08/10/25 09:49 08/10/25 09:49 Oxygen Delivery Method Room Air Weight: 81.7 kg Body Mass Index (BMI) 27.3 Intake & Output: Intake and Output for Last 24 Hours 08/08/25 08/09/25 08/10/25 23:59 23:59 23:59 Intake Total 5782.33 / 5782.33 4962.5 / 4962.5 1000 / 1000 Balance 5782.33 / 5782.33 4962.5 / 4962.5 1000 / 1000 Lab / Micro Data 08/10/25 05:20 08/10/25 05:20 Labs: Laboratory Results - last 24 hr 08/10/25 05:20: WBC 6.6, RBC 2.81 L, Hgb 8.1 L, Hct 25.2 L, MCV 89.7, MCH 28.8, MCHC 32.1 D, RDW Std Deviation 44.7 H, RDW Coeff of Shavon 13.4, Plt Count 381, MPV 9.1, Sodium 139, Potassium 3.7, Chloride 104, Carbon Dioxide 24.2, Anion Gap 11, BUN 75 H, Creatinine 4.99 H, Estim Creat Clear Calc 13.33 L, Est GFR (MDRD) Non-Af 12 L, BUN/Creatinine Ratio 15.0, Glucose 89, Calcium 6.8 L, Phosphorus 5.0 H, Magnesium 1.3 L Charges/Coding Visit Charges Inpatient E&M: 28635 Disch Hosp >30min
--- NOTE | 2025-08-10 12:30 | PCM.DC.SUM ---
Providers Date of Admission: 08/02/25 Date of Discharge: 08/10/25 Primary Care Physician: Dr. Michael Kaur MD Consultations 08/02/25 18:47 Consult: Nephrology Routine Consulting Provider: Andrea Lorenzo Reason for Consult: severe JANA on CKD3 EMERGENT Consult: No Notified: Yes Date Notified: 08/02/25 Time Notified: 18:52 Method of Notification: Answering Service 08/03/25 11:05 Consult: Urology Routine Consulting Provider: Brando Ponce Reason for Consult: patient known to you, b/l hydro on US, now with Severe JANA EMERGENT Consult: No Notified: Yes Date Notified: 08/03/25 Time Notified: 11:05 Method of Notification: Verbal Reason For Visit: ACUTE RENAL FAILURE Diagnosis Discharge Diagnosis (1) Hypokalemia: Status: Acute Code(s): E87.6 - Hypokalemia (2) Acute kidney injury superimposed on stage 3b chronic kidney disease: Status: Acute Code(s): N17.9 - Acute kidney failure, unspecified; N18.32 - Chronic kidney disease, stage 3b (3) Thrombocytosis: Status: Acute Code(s): D75.839 - Thrombocytosis, unspecified (4) Chronic anemia: Status: Chronic Code(s): D64.9 - Anemia, unspecified (5) High anion gap metabolic acidosis: Status: Acute Code(s): E87.29 - Other acidosis Plan JANA on CKD stage IIIb secondary to ATN - Patient with biopsy-proven Aquilino's in 2018 - Baseline serum creatinine runs between 2 and 2.4 - Plan as an outpatient is to try to get 1-2 times a week of IV fluid infusion--> nephrology to help set up - Continue LR at the same rate - Urine output continues to be good - Nephrology is following-appreciate input--> discussed with Dr. Lorenzo Anion gap metabolic acidosis - Remains stable off bicarb drip Chronic anemia - No signs of acute blood loss - suspect related to renal disease - Continue to follow - Suspect drop with ongoing volume repletion - Continue iron - Repeat CBC in a.m. Bilateral hydronephrosis/nephrolithiasis - Patient with stent in place and plan is for upcoming lithotripsy with Dr. Ponce - Stent placed on 08/04/2025 - Continue Flomax - Outpatient follow-up after discharge High output ostomy - Continue Imodium but transition to liquid and continue to monitor ostomy output - Ostomy output has improved will keep on Imodium twice daily liquid for now History of ulcerative colitis -Has had several previous bowel surgeries -Not on any modulating drugs or steroids at this time - Continue ongoing outpatient follow-up - Follows at for his ostomy Abdominal wall hernia - Outpatient follow-up - Stable Essential hypertension/hyperlipidemia - Continue home statin - Patient no longer requiring scheduled antihypertensives PRNs will be added if needed DVT prophylaxis - Continue subcu heparin CODE STATUS - Full code Medications at Discharge Home Medications cholecalciferol (vitamin D3) 25 mcg (1,000 unit) tablet 1,000 unit PO DAILY SUPPLEMENT 05/31/19 atorvastatin 20 mg tablet 20 mg PO QHS CHOLESTEROL 03/28/24 loperamide 2 mg capsule 2 mg PO DAILY diarrhea 02/01/25 tamsulosin 0.4 mg capsule 0.8 mg PO DAILY BPH 02/01/25 ferrous sulfate 325 mg (65 mg iron) tablet (Feosol) 325 mg PO QDAY supplement 05/15/25 calcium carbonate 500 mg (2.5 x 200 mg calcium (500 mg)) PO TIDCM #90 tabs 08/10/25 Hospital Course Operations None and - (Cystoscopy with stent placement) Procedures - (Renal ultrasound/CT abdomen pelvis/) Summary of Care Provided Minutes Spent on Discharge: 41 Hospital Course: Mr. De Leon is a 69-year-old white male who presents emergency department [facility] on 08/02/2025 with a chief complaint of abnormal labs. Patient has CKD at baseline from Aquilino's disease and follows with Dr. Lorenzo at baseline. He also has a history of Crohn's disease for which she had a bowel resection and chronic ileostomy. He had outpatient labs drawn on the day of presentation and he was found to have a significantly abnormal creatinine at 10.10 with a baseline of 2-2.4. His bicarb was 12 and BUN was 127 so he was sent to the emergency department for further evaluation. Vital signs on presentation showed temperature of 97.7, heart rate is 89, respiratory to 18, blood pressure was 100/81 and pulse ox with 90% room air. His CBC showed was markedly hemoconcentrated and he has a chronic anemia which was 11.8 and higher than his baseline. He also had a thrombocytosis with a platelet count of 472,000. He was hypokalemic with a potassium of 3.1. Again his serum bicarb was low on our lab it was 10.6. His BUN was 117 and his creatinine was 9.37 on the time of presentation. Renal ultrasound was performed and showed possible mild hydronephrosis of the bilateral kidneys with medical renal disease and bilateral kidney stones with cortical thinning on the left. A CT of the abdomen pelvis was performed and was consistent with left-sided hydronephrosis and hydroureter with perinephritic stranding and periureteral inflammation and stranding with a 7.4 mm stone in the proximal third of the left ureter. It was doubtful that his JANA was related to this and felt to be most likely related to high output ostomy which for which he has had problems in the past. He did report that he stopped taking his Imodium because he did not feel he needed it. He also had not been taking his calcium at home. Nephrology was consulted as was urology. Urology evaluated patient and took him on 08/04/2025 to the OR where cystoscopy and stent placement was performed. Plan is for outpatient lithotripsy after he is discharged. He was maintained on aggressive IV fluids. He required transitioning to a bicarb drip due to his acidosis related to his renal failure. Once his acidosis resolved he was transitioned then to LR with large volumes until his kidney function improved. Kidney function slowly improved over days with just IV fluids. We did place him back on Imodium initially twice a day and then we will be discharging him on Imodium 2 mg once a day to help with his ostomy output and control the volume and consistency. He was also restarted on calcium which will hopefully help prevent further nephrolithiasis formation. Creatinine at time of discharge was 4.99. I did discuss with nephrology on setting up outpatient IV infusions which she has required in the past. They will go ahead and have Dr. Kaur, his primary care physician, help set this up for 1-2 times a week to avoid dehydration and further kidney insult. Patient does show signs consistent with depression. I did offer him some antidepressants to help assist with his mood but patient declined. The patient was able to be discharged home in stable condition on 08/10/2025. Discharge diagnoses: JANA secondary to ATN from dehydration CKD stage IIIb Anion gap metabolic acidosis Chronic anemia Hydronephrosis secondary to nephrolithiasis status post stent placement High output ostomy History of ulcerative colitis status post bowel resection ileostomy Abdominal hernia Essential hypertension Hyperlipidemia Depression Physical Exam Const alert, oriented x3, no apparent distress, average body habitus, no limitations and well nourished Constitutional Narrative: Older, white male, overweight, lying in bed, appears comfortable, does not look toxic General Appearance: cooperative, comfortable, well kempt and well developed Nutritional Appearance: overweight HEENT normocephalic, head/scalp atraumatic, hearing grossly normal bilaterally and moist oral mucous membranes HEENT Narrative: Mallampati 2, no thrush Eyes conjunctivae normal Eyes Narrative: No scleral icterus Neck supple Neck Narrative: Trachea midline Resp normal respiratory effort, normal air movement, no retractions, no use of accessory muscles and clear to auscultation bilaterally Auscultation: Negative for rales, rhonchi or wheezes Cardio regular rate, regular rhythm, S1 normal heart sound, S2 normal heart sound, no murmurs, no rub, no gallops and no clicks Cardio Narrative: 2+ pedal and radial pulses GI normal to inspection, nondistended, normoactive bowel sounds, soft to palpation and non-tender GI Narrative: Ostomy output is significantly better than it was previously and less watery Extremity no clubbing, cyanosis or edema Extremity Narrative: 2+ pedal and radial pulses Skin no jaundice Neuro moves all extremities and no focal motor deficits Speech: speech normal Psych mental status grossly normal Psych Narrative: Affect still flat but a little bit less so today, patient remains depressed in appearance Weight / BMI Weight Weight: 81.7 kg Body Mass Index (BMI) 27.3 ABG / Lab / Microbiology Data 08/10/25 05:20 08/10/25 05:20 Laboratory: Laboratory Results - last 24 hr 08/10/25 05:20: WBC 6.6, RBC 2.81 L, Hgb 8.1 L, Hct 25.2 L, MCV 89.7, MCH 28.8, MCHC 32.1 D, RDW Std Deviation 44.7 H, RDW Coeff of Shavon 13.4, Plt Count 381, MPV 9.1, Sodium 139, Potassium 3.7, Chloride 104, Carbon Dioxide 24.2, Anion Gap 11, BUN 75 H, Creatinine 4.99 H, Estim Creat Clear Calc 13.33 L, Est GFR (MDRD) Non-Af 12 L, BUN/Creatinine Ratio 15.0, Glucose 89, Calcium 6.8 L, Phosphorus 5.0 H, Magnesium 1.3 L D/C Instructions Discharge Activity: Return to Normal Activity DC O2, CPAP, BIPAP Needs Home O2 Discharge instructions: No DC home with Oxygen: No Meaningful Use Info Meaningful Use Meaningful Use Diagnoses (Choose all that apply): None applicable Discharge Plan Admission Admit Date/Time: 08/02/25 17:00 Primary Reason for Your Visit: Abnormal outpatient labs Attending Provider: Chanell Kelly Primary Care Provider: Michael Kaur Consulting Providers: Andrea Lorenzo; Ramin Quintanilla; Brando Ponce; Dave Brandon Instructions Additional Instructions / Restrictions: 1. Dr. Kaur's office or Dr. Lorenzo's office should be contacting you to set up outpatient infusions for IV fluids 2. Please monitor your stool output closely. For now take Imodium 2 mg once daily but if output increases you may need to increase the dose. If out foot is significantly low you can consider holding a dose for a day or 2. Controlling your ostomy output is good to be very important in controlling your dehydration. Discharge Orders/Prescriptions Prescriptions: New calcium carbonate 200 mg calcium (500 mg) Tablet,Chewable 500 mg PO TIDCM Qty: 90 0RF Continued ferrous sulfate [Feosol] 325 mg (65 mg iron) tablet 325 mg PO QDAY cholecalciferol (vitamin D3) 1,000 UNIT tablet 1,000 unit PO DAILY tamsulosin 0.4 mg capsule 0.8 mg PO DAILY loperamide 2 mg Capsule 2 mg PO DAILY atorvastatin 20 mg tablet 20 mg PO QHS Referrals / Follow Up: Michael Kaur MD [Primary Care Provider, Family Practice] - In 1 Week Andrea Lorenzo MD [Med Staff - Consulting, Nephrology] - See Referral Note Referral Note: Office should call you for follow-up appointment Brando Ponce MD [Med Staff - Active Staff, Urology] - Within 1 Week Disposition Disposition (needs filled in before D/C Order can be placed): Home, Self Care Charges/Coding Visit Charges Inpatient E&M: 74042 Disch Hosp >30min
--- NOTE | 2025-08-10 13:23 | PHA.DC.MR.R ---
Pharmacy [place] Med Reconciliation Pharmacy Service has performed discharge medication reconciliation for this patient. The patient's discharge medication list was reviewed for discrepancies and discrepancies were resolved. Medications at Discharge Home Medications cholecalciferol (vitamin D3) 25 mcg (1,000 unit) tablet 1,000 unit PO DAILY SUPPLEMENT 05/31/19 atorvastatin 20 mg tablet 20 mg PO QHS CHOLESTEROL 03/28/24 loperamide 2 mg capsule 2 mg PO DAILY diarrhea 02/01/25 tamsulosin 0.4 mg capsule 0.8 mg PO DAILY BPH 02/01/25 ferrous sulfate 325 mg (65 mg iron) tablet (Feosol) 325 mg PO QDAY supplement 05/15/25 calcium carbonate 500 mg (2.5 x 200 mg calcium (500 mg)) PO TIDCM #90 tabs 08/10/25
--- NOTE | 2025-08-10 14:00 | CASEMGMT ---
Patient has order for discharge. RN CM in to discuss needs at discharge, at bedside. Patient denies needs or help at discharge. Patient had no further questions or concerns.
[2025-08-10 14:40] VITALS: BP 99/56; PULSE 87; RESP 16; TEMP 36.4; O2SAT 99
--- NOTE | 2025-08-10 19:08 | PN.RENAL_ITS ---
Subjective Subjective no new complaints Objective Data Objective Data Vital Signs: Vital Signs Temp Pulse Resp BP Pulse Ox O2 Del Method 97.6 F L 87 16 99/56 L 99 Room Air 08/10/25 14:40 08/10/25 14:40 08/10/25 14:40 08/10/25 14:40 08/10/25 14:40 08/10/25 14:40 Oxygen Delivery Method Room Air Weight: 81.7 kg Body Mass Index (BMI) 27.3 Intake & Output: Intake and Output for Last 24 Hours 08/08/25 08/09/25 08/10/25 23:59 23:59 23:59 Intake Total 5782.33 / 5782.33 4962.5 / 4962.5 2099 Balance 5782.33 / 5782.33 4962.5 / 4962.5 2099 Lab / Micro Data 08/10/25 05:20 08/10/25 05:20 Labs: Laboratory Results - last 24 hr 08/10/25 05:20: WBC 6.6, RBC 2.81 L, Hgb 8.1 L, Hct 25.2 L, MCV 89.7, MCH 28.8, MCHC 32.1 D, RDW Std Deviation 44.7 H, RDW Coeff of Shavon 13.4, Plt Count 381, MPV 9.1, Sodium 139, Potassium 3.7, Chloride 104, Carbon Dioxide 24.2, Anion Gap 11, BUN 75 H, Creatinine 4.99 H, Estim Creat Clear Calc 13.33 L, Est GFR (MDRD) Non-Af 12 L, BUN/Creatinine Ratio 15.0, Glucose 89, Calcium 6.8 L, Phosphorus 5.0 H, Magnesium 1.3 L Physical Exam Narrative Alert and oriented x 3, no apparent distress S1, S2, RRR Lungs sound clear. No wheezes, rhonchi or rales. On room air Abdomen soft, nontender, nondistended. No edema Assessment & Plan Assessment/Plan (1) Acute kidney injury superimposed on stage 3b chronic kidney disease: (2) Hypokalemia: PLAN: Plan This is a 69-year-old male with past medical history significant for chronic kidney disease stage IIIb from biopsy-proven Aquilino's in April 2018, baseline creatinine had been ranging around 2.2 to 2.4 mg/dL who presented to the emergency room yesterday due to abnormal labs, creatinine was 10, bicarb 12.3, potassium 3.7. Patient was admitted and started on IV fluids, bicarb drip. Patient is currently off IV fluids. Likely JANA secondary to increased ostomy output, significant volume depletion and recommend to continue with IV fluids. We will start LR at 150/hour, will not restart back on bicarb drip due to hypocalcemia. Also to note potassium slightly low at 3.1, patient did receive potassium supplement. Labs from this morning are pending. Patient does not need renal diet restrictions. At this time there is no acute indication for ACTIVITIES THERAPIST. Patient states he is making urine. Recommend strict urine output measurement. Blood pressure is acceptable, patient not on any antihypertensives. Last hospitalization in January 2025 patient was noted to have kidney stones per noncontrast CT and underwent cystoscopy with removal of kidney stones per urology. For this admission renal ultrasound noted calculi in right and left kidney with mild hydronephrosis of bilateral kidneys. Recommend consulting urology as patient is known to them. Further orders forthcoming as hospitalization evolves, thank you for allowing us to participate in the care of Mr. De Leon. Assessment and plan reviewed with Dr. Lorenzo. 08/05/25. Status post stenting by urology. Urine output is better subjectively. Creatinine better. Still acidotic. Continue Ringer's lactate, will likely regional climate change analyst to bicarbonate tomorrow or so. Phosphate levels are improving hence calcium levels should stabilize. I think JANA is a combination of volume depletion and obstruction. 08/06/2025. Creatinine is better today. Good urine output as per him. Bicarbonate is still pretty low. Will change IV fluids to bicarbonate based solution today. Asking about discharge plans. We can decide based on labs tomorrow. 08/07/2025; overall renal function has improved, serum creatinine 7.2 mg/dL today (peak creatinine 10.4 on 08/03). No acute indication for renal placement therapy. Recommend to continue on bicarb drip for another day, bicarb improving up to 17.7 today. Potassium 3.2, replacement ordered. Patient does not need to follow any renal diet restrictions, reviewed this with patient and his . Labs ordered for morning. Assessment and plan reviewed with Dr. Lorenzo. 08/08/2025; renal function continues to improve daily, today SCr 6.67. K+ normal. Bicarb 22. Per patient he is having good urine output. Bicarb drip stopped and started on LR. We recommend to keep on IV fluids again today. Restarted back on Imodium twice daily. Labs ordered for am. Assessment and plan reviewed with Dr. Lorenzo. 08/09/2025. Creatinine continues to improve. Potassium normal. Bicarbonate normal. Urine output is okay. Creatinine still on the higher side even though better. Discussed with hospitalist. In the past we have arranged IV fluid with primary care physician at [facility] infusion center. This is related to fluid losses in the stoma. Apparently he is not taking Imodium as prescribed. If needed can reach out to his primary care physician about rearranging this. 08/10/25. cr trending down. we discussed about using imodium more often. I sent a message to Dr Kaur his PCP in [facility] about possible IV fluid arrangement in infusion center. isamar Kelly. ok to dc from my end
== END 2025-08-10 15:10 | disposition home or self-care (01) | DRG 987 ==
LOC: ED 17:31 → PCU 17:54
PROVIDERS: Anesthesiology; Internal Medicine; Nurse Practitioner Adult Health; Urology; Admitting Provider Hospitalist; Emergency Provider Surgery; PCP Family Medicine; Visit Provider Internal Medicine
PROC: 0T778DZ Dilation of Left Ureter with Intraluminal Device, Via Natural or Artificial Opening Endoscopic (ICD-10-PCS; principal; 2025-08-04 11:35)
DX: E86.0 Dehydration (principal); N17.0 Acute kidney failure with tubular necrosis; N13.8 Other obstructive and reflux uropathy; N13.2 Hydronephrosis with renal and ureteral calculous obstruction; E87.29 Other acidosis; N18.32 Chronic kidney disease, stage 3b; D64.9 Anemia, unspecified; I12.9 Hypertensive chronic kidney disease with stage 1 through stage 4 chronic kidney disease, or unspecified chronic kidney disease; F32.A Depression, unspecified; Z93.2 Ileostomy status; E87.1 Hypo-osmolality and hyponatremia; E78.5 Hyperlipidemia, unspecified; E87.6 Hypokalemia; K46.9 Unspecified abdominal hernia without obstruction or gangrene; D75.839 Thrombocytosis, unspecified; Z86.718 Personal history of other venous thrombosis and embolism; Z79.82 Long term (current) use of aspirin; Z87.891 Personal history of nicotine dependence; N40.1 Benign prostatic hyperplasia with lower urinary tract symptoms; Z79.01 Long term (current) use of anticoagulants; Z87.19 Personal history of other diseases of the digestive system
CPT/HCPCS: 36415; 74176; 76000; 76770; 80048; 80053; 81001; 82570; 82607; 82728; 83540; 83550; 83735; 84100; 84300; 85025; 85027; 85045; 85610; 85730; 93005; 97802; 97803; 99285; A4216; C1769; C2617; J2405